=== PATIENT | female | born 1990 | race Caucasian/White ===

== ENCOUNTER 2024-12-11 08:51 | Outpatient (OUT) | payer OTHER, SELFPAY ==
[2024-12-11 10:18] LABS: Basophils Percent Auto 0.5 % (0.2-2.0); Eosinophils Absolute Auto 0.1 10^3/uL (0.0-0.7); Hematocrit 36.5 % (36.0-48.0); Hemoglobin 12.2 g/dL (12.0-16.0); Immature Granulocytes Abs Auto 0.01 10^3/uL (0.00-0.03); Immature Granulocytes Pct Auto 0.1 % (0.0-0.5); Lymphocytes Absolute Auto 1.9 10^3/uL (1.2-3.8); Lymphocytes Percent Auto 23.6 % (20.5-60.0); Mean Corpuscular HGB Conc 33.4 g/dL (29.9-35.2); Mean Corpuscular Hemoglobin 29.5 pg (26.7-34.0); Mean Corpuscular Volume 88.2 fL (81.0-99.0); Mean Platelet Volume 9.4 fL (9.5-13.5); Monocytes Absolute Auto 0.5 10^3/uL (0.3-0.8); Monocytes Percent Auto 5.7 % (1.7-12.0); Neutrophils Absolute Auto 5.5 10^3/uL (1.4-6.5); Neutrophils Percent Auto 69.1 % (43.0-75.0); Platelet Count 261 10^3/uL (150-450); Red Blood Count 4.14 10^6/uL (4.20-5.40); Red Cell Distribution Width 13.5 % (11.0-15.0)
[2024-12-11 10:27] LABS: BOX Test Reference Lab UNITY; BOX Test Sent Out UNITY
[2024-12-11 11:17] LABS: Estimated Average Glucose 108 mg/dL; Glycohemoglobin A1C 5.4 % (4.5-6.2)
[2024-12-12 05:07] LABS: HCV Ab Non Reactive (Non Reactive); HIV Ab/p24 Ag Screen Non Reactive (Non Reactive); Rubella Antibodies, IgG 9.62 index (Immune >0.99)
[2024-12-12 06:12] LABS: HBsAg Screen Negative (Negative)
[2024-12-12 12:09] LABS: Rapid Plasma Reagin, Quant Non Reactive titer (NonRea<1:1)
== END 2024-12-11 08:52 | disposition home or self-care (01) ==
LOC: LAB 08:59
PROVIDERS: PCP Family Medicine; Visit Provider Obstetrics & Gynecology
DX: Z34.01 Encounter for supervision of normal first pregnancy, first trimester (principal); Z36.0 Encounter for antenatal screening for chromosomal anomalies; N92.6 Irregular menstruation, unspecified
CPT/HCPCS: 36415; 83036; 85025; 86592; 86762; 86803; 86850; 86900; 86901; 87086; 87340; 87389

== ENCOUNTER 2025-02-05 11:01 | Outpatient (OUT) | payer OTHER, SELFPAY ==
--- OUTSIDE RECORDS SUMMARY | 2025-02-05 11:06 | XMS_ITS | CCD ---
Author Organization [facility] Care Team Providers Care Project Associate Name Role Phone Lamonte Martin Unavailable MOROCCO, JAY Unavailable Unavailable LAMONTE MARTIN Unavailable Unavailable TIMOTHY JAY Unavailable Unavailable LAMONTE MARTIN Unavailable Unavailable Deidre Addison Primary Care Physician Unavaila ble Maryana, Paul Arriola Unavailable Unavailable Emelyn, Vladimir Arriola Primary Care Physician Unavail able Emelyn, Vladimir Arriola Primary Care Physician Unavail able Emelyn, Vladimir Arriola Primary Care Physician Unavail able Emelyn, Vladimir Arriola Primary Care Physician Unavail able Emelyn, Vladimir Arriola Primary Care Physician Unavail able Maryana, Paul Arriola Unavailable Unavailable Maryana, Paul Arriola Primary Care Physician Unavapaige Dunaway, Vladimir Arriola Primary Care Physician Unavail able Emelyn, Vladimir Arriola Primary Care Physician Unavail able Prudence Aguilar MD Primary Care Provider Vladimir Dunaway Primary Care Physician Unavail able ROSEMARY, DR INGRAM Attending Unavailable REQUEST, NONE LISTED Primary Care Unavaila henri RILEY, DR INGRAM Consulting Unavailable ROSEMARY, DR INGRAM Admitting Unavailable REQUEST, NONE LISTED Primary Care Unavaila henri MIJARES, DR PAUL Arriola Admitting Unavailabl e KALI, DR SANDHYA Cueto Consulting Unavailable MARYANA, DR PAUL Arriola Attending Unavailabl e MARYANA, DR PAUL Arriola Consulting Unavailgemini e ANNIA, DR ANNEL Duncan Consulting Unavailable REQUEST, NONE LISTED Primary Care Unavaila ble ROSEMARY, DR INGRAM Admitting Unavailable ROSEMARY, DR INGRAM Attending Unavailable ROSEMARY, DR INGRAM Consulting Unavailable REQUEST, NONE LISTED Primary Care Unavaila henri MILNER, DR ANNEL Duncan Consulting Unavailable ROSEMARY, DR INGRAM Admitting Unavailable ROSEMARY, DR INGRAM Attending Unavailable ROSEMARY, DR INGRAM Consulting Unavailable Emelyn, Vladimir Arriola Primary Care Physician Unavail able PAUL MIJARES Referring Unavailable SECOR, PRUDENCE Garnica Primary Care Unavailable PAUL MIJARES Referring Unavailable SECOR, PRUDENCE Garnica Primary Care Unavailable Emelyn, Vladimir Arriola Primary Care Physician Unavail able Emelyn, Vladimir Arriola Primary Care Physician Unavail able Emelyn, Vladimir Arriola Primary Care Physician Unavail able Emelyn, Vladimir Arriola Primary Care Physician Unavail able Emelyn, Vladimir Arriola Primary Care Physician Unavail able Emelyn, Vladimir Arriola Primary Care Physician Unavail able Emelyn, Vladimir Arriola Primary Care Physician Unavail able Emelyn, Vladimir Arriola Primary Care Physician Unavail able Emelyn, Vladimir Arriola Primary Care Physician Unavail able [place] Prudence CASTILLO Primary Care Provider JOY TRAMMELL Referring Unavailable SECOR, PRUDENCE Garnica Primary Care Unavailable [place] Prudence CASTILLO Primary Care Provider [phone] NATALY RILEY Attending Unavailable Emelyn, Vladimir Arriola Primary Care Physician Unavail able Allergies Allergy Classification Reported Allergen(s) Allergy Type Date of Onset Reaction(s) Facility (16 sources) Doxycycline; Translations: [doxycycline hyclate] Drug Allergy [facility] (16 sources) Minocycline; Translations: [minocycline] Drug Allergy [facility] (16 sources) Tetracyclines Allergy to substance (disorder) [facility] (6 sources) Doxycycline Drug Allergy 1 Other (See Comments), Other, Unknown [facility] (6 sources) Minocycline Drug Allergy 1 Other (See Comments), Other [facility] [employer] Work Phone: Medications Current Medications Medication Drug Class(es) Dates Sig (Normalized) Sig (Original) Albuterol (1 source) beta2-Adrenergic Agonist ALBUTEROL SULFATE HFA IN Inhale into the lungs. 0 Active azelaic acid 200 mg/ml topical cream (20 sources) Start: 01-28-2025 Azelex 20 % topical cream 01/28/2025 apply a thin layer to the affected area(s) by topical route 2 times per day in the morning and evening Start: 01-28-2025 Azelex 20 % to pical cream 01/28/2025 apply a thin layer to the affected area(s) by topical route 2 times per day in the morning and evening Start: 10-28-2020 FINACEA 15 % F [facility] Start: 10-28-2020 End: 08-12-2021 Finacea 15 % topical foam 10/28/202008/12/2021 Apply thin layer to affected areas daily. Start: 02-18-2020 Finacea 15 % t opical foam 02/18/2020 Apply thin layer to affected areas daily. Benzepro (Microspheres) 7 % Topical Cleanser (2 sources) Start: 07-14-2016 BENZEPRO, MICROSPHERES, 7 % Clsr Apply 1 application topically daily. 180 g 2 07/14/2016 Active benzoyl peroxide 70 mg/ml medicated liquid soap (1 source) Start: 07-14-2016 Benzoyl Peroxi de (BENZEPRO CREAMY WASH) 7 % LIQD Apply 1 application topically daily 07/14/2016 Active betamethasone 0.5 mg/ml / clotrimazole 10 mg/ml topical cream (1 source) Azole Antifungal, Corticosteroid Start: 06-05-2024 clotrimazole-betamet h asone (LOTRISONE) 1-0.05 % cream Apply topically 2 times daily. 15 g 2 06/05/2024 Active ciclopirox 7.7 mg/ml topical cream (2 sources) Start: 08-22-2017 End: 08-22-2018 ciclopirox (LOPROX) 0.77 % cream Apply topically 2 (two) times a day Apply BID to feet. 30 g 1 08/22/2017 08/22/2018 Active Clascoterone (WINLEVI) 1 % CREA (1 source) Start: 11-11-2022 Clascoterone (WINLEVI) 1 % CREA Apply topically 11/11/2022 Active clindamycin 10 mg/ml topical lotion (20 sources) Lincosamide Antibacterial Start: 06-22-2022 clindamycin (CLEOCIN T) 1 % lotion 06/22/2022 Active Start: 12-18-2021 End: 03-03-2023 Cleocin T 1 % lotion 4/03/03/2023 apply BID to affected areas Start: 10-28-2020 End: 08-12-2021 clindamycin phosphate 1 % to pical gel 10/28/2020 08/12/2021 Apply thin layer to acne-prone areas daily. Start: 10-28-2020 End: 08-12-2021 clindamycin phosphate 1 % to pical gel 10/28/2020 08/12/2021 Apply thin layer to acne-prone areas daily. Start: 02-18-2020 clindamycin ph osphate 1 % topical gel 02/18/2020 Apply thin layer to acne-prone areas daily. doxylamine succinate 25 mg oral tablet (1 source) Start: 10-30-2014 take 0.5 tablet by mouth every six hours as needed for sleep doxyLAMINE succinate (UNISOM) 25 MG tablet Take 0.5 tablets by mouth every 6 hours as needed for Sleep. 14 tablet 0 10/30/2014 Active fluconazole 150 mg oral tablet (1 source) Azole Antifungal Start: 08-17-2024 End: 08-23-2024 fluconazole (DIFLUCAN) 150 MG tablet Indications: Acute cystitis with hematuria Take 1 tablet by mouth every 72 hours for 6 days 2 tablet 08/17/2024 08/23/2024 Active fluticasone propionate 0.05 mg/actuat metered dose nasal spray (1 source) Corticosteroid Start: 12-31-2020 take 1 spray(s) nasal route twice daily fluticasone (FLONASE) 50 MCG/ACT nasal spray 1 spray by Each Nostril route 2 times daily 2 Bottle 1 12/31/2020 Active Magnesium (4 sources) take 1 capsule by mouth once daily Magnesium 400 MG capsule Take 400 mg by mouth Daily Active nitrofurantoin, macrocrystals 25 mg / nitrofurantoin, monohydrate 75 mg oral capsule (1 source) Nitrofuran Antibacterial Start: 08-17-2024 End: 08-27-2024 take 1 capsule by mouth twice daily nitrofurantoin, macrocrystal-monohy drate, (MACROBID) 100 MG capsule Indications: Acute cystitis with hematuria Take 1 capsule by mouth 2 times daily for 10 days 20 capsule 08/17/2024 08/27/2024 Active Moclips-3 Fatty Acids (OMEGA-3 CF PO) (4 sources) take 1 dose by mouth once daily Moclips-3 Fatty Acids (OMEGA-3 CF PO) Take 1 each by mouth Daily Active ondansetron 4 mg disintegrating oral tablet (1 source) Serotonin-3 Receptor Antagonist Start: 08-17-2024 take 1 tablet by mouth three times daily as needed for nausea ondansetron (ZOFRAN-ODT) 4 MG disintegrating tablet Indications: Nausea Take 1 tablet by mouth 3 times daily as needed for Nausea or Vomiting 21 tablet 08/17/2024 Active Onexton 1.2 % (1 % Base)-3.75 % Topical Gel With Pump (2 sources) Start: 07-14-2016 ONEXTON 1.2 %(1 % base) -3.75 % GlwP Apply 1 application topically daily. 50 g 2 07/14/2016 Active phenazopyridine hydrochloride 200 mg delayed release oral tablet (1 source) Start: 08-17-2024 End: 08-20-2024 take 1 tablet by mouth three times daily as needed for pain phenazopyridine (PYRIDIUM) 200 MG tablet Indications: Acute cystitis with hematuria Take 1 tablet by mouth 3 times daily as needed for Pain 9 tablet 08/17/2024 08/20/2024 Active polysaccharide iron complex 391 mg oral capsule (17 sources) Start: 2020 End: 08-12-2021 take 1 capsule by mouth once daily PROFE 391.3 (180 Fe) MG CAPS TAKE 1 CAPSULE BY MOUTH ONCE DAILY 0 2020 Active Vit-Fe Fumarate-FA ( Vitamin Plus Low Iron) 27-1 MG tablet (4 sources) take 1 tablet by mouth once daily Vit-Fe Fumarate-FA ( Vitamin Plus Low Iron) 27-1 MG tablet Take 1 each by mouth 1 (one) time each day at the same time Active Vit-Fe Sulfate-FA ( MULTIVIT-IRON PO) (1 source) Vit-Fe Sulfate-FA ( MULTIVIT-IRON PO) Take by mouth. 0 Active pyridoxine hydrochloride 25 mg oral tablet (1 source) Start: 10-30-2014 take 1 tablet by mouth every six hours as needed pyridoxine (B-6) 25 MG tablet Take 1 tablet by mouth every 6 hours as needed. 20 tablet 0 10/30/2014 Active terconazole 4 mg/ml vaginal cream (1 source) Azole Antifungal Start: 12-18-2020 terconazole (TERAZOL 7) 0.4 % vaginal cream INSERT 1 APPLICATORFUL VAGINALLY AT BEDTIME FOR 7 DAYS 0 12/18/2020 Active triamcinolone acetonide 1 mg/ml topical cream (2 sources) Corticosteroid Start: 08-22-2017 End: 08-22-2018 triamcinolone (KENALOG) 0.1 % cream Apply topically 2 (two) times a day Apply BID to hands. 45 g 1 08/22/2017 08/22/2018 Active WINLEVI 1 % CREA (1 source) Start: 02-11-2023 WINLEVI 1 % CREA 02/11/2023 Active Completed/Discontinued Medications Medication Drug Class(es) Dates Sig (Normalized) Sig (Original) benzoyl peroxide 0.05 mg/mg / clindamycin phosphate 0.012 mg/mg topical gel (20 sources) Lincosamide Antibacterial Start: 12-25-2024 clindamycin 1.2 % (1 % base)-benzoyl peroxide 5 % topical gel 12/25/2024 APPLY TOPICALLY TO AFFECTED AREA ONCE DAILY Start: 10-10-2023 Clindamycin Ph os-Benzoyl Perox 1.2-5 % External Gel 03/21/2024 APPLY TOPICALLY TO AFFECTED AREA ONCE DAILY Start: 11-09-2021 End: 03-03-2023 clindamycin-benzoyl peroxide topical gel 1.2 %(1 % base) -5 % 11/09/2021 03/03/2023 apply once daily to affected areas Start: 11-09-2021 clindamycin-be nzoyl peroxide topical gel 1.2 %(1 % base) -5 % 11/09/2021 Start: 07-14-2016 Clindamycin Ph os-Benzoyl Perox (ONEXTON) 1.2-3.75 % GEL Apply 1 application topically daily 07/14/2016 Active calcium carbonate 500 mg chewable tablet (16 sources) End: 08-12-2021 take 1 tablet by mouth once daily Tums 200 mg calcium (500 mg) chewable tablet 08/12/2021 chew 1 tablet by oral route daily Candicidal 100 mg-150 mg-50 mg-150 mg capsule (15 sources) End: 07-06-2023 take 1 capsule by mouth once daily Candicidal 100 mg-150 mg-50 mg-150 mg capsule 07/06/2023 take 1 capsule by oral route daily take 1 capsule by mouth once jose ly Candicidal 100 mg-150 mg-50 mg-150 mg capsule take 1 capsule by oral route daily dapsone 0.075 mg/mg topical gel (6 sources) Sulfone Start: 07-18-2023 Aczone 7.5 % t opical gel with pump 07/18/2023 apply diffusely to face QD Start: 07-06-2023 Aczone topical gel with pump 7.5 % 07/06/2023 apply diffusely to face QD DIM (9 sources) DIM as directed doxycycline monohydrate 100 mg oral capsule (20 sources) Tetracycline-class Drug Start: 0 End: 0 take 1 capsule by mouth twice daily at mealtime doxycycline monohydrate 100 mg oral capsule 02/18/2020 06/06/2020 Take 1 capsule by mouth twice daily with food. Ortho Tri-Cyclen (28) 0.18/0.215/0.25 mg-35 mcg (28) oral tablet (20 sources) Progestin, Estrogen End: 0 take 1 tablet by mouth once daily Ortho Tri-Cyclen (28) 0.18/0.215/0.25 mg-35 mcg (28) oral tablet 02/18/2020 take 1 tablet by oral route once daily for 1 day fenugreek seed extract Oral capsule 500 mg (8 sources) End: 0 take 2 capsules by mouth three times daily fenugreek seed extract Oral capsule 500 mg 06/06/2020 take 2 capsules by oral route 3 times a day fenugreek seed extract Oral capsule 500 mg (16 sources) End: 0 take 2 capsules by mouth three times daily fenugreek seed extract Oral capsule 500 mg 06/06/2020 take 2 capsules by oral route 3 times a day take 2 capsules by m outh three times daily fenugreek seed extract Oral capsule 500 mg take 2 capsules by oral route 3 times a day Fish Oils (16 sources) End: 08-12-2021 take 1 capsule by mouth once daily Fish Oil 1,000 mg (120 mg-180 mg) capsule 08/12/2021 take 1 capsule by oral route daily minocycline 50 mg oral capsule (20 sources) Tetracycline- class Drug End: 02-18-2020 take 1 capsule by mouth twice daily minocycline 50 mg oral capsule 02/18/2020 take 1 capsule (50 mg) by oral route 2 times per day Mother Ivana Special Blend (20 sources) End: 06-06-2020 Mother Ivana Special Blend 06/06/2020 1 capsule 4 times per day Mother Ivana Spec ial Blend 1 capsule 4 times per day multivitamin tablet (9 sources) take 1 tablet by mouth once daily multivitamin tablet take 1 tablet by oral route daily 28 mg iron-800 mcg tablet (16 sources) take 1 tablet by mouth once daily 28 mg iron-800 mcg tablet take 1 tablet by oral route daily tretinoin 0.25 mg/ml topical cream (16 sources) Retinoid Start: 11-21-2023 Retin-A 0.025 % topical cream 11/21/2023 apply to the affected area(s) by topical route once daily at bedtime Start: 07-18-2023 Retin-A 0.05 % topical cream 07/18/2023 apply to the affected area(s) by topical route once daily at bedtime Start: 07-06-2023 Retin-A topica l cream 0.05 % 07/06/2023 apply to the affected area(s) by topical route once daily at bedtime Start: 02-04-2023 Retin-A 0.1 % topical cream 02/04/2023 apply to the affected area(s) by topical route once daily at bedtime Start: 10-25-2022 tretinoin (RET IN-A) 0.1 % cream 10/25/2022 Active Start: 06-08-2022 Retin-A topica l cream 0.1 % 06/08/2022 apply to the affected area(s) by topical route once daily at bedtime Start: 11-09-2021 Retin-A topica l cream 0.05 % 11/09/2021 apply QHS to face Winlevi 1 % topical cream (1 source) Start: 11-11-2022 Winlevi 1 % to pical cream 11/11/2022 apply a thin layer to the affected area(s) by topical route 2 times per day Winlevi 1 % topical cream (8 sources) Start: 05-28-2024 Winlevi 1 % to pical cream 05/28/2024 apply a thin layer to the affected area(s) by topical route 2 times per day Start: 01-10-2024 Winlevi 1 % to pical cream 01/10/2024 apply a thin layer to the affected area(s) by topical route 2 times per day change of pharm Start: 04-21-2023 Winlevi 1 % to pical cream 04/21/2023 apply a thin layer to the affected area(s) by topical route 2 times per day change of pharm Start: 02-11-2023 Winlevi 1 % to pical cream 02/11/2023 apply a thin layer to the affected area(s) by topical route 2 times per day Problems Active Problems Problem Classification Problem Date Documented Date Episodic/Chronic Asthma (17 sources) Unspecified asthma, uncomplicated; Translations: [Uncomplicated asthma] Onset: 03-16-2021 05-18-2022 Chronic Immunizations and screening for infectious disease (1 source) Encounter for screening for human papillomavirus (HPV); Translations: [ENC SCREENING HUMAN PAPILLOMAVIRUS] Onset: 07-18-2022 Episodic Neoplasms of unspecified nature or uncertain behavior (4 sources) Neoplasm of uncertain behavior of skin Onset: 01-28-2025 Episodic Other complications of ; puerperium affecting management of mother (1 source) Anemia in mother complicating childbirth; Translations: [Anemia complicating childbirth] Onset: 03-16-2021 05-18-2022 Chronic Other complications of (1 source) Anemia of ; Translations: [Anemia complicating , unspecified trimester] Onset: 01-06-2021 05-18-2022 Chronic Other female genital disorders (4 sources) Abnormal uterine and vaginal bleeding, unspecified; Translations: [ABNORMAL UTERINE VAGINAL BLEED UNS] Onset: 07-09-2022 Chronic Other female genital disorders (1 source) Abnormal uterine bleeding; Translations: [Abnormal uterine and vaginal bleeding, unspecified] Onset: 03-13-2022 05-18-2022 Chronic Other non-traumatic joint disorders (16 sources) Pain in unspecified joint Episodic Other and delivery including normal (2 sources) Second trimester ; Translations: [Encounter for supervision of normal , unspecified, second trimester] 01-07-2025 Episodic Other screening for suspected conditions (not mental disorders or infectious disease) (20 sources) Other specified abnormal findings of blood chemistry; Translations: [Encounter for screening for malignant neoplasm of cervix] Onset: 10-16-2020 Resolved: 06-17-2022 Episodic Other skin disorders (9 sources) Other acne Onset: 02-18-2020 Episodic Other skin disorders (5 sources) Dyschromia, unspecified Onset: 02-18-2020 Episodic Other skin disorders (14 sources) Acne, unspecified Onset: 10-10-2023 Episodic Residual codes; unclassified (2 sources) Gestation period, 15 weeks; Translations: [15 weeks gestation of ] 01-07-2025 Episodic Systemic lupus erythematosus and connective tissue disorders (20 sources) Systemic lupus erythematosus; Translations: [Systemic lupus erythematosus, unspecified] Onset: 04-24-2020 05-18-2022 Chronic Thyroid disorders (20 sources) Hyperthyroidism; Translations: [Thyrotoxicosis without mention of goiter or other cause, and without mention of thyrotoxic crisis or storm] Onset: 08-12-2021 Chronic Urinary tract infections (1 source) Acute cystitis; Translations: [Acute cystitis with hematuria] 08-17-2024 Episodic Past or Other Problems Problem Classification Problem Date Documented Date Episodic/Chronic Acute posthemorrhagic anemia (1 source) Acute posthemorrhagic anemia; Translations: [Acute posthemorrhagic anemia] Onset: 1 05-18-2022 Episodic Allergic reactions (7 sources) Allergic contact dermatitis; Translations: [Eczema] Onset: 7 Episodic Mycoses (3 sources) Tinea pedis; Translations: [Tinea pedis] Onset: 7 Episodic Other and unspecified benign neoplasm (3 sources) Hemangioma unspecified site Onset: 4 Episodic Other skin disorders (20 sources) Alopecia, unspecified Onset: 3 Episodic Other skin disorders (20 sources) Acne vulgaris Onset: 0 Episodic Other skin disorders (19 sources) Postinflammatory hyperpigmentation Onset: 0 Episodic Other skin disorders (20 sources) Nonscarring hair loss, unspecified; Translations: [Nonscarring hair loss, unspecified] Onset: 2 Episodic Other skin disorders (1 source) Acne vulgaris; Translations: [Acne vulgaris] Onset: 0 05-18-2022 Episodic Other skin disorders (1 source) Alopecia areata; Translations: [Alopecia areata, unspecified] Onset: 3 05-18-2022 Episodic Other skin disorders (1 source) Disorder of pigmentation; Translations: [Disorder of pigmentation, unspecified] Onset: 0 05-18-2022 Episodic Residual codes; unclassified (14 sources) Insomnia, unspecified; Translations: [Insomnia, unspecified] Onset: 2 Episodic Residual codes; unclassified (1 source) Gestation period, 39 weeks; Translations: [39 weeks gestation of ] Onset: 1 05-18-2022 Episodic Residual codes; unclassified (1 source) Insomnia; Translations: [Insomnia, unspecified] Onset: 2 11-10-2023 Episodic Thyroid disorders (19 sources) Disorder of thyroid, unspecified; Translations: [Disorder of thyroid gland] Onset: 1 05-18-2022 Episodic Results Test Name Value Interpretation Reference Range Facility Urinalysis macro (dipstick) panel (U)on 01-07-2025 Bilirubin, UA Negative Negative - 4(70) +++ mg/dL [facility] Blood, UA Negative Negative - 50 Thor/mcL [facility] Clarity, UA Clear [facility] Color, UA Yellow [facility] Glucose, UA Negative Negative - 2000(110) ++++ mg/dL [facility] Interpretation and review of laboratory results Normal [facility] Ketones, UA Negative Negative - 160(16) ++++ mg/dL [facility] Leukocytes, UA Negative Negative - 500+++ Georgina/mcL [facility] Nitrite, UA Negative Negative - Positive [facility] pH, UA 5.5 5 - 9 [facility] Protein, UA Negative Negative - 2000(20) ++++ mg/dL [facility] Spec Grav, UA 1.025 1 - 1.03 [facility] Urobilinogen, UA 0.2 0.2 - 12 mg/dL [facility] US OB TRANSVAGINALon 025 US OB TRANSVAGINAL EXAM: US OB TRANSVAGINAL HISTORY: Dating. COMPARISON: None available. TECHNIQUE: Two-dimensional transvaginal grayscale ultrasound imaging of the pelvis was performed. FINDINGS: The uterus demonstrates a normal homogeneous echotexture. The cervix measures 4.4 cm in length and the cervical os is closed. The bilateral ovaries are not visualized due to overlying bowel gas. No fluid is present within the cul-de-sac. There is a single, live intrauterine gestation identified with a heart rate of 170 beats per minute and a crown-rump length measurement of 3.4 cm, correlating to a gestational age of 10 weeks 2 days (+/- 5 days). There is no subchorionic hemorrhage visualized. A yolk sac is visualized. IMPRESSION: 1. Single, live intrauterine gestation 10 weeks, 5 days by LMP. Today's ultrasound measurements correlate with a gestational age of 10 weeks 2 days (+/- 5 days). JULIO by today's ultrasound is 07/02/2025. 2. Bilateral ovaries not visualized due to overlying bowel gas. Electronically Signed:Electronicall y signed by BHAVANI OCONNELL II, MD, PHD at 07-Dec-2024 08:32:38 PM [facility] Normal Not Available Comment on above: Order Comment: US OB TRANSVAGINAL No LMP recorded. Culture, Urineon 08-17-2024 [place] - Organism 01 Escherichia coli Abnormal [facility] Comment on above: Order Comment: [place] - Source of Urine Collection? Urine clean catch\[id number]\Performed by [facility] [address] [place] [address] [place] - Source of Urine Collection? Urine clean catch [place] - Current Antibiotic Therapy? No Answer Given Performed By: #### C UR #### [facility] See Report [place] - SOURCE urine, clean catch Normal [facility] Comment on above: Order Comment: [place] - Source of Urine Collection? Urine clean catch\[id number]\Performed by [facility] [address] [place] [address] [place] - Source of Urine Collection? Urine clean catch [place] - Current Antibiotic Therapy? No Answer Given Performed By: #### C UR #### [facility] See Report [place] - URINE CULTURE [place] count: >100,000 CFU/mL Normal [facility] Comment on above: Order Comment: [place] - Source of Urine Collection? Urine clean catch\[id number]\Performed by [facility] [address] [place] [id number] [place] - Source of Urine Collection? Urine clean catch [place] - Current Antibiotic Therapy? No Answer Given Performed By: #### C UR #### [facility] See Report URINE CULTUREon 08-17-2024 Bacteria identified Cx Nom (U) MICROBIOLOGY REPORT [facility], [address] [place] [address], [place], [address] PATIENT: KELLY GONZALEZ LOCATION: [facility] - - : 1990 AGE: 33 SEX: F ADM: 08/17/24 Att. Physician: PHYSICIAN, NON-STAFF Order Id: [id number] Req. Physician: PHYSICIAN, NON-STAFF Source: urine, clean catch Site: Collected: 08/17/24 16:24 Current Antibiotics: not stated Antibiotics comment: C O M M E N T S ---- [place] - Source of Urine Collection? Urine clean catch STATUS OF ORDERED AND REPORTED TESTS URINE CULTURE FINAL 08/19/24 URINE CULTURE FINAL 08/19/24 09:01 Organism 01 Escherichia coli [place] count: >100,000 CFU/mL Organism 01-esccol Antibiotic [facility] Intrp *Adult dosage Pk bld level Pk urine lev. Amoxicillin/CA <=2 S PO 250-500mg/q 8 hrs. 4.4-7.6 Amox/ . 2.3 clavulani Piperacillin/Ta <=4 S IV 3.375gm 242 Cefazolin <=4 S IV 1000mg 188 Cefoxitin <=4 S IV 1000mg 110 Ceftriaxone <=1 S IV 1000mg 150 995 Ampicillin 4 S PO 500mg (fasting) 2.5-4.0 IV 2g q 6 h 100 Cefepime <=1 S IV 2000mg 164 Trimethoprim/Mane>=320 R [id number]/800mgSMX q 12h 1-2TMP/[id number] P/97SM IV 160mgTMP/800mgSMX q 8 h9TMP/105 SMX Gentamicin <=1 S IV 1.7mg/kg q 8 h 5-7 >=100 Ciprofloxacin <=0.25 S PO 750 mg q 12 h 3.6 IV 400 mg q 12 h 4.6 Levofloxacin <=0.12 S IV 250-500mg 12.1 Tetracycline <=1 S PO 250mg 2-4 100 Nitrofurantoin <=16 S PO 100mg <1.0 15-46 S=Susceptible I=Intermediate R=Resistant Susceptibility is determined by comparing the MICA of organism to the achievable blood or urine level of drug. Level at the site of infection should be a minimum of 5-10 times the MICA. MICA and blood and urine levels=mcg/ml.*Stand giuliana dosages from [place] Guide to Antimicrobial Therapy and assumes moderate infection in normal adult populations. For pts. with renal or liver disease consult PDR or pharmacist. Normal [facility] No Panel Informationon 05-23 Tobacco smoking status Non-Smoker Invalid Interpretation Code [facility] - Chemistry and C hemistry - challengeon 04-18-2023 TSH Qn 1.23 m[IU]/L Invalid Interpretation Code 0.50-4.00 [facility] Thyroxine T4on 08-11-2022 T4 [Mass/Vol] 6.4 ug/dL Normal 4.5-10.9 [facility] Comment on above: Performed By: #### T 4, T3 #### [address] [id number] Therapeutic Recreation Assistant: Ramiro Blandon MD #### TSH #### [address] [place] [address] Therapeutic Recreation Assistant: Annel García MD Triiodothyronine T3on 08-11 2021 Triiodothyronine T3 96 ng/dL Normal 60-181 [facility] Comment on above: Performed By: #### T 4, T3 #### [address] [id number] Therapeutic Recreation Assistant: Ramiro Blandon MD #### TSH #### [address] [place] [address] Therapeutic Recreation Assistant: Annel García MD Laboratory - Chemistry and C hemistry - challengeon 08-10-2022 T3 [Mass/Vol] 96.0 ng/dL Invalid Interpretation Code [facility] T4 [Mass/Vol] 6.4 ug/dL Invalid Interpretation Code [facility] TSH Qn 0.41 m[IU]/L Invalid Interpretation Code [facility] [employer] [facility] No Panel Informationon 08-10 jls Invalid Interpretation Code [facility] Thyroid Stim. Horm.on 2021 Thyroid Stim. Horm. 0.41 uIU/mL Normal 0.30-5.00 [facility] Comment on above: Performed By: #### T 4, T3 #### [facility] [address] [place] [address] Therapeutic Recreation Assistant: Ramiro Blandon MD #### TSH #### [facility] [address] [place] [address] Therapeutic Recreation Assistant: Annel García MD PAP ACOG PANEL 2: 30 to 65on 07-21-2022 . . Normal [facility] Comment on above: Result Comment: Perf ormed at: WB Performed By: #### [id number] #### [facility] [address] [place] [address] Dr. Jaci Irene Age Gdln ACOG Testing 30-65 Normal [facility] Comment on above: Performed By: #### [id number] #### [facility] [address] [address] [address] Jaci Irene DIAGNOSIS: Comment Normal [facility] Comment on above: Result Comment: NEGA TIVE FOR INTRAEPITHELIAL LESION OR MALIGNANCY. CELLULAR CHANGES ASSOCIATED WITH INFLAMMATION ARE PRESENT. Performed at: WB Performed By: #### [id number] #### [facility] [address] [place] [address] Dr. Jaci Irene HPV Aptima Negative Normal Negative [facility] Comment on above: Result Comment: This nucleic acid amplification test detects fourteen high-risk HPV types (16,18,31,33,35,39,45,51,52,56,58,59,66,68) without differentiation. Performed at: =G Performed By: #### 4 [id number] #### [facility] [address] [place] [address] Dr. Jaci Irene HPV Genotype Reflex Comment Normal [facility] Comment on above: Result Comment: Crit eria not met, HPV Genotype not performed. Performed at: WB Performed By: #### 4 [id number] #### [facility] [address] [place] [address] Dr. Jaci Irene Methodology: Comment Normal [facility] Comment on above: Result Comment: This liquid based ThinPrep(R) pap test was screened with the use of an image guided system. Performed at: WB Performed By: #### [id number] #### [facility] [address] [place] [address] Dr. Jaci Irene Note: Comment Normal [facility] Comment on above: Result Comment: The Pap smear is a screening test designed to aid in the detection of premalignant and malignant conditions of the uterine cervix. It is not a diagnostic procedure and should not be used as the sole means of detecting cervical cancer. Both false-positive and false-negative reports do occur. . Performed at: WB Performed By: #### [id number] #### [facility] [address] [place] [address] Dr. Jaci Irene Performed by: Comment Normal [facility] Comment on above: Result Comment: Kirill Azevedo Stencil Inspector (ASCP) Performed at: WB Performed By: #### 4 [id number] #### [facility] [address] [place] [address] Dr. Jaci Irene Specimen adequacy: Comment Normal [facility] Comment on above: Result Comment: Sati sfactory for evaluation. Endocervical and/or squamous metaplastic cells (endocervical component) are present. Performed at: WB Performed By: #### 4 [id number] #### [facility] [address] [place] [address] Dr. Jaci Irene Laboratory - Cytologyon 06-20 Cytology report Cyto stain.thin prep Doc (Cvx/Vag) Pap Smear / Cervical Cytology Invalid Interpretation Code [facility] - Microbiology an d Antimicrobial susceptibilityon 07-14-2022 HPV 16+18+31+33+35+45+51 +52+56 DNA Probe Ql (Cvx) HPV-DNA Test Invalid Interpretation Code [facility] US PELVIS AND TRANSVAGon US PELVIS AND TRANSVAG EXAMINATION: US PELVIS AND TRANSVAG HISTORY: Abnormal uterine bleeding unrelated to menstrual cycle COMPARISON: No relevant comparison available. FINDINGS: The uterus is normal in size, contour and echotexture measuring 8.6 x 4.2 x 5.9 cm. No focal myometrial mass. Anechoic echogenicity along the scar measuring 2 mm with thinning of the adjacent myometrial wall measuring 4 mm The endometrium measures 7.5 mm. Small amount of fluid measuring up to 2 mm. The right ovary is normal in appearance measuring 3.9 x 1.5 x 1.4 cm. Normal color and Doppler ultrasound The left ovary is normal in appearance measuring 4.2 x 1.6 x 2.3 cm. Normal color and Doppler ultrasound IMPRESSION: No abnormality to explain the patient's menorrhagia Electronically authenticated by: ANNEL MILNER Date: 2022-07-09 15:36 Normal [facility] Thyroxine T4on 03-17-2022 T4 [Mass/Vol] 6.3 ug/dL Normal 4.5-10.9 [facility] Comment on above: Performed By: #### F T3, T4 #### [facility] [address] [place] [address] Therapeutic Recreation Assistant: Ramiro Blandon MD #### TSH #### [facility] [address] [place] [address] Therapeutic Recreation Assistant: Annel García MD Laboratory - Chemistry and C hemistry - challengeon 03-16-2022 Free T3 [Mass/Vol] 2.960 pg/mL Invalid Interpretation Code [facility] T4 [Mass/Vol] 6.3 ug/dL Invalid Interpretation Code [facility] TSH Qn 0.61 m[IU]/L Invalid Interpretation Code [facility] No Panel Informationon 03-16 ls Invalid Interpretation Code [facility] T3, Freeon 03-16-2022 Free T3 [Mass/Vol] 2.96 pg/mL Normal 2.02-4.43 [facility] Comment on above: Performed By: #### F T3, T4 #### [facility] [address] [place] [address] Therapeutic Recreation Assistant: Ramiro Blandon MD #### TSH #### [facility] [address] [place] [address] [place] [address] Therapeutic Recreation Assistant: Annel García MD Free T3 [Mass/Vol] 2.96 pg/mL 2.02 - 4. 43 pg/mL [facility] TSHon 03-16-2022 [facility] Thyroid Stim. Horm.on 2021 Thyroid Stim. Horm. 0.61 uIU/mL Normal 0.30-5.00 [facility] Comment on above: Performed By: #### F T3, T4 #### [facility] [address] [place] [address] Therapeutic Recreation Assistant: Ramiro Blandon MD #### TSH #### [facility] [address] [place] [address] Therapeutic Recreation Assistant: Annel García MD US PELVIS AND TRANSVAGon US PELVIS AND TRANSVAG EXAMINATION: US PELVIS AND TRANSVAG HISTORY: Abnormal uterine bleeding unrelated to menstrual cycle COMPARISON: 10/29/2020 FINDINGS: The uterus is normal in size and contour with heterogeneous echotexture. No focal myometrial mass. The uterus measures 9.2 x 4.7 x 5.0 cm. The endometrium is prominent measuring up to 1.7 cm thick on transvaginal images The right ovary is normal in size, contour and echotexture measuring 2.0 x 1.3 x 1.7 cm. Normal subcentimeter follicles. Normal color and Doppler flow. PSV/EDV: 21/10.6 cm/s. Resistive index 0.49. The left ovary is normal in size, contour and echotexture measuring 4.4 x 2.0 x 2.7 cm. Normal subcentimeter follicles. Normal color and Doppler flow. PSV/EDV: 22.4/13.5 cm/s. Normal resistive index of 0.4.. IMPRESSION: Prominent endometrium measuring 1.7 cm thick Electronically authenticated by: ANNEL MILNER Date: 2022-03-15 07:03 Normal [facility] IODINE, SERUM OR PLASMAon Iodine, Serum or Plasma 66.7 ug/L Normal 40.0-92.0 [facility] Comment on above: Result Comment: Limi t of quantitation = 20 Performed By: #### I ODINE #### [facility] [address] [address] [address] Jaci Irene THYROID-STIMULATING IMMUNOGL OBULINon 08-05-2021 Thyroid Sim Immunoglobulin <0.10 Normal 0.00-0.55 [facility] Comment on above: Performed By: #### T ELAINA #### [facility] [id number] Jaci Irene T3, TOTAL (TRIIODOTHYRONINE) on 08-04-2021 T3, TOTAL 168 ng/dL Normal 71-180 [facility] Comment on above: Performed By: #### T 3TOTAL ####[facility] [id number] [place], [place] [address]AmDr. Jaci Irene US THYROIDon 08-04-2021 US THYROID EXAMINATION: US THYROID HISTORY: Blood chemistry abnormal COMPARISON: No relevant comparison available. FINDINGS: RIGHT LOBE: Normal size and echotexture. Lobe size: 4.8 x 1.3 x 1.1 cm LEFT LOBE: Normal size and echotexture except for an incidental 3 mm colloid cyst.. Lobe size: 5.0 x 1.1 x 1.4 cm ISTHMUS: Normal size and echotexture. Thickness: 1 mm IMPRESSION: 1. Normal thyroid ultrasound. Electronically authenticated by: SANDHYA BASS Date: 2021-08-04 06:30 Normal [facility] CBC AUTO DIFFon 08-03-2021 BASO # 0.0 103/ul Normal 0.0-0.1 [facility] Comment on above: Performed By: #### C BC #### [facility] [address] [address] [address] Jaci Irene Basophils/100 WBC (Bld) 0.6 % Normal 0.2-2.0 [facility] Comment on above: Performed By: #### C BC #### [facility] [address] [address] [address] Jaci Irene EO # 0.2 103/ul Normal 0.0-0.7 [facility] Comment on above: Performed By: #### C BC #### [facility] [address] [address] [address] Jaci Irene Eosinophils/100 WBC (Bld) 2.2 % Normal 0.9-7.0 [facility] Comment on above: Performed By: #### C BC #### [facility] [address] [address] [address] Jaci Irene Erythrocyte distribution width (RBC) [Ratio] 13.5 % Normal 11.0-15.0 [facility] Comment on above: Performed By: #### C BC #### [facility] [address] [address] [address] Jaci Irene Hematocrit (Bld) [Volume fraction] 40.9 % Normal 36.0-48.0 [facility] Comment on above: Performed By: #### C BC #### [facility] [address] [address] [address] Jaci Irnee Hemoglobin (Bld) [Mass/Vol] 12.8 g/dL Normal 12.0-16.0 [facility] Comment on above: Performed By: #### C BC #### [facility] [address] [address] [address] Jaci Irene IG # 0.01 10e3/ul Normal 0.00-0.03 [facility] Comment on above: Performed By: #### C BC #### [facility] [address] [place] [address] Dr. Jaci Irene IG % 0.1 % Normal 0.0-0.5 [facility] Comment on above: Performed By: #### C BC #### [facility] [address] [place] [address] Dr. Jaci Irene LYMPH # 2.4 103/ul Normal 1.2-3.8 [facility] Comment on above: Performed By: #### C BC #### [facility] [address] [place] [address] Dr. Jaci Irene Lymphocytes/100 WBC (Bld) 35.3 % Normal 20.5-60.0 [facility] Comment on above: Performed By: #### C BC #### [facility] [address] [place] [address] Dr. Jaci Irene MANUAL DIFF REQ NO Normal [facility] Comment on above: Performed By: #### C BC #### [facility] [address] [place] [address] Dr. Jaci Irene MCH (RBC) [Entitic mass] 27.2 pg Normal 26.7-34.0 [facility] Comment on above: Performed By: #### C BC #### [facility] [address] [place] [address] Dr. Jaci Irene MCHC (RBC) [Mass/Vol] 31.3 g/dL Normal 29.9-35.2 [facility] Comment on above: Performed By: #### C BC #### [facility] [address] [place] [address] Dr. Jaci Irene MCV (RBC) [Entitic vol] 86.8 fL Normal 81.0-99.0 [facility] Comment on above: Performed By: #### C BC #### [facility] [address] [place] [address] Dr. Jaci Irene MONO # 0.6 103/ul Normal 0.3-0.8 [facility] Comment on above: Performed By: #### C BC #### [facility] [address] [place] [address] Dr. Jaci Irene Monocytes/100 WBC (Bld) 8.2 % Normal 1.7-12.0 [facility] Comment on above: Performed By: #### C BC #### [facility] [address] [place] [address] Dr. Jaci Irene NEUT # 3.6 103/ul Normal 1.4-6.5 [facility] Comment on above: Performed By: #### C BC #### [facility] [address] [place] [address] Dr. Jaci Irene Neutrophils/100 WBC (Bld) 53.6 % Normal 43.0-75.0 [facility] Comment on above: Performed By: #### C BC #### [facility] [address] [place] [address] Dr. Jaci Irene Platelet mean volume (Bld) [Entitic vol] 9.3 fL Critically low 9.5-13.5 [facility] Comment on above: Performed By: #### C BC #### [facility] [address] [place] [address] Dr. Jaci Irene PLT 299 103/ul Normal 150-450 [facility] Comment on above: Performed By: #### C BC #### [facility] [address] [place] [address] Dr. Jaci Irene RBC 4.71 106/ul Normal 4.20-5.40 [facility] Comment on above: Performed By: #### C BC #### [facility] [address] [place] [address] Dr. Jaci Irene WBC 6.7 103/ul Normal 4.0-11.0 [facility] Comment on above: Performed By: #### C BC #### [facility] [address] [place] [address] Dr. Jaci Irene Laboratory - Chemistry and C hemistry - challengeon 08-03-2021 ALT [Catalytic activity/Vol] 24.0 U/L Invalid Interpretation Code [facility] [employer] T3 [Mass/Vol] 168.0 ng/dL Invalid Interpretation Code [facility] T4 [Mass/Vol] 11.0 ug/dL Invalid Interpretation Code [facility] TSH Qn < 0.020 L Invalid Interpretation Code [facility] - Hematology and Cell countson 08-03-2021 Basophils/100 WBC (Bld) 0.60 % Invalid Interpretation Code [facility] [employer] Eosinophils/100 WBC (Bld) 2.20 % Invalid Interpretation Code [facility] [employer] Erythrocyte distribution width (RBC) [Ratio] 13.50 % Invalid Interpretation Code [facility] [employer] Hematocrit (Bld) [Volume fraction] 40.90 % Invalid Interpretation Code [facility] Hemoglobin (Bld) [Mass/Vol] 12.80 g/dL Invalid Interpretation Code [facility] [employer] Lymphocytes/100 WBC (Bld) 35.30 % Invalid Interpretation Code [facility] [employer] MCH (RBC) [Entitic mass] 27.20 pg Invalid Interpretation Code [facility] MCHC (RBC) [Mass/Vol] 31.30 g/dL Invalid Interpretation Code [facility] MCV (RBC) [Entitic vol] 86.80 fL Invalid Interpretation Code [facility] Monocytes/100 WBC (Bld) 8.20 % Invalid Interpretation Code [facility] Neutrophils/100 WBC (Bld) 53.60 % Invalid Interpretation Code [facility] Platelets (Bld) [#/Vol] 299.0 10*3/uL Invalid Interpretation Code [facility] RBC (Bld) [#/Vol] 4.710 10*6/uL Invalid Interpretation Code [facility] WBC (Bld) [#/Vol] 6.70 10*3/uL Invalid Interpretation Code [facility] No Panel Informationon 08-03 ls Invalid Interpretation Code [facility] < 0.10 Invalid Interpretation Code 0 - 0.55 [facility] 86.70 ug/L Invalid Interpretation Code [facility] SGPTon 08-03-2021 ALT [Catalytic activity/Vol] 24 U/L Normal 9-52 [facility] Comment on above: Performed By: #### T SH, ALT, T4 #### [facility] [address] [place] [address] Dr. Jaci Irene T4on 08-03-2021 T4 [Mass/Vol] 11.00 ug/dL Normal 5.53-11.00 [facility] Comment on above: Performed By: #### T SH, ALT, T4 #### [facility] [address] [place] [address] Dr. Jaci Irene TSHon 08-03-2021 TSH Qn m[IU]/L Critically low 0.470-4.680 [facility] Comment on above: Performed By: #### T SH, ALT, T4 #### [facility] [address] [place] [address] Dr. Jaci Irene TSH RANGE SEE BELOW Normal [facility] Comment on above: Result Comment: <0.3 4 UIU/ml HYPERTHYROID 0.34-5.60 UIU/ml EUTHYROID >5.60 UIU/ml HYPOTHYROID Performed By: #### T SH, ALT, T4 #### [facility] [address] [place] [address] Dr. Jaci Irene No Panel Informationon 04-24 Positive Invalid Interpretation Code [facility] 1:160 Invalid Interpretation Code [facility] COMMENT Invalid Interpretation Code [facility] Cytology Cervical or vaginal smear or scraping studyon 07-14-1992 [facility] Vital Signs Date Time Vital Sign Value Performing Clinician Faci lity 01-07-2025 10:18-0400 Body mass index (BMI) [Ratio] 23.96 kg/m2 Nataly Rosemary DO Work Phone: [facility] 01-07-2025 10:18-0400 Body weight 65.32 kg Nataly Rosemary DO Work Phone: [facility] 01-07-2025 10:18-0400 Diastolic blood pressure 72 mm[Hg] Nataly Rosemary DO Work Phone: [facility] 01-07-2025 10:18-0400 Systolic blood pressure 110 mm[Hg] Nataly Rosemary DO Work Phone: [facility] 08-12-2021 11:02-0500 Body height 163.83 cm Paul Finco 08-12-2021 11:02-0500 Body mass index (BMI) [Ratio] 23.58 kg/m2 Paul Finco 08-12-2021 11:02-0500 Body surface area Derived from formula 1.7 m2 Paul Finco 08-12-2021 11:02-0500 Body weight 63.28 kg Paul Finco 08-12-2021 11:02-0500 Diastolic blood pressure 64 mm[Hg] Paul Finco 08-12-2021 11:02-0500 Heart rate 72 /min Paul Finco 08-12-2021 11:020500 Systolic blood pressure 122 mm[Hg] Paul Mijares [facility] 02-08-2013 10:11-0400 BMI (Body Mass Index) 23.69 kg/m2 [facility] 02-08-2013 10:11-0400 Body weight 62.6 kg [facility] 02-08-2013 10:11-0400 BP Diastolic 62 mm[Hg] [facility] 02-08-2013 10:11-0400 BP Systolic 100 mm[Hg] [facility] 02-08-2013 10:11-0400 BSA (Body Surface Area) 1.68 m2 [facility] 02-08-2013 10:110400 Height 162.56 cm [facility] 02-08-2013 10:11-0400 Pulse (Heart Rate) 66 /min [facility] [employer] [facility] [employer] Encounters Encounter Date Encounter Type Care Provider Facility Start: 02-05-2025 End: 02-05-2025 Bamboo flowsheet Madiha LOPEZ Work Phone: [facility] Start: 02-05-2025 End: 02-05-2025 Bamboo flowsheet Madiha LOPEZ Work Phone: [facility] Start: 01-28-2025 Office outpatient vi sit 25 minutes Vladimir Dunaway Other [facility] Start: 01-07-2025 End: 01-07-2025 Bamboo flowsheet Nataly Riley DO Work Phone: [facility] Start: 01-07-2025 End: 01-07-2025 Bamboo flowsheet Nataly Rosemary DO Work Phone: [facility] Start: 01-07-2025 End: 01-07-2025 flow sheet Nataly Rosemary DO Work Phone: [facility] Comment on above: Second trimester pre gnancy; 15 weeks gestation of Start: 01-07-2025 End: 01-07-2025 ambulatory NATALY ROSEMARY Not Available Start: 12-06-2024 End: 12-06-2024 ambulatory NATALY ROSEMARY Not Available Start: 08-17-2024 End: 08-17-2024 Subsequent hospital visit by physician [facility] Walk [facility] Comment on above: Acute cystitis with hematuria Start: 08-17-2024 ambulatory JOY Pepe [facility] Start: 05-23-2024 Office outpatient vi sit 15 minutes Vladimir Dunaway Other [facility] Office Start: 11-21-2023 Office outpatient vi sit 15 minutes Vladimir Dunaway Other [facility] Start: 10-10-2023 Office outpatient vi sit 15 minutes Vladimir Dunaway Other [facility] Office Start: 07-06-2023 Office outpatient vi sit 25 minutes Vladimir Dunaway Other [facility] Office Start: 04-18-2023 Lab Vladimir flores Other [facility] Office Start: 03-03-2023 Office outpatient vi sit 15 minutes Vladimir Dunaway Other [facility] Start: 01-11-2023 Office outpatient vi sit 15 minutes Vladimir Dnuaway Other [facility] Start: 10-14-2022 Office outpatient vi sit 25 minutes Vladimir Dunaway Other [facility] Office Start: 08-10-2022 End: 08-11-2022 ambulatory PAUL [facility] Start: 07-15-2022 End: 07-15-[address] NATALY RILEY Facility: Start: 07-09-2022 End: 07-10-[address] NONE LISTED REQUEST Facility:[facility] Start: 06-08-2022 Office outpatient vi sit 25 minutes Vladimir Dunaway Other [facility] Start: 03-16-2022 End: 03-17-2022 ambulatory PAUL MIJARES [facility] Start: 03-16-2022 End: 03-16-2022 Subsequent hospital visit by physician Prudence Aguilar MD Work Phone: [facility] Start: 03-13-2022 End: 03-14-[address] ANNEL MILNER Facility: Start: 12-18-2021 Office outpatient vi sit 15 minutes Vladimir Dunaway Other [facility] Start: 11-09-2021 Office outpatient vi sit 25 minutes Vladimir Dunaway Other [facility] Office Start: 08-12-2021 Office consultation new/estab patient 80 min Paul Mijares Other [facility] Office Start: 08-03-2021 End: 08-04-[address] NONE LISTED REQUEST Facility: Start: 10-28-2020 Office outpatient vi sit 15 minutes Vladimir Dunaway Other [facility] Start: 06-06-2020 Office outpatient vi sit 15 minutes Vladimir Dunaway Other [facility] Office Start: 04-24-2020 Office outpatient vi sit 15 minutes Vladimir Dunaway Other [facility] Office Start: 02-18-2020 Office outpatient ne w 20 minutes Deidre Addison Other [facility] Office Start: 08-24-2017 End: 08-24-2017 Ambulatory JAY [facility] Start: 08-24-2017 Office outpatient vi sit 10 minutes Jay Grady Work Phone: [facility] Start: 08-22-2017 End: 08-26-2017 Ambulatory JAY [facility] Start: 08-22-2017 Office outpatient vi sit 15 minutes Jay Grady Work Phone: [facility] Start: 02-08-2013 Office Services Paul Chaudhary randy Other [facility] Office Procedures Date Procedure Procedure Detail Performing Clinician Start: 01-28-2025 Docrev cur meds by odalys Dunaway Start: 01-07-2025 Urnls dip stick/tabl et rgnt non-auto w/o micrscp Nataly Rosemary DO Work Phone: Start: 05-23-2024 Docrev cur meds by odalys Dunaway Start: 11-21-2023 Docrev cur meds by odalys Dunaway Start: 10-10-2023 Docrev cur meds by odalys Dunaway Start: 07-06-2023 Docrev cur meds by odalys Dunaway Start: 04-15-2023 Thyroid stimulating hormone measurement Vladimir Dunaway Start: 01-11-2023 Docrev cur meds by odalys Dunaway Start: 10-14-2022 Docrev cur meds by odalys Dunaway Start: 07-29-2022 Thyroid stimulating hormone measurement Vladimir Dunaway Start: 07-29-2022 Thyroxine measurement Belinda Dunaway Start: 07-29-2022 Tri-iodothyronine measurement, total Vladimir Dunaway Start: 06-08-2022 Docrev cur meds by odalys Dunaway Start: 03-16-2022 Assay of thyroid sti mulating hormone tsh Paul Mijares MD Work Phone: Start: 03-12-2022 Thyroid stimulating hormone measurement Vladimir Dunaway Start: 03-12-2022 Thyroxine measurement M latoya Dunaway Start: 03-12-2022 Tri-iodothyronine measurement, total Vladimir Dunaway Start: 12-18-2021 Docrev cur meds by odalys Dunaway Start: 11-12-2021 Thyroid stimulating hormone measurement Vladimir Dunaway Start: 11-12-2021 Thyroxine measurement M latoya Dunaway Start: 11-12-2021 Tri-iodothyronine measurement, total Vladimir Dunaway Start: 11-09-2021 Docrev cur meds by eliprisca Dunaway Start: 08-12-2021 Docrev cur meds by elig clin Paul Hutchinseder Start: 08-05-2021 Alanine aminotransfe rase measurement Paul Mijares Start: 08-05-2021 Erythrocyte mean cor puscular volume determination Paul Mijares Start: 08-05-2021 Mass spectrometry measurement Paul Mijares Start: 08-05-2021 Thyroid stimulating hormone measurement Paul Mijares Start: 08-05-2021 Thyroid stimulating immunoglobulins measurement Paul Mijares Start: 08-05-2021 Thyroxine measurement L vinnie Mijares Start: 08-05-2021 Tri-iodothyronine measurement, total Paul Mijares Start: 08-03-2021 US scan of thyroid Beckie Mijares Start: 10-28-2020 Doc meds verified w/pt or re Vladimir Dunaway Start: 06-06-2020 Doc meds verified w/pt or re Vladimir Dunaway Start: 04-24-2020 Antinuclear antibodies ghazal Vladimir Dunaway Start: 04-24-2020 Doc meds verified w/pt or re Vladimir Dunaway Start: 02-18-2020 Doc meds verified w/pt or re Deidre Addison Start: 07-14-1992 Cytp cerv/vag auto t hin layer prep mnl screen Nataly Riley DO Work Phone: Plan of Treatment Date Care Activity Detail Author Start: 07-06-2029 DTaP/Tdap/Td vaccine (2 - Td or Tdap) DTaP/Tdap/Td vaccine (2 - Td or Tdap) [facility] Start: 02-05-2025 End: 02-05-2025 Patient encounter procedure [facility] Comment on above: Arrived Start: 01-07-2025 End: 01-07-2025 Patient encounter procedure 01/07/2025 10:10 AM EDT Routine [facility] [address] [place] [id number] Nataly Riley DO [address] [place] [address] Arrived [facility] Comment on above: Arrived Start: 05-20-2024 COVID-19 Vaccine ( season) COVID-19 Vaccine () [facility] Start: 04-19-2024 Influenza vaccination Flu vaccine (# 1) [facility] Start: 04-15-2023 Assay of thyroid stimulating hormone tsh TSH [employer] Start: 07-29-2022 Assay of thyroid stimulating hormone tsh TSH [employer] Start: 07-29-2022 Assay of thyroxine total T4 [employer] Start: 07-29-2022 Assay of triiodothyr onine t3 total tt3 T3 total [employer] Start: 05-20-2022 Influenza vaccination Flu vacc ine (Season Ended) [facility] Start: 03-12-2022 Assay of thyroid stimulating hormone tsh TSH [employer] Start: 03-12-2022 Assay of thyroxine total T4 [employer] Start: 03-12-2022 Assay of triiodothyr onine t3 total tt3 T3 total [employer] Start: 11-12-2021 Assay of thyroid stimulating hormone tsh TSH [employer] Start: 11-12-2021 Assay of thyroxine total T4 [employer] Start: 11-12-2021 Assay of triiodothyr onine t3 total tt3 T3 total [employer] Start: 08-05-2021 Assay of thyroid stimulating hormone tsh TSH [employer] Start: 08-05-2021 Assay of thyroxine total T4 [employer] Start: 08-05-2021 Assay of triiodothyr onine t3 total tt3 T3 total [employer] Start: 08-05-2021 Blood count complete automated CBC & PLATELET COUNT; AUTOMATED [employer] Start: 08-05-2021 Mass spect&tandem ma ss spect nondrg anal jolanta ea IODINE,SERUM [employer] Start: 08-05-2021 Thyroid stimulating immune globulins tsi TSI (thyroid stimulating immunoglobulin) [employer] Start: 08-05-2021 Transferase alanine amino alt sgpt SGPT (ALT) [employer] Start: 08-03-2021 US scan of thyroid Thyroid ultrasoun d [employer] Start: 04-24-2020 ANTINUCLEAR ANTIBODIES GHAZAL Hep 2 [employer] Start: 2018 Screening for malign ant neoplasm of cervix [facility] Start: 08-24-2017 Ambulatory 08/24/2017 Off ice Visit Dermatology Jay Grady Jr., [address] [address] [phone] [facility] Start: 05-20-2017 Influenza vaccination SEQUENTI AL INFLUENZA VACCINE (#1) [facility] Work Phone: Start: 2009 Screening for malign ant neoplasm of cervix Pap smear [facility] Start: 12-06-2007 Hepatitis B vaccine (1 of 3 - + 3-dose series) Hepatitis B vaccine (1 of 3 - + 3-dose series) [facility] Start: 2006 Hepatitis C screening Hepatitis C sc reen [facility] Start: 12-06-2003 HIV screening HIV screen [facility] Start: 2001 Varicella vaccine (1 of 2 - 13+ 2-dose series) Varicella vaccine (1 of 2 - 13+ 2-dose series) [facility] Start: 2000 Depression Screen Depression Screen [facility] Start: 1994 Pneumococcal 0-64 ye ars Vaccine (1 of 2 - PCV) Pneumococcal 0-64 years Vaccine (1 of 2 - PCV) [facility] Start: 1993 COVID-19 Vaccine (1) COVID-19 Vaccin e (1) [facility] Start: 1989 Varicella vaccine (1 of 2 - 2-dose childhood series) Varicella vaccine (1 of 2 - 2-dose childhood series) [facility] Start: 1988 Screening for malign ant neoplasm of cervix PAP SMEAR [facility] Work Phone: Start: 1988 Tetanus vaccination TETANUS EVERY 10 YR [facility] Work Phone: End: 08-17-2024 Culture, Urine [facility] Work Phone: Comment on above: 1 Occurrences starti ng 08/17/2024 until 08/17/2024 End: 03-16-2022 T4 [facility] Work Phone: Comment on above: Once for 1 Occurrenc es starting 03/16/2022 until 03/16/2022 Immunizations Immunization Date Immunization Notes Care Provider Aziza kearney 07-25-2020 influenza, injectabl e, quadrivalent, preservative free [facility] Schedule [facility] 07-23-2019 Influenza, injectabl e, Madin Regine Canine Kidney, preservative free, quadrivalent [facility] Schedule [facility] 07-06-2019 tetanus toxoid, redu shira diphtheria toxoid, and acellular pertussis vaccine, adsorbed [facility] Schedule [facility] Payers Date Payer Category Payer Private Health Insurance [id number] 1 2012 Private Health Insurance [id number] 1 2011 Managed Care HMO (unspecified) [employer] [id number] 1988 Unknown [id number] 1988 Unknown [id number] 1988 Unknown [id number] 1988 Unknown [id number] [id number] 1988 Unknown [id number] 1988 Unknown [id number] 1988 Unknown [id number] [id number] 1988 Unknown [id number] 1988 Unknown [id number] 1988 Unknown [id number] 1959 Private Health Insurance [id number] Social History Date Type Detail Facility Start: End: 08-24-2017 Tobacco smoking status NHIS Never smoker [facility] Start: 1988 Sex Assigned At Not on file [facility] Work Phone: Start: Alcohol [facility] Start: 10-30-2014 End: 04-26-2024 Alcohol intake Current non-drinker of alcohol (finding) [facility] Work Phone: Start: 04-26-2024 History of Social function [facility] Work Phone: Start: 04-26-2024 Tobacco use panel [facility] Work Phone: Tobacco smoking status NHIS Tobacco smoking consumption unknown [facility] Start: 10-06-2024 [facility] History of Present illness Narrative 01-07-2025 Nataly Riley DO - 01/07/2025 10:10 AM EDT Note Date & Type Note Facility 01-07-2025 History of Presen t illness Narrative Reason for Appointment: Patient ID: Kelly Gonzalez is a 34 y.o. female who presents for Routine Visit Patient presents today for Return OB appointment. MEDICATIONS Current Outpatient Medications Medication Instructions Magnesium 400 mg, Daily Moclips-3 Fatty Acids (OMEGA-3 CF PO) 1 each, [...] History HISTORY PAST MEDICAL HISTORY SOCIAL HISTORY No past medical history on file. Social History Tobacco Use Smoking status: Not on file Smokeless tobacco: Not on file Substance Use Topics Alcohol use: Not on file Drug use: Not on file FAMILY HISTORY No family history on file. SURGICAL HISTORY Past Surgical History: Procedure Laterality Date SECTION, LOW TRANSVERSE REVIEW OF SYSTEMS Review of Systems: Review of Systems All other systems reviewed and are negative. OBJECTIVE Objective: Physical Exam Constitutional: Appearance: Normal appearance. She is well-developed. Cardiovascular: Rate and Rhythm: Normal rate and regular rhythm. Pulmonary: Effort: Pulmonary effort is normal. Breath sounds: Normal breath sounds. Abdominal: General: Bowel sounds are normal. There is no distension. Palpations: Abdomen is soft. Tenderness: There is no abdominal tenderness. There is no guarding or rebound. Musculoskeletal: General: No swelling. Normal range of motion. Right lower leg: No edema. Left lower leg: No edema. Neurological: Mental Status: She is alert and oriented to person, place, and time. Skin: General: Skin is warm and dry. Psychiatric: Mood and Affect: Mood normal. Behavior: Behavior normal. Vitals and nursing note reviewed. Exam conducted with a spiritual advisor present. Vitals: Estimated body mass index is 23.96 kg/m as calculated from the following: Height as of 07/14/22: 5' 5 . Weight as of this encounter: 144 lb. BP: 110/72 Patient's last menstrual period was 09/22/2024. ASSESSMENT & PLAN ICD-10-CM 1. Second trimester Z34.92 POCT urinalysis dipstick manually resulted 2. 15 weeks gestation of Z3A.15 New OB: Patient presents today for 1st time obstetrics appointment with provider. Patient is currently 15w2d . Patients history has been reviewed in great detail including any potential risks. Patient stated she currently has no complaints. Expectations throughout regarding labs, ultrasounds, and appointments have been discussed with the patient in detail. It was reiterated that the patient is to drink 6-8 glasses of water a day, eat 6 small meals a day, do not consume raw or undercooked meat, and stay away from [facility]. Patient has been consulted regarding any further do's and don'ts of . Patient voiced understanding and all questions and concerns were answered. Patient will have 4th Repeat possibly on 06-10-25. Advised patient to start Baby Aspirin 81 mg daily for remainder of starting at 16 weeks. Orders Placed This Encounter Procedures POCT urinalysis dipstick manually resulted Discussed [facility] with patient for AMA and this being her fourth . Patient voiced that she would like to see them if there is something abnormal and will defer referral at this time. Patient aware that if anytime throughout the she is able to request referral to [facility]. Patient will have growth scans start at 28 weeks gestation and NST/BPP starting at 32 weeks gestation. Follow Up: Patient is to return in 4 weeks for routine OB appointment. Documented by Imelda Mackay LPN on behalf of: Nataly Riley DO documented in this encounter [facility] Evaluation note Note Date & Type Note Facility Evaluation note Diagnosis Acute cystitis with hematuria Acute cystitis documented in this encounter [facility] Work Phone: Evaluation note Note Date & Type Note Facility Evaluation note Diagnosis Second trimester state, incidental 15 weeks gestation of documented in this encounter [facility] Assessments Diagnosis Allergic contact dermatitis due to other agents - Primary Diagnosis Allergic contact dermatitis due to other agents - Primary Dermatitis Contact dermatitis and other eczema, due to unspecified cause Tinea pedis of both feet Summary Purpose Family History No Family History Records FoundNo Family History Records FoundNo Family History Records FoundNo Family History Records FoundNo Family History Records FoundNo Family History Records Found Advance Directives Documents on File Type Date Recorded 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 DATE CREATED AUTHOR AUTHOR'S ORGANIZ ATION 07/22/2022 [facility] DATE CREATED AUTHOR AUTHOR'S ORGANIZ ATION 08/12/2022 [facility] DATE CREATED AUTHOR AUTHOR'S ORGANIZ ATION 08/19/2024 [facility] DATE CREATED AUTHOR AUTHOR'S ORGANIZ ATION 08/19/2024 [facility] DATE CREATED AUTHOR AUTHOR'S ORGANIZ ATION 01/07/2025 [facility] dical Specialists EPIC Care Teams (unrecognized sec tion and content) Project Associate Relationship Specialty Start Date End Date Prudence Aguilar MD [address] [place] [address] PCP - General 12/27/20 Project Associate Relationship Specialty Start Date End Date Prudence Aguilar MD [address] [place] [address] PCP - General 12/27/20 Project Associate Relationship Specialty Start Date End Date Prudence Aguilar MD [address] [place] [address] PCP - General Family Medicine 11/15/24 Project Associate Relationship Specialty Start Date End Date Prudence Aguilar MD [address] [place] [address] PCP - General Family Medicine 11/15/24 Reason for Visit (unrecogniz ed section and content) Reason Comments Routine Visit FOR RECORDS PERTAINING TO PATIENTS WHO ARE OR HAVE BEEN ENROLLED IN A CHEMICAL DEPENDENCY/SUBSTANCEABUSE PROGRAM, SOME INFORMATION MAY BE OMITTED. This clinical summary was aggregated from multiple sources. Caution should be exercised in using it in the provision of clinical care. This summary normalizes information from multiple sources, and as a consequence, information in this document may materially change the coding, format and clinical context of patient data. In addition, data may be omitted in some cases. CLINICAL DECISIONS SHOULD BE BASED ON THE PRIMARY CLINICAL RECORDS. [employer] provides no warranty or guarantee of the accuracy or completeness of information in this document.
[2025-02-07 01:08] LABS: AFP Value 59.4 ng/mL (.); Gest. Age on Collection Date 19.4 weeks (.); Insulin Dep Diabetes No (.); Maternal Age At EDD 36.5 yr (.); OSBR Risk 1 IN 8647 (.); Results Report (.)
== END 2025-02-05 11:02 | disposition home or self-care (01) ==
LOC: LAB 11:03
PROVIDERS: PCP Family Medicine; Visit Provider Physician Assistant
DX: Z34.92 Encounter for supervision of normal pregnancy, unspecified, second trimester (principal); Z3A.19 19 weeks gestation of pregnancy
CPT/HCPCS: 36415; 82105; 87624; 88175

== ENCOUNTER 2025-02-05 12:59 | Outpatient (REF) | payer OTHER, SELFPAY | END 2025-02-05 13:00 | disposition home or self-care (01) | LOC: LAB 12:59 | PROVIDERS: PCP Family Medicine; Visit Provider Physician Assistant | DX: Z01.419 Encounter for gynecological examination (general) (routine) without abnormal findings (principal) | CPT/HCPCS: 87624; 88175 ==

== ENCOUNTER 2025-02-19 09:08 | Outpatient (OUT) | payer OTHER, SELFPAY ==
--- OUTSIDE RECORDS SUMMARY | 2025-02-05 09:50 | XMS_ITS | Encounter Summary ---
Author Organization [facility] Address [address] [place] [address] Care Team Providers Care Auto Research Engineer Name Role Phone José Aguilar MD Primary Care Provider [phone] Encounter Details Date Type Department Care Team (Latest Contact Info) Description 02/05/2025 9:50 AM EDT Routine [facility] [address] [id number] Madiha Roca PA [address] [place] [address] 19 weeks gestation of ; Second trimester ; Well woman exam with routine gynecological exam; Exposure to STD; Vaginal discharge; Screening, , for anatomic survey Social History Tobacco Use Types Packs/Day Years Used Date Smoking Tobacco: Never Assessed Estimated Date of Delivery Comme nts Yes 06/29/2025 Based on last me nstrual period of 09/22/2024 Sex and Gender Information Value Date Recorded Sex Assigned at Not on file Legal Sex Female 11:46 PM EDT Gender Identity Not on file Sexual Orientation Not on file documented as of this encounter Last Filed Vital Signs Vital Sign Reading Time Taken Comments Blood Pressure 100/68 02/05/2025 10:23 AM EDT Pulse - - Temperature - - Respiratory Rate - - Oxygen Saturation - - Inhaled Oxygen Concentration - - Weight 65.7 kg (144 lb 12.8 oz) 025 10:23 AM EDT Height - - Body Mass Index 24.1 07/14/2022 12:00 PM EDT documented in this encounter Progress Notes * JOHN Garcia - 02/05/2025 9:50 AM EDT Reason for Appointment: Patient ID: Lesia Gonzalez is a 34 y.o. female who presents for No chief complaint on file. Patient presents today for Annual Exam. and Return OB appointment. 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 No pertinent past medical history. Social History Tobacco Use Smoking status: Not on file Smokeless tobacco: Not on file Substance Use Topics Alcohol use: Not on file Drug use: Not on file FAMILY HISTORY No family history on file. SURGICAL HISTORY Past Surgical History: Procedure Laterality Date SECTION, LOW TRANSVERSE REVIEW OF SYSTEMS Review of Systems: Review of Systems Constitutional: Negative. HENT: Negative. Eyes: Negative. Respiratory: Negative. Cardiovascular: Negative. Gastrointestinal: Negative. Genitourinary: Negative. Musculoskeletal: Negative. Skin: Negative. Neurological: Negative. All other systems reviewed and are negative. Hematological: Negative. Endocrine: Negative. Allergic/Immunologic: Negative. OBJECTIVE Objective: Physical Exam Constitutional: Appearance: Normal appearance. She is normal weight. Genitourinary: Right Adnexa: not tender and no mass present. Left Adnexa: not tender and no mass present. No cervical discharge. Breasts: Breasts are soft. Right: Normal. Left: Normal. HENT: Head: Normocephalic. Nose: Nose normal. Mouth/Throat: Mouth: Mucous membranes are moist. Cardiovascular: Rate and Rhythm: Normal rate. Pulses: Normal pulses. Pulmonary: Effort: Pulmonary effort is normal. Breath sounds: Normal breath sounds. Abdominal: General: Bowel sounds are normal. Palpations: Abdomen is soft. Musculoskeletal: General: Normal range of motion. Cervical back: Normal range of motion. Neurological: General: No focal deficit present. Mental Status: She is alert and oriented to person, place, and time. Skin: General: Skin is warm and dry. Psychiatric: Mood and Affect: Mood normal. Behavior: Behavior normal. Thought Content: Thought content normal. Judgment: Judgment normal. Vitals and nursing note reviewed. Exam conducted with a transitional kindergarten teacher present. Vitals: Estimated body mass index is 24.1 kg/m?? as calculated from the following: Height as of 07/14/22: 5' 5 . Weight as of this encounter: 144 lb 12.8 oz. BP: 100/68 Patient's last menstrual period was 09/22/2024. ASSESSMENT & PLAN ICD-10-CM 1. 19 weeks gestation of Z3A.19 POCT urinalysis dipstick manually resulted Alpha fetoprotein, maternal Alpha fetoprotein, maternal 2. Second trimester Z34.92 POCT urinalysis dipstick manually resulted Alpha fetoprotein, maternal Alpha fetoprotein, maternal 3. Well woman exam with routine gynecological exam Z01.419 Pap Smear HPV DNA probe, amplified 4. Exposure to STD Z20.2 CHLAMYDIA TRACHOMATIS (GENITO/STI) Neisseria gonorrhea DNA probe, direct 5. Vaginal discharge N89.8 SURESWAB(R) ADVANCED VAGINITIS PLUS, TMA 6. Screening, , for anatomic survey Z36.89 US OB 14+ weeks anatomy scan Return OB/Annual Exam: Patient presents today for an annual exam/routine obstetrics appointment. Patient is currently 19w3d . Patient is doing well and states she has no complaints. Pap/cultures was obtained without difficulty and patient was given msAFP order to have obtained. Orders Placed This Encounter Procedures HPV DNA probe, amplified US OB 14+ weeks anatomy scan CHLAMYDIA TRACHOMATIS (GENITO/STI) Neisseria gonorrhea DNA probe, direct Alpha fetoprotein, maternal POCT urinalysis dipstick manually resulted Follow Up: Patient is to return to our office in 4 weeks for routine OB appointment Documented by JOHN Garcia on behalf of: JOHN Garcia documented in this encounter Plan of Treatment Upcoming Encounters Date Type Department Care Team (Late st Contact Info) Description 03/05/2025 9:40 AM EDT Routine [facility] [address] [phone] Aaron Riley [address] Mounika [place] [id number] Scheduled Orders Name Type Priority Associated Diagnoses Orde r Schedule Pap Smear Pathology and Cytology Routine Well woman exam with routine gynecological exam Ordered: 02/05/2025 HPV DNA probe, amplified Microbiology Routine Well woman exam with routine gynecological exam Ordered: 02/05/2025 SURESWAB(R) ADVANCED VAGINITIS PLUS, TMA Pathology and Cytology Routine Vaginal discharge Ordered: 02/05/2025 CHLAMYDIA TRACHOMATIS (GENITO/STI) Lab Routine Exposure to STD Ordered: 02/05/2025 Neisseria gonorrhea DNA probe, direct Lab Routine Exposure to STD Ordered: 02/05/2025 Alpha fetoprotein, maternal Lab Routine 19 weeks gestation of Second trimester Expected: 02/05/2025 (Approximate), Expires: 03/08/2025 US OB 14+ weeks anatomy scan Imaging Routine Screening, , for anatomic survey Expected: 02/05/2025, Expires: 05/08/2025 documented as of this encounter Procedures Procedure Name Priority Date/Time Associated Diagnosis Comments POCT URINALYSIS DIPSTICK Routine 02/05/2025 10:28 AM EDT 19 weeks gestation of Second trimester documented in this encounter Results * POCT urinalysis dipstick manually resulted (02/05/2025 10:28 AM EDT) Color, UA Yellow Clarity, UA Clear Glucose, UA Negative Negative - 1999(110) ++++ mg/dL Bilirubin, UA Negative Negative - 4(70) +++ mg/dL Ketones, UA Negative Negative - 160(16) ++++ mg/dL Spec Grav, UA 1.010 1 - 1.03 Blood, UA Negative Negative - 50 Thor/mcL pH, UA 6.0 5 - 9 Protein, UA Negative Negative - 1999(20) ++++ mg/dL Urobilinogen, UA 0.2 0.2 - 12 mg/dL Leukocytes, UA Negative Negative - 500+++ Georgina/mcL Nitrite, UA Negative Negative - Positive Urine 02/05/2025 10:2 8 AM EDT Madiha LOPEZ POINT OF CARE TEST ENTER/EDIT OR DERABLES Final Result documented in this encounter Visit Diagnoses Diagnosis 19 weeks gestation of Second trimester state, incidental Well woman exam with routine gynecological exam Routine gynecological examination Exposure to STD Vaginal discharge Leukorrhea, not specified as infective Screening, , for anatomic survey Encounter for anatomic survey documented in this encounter Care Teams Auto Research Engineer Relationship Specialty Start Date End Date José Aguilar MD [address] [place] [address] PCP - General Family Medicine 11/15/24 documented as of this encounter
--- NOTE | 2025-02-19 09:10 | US_ITS ---
The [address] [address] Patient Name: KELLY VERA MRN: [id number] date: 1990 Sex: F Assigned Patient Location: Current Patient Location: US Accession/Order Number: [id number] Exam Date: 02/19/2025 10:17 Report Date: 02/19/2025 10:27 At the request of: NATALY PIERRE DO Procedure: US OB cervical length CLINICAL DATA: Anatomic survey COMPARISON: None ULTRASOUND OB ANATOMY There is a single live intrauterine gestation in cephalic presentation. The placenta is posterior. Amniotic fluid volume is subjectively normal. There is cardiac and somatic activity with heart rate of 160 bpm. The neural axis and all 4 extremities were surveyed by the wood cutter and no abnormalities were identified. The stomach, bladder, kidneys, three-vessel cord with insertion, four-chamber heart with right and left outflow tracts, facial features and diaphragm are seen. There is female genitalia. The following measurements were obtained: Biparietal diameter 5.1 cm 21 weeks 4 days 52% Head circumference 18.3 cm 20 weeks 5 days 13% Abdominal circumference 15.8 cm 20 weeks 6 days 27% Femur length 3.4 cm 20 weeks 6 days 22% The composite ultrasound age based on these measurements is 21 weeks 0 days +/- 1 week 3 days. This within standard deviation of dates based on last menstrual period. US/US OB cervical length IMPRESSION: SINGLE LIVE ANTERIOR GESTATION WITH ULTRASOUND AGE OF 21 WEEKS 0 DAYS. NORMAL ANATOMY SURVEY. ULTRASOUND OB CERVICAL LENGTH The cervix was evaluated with the transvaginal probe. There is a posterior placenta with no evidence of previa. The cervix is closed. Estimated cervical length is 5.6 cm. IMPRESSION: CLOSED CERVIX WITH NORMAL APPEARANCE. Impression dictated by: Maribel Tipton M.D. 02/19/2025 10:27 AM Dictation Location: [place] [address] Electronically authenticated by: [id number] Y Date: 02/19/2025 10:27
--- NOTE | 2025-02-19 09:10 | US_ITS ---
The [address] [address] Patient Name: KELLY VERA MRN: [id number] date: 1990 Sex: F Assigned Patient Location: Current Patient Location: US Accession/Order Number: [id number] Exam Date: 02/19/2025 10:17 Report Date: 02/19/2025 10:27 At the request of: NATALY PIERRE DO Procedure: US OB cervical length CLINICAL DATA: Anatomic survey COMPARISON: None ULTRASOUND OB ANATOMY There is a single live intrauterine gestation in cephalic presentation. The placenta is posterior. Amniotic fluid volume is subjectively normal. There is cardiac and somatic activity with heart rate of 160 bpm. The neural axis and all 4 extremities were surveyed by the school crossing guard supervisor and no abnormalities were identified. The stomach, bladder, kidneys, three-vessel cord with insertion, four-chamber heart with right and left outflow tracts, facial features and diaphragm are seen. There is female genitalia. The following measurements were obtained: Biparietal diameter 5.1 cm 21 weeks 4 days 52% Head circumference 18.3 cm 20 weeks 5 days 13% Abdominal circumference 15.8 cm 20 weeks 6 days 27% Femur length 3.4 cm 20 weeks 6 days 22% The composite ultrasound age based on these measurements is 21 weeks 0 days +/- 1 week 3 days. This within standard deviation of dates based on last menstrual period. US/US OB anatomy IMPRESSION: SINGLE LIVE ANTERIOR GESTATION WITH ULTRASOUND AGE OF 21 WEEKS 0 DAYS. NORMAL ANATOMY SURVEY. ULTRASOUND OB CERVICAL LENGTH The cervix was evaluated with the transvaginal probe. There is a posterior placenta with no evidence of previa. The cervix is closed. Estimated cervical length is 5.6 cm. IMPRESSION: CLOSED CERVIX WITH NORMAL APPEARANCE. Impression dictated by: Maribel Tipton M.D. 02/19/2025 10:27 AM Dictation Location: [place] [address] Electronically authenticated by: [id number] Y Date: 02/19/2025 10:27
--- OUTSIDE RECORDS SUMMARY | 2025-02-19 09:10 | XMS_ITS | Clinical Summary ---
Author Organization [facility] Address [address] [place] [address] Care Team Providers Care Hospital [facility]na Name Role Phone José Aguilar MD Primary Care Provider [phone] Allergies Active Allergy Reactions Criticality Noted Date Comments Doxycycline Other (See Comments) Medium 07/09/2021 Autoimmune reaction Minocycline Other (See Comments) Medium 07/09/2021 Autoimmune reaction Medications clindamycin (CLEOCIN T) 1 % lotion 06/22/20 22 Active Benzoyl Peroxide (BENZEPRO CREAMY WASH) 7 % LIQD Apply 1 application topically daily 07/14/20 16 Active Clindamycin Phos-Benzoyl Perox (ONEXTON) 1.2-3.75 % GEL Apply 1 application topically daily 07/14/20 16 Active tretinoin (RETIN-A) 0.1 % cream 10/25/19 23 Active WINLEVI 1 % CREA 02/12/20 23 Active Clascoterone (WINLEVI) 1 % CREA Apply topically 23 Active Clindamycin-Benzoy l Per, Refr, 1.2-5 % GEL APPLY TOPICALLY TO AFFECTED AREA ONCE DAILY 10/10/19 24 Active clotrimazole-betam ethasone (LOTRISONE) 1-0.05 % cream Apply topically 2 times daily. 15 g 2 06/05/20 24 Active ondansetron (ZOFRAN-ODT) 4 MG disintegrating tabletIndications: Nausea Take 1 tablet by mouth 3 times daily as needed for Nausea or Vomiting 21 tablet 08/17/20 24 Active Active Problems Problem Noted Date Diagnosed Date Insomnia, unspecified 07/29/2022 Abnormal uterine and vaginal bleeding, unspecifi ed 03/13/2022 Disorder of thyroid, unspecified 07/16/2021 39 weeks gestation of 03/16/2021 Anemia complicating childbirth 03/16/2021 Unspecified asthma, uncomplicated 03/16/2021 Acute posthemorrhagic anemia 03/16/2021 Anemia complicating , unspecified trime ster 01/06/2021 Systemic lupus erythematosus, unspecified 2019 Acne vulgaris 02/18/2020 Dyschromia 02/18/2020 Alopecia areata, unspecified 02/08/2013 Resolved Problems Problem Noted Date Diagnosed Date Resolved Date Encounter for screening for diabetes mellitus 10/16/19 21 06/17/2022 Immunizations Immunization Administration Dates Next Due Influenza, FLUARIX, FLULAVAL , FLUZONE (age 6 mo+) and AFLURIA, (age 3 y+), Quadv PF, 0.5mL 07/25/2020 Influenza, FLUCELVAX, (age 6 mo+), MDCK, Quadv PF, 0.5mL 07/23/2019 TDaP, ADACEL (age 10y-64y), BOOSTRIX (age 10y+), IM, 0.5mL 07/06/2019 Social History Tobacco Use Types Packs/Day Years Used Date Smoking Tobacco: Never Tobacco Cessation:Counseling Given: Not Answered Alcohol Use Standard Drinks/Week Comments No 0 (1 standard drink = 0.6 oz pur e alcohol) Comments No Sex and Gender Information Value Date Recorded Sex Assigned at Not on file Legal Sex Female 12:43 AM EST Gender Identity Not on file Sexual Orientation Not on file Last Filed Vital Signs Vital Sign Reading Time Taken Comments Blood Pressure 100/55 08/17/2024 11:42 AM EST Pulse 82 08/17/2024 11:42 AM EST Temperature 37 C (98.6 F) 08/17/2024 11:42 AM EST Respiratory Rate 18 04/26/2024 3:58 PM EDT Oxygen Saturation 100% 08/17/2024 11:42 AM EST Inhaled Oxygen Concentration - - Weight 62.1 kg (137 lb) 04/26/2024 3:58 PM EDT Height - - Body Mass Index - - Plan of Treatment Health Maintenance Due Date Last Done Comments Depression Screen 2000 Varicella vaccine (1 of 2 - 13+ 2-dose series) 2001 HIV screen 12/06/2003 Hepatitis C screen 2006 Hepatitis B vaccine (1 of 3 - 19+ 3-dose series) 12/06/2007 Pneumococcal 0-49 years Vaccine (1 of 2 - PCV) 12/06/2007 Pap smear 2009 Cervical cancer screen 2018 HPV (without or with Pap) 2018 COVID-19 Vaccine (1 - 2023-2 5 season) 2024 Flu vaccine (Season Ended) 04/19/202507/25, 07/23/2019 DTaP/Tdap/Td vaccine (2 - Td or Tdap) 07/06/2029 07/06/2019 HPV vaccine Aged Out No longer eligi ble based on patient's age to complete this topic Hepatitis A vaccine Aged Out No longe r eligible based on patient's age to complete this topic Hib vaccine Aged Out No longer eligi ble based on patient's age to complete this topic Meningococcal (ACWY) vaccine Aged Out No longer eligible based on patient's age to complete this topic Meningococcal B vaccine Aged Out No l onger eligible based on patient's age to complete this topic Polio vaccine Aged Out No longer elig ible based on patient's age to complete this topic Insurance AETNA AETNA Care Teams Hospital Cna Relationship Specialty Start Date End Date José Aguilar MD [address] [place] [address] PCP - General 12/27/20
--- OUTSIDE RECORDS SUMMARY | 2025-02-19 09:10 | XMS_ITS | Encounter Summary ---
Author Organization [facility] Address [address] [place] [address] Care Team Providers Care Supervisor Stave Cutting Name Role Phone José Aguilar MD Primary Care Provider [phone] Encounter Details Date Type Department Care Team (Late st Contact Info) Description 02/06/2025 Results Follow-Up [facility] [address] [facility] [facility] [address] Salud Garcia LPN [address] [employer] [place] [id number] Social History Tobacco Use Types Packs/Day Years Used Date Smoking Tobacco: Never Assessed Estimated Date of Delivery Comme nts Yes 06/29/2025 Based on last me nstrual period of 09/22/2024 Sex and Gender Information Value Date Recorded Sex Assigned at Not on file Legal Sex Female 11:46 PM EDT Gender Identity Not on file Sexual Orientation Not on file documented as of this encounter Miscellaneous Notes * Result Encounter Note - Salud Garcia LPN - 02/06/2025 1:39 PM EDT Detailed voicemail left and medication sent in documented in this encounter Plan of Treatment Upcoming Encounters Date Type Department Care Team (Late st Contact Info) Description 03/05/2025 9:40 AM EDT Routine [facility] [address] [place] [address] Aaron Riley, [address] [facility] [place] [address] documented as of this encounter Visit Diagnoses Not on filedocumented in this encounter Care Teams Supervisor Stave Cutting Relationship Specialty Start Date End Date José Aguilar MD [address] [place] [address] PCP - General Family Medicine 11/15/24 documented as of this encounter
--- OUTSIDE RECORDS SUMMARY | 2025-02-19 09:10 | XMS_ITS | Encounter Summary ---
Author Organization [facility] Address [address] [place] [address] Care Team Providers Care Blasting Helper Name Role Phone José Aguilar MD Primary Care Provider [phone] Encounter Details Date Type Department Care Team (Late st Contact Info) Description 02/05/2025 Bamboo flowsheet [facility] [address] [place] [address] Mdaiha Roca PA [address] [place] [address] [address] [place], [facility] Social History Tobacco Use Types Packs/Day Years Used Date Smoking Tobacco: Never Assessed Estimated Date of Delivery Comme nts Yes 06/29/2025 Based on last me nstrual period of 09/22/2024 Sex and Gender Information Value Date Recorded Sex Assigned at Not on file Legal Sex Female 11:46 PM EDT Gender Identity Not on file Sexual Orientation Not on file documented as of this encounter Plan of Treatment Upcoming Encounters Date Type Department Care Team (Late st Contact Info) Description 03/05/2025 9:40 AM EDT Routine [facility] OB [address] [facility] [place] [address] Aaron Riley [address] [facility] [address] [place] [place] [id number] documented as of this encounter Visit Diagnoses Not on filedocumented in this encounter Care Teams Blasting Helper Relationship Specialty Start Date End Date José Aguilar MD [address] [place], [place] [id number] PCP - General Family Medicine 11/15/24 documented as of this encounter
--- OUTSIDE RECORDS SUMMARY | 2025-02-19 09:10 | XMS_ITS | Encounter Summary ---
Author Organization [facility] Address [address] [place] [address] Care Team Providers Care External Relations Manager Name Role Phone José Aguilar MD Primary Care Provider [phone] Encounter Details Date Type Department Care Team (Late Contact Info) Description 02/06/2025 Telephone [facility] [address] [place] [address] Salud Garcia LPN [address] [employer] [place] [id number] Social History Tobacco Use Types Packs/Day Years [...] as of this encounter Miscellaneous Notes * Telephone Encounter - Salud Garcia LPN - 02/06/2025 1:35 PM EDT Called pt to let her know that she tested positive for BV and that I would be sending in medicationfor her. Pt did not answer but detailed voicemail left documented in this encounter Plan of Treatment Upcoming Encounters Date Type Department Care Team (Late st Contact Info) Description 03/05/2025 9:40 AM EDT Routine [facility] [address] [facility] [place] [address] Aaron Riley DO [address] [facility] [place] [address] documented as of this encounter Visit Diagnoses Diagnosis BV (bacterial vaginosis) Unspecified vaginitis and vulvovaginitis documented in this encounter Care Teams External Relations Manager Relationship Specialty Start Date End Date José Aguilar MD [address] [place] [address] PCP - General Family Medicine 11/15/24 documented as of this encounter
--- OUTSIDE RECORDS SUMMARY | 2025-02-19 09:10 | XMS_ITS | Encounter Summary ---
Author Organization [facility] Address [address] [place] [address] Care Team Providers Care Pantry Chef Name Role Phone José Aguilar MD Primary Care Provider [phone] Encounter Details Date Type Department Care Team (Late st Contact Info) Description 12/18/2024 Abstract [facility] [address] [place] [address] Aaron Riley DO [facility] [place] [address] Social History Tobacco Use Types Packs/Day Years [...] Routine [facility] [address] [place] [address] Aaron Riley DO [address] [place] [id number] documented as of this encounter Visit Diagnoses Not on filedocumented in this encounter Care Teams Pantry Chef Relationship Specialty Start Date End Date José Aguilar MD [address] [place] [id number] PCP - General Family Medicine 11/15/24 documented as of this encounter
--- OUTSIDE RECORDS SUMMARY | 2025-02-19 09:10 | XMS_ITS | Encounter Summary ---
Author Organization [facility] Address [address] [place] [address] Care Team Providers Care Water Systems Designer Name Role Phone José Aguilar MD Primary Care Provider [phone] Encounter Details Date Type Department Care Team (Late Contact Info) Description 02/05/2025 External Result Encounter [facility] External Department Unsolicited Madiha Roca, JOHN [address] [facility] [address] [place], [facility] Social History Tobacco Use Types Packs/Day Years [...] Encounters Date Type Department Care Team (Late Contact Info) Description 03/05/2025 9:40 AM EDT Routine [facility] [address] [facility] [place] [id number] Aaron Riley DO [address] [facility] [place] [address] documented as of this encounter Procedures Procedure Name Priority Date/Time Associated Diagnosis Comments RECURRENT VAGINITIS (HTRX) Routine 02/05/2025 12:19 PM EDT documented in this encounter Results * (ABNORMAL) RECURRENT VAGINITIS (HTRX) (02/05/2025 12:19 PM EDT) [facility] ATOPOBIUM VAGINAE 0.000 19.961 - 24.689 ppm 02/06/2025 6:16 AM EDT [facility] ATOPOBIUM VAGINAE Not Detected 19.961 - 24.689 ppm 02/06/2025 6:16 AM EDT [facility] BVAB 2,3 (BACTERIAL VAGINOSIS ASSOCIATED BACTERIA 2, 3); MOBILUNCUS SPP 0.000 19.961 - 24.689 ppm 02/06/2025 6:16 AM EDT [facility] BVAB 2,3 (BACTERIAL VAGINOSIS ASSOCIATED BACTERIA 2, 3); MOBILUNCUS SPP Not Detected 19.961 - 24.689 ppm 02/06/2025 6:16 AM EDT [facility] LAURA ALBICANS, PARAPSILOSIS, TROPICALIS 27.705(A) 19.961 - 30.770 ppm 02/06/2025 6:16 AM EDT [facility] LAURA ALBICANS, PARAPSILOSIS, TROPICALIS Detected(A) 19.961 - 30.770 ppm 02/06/2025 6:16 AM EDT [facility] LAURA GLABRATA 24.272(A) 23.000 - 32.138 ppm 02/06/2025 6:16 AM EDT [facility] LAURA GLABRATA Detected(A) 23.000 - 32.138 ppm 02/06/2025 6:16 AM EDT [facility] LAURA KRUSEI 0.000 23.000 - 32.271 ppm 02/06/2025 6:16 AM EDT [facility] LAURA KRUSEI Not Detected 23.000 - 32.271 ppm 02/06/2025 6:16 AM EDT [facility] CHLAMYDIA TRACHOMATIS 0.000 23.000 - 31.467 ppm 02/06/2025 6:16 AM EDT [facility] CHLAMYDIA TRACHOMATIS Not Detected 23.000 - 31.467 ppm 02/06/2025 6:16 AM EDT [facility] GARDNERELLA VAGINALIS 0.000 19.961 - 24.689 ppm 02/06/2025 6:16 AM EDT [facility] GARDNERELLA VAGINALIS Not Detected 19.961 - 24.689 ppm 02/06/2025 6:16 AM EDT [facility] MEGASPHAERA (TYPES 1, 2) 0.000 19.961 - 24.689 ppm 02/06/2025 6:16 AM EDT [facility] MEGASPHAERA (TYPES 1, 2) Not Detected 19.961 - 24.689 ppm 02/06/2025 6:16 AM EDT [facility] NEISSERIA GONORRHOEAE 0.000 23.000 - 32.117 ppm 02/06/2025 6:16 AM EDT [facility] NEISSERIA GONORRHOEAE Not Detected 23.000 - 32.117 ppm 02/06/2025 6:16 AM EDT [facility] TRICHOMONAS VAGINALIS 0.000 23.000 - 32.119 ppm 02/06/2025 6:16 AM EDT [facility] TRICHOMONAS VAGINALIS Not Detected 23.000 - 32.119 ppm 02/06/2025 6:16 AM EDT [facility] MYCOPLASMA GENITALIUM 0.000 19.961 - 24.689 ppm 02/06/2025 6:16 AM EDT [facility] MYCOPLASMA GENITALIUM Not Detected 19.961 - 24.689 ppm 02/06/2025 6:16 AM EDT [facility] Tissue 02/05/2025 12:1 9 PM EDT 02/06/2025 1:54 AM EDT us Madiha LOPEZ LAB BLOOD ORDERABLES Final Resul t [facility] [address] [place] [address] documented in this encounter Visit Diagnoses Not on filedocumented in this encounter Care Teams Water Systems Designer Relationship Specialty Start Date End Date José Aguilar MD [address] [place] [address] PCP - General Family Medicine 11/15/24 documented as of this encounter
--- OUTSIDE RECORDS SUMMARY | 2025-02-19 09:10 | XMS_ITS | Encounter Summary ---
Author Organization [facility] Address [address] [place] [address] Care Team Providers Care User Experience Team Lead Name Role Phone José Aguilar MD Primary Care Provider [phone] Encounter Details Date Type Department Care Team (Late st Contact Info) Description 02/19/2025 Orders Only [facility] [address] [facility] [place] [address] Ana Freeman LPN [address] [facility] [place] [id number] Social History Tobacco Use Types Packs/Day Years [...] AM EDT Routine [facility] [address] [facility] [place] [address] Aaron Riley DO [address] [place], [place] [id number] documented as of this encounter Procedures Procedure Name Priority Date/Time Associated Diagnosis Comments PAP SMEAR Routine 02/05/2025 12:00 AM EDT documented in this encounter Results * Pap Smear (02/05/2025 12:00 AM EDT) Swab Cervical swab / Unknown us [facility] Rosemary Nurse LAB CYTOLOGY ORDERABLES Final Result EXTERNAL LAB documented in this encounter Visit Diagnoses Not on filedocumented in this encounter Care Teams User Experience Team Lead Relationship Specialty Start Date End Date José Aguilar MD [address] [place] [address] PCP - General Family Medicine 11/15/24 documented as of this encounter
--- OUTSIDE RECORDS SUMMARY | 2025-02-19 09:10 | XMS_ITS | Clinical Summary ---
Author Organization [facility] Address [address] [place] [address] Care Team Providers Care History Faculty Member Name Role Phone FairbanksJosé MD Primary Care Provider [phone] Allergies Active Allergy Reactions Criticality Noted Date Comments Doxycycline Other,Unknown Medium 07/09/2021 Autoimmune reaction Minocycline Other Medium 07/09/2021 Other Reaction(s): medication induced Lupus Autoimmune reaction Medications Vit-Fe Fumarate-FA ( Vitamin Plus Low Iron) 27-1 MG tablet Take 1 each by mouth 1 (one) time each day at the same time Active Pequannock-3 Fatty Acids (OMEGA-3 CF PO) Take 1 each by mouth Daily Active Magnesium 400 MG capsule Take 400 mg by mouth Daily Active metroNIDAZOLE (Flagyl) 500 MG tabletIndicatio ns:BV (bacterial vaginosis) Take 1 tablet (500 mg) by mouth in the morning and 1 tablet (500 mg) before bedtime. Do all this for 7 days. Do not drink alcohol while taking this medication. 14 tablet 02/06/2025 02/14/20 25 Encounters Date Type Department Care Team Description 02/19/2025 Orders Only [facility] [address] [place] [address] Ana Freeman LPN 02/14/2025 Telephone [facility] [address] [place] [address] Angelina Beckman MA 02/06/2025 Results Follow-Up [facility] [address] [place] [address] Otffernandez Salud, REGISTERED NURSE CARDIAC TELEMETRY 02/06/2025 Telephone [facility] [address] [place] [address] Jose Salud, REGISTERED NURSE CARDIAC TELEMETRY 02/05/2025 9:50 AM EDT Routine [facility] [address] [place] [address] Madiha Roca PA 19 weeks gestation of ; Second trimester ; Well woman exam with routine gynecological exam; Exposure to STD; Vaginal discharge; Screening, , for anatomic survey 02/05/2025 Clinisync Result Encounter [facility] External Department Unsolicited Madiha Roca PA 02/05/2025 External Result Encounter [facility] External Department Unsolicited Madiha Roca PA 02/05/2025 Bamboo flowsheet [facility] [address] [place] [address] Madiha Roca PA 01/07/2025 10:10 AM EDT Routine [facility] [address] [place] [address] Aaron Riley, DO Second trimester ; 15 weeks gestation of 01/07/2025 Bamboo flowsheet [facility] [address] [place] [address] Aaron Riley, DO 12/18/2024 Abstract [facility] [address] [place] [address] Aaron Riley, 12/11/2024 Clinisync Result Encounter [facility] External Department Unsolicited Aaron Riley, DO 12/06/2024 2:00 PM EDT Initial [facility] [address] [place] [address] GA: 10w5d 12/06/2024 1:30 PM EDT Ancillary Procedure [facility] [address] [place] [address] Missed menses 12/04/2024 Travel from Last 3 Months Social History Tobacco Use Types Packs/Day Years [...] 12.8 oz) 025 10:23 AM EDT Height 165.1 cm (5' 5 ) 07/14/2022 12:0 0 PM EDT Body Mass Index 24.1 07/14/2022 12:00 PM EDT Plan of Treatment Upcoming Encounters Date Type Department Care Team (Late st Contact Info) Description 03/05/2025 9:40 AM EDT Routine [facility] [address] [facility] [place] [address] RosemaryAaron matamoros, DO [address] [facility] [place] [address] Procedures Procedure Name Priority Date/Time Associated Diagnosis Comments CULTURE, URINE, ROUTINE Routine 02/06/2025 3:15 PM EDT Missed menses RECURRENT VAGINITIS (HTRX) Routine 02/05/2025 12:19 PM EDT AFP, SERUM, OPEN SPINA BIFIDA Routine 02/05/2025 11:18 AM EDT POCT URINALYSIS DIPSTICK Routine 02/05/2025 10:28 AM EDT 19 weeks gestation of Second trimester IGP,APTIMA HPV,AGE GDLN Routine 02/05/2025 10:08 AM EDT PAP SMEAR Routine 02/05/2025 12:00 AM EDT POCT URINALYSIS DIPSTICK Routine 01/07/2025 10:21 AM EDT Second trimester HBSAG SCREEN Routine 12/11/2024 9:47 AM EDT RAPID PLASMA REAGIN, QUANT Routine 12/11/2024 9:47 AM EDT HCV ANTIBODY RFX TO QUANT PCR Routine 12/11/2024 9:47 AM EDT HIV AB/P24 AG WITH REFLEX Routine 12/11/2024 9:47 AM EDT ALL RUBELLA IGG AB Routine 12/11/2024 9: 47 AM EDT MLR HEMOGLOBIN A1C Routine 12/11/2024 9: 47 AM EDT ALL TYPE AND SCREEN Routine 12/11/2024 9 :47 AM EDT BOX TEST Routine 12/11/2024 9:47 AM EDT ALL CBC WITH AUTO DIFF Routine 9:47 AM EDT ALL MISCELLANEOUS TEST Routine 9:35 AM EDT POCT URINALYSIS DIPSTICK Routine 12/06/2024 2:35 PM EDT Missed menses POCT , URINE Routine 12/06/2024 2:35 PM EDT Missed menses US OB TRANSVAGINAL Routine 12/06/2024 1: 50 PM EDT Missed menses from Last 3 Months Results * Urine culture (02/06/2025 3:15 PM EDT) Urine Urine specimen obtained by clean catch procedure / Unknown Aaron Riley DO LAB MICROBIOLOGY - GENERAL ORDER LIVIA Final Result EXTERNAL LAB * (ABNORMAL) RECURRENT VAGINITIS (HTRX) (02/05/2025 12:19 PM EDT) [facility] ATOPOBIUM VAGINAE 0.000 19.961 - 24.689 ppm 02/06/2025 6:16 AM EDT [facility] ATOPOBIUM VAGINAE Not Detected 19.961 - 24.689 ppm 02/06/2025 6:16 AM EDT [facility] BVAB 2,3 (BACTERIAL VAGINOSIS ASSOCIATED BACTERIA 2, 3); MOBILUNCUS SPP 0.000 19.961 - 24.689 ppm 02/06/2025 6:16 AM EDT [facility] BVAB 2,3 (BACTERIAL VAGINOSIS ASSOCIATED BACTERIA 2, 3); MOBILUNCUS SPP Not Detected 19.961 - 24.689 ppm 02/06/2025 6:16 AM EDT [facility] LAURA ALBICANS, PARAPSILOSIS, TROPICALIS 27.705(A) 19.961 - 30.770 ppm 02/06/2025 6:16 AM EDT [facility] LAURA ALBICANS, PARAPSILOSIS, TROPICALIS Detected(A) 19.961 - 30.770 ppm 02/06/2025 6:16 AM EDT [facility] LAURA GLABRATA 24.272(A) 23.000 - 32.138 ppm 02/06/2025 6:16 AM EDT [facility] LAURA GLABRATA Detected(A) 23.000 - 32.138 ppm 02/06/2025 6:16 AM EDT [facility] LAURA KRUSEI 0.000 23.000 - 32.271 ppm 02/06/2025 6:16 AM EDT [facility] LAURA KRUSEI Not Detected 23.000 - 32.271 ppm 02/06/2025 6:16 AM EDT [facility] CHLAMYDIA TRACHOMATIS 0.000 23.000 - 31.467 ppm 02/06/2025 6:16 AM EDT [facility] CHLAMYDIA TRACHOMATIS Not Detected 23.000 - 31.467 ppm 02/06/2025 6:16 AM EDT [facility] GARDNERELLA VAGINALIS 0.000 19.961 - 24.689 ppm 02/06/2025 6:16 AM EDT [facility] GARDNERELLA VAGINALIS Not Detected 19.961 - 24.689 ppm 02/06/2025 6:16 AM EDT [facility] MEGASPHAERA (TYPES 1, 2) 0.000 19.961 - 24.689 ppm 02/06/2025 6:16 AM EDT [facility] MEGASPHAERA (TYPES 1, 2) Not Detected 19.961 - 24.689 ppm 02/06/2025 6:16 AM EDT [facility] NEISSERIA GONORRHOEAE 0.000 23.000 - 32.117 ppm 02/06/2025 6:16 AM EDT [facility] NEISSERIA GONORRHOEAE Not Detected 23.000 - 32.117 ppm 02/06/2025 6:16 AM EDT [facility] TRICHOMONAS VAGINALIS 0.000 23.000 - 32.119 ppm 02/06/2025 6:16 AM EDT [facility] TRICHOMONAS VAGINALIS Not Detected 23.000 - 32.119 ppm 02/06/2025 6:16 AM EDT [facility] MYCOPLASMA GENITALIUM 0.000 19.961 - 24.689 ppm 02/06/2025 6:16 AM EDT [facility] MYCOPLASMA GENITALIUM Not Detected 19.961 - 24.689 ppm 02/06/2025 6:16 AM EDT [facility] Tissue 02/05/2025 12:1 9 PM EDT 02/06/2025 1:54 AM EDT us Madiha LOPEZ LAB BLOOD ORDERABLES Final Resul t [facility] [address] [place] [place] [address] * AFP, SERUM, OPEN SPINA BIFIDA (02/05/2025 11:18 AM EDT) [facility] RESULTS Report . [facility] TEST RESULTS: *Screen Negative* . [facility] GEST. AGE ON COLLECTION DATE 19.4 . weeks [facility] GESTAT. AGE BASED ON LMP . [facility] Comment: Recalculations are not recommended when gestational dating by LMP and ultrasound are within 10 days. [age] [facility] RACE . [facility] WEIGHT 144 . lbs [facility] INSULIN DEP DIABETES No . [facility] MULTIPLE GESTATION No . [facility] AFP VALUE 59.4 . ng/mL [facility] AFP MOM 1.11 . [facility] OSBR RISK 1 IN 8647 . [facility] INTERPRETATION Comment . [facility] Comment: Interpretation: Screen Negative This result is screen negative for OSB. The AFP MoM calculated is based on the gestational age provided. MS-AFP can identify up to 80% of open neural tube defects. Closed neural tube defects and some open defects may not be detected by this test. This test does not screen for Down Syndrome or Trisomy 18. If screening for Down Syndrome or Trisomy 18 is desired, contact [facility] to discuss available options. The [employer] recommends amniocentesis be offered to women age 35 and older. COMMENT: Comment . [facility] Comment: Dang Bowman, Ph.D., [facility] Director References: Available Upon Request. Multiples Of Median Cutoffs For AFP Elevations Lowery 2.5 Black 2.8 IDD 2.0 Twins 4.5 Abbreviation Definitions IDD - Insulin Dep Diabetes OSBR - Open Spina Bifida Risk For further inquiries contact [facility] at [phone]. This test was developed and its performance characteristics determined by [employer]. It has not been cleared or approved by the Food and Drug Administration. Performed at: [facility] [place], [place] [id number] Wound Care Specialist: Roula Lopez [facility], Phone: [phone] 02/05/2025 11:1 8 AM EDT 02/05/2025 11:39 AM EDT Narrative CLINISYNC - 02/07/2025 1:08 AM EDT N N LMP [id number] 3 19 N 1 Y 144 N N N N N White/ Madiha LOPEZ LAB BLOOD ORDERABLES Final Resul t TED [facility] * POCT urinalysis dipstick manually resulted (02/05/2025 10:28 AM EDT) Only the most recent of3 resultswithin the time period is included. Color, UA Yellow Clarity, UA Clear Glucose, UA Negative Negative - 2000(110) ++++ mg/dL Bilirubin, UA Negative Negative - 4(70) +++ mg/dL Ketones, UA Negative Negative - 160(16) ++++ mg/dL Spec Grav, UA 1.010 1 - 1.03 Blood, UA Negative Negative - 50 Thor/mcL pH, UA 6.0 5 - 9 Protein, UA Negative Negative - 2000(20) ++++ mg/dL Urobilinogen, UA 0.2 0.2 - 12 mg/dL Leukocytes, UA Negative Negative - 500+++ Georgina/mcL Nitrite, UA Negative Negative - Positive Urine 02/05/2025 10:2 8 AM EDT Madiha LOPEZ POINT OF CARE TEST ENTER/EDIT OR DERABLES Final Result * IGP,APTIMA HPV,AGE GDLN (02/05/2025 10:08 AM EDT) AGE GDLN ACOG TESTING Note . [facility] Comment: TESTS RESULT FLAG UNITS REF RANGE LAB Clinician Provided Cytology Information Source.............Cervix No. of containers..01 ThinPrep Vial Age Algo ACOG Melly... 30-65 01 FLAG LEGEND: L-Low Normal,H-High Normal,LL-Alert Low,HH-Alert High <-Panic Low,>-Panic High,A-Abnormal,AA-Critical Abnormal Performed at: 01 =[facility] [address] [place] [address] Iliana Joe MD, IGP, APTIMA HPV, RFX 16/18,45 Note . [facility] Comment: TESTS RESULT FLAG UNITS REF RANGE LAB DIAGNOSIS: 02 NEGATIVE FOR INTRAEPITHELIAL LESION OR MALIGNANCY. FUNGAL ORGANISMS MORPHOLOGICALLY CONSISTENT WITH LAURA SPECIES ARE PRESENT. Specimen adequacy: 02 Satisfactory for evaluation. No endocervical component is identified. Performed by: Farida Dickey, Ship Design Teacher (ASCP) . 02 Note: Note 02 The Pap smear is a screening test designed to aid in the detection of premalignant and malignant conditions of the uterine cervix. It is not a diagnostic procedure and should not be used as the sole means of detecting cervical cancer. Both false-positive and false-negative reports do occur. Test Methodology: Note 02 This liquid based ThinPrep(R) pap test was screened with the use of an image guided system. HPV Genotype Reflex Note 02 Criteria not met, HPV Genotype not performed. FLAG LEGEND: L-Low Normal,H-High Normal,LL-Alert Low,HH-Alert High <-Panic Low,>-Panic High,A-Abnormal,AA-Critical Abnormal Performed at: [address] [address] Iliana Joe MD, HPV APTIMA Negative Negative [facility] Comment: This nucleic acid amplification test detects fourteen high- risk HPV types (16,18,31,33,35,39,45,51,52,56,58,59,66,68) without differentiation. Performed at: =[address] [id number] Wound Care Specialist: Iliana Joe MD, Phone: [phone] Performed at: [address] [id number] Wound Care Specialist: Iliana Joe MD, Phone: [phone] 02/05/2025 10:0 8 AM EDT 02/05/2025 1:09 PM EDT Narrative CLINISYNC - 02/08/2025 9:10 AM EDT SPATULA-ALONE CERVIX us Madiha LOPEZ LAB BLOOD ORDERABLES Final Resul t Performing Organization Address [facility]/ZIP Co de Phone Number CLINISYNC [facility] * Pap Smear (02/05/2025 12:00 AM EDT) Swab Cervical swab / Unknown us [facility] Yomaira Riley Nurse LAB CYTOLOGY ORDERABLES Final Result Performing Organization Address [facility] Co de Phone Number EXTERNAL LAB * BOX TEST (12/11/2024 9:47 AM EDT) BOX TEST SENT OUT [facility] [address] [facility] [address] 12/11/24 [facility] 12/11/2024 9:47 AM EDT 12/11/2024 9:52 AM EDT Narrative CLINISYNC - 12/11/2024 10:27 AM EDT UNITY BOX Aaron Rosemary DO LAB BLOOD ORDERABLES Final Resul t Performing Organization Address City/[facility]/ZIP Co de Phone Number [facility] * HBSAG SCREEN (12/11/2024 9:47 AM EDT) [facility] HBSAG SCREEN Negative Negative [facility] Comment: Performed at: [address] [id number] Wound Care Specialist: Jacob Bettencourt PhD, Phone: [phone] 12/11/2024 9:47 AM EDT 12/11/2024 9:52 AM EDT Narrative CLINISYNC - 12/12/2024 12:09 PM EDT Aaron Rosemary LAB BLOOD ORDERABLES Final Resul t Performing Organization Address [facility] Co de Phone Number [facility] * RAPID PLASMA REAGIN, QUANT (12/11/2024 9:47 AM EDT) [facility] RAPID PLASMA REAGIN, QUANT Non Reactive NonRea<1: 1 titer [facility] Comment: Please Note: This test does not meet current guidelines for screening and diagnosis of syphilis. This test is intended for following treatment response in patients being treated for syphilis infection. To screen for syphilis infection, a reflex cascade that includes both RPR and a treponema-specific assay should be utilized, such as Treponema pallidum (Syphilis) Screening [address] (452397) or Rapid Plasma Reagin (RPR) Test With Reflex to Quantitative RPR and Confirmatory Treponema pallidum Antibodies ([id number]). Performed at: [address] [id number] Wound Care Specialist: Jacob Bettencourt PhD, Phone: [phone] 12/11/2024 9:47 AM EDT 12/11/2024 9:52 AM EDT Narrative CLINISYNC - 12/12/2024 12:09 PM EDT Ener-G-Rotorso DO LAB BLOOD ORDERABLES Final Resul t Performing Organization Address [facility] Co de Phone Number [facility] * HIV AB/P24 AG WITH REFLEX (12/11/2024 9:47 AM EDT) Pathologist [facility] HIV AB/P24 AG SCREEN Non Reactive Non Reactive [facility] Comment: HIV-1/HIV-2 antibodies and HIV-1 p24 antigen were NOT detected. There is no laboratory evidence of HIV infection. HIV Negative Performed at: [facility] [id number] Wound Care Specialist: Jacob Bettencourt PhD, Phone: [phone] 12/11/2024 9:47 AM EDT 12/11/2024 9:52 AM EDT [facility] - 12/12/2024 5:07 AM EDT [facility] LAB BLOOD ORDERABLES Final Resul t Performing Organization Address [facility] de Phone Number [facility] * HCV ANTIBODY RFX TO QUANT PCR (12/11/2024 9:47 AM EDT) [facility] HCV AB Non Reactive Non Reactive [facility] INTERPRETATION: Comment . [facility] Comment: Not infected with HCV unless early or acute infection is suspected (which may be delayed in an immunocompromised individual), or other evidence exists to indicate HCV infection. 12/11/2024 9:47 AM EDT 12/11/2024 9:52 AM EDT [facility] - 12/12/2024 5:07 AM EDT Ener-G-Rotorso DO LAB BLOOD ORDERABLES Final Resul t Performing Organization Address [facility] Co de Phone Number [facility] * MLR HEMOGLOBIN A1C (12/11/2024 9:47 AM EDT) [facility] GLYCOHEMOGLOBIN A1C 5.4 4.5 - 6.2 % [facility] Comment: ADA RECOMMENDED LIMIT 4.0 - 6.0 ADA THERAPEUTIC TARGET < 7.0 ACTION SUGGESTED > 7.0 ESTIMATED AVERAGE GLUCOSE 108 mg/dL [facility] 12/11/2024 9:47 AM EDT 12/11/2024 9:52 AM EDT Narrative CLIN[facility] - 12/11/2024 11:26 AM EDT Aaron Rosemary DO CLINISYNC Final Result Performing Organization Address [facility] Co de Phone Number [facility] * ALL TYPE AND SCREEN (12/11/2024 9:47 AM EDT) Pathologist [facility] BLOOD TYPE A Positive [facility] ANTIBODY SCREEN NEGATIVE TB 12/11/2024 9:47 AM EDT 12/11/2024 9:52 AM EDT [facility] CLINISYMD - 12/11/2024 11:05 AM EDT [facility] , Aaron Rosemary DO CLINISYNC Final Result Performing Organization Address [facility] Co de Phone Number [facility] * ALL RUBELLA IGG AB (12/11/2024 9:47 AM EDT) [facility] RUBELLA ANTIBODIES, IGG 9.62 Immune >0.99 index [facility] Comment: Non-immune <0.90 Equivocal 0.90 - 0.99 Immune >0.99 12/11/2024 9:47 AM EDT 12/11/2024 9:52 AM EDT Narrative CLINISYNC - 12/12/2024 5:07 AM EDT Aaron Rosemary DO CLINISYNC Final Result Performing Organization Address [facility] Co de Phone Number [facility] * (ABNORMAL) ALL CBC WITH AUTO DIFF (12/11/2024 9:47 AM EDT) [facility] WBC 8.0 4.0 - 11.0 10 3/uL TBH TBH RBC 4.14(L) 4.20 - 5.40 10 6/uL [facility] TB HGB 12.2 12.0 - 16.0 g/dL TB TBH HCT 36.5 36.0 - 48.0 % TBH [facility]H MCV 88.2 81.0 - 99.0 fL TBH TBH MCH 29.5 26.7 - 34.0 pg TBH TBH MCHC 33.4 29.9 - 35.2 g/dL TBH TBH RDW 13.5 11.0 - 15.0 % TBH TBH PLT 261 150 - 450 10 3/uL TBH TBH MPV 9.4(L) 9.5 - 13.5 fL [facility] NEUTROPHILS PERCENT AUTO 69.1 43.0 - 75.0 % [facility] LYMPHOCYTES PERCENT AUTO 23.6 20.5 - 60.0 % [facility] MONOCYTES PERCENT AUTO 5.7 1.7 - 12.0 % TBH TBH EO % 1.0 0.9 - 7.0 % [facility]H BASOPHILS PERCENT AUTO 0.5 0.2 - 2.0 % [facility] IMMATURE GRANULOCYTES PCT AUTO 0.1 0.0 - 0.5 % [facility] NEUTROPHILS ABSOLUTE AUTO 5.5 1.4 - 6.5 10 3/uL TBH LYMPHOCYTES ABSOLUTE AUTO 1.9 1.2 - 3.8 10 3/uL TBH MONOCYTES ABSOLUTE AUTO 0.5 0.3 - 0.8 10 3/uL TBH TBH EO # 0.1 0.0 - 0.7 10 3/uL TBH BASOPHILS ABSOLUTE AUTO 0.0 0.0 - 0.1 10 3/uL [facility] IMMATURE GRANULOCYTES ABS AUTO 0.01 0.00 - 0.03 10 3/uL [facility] 12/11/2024 9:47 AM EDT 12/11/2024 9:52 AM EDT Narrative CLINISYNC - 12/11/2024 10:23 AM EDT Aaron Riley DO CLINISYNC Final Result [facility] * ALL MISCELLANEOUS TEST (12/11/2024 9:35 AM EDT) [facility] MISCELLANEOUS TEST COMMENT . [facility] Comment: Test Ordered: [id number] Drug Screen 17 w/Conf, UR Creatinine 45 mg/dL MX Reference Range: . REFERENCE RANGE: Ref Range>=20 ETHANOL BIOMARKERS [place] Negative ng/mL MX Reference Range: CUTOFF:500 AMPHETAMINES IA Negative ng/mL MX Reference Range: CUTOFF:300 BARBITURATES IA Negative ng/mL MX Reference Range: CUTOFF:200 BENZODIAZEPINES IA Negative ng/mL MX Reference Range: CUTOFF:50 COCAINE METABOLITE IA Negative ng/mL MX Reference Range: CUTOFF:150 PHENCYCLIDINE IA Negative ng/mL MX Reference Range: CUTOFF:25 CANNABINOIDS IA Negative ng/mL MX Reference Range: CUTOFF:20 6-ACETYLMORPHINE IA Negative ng/mL MX Reference Range: CUTOFF:10 OPIATE CLASS IA Negative ng/mL MX Reference Range: CUTOFF:100 OXYCODONE CLASS IA Negative ng/mL MX Reference Range: CUTOFF:100 METHADONE IA Negative ng/mL MX Reference Range: CUTOFF:100 FENTANYL IA Negative ng/mL MX Reference Range: CUTOFF:2.0 BUPRENORPHINE IA Negative ng/mL MX Reference Range: CUTOFF:5.0 TRAMADOL IA Negative ng/mL MX Reference Range: CUTOFF:200 PROPOXYPHENE IA Negative ng/mL MX Reference Range: CUTOFF:300 TAPENTADOL IA Negative ng/mL MX Reference Range: CUTOFF:200 NICOTINE METABOLITE Negative MX Reference Range: . Cotinine Note: ng/mL MX Not Detected Reference Range: . Performed at: [facility] [address] [place] [id number] Wound Care Specialist: Alba Rubalcava [facility], Phone: [phone] Performed at: [facility] [id number] Wound Care Specialist: Jacob Bettencourt PhD, Phone: [phone] 12/11/2024 9:35 AM EDT 12/11/2024 9:51 AM EDT Narrative CLINISYNC - 12/13/2024 10:07 PM EDT [id number] Drug Screen 17 With Reflex Confirmation ( Profile; us Aaron Riley DO CLINISYNC Final Result CLINISYMD TB * (ABNORMAL) POCT , urine manually resulted (12/06/2024 2:35 PM EDT) Preg Test, Ur Positive Negative Urine 12/06/2024 2:35 PM EDT Aaron Riley DO POINT OF CARE TEST ENTER/EDIT OR DERABLES Final Result * US OB transvaginal (12/06/2024 1:50 PM EDT) Anatomical Region Laterality Modality Body Ultrasound 12/07/2024 8:33 PM EDT Narrative 12/07/2024 8:33 PM EDT EXAM: US OB TRANSVAGINAL HISTORY: Dating. COMPARISON: [...] visualized due to overlying bowel gas. Electronically Signed:Electronically signed by BHAVANI SOTOMAYOR II, MD, PHD at 07-Dec-2024 08:32:38 PM [facility] Procedure Note Bhavani Sotomayor MD - 12/07/2024 EXAM: US OB TRANSVAGINAL HISTORY: Dating. COMPARISON: None available. TECHNIQUE: Two-dimensional transvaginal grayscale ultrasound imaging ofthe pelvis was performed. FINDINGS: The uterus demonstrates a normal homogeneous echotexture. The cervixmeasures 4.4 cm in length and the cervical os is closed. The bilateral ovaries are not visualized due to overlying bowel gas. No fluid is present within the cul-de-sac. There is a single, live intrauterine gestation identified with a fetalheart rate of 170 beats per minute and a crown-rump length measurement of3.4 cm, correlating to a gestational age of 10 weeks 2 days (+/- 5 days).There is no subchorionic hemorrhage visualized. A yolk sac isvisualized. IMPRESSION: 1. Single, live intrauterine gestation 10 weeks, 5 days by LMP. Today'sultrasound measurements correlate with a gestational age of 10 weeks 2days (+/- 5 days). JULIO by today's ultrasound is 07/02/2025. 2. Bilateral ovaries not visualized due to overlying bowel gas. Electronically Signed:Electronically signed by BHAVANI SOTOMAYOR II, MD, PHDat 07-Dec-2024 08:32:38 PM [facility] us Aaron Rosemary DO IMG OB US PROCEDURES Final Resul t from Last 3 Months Insurance [facility] Address: [facility] [id number] [place] [id number] Care Teams History Faculty Member Relationship Specialty Start Date End Date José Aguilar MD [address] [place] [address] PCP - General Family Medicine 11/15/24
--- OUTSIDE RECORDS SUMMARY | 2025-02-19 09:10 | XMS_ITS | Clinical Summary ---
Author Organization [facility] Address [address] [place] [address] Care Team Providers Care Vice President Of Brand Management Name Role Phone Unavailable Primary Care Provider Unavailabl e Allergies No known active allergies Medications ONEXTON 1.2 %(1 % base) -3.75 % GlwP Apply 1 application topically daily. 50 g 2 6 Active BENZEPRO, MICROSPHERES, 7 % Clsr Apply 1 application topically daily. 180 g 2 6 Active Active Problems No known active problems Social History Tobacco Use Types Packs/Day Years Used Date Smoking Tobacco: Never Smokeless Tobacco: Never Comments Unknown Sex and Gender Information Value Date Recorded Sex Assigned at Not on file Legal Sex Female 2:06 PM EDT Gender Identity Not on file Sexual Orientation Not on file Plan of Treatment Health Maintenance Due Date Last Done Comments Tetanus: Every 10yrs 1988 Wellness Visit 12/06/1991 Depression Screening/Follow- Up (PHQ-2/9) 2000 HIV Screening 12/06/2003 Hepatitis C Screening 2006 Pap Smear 2009 Cervical Cancer Screening 2018 HPV/Cotest 2018 COVID-19 Vaccine (2023-2 5 season) 2024 Influenza Vaccine (Season Ended) 2025 Pneumococcal Vaccine: Ped or At-Risk Aged Out No longer eligible b ased on patient's age to complete this topic Insurance [employer] CHOICE POS/POSII/PREMIER CARE/PREMIER CARE PLUS
--- OUTSIDE RECORDS SUMMARY | 2025-02-19 09:10 | XMS_ITS | Encounter Summary ---
Author Organization [facility] Address [address] [place] [address] Care Team Providers Care Forge Press Operator Name Role Phone TingleyJosé MD Primary Care Provider [phone] Encounter Details Date Type Department Care Team (Late st Contact Info) Description 02/05/2025 Clinisync Result Encounter [facility] External Department Unsolicited Madiha Roca PA [address] [facility] [address] [place], [facility] Social History Tobacco Use Types Packs/Day Years [...] AM EDT Routine [facility] B[facility] OB [address] [facility] [place] [id number] Aaron Riley, DO [address] [place], [place] [id number] documented as of this encounter Procedures Procedure Name Priority Date/Time Associated Diagnosis Comments AFP, SERUM, OPEN SPINA BIFIDA Routine 02/05/2025 11:18 AM EDT IGP,APTIMA HPV,AGE GDLN Routine 02/05/2025 10:08 AM EDT documented in this encounter Results * AFP, SERUM, OPEN SPINA BIFIDA (02/05/2025 11:18 AM EDT) RESULTS Report . [facility] TEST RESULTS: *Screen Negative* . [facility] GEST. AGE ON COLLECTION DATE 19.4 . weeks [facility] GESTAT. AGE BASED ON LMP . [facility] Comment: Recalculations are not recommended when gestational dating by LMP and ultrasound are within 10 days. [age] [facility] RACE . [facility] WEIGHT 144 . lbs [facility] INSULIN DEP DIABETES No . [facility] MULTIPLE GESTATION No . H AFP VALUE 59.4 . ng/mL [facility] AFP MOM 1.11 . [facility] OSBR RISK 1 IN 8647 . [facility] INTERPRETATION Comment . [facility] Comment: Interpretation: Screen Negative This result [...] Customer Services to discuss available options. The [employer] recommends amniocentesis be offered to women age 35 and older. COMMENT: Comment . [facility] Comment: Dang Bowman, Ph.D., [facility] Director References: Available Upon Request. Multiples Of Median Cutoffs For AFP Elevations Lowery 2.5 Black 2.8 IDD 2.0 Twins 4.5 Abbreviation Definitions IDD - Insulin Dep Diabetes OSBR - Open Spina Bifida Risk For further inquiries contact [employer] [facility] at [phone]. This test was developed and its performance characteristics determined by [employer]. It has not been cleared or approved by the Food and Drug Administration. Performed at: [facility] [address] [place], [place] [id number] Bulk Clerk: Roula Lopez [facility], Phone: [phone] 02/05/2025 11:1 8 AM EDT 02/05/2025 11:39 AM EDT Narrative LISBETHISYNC - 02/07/2025 1:08 AM EDT N N LMP [id number] 3 19 N 1 Y 144 N N N N N White/ Madiha LOPEZ LAB BLOOD ORDERABLES Final Resul t TED [facility] * IGP,APTIMA HPV,AGE GDLN (02/05/2025 10:08 AM EDT) AGE GDLN ACOG TESTING Note . [facility] Comment: TESTS RESULT FLAG UNITS REF RANGE LAB Clinician Provided Cytology Information Source.............Cervix No. of containers..01 ThinPrep Vial Age Algo ACOG Melly... 30-65 01 FLAG LEGEND: L-Low Normal,H-High Normal,LL-Alert Low,HH-Alert High <-Panic Low,>-Panic High,A-Abnormal,AA-Critical Abnormal Performed at: 01 =G [address] [address] Iliana Joe MD, IGP, APTIMA HPV, RFX 16/18,45 Note . [facility] Comment: TESTS RESULT FLAG UNITS REF RANGE LAB DIAGNOSIS: 02 NEGATIVE FOR INTRAEPITHELIAL LESION OR MALIGNANCY. FUNGAL ORGANISMS MORPHOLOGICALLY CONSISTENT WITH LAURA SPECIES ARE PRESENT. Specimen adequacy: 02 Satisfactory for evaluation. No endocervical component is identified. Performed by: 02 Parish Dickey Certified Massage Therapist ([facility]) . 02 Note: Note 02 The Pap [...] <-Panic Low,>-Panic High,A-Abnormal,AA-Critical Abnormal Performed at: [address] [place] [address] Iliana Joe MD, HPV APTIMA Negative Negative [facility] Comment: This nucleic acid amplification test detects fourteen high- risk HPV types (16,18,31,33,35,39,45,51,52,56,58,59,66,68) without differentiation. Performed at: =[facility] [address] [id number] Bulk Clerk: Iliana Joe MD, Phone: [phone] Performed at: [facility] [place] [id number] Bulk Clerk: Iliana Joe MD, Phone: [phone] 02/05/2025 10:0 8 AM EDT 02/05/2025 1:09 PM EDT Narrative CLINISYNC - 02/08/2025 9:10 AM EDT SPATULA-ALONE CERVIX us Madiha LOPEZ LAB BLOOD ORDERABLES Final Resul t [facility] documented in this encounter Visit Diagnoses Not on filedocumented in this encounter Care Teams Forge Press Operator Relationship Specialty Start Date End Date José Aguilar MD [address] [place] [address] PCP - General Family Medicine 11/15/24 documented as of this encounter
--- OUTSIDE RECORDS SUMMARY | 2025-02-19 09:10 | XMS_ITS | Encounter Summary ---
Author Organization [facility] Address [address] [place] [address] Care Team Providers Care Mineral Economist Name Role Phone Louie Martin MD Primary Care Provider [phone] Encounter Details Date Type Department Care Team ([facility] st Contact Info) Description 07/26/2017 Transcribe Orders [facility] [address] [place] [phone] Holly Hull MA Peeling skin (Primary Dx) Social History Tobacco Use Types Packs/Day Years Used Date Smoking Tobacco: Never Comments Unknown Sex and Gender Information Value Date Recorded Sex Assigned at Not on file Legal Sex Female 2:06 PM EDT Gender Identity Not on file Sexual Orientation Not on file documented as of this encounter Plan of Treatment Not on file documented as of this encounter Visit Diagnoses Diagnosis Peeling skin- Primary documented in this encounter Care Teams Mineral Economist Relationship Specialty Start Date End Date Louie Martin MD [address] [place] [address] PCP - General Family Medicine 07/14/16 12/08/21 documented as of this encounter
--- OUTSIDE RECORDS SUMMARY | 2025-02-19 09:10 | XMS_ITS | Encounter Summary ---
Author Organization [facility] Address [address] [place] [address] Care Team Providers Care Teller Vault Name Role Phone José Aguilar MD Primary Care Provider [phone] Encounter Details Date Type Department Care Team (Late st Contact Info) Description 02/14/2025 Telephone [facility] B[facility] OB [address] [place] [address] Angelina Beckman MA [address] [place] [address] [place] [address] Social History Tobacco Use Types Packs/Day Years [...] encounter Miscellaneous Notes * Telephone Encounter - Angelina Beckman MA - 02/14/2025 1:26 PM EDT Pt called left message for a call back has a question. Called pt back left message to call office back or leave a detailed message as to what the question is. documented in this encounter Plan of Treatment Upcoming Encounters Date Type Department Care Team (Late st Contact Info) Description 03/05/2025 9:40 AM EDT Routine [facility] BCP OB [address] [place] [address] Aaron Riley DO [address] [facility] [place] [address] documented as of this encounter Visit Diagnoses Not on filedocumented in this encounter Care Teams Teller Vault Relationship Specialty Start Date End Date José Aguilar MD [address] [place] [address] PCP - General Family Medicine 11/15/24 documented as of this encounter
== END 2025-02-19 09:09 | disposition home or self-care (01) ==
LOC: US 09:08
PROVIDERS: PCP Family Medicine; Visit Provider Obstetrics & Gynecology
DX: Z36.89 Encounter for other specified antenatal screening (principal); Z3A.21 21 weeks gestation of pregnancy
CPT/HCPCS: 76805; 76817

== ENCOUNTER 2025-04-02 08:14 | Outpatient (OUT) | payer OTHER, SELFPAY ==
--- OUTSIDE RECORDS SUMMARY | 2025-04-02 08:27 | XMS_ITS | CCD ---
Author Organization [facility] Care Team Providers Care User Experience Team Lead Name Role Phone Louie Martin Unavailable [phone] MOROCCO, TASIA Unavailable Unavailable LOUIE MARTIN Unavailable Unavailable TIMOTHY TASIA Unavailable Unavailable LOUIE MARTIN Unavailable Unavailable Deidre Addison Primary Care [...] REQUEST, NONE LISTED Primary Care Unavaila ble MARYANA, DR PAUL Arriola Admitting Unavailabl e KALI, [...] Arriola Primary Care Physician Unavail able PAUL MIJAERS Referring Unavailable SECOR, PRUDENCE Garnica Primary Care [...] able Prudence Aguilar MD Primary Care Provider [phone] JOY TRAMMELL Referring Unavailable SECOR, PRUDENCE Garnica Primary Care Unavailable Jeff CASTILLO, Prudence Garnica Primary Care Provider Emelyn, Vladimir Arriola Primary Care Physician Unavail able AARON RILEY Attending Unavailable MADIHA MORENO Attending Unavailable AARON RILEY Attending Unavailable Allergies Allergy Classification Reported Allergen(s) Allergy Type Date of Onset Reaction(s) Facility (16 sources) Doxycycline; Translations: [doxycycline hyclate] Drug Allergy [facility] (16 sources) Minocycline; Translations: [minocycline] Drug Allergy [facility] (16 sources) Tetracyclines Allergy to substance (disorder) [facility] (15 sources) Doxycycline Drug Allergy 1 Other (See Comments), Other, Unknown [facility] (15 sources) Minocycline Drug Allergy 1 Other (See Comments), Other [facility] Work Phone: Medications Current Medications Medication Drug [...] End: 03-03-2023 Cleocin T 1 % lotion 2 03/03/2023 apply BID to affected areas Start: 10-28-2020 [...] daily 2 Bottle 1 12/31/2020 Active Magnesium (13 sources) take 1 capsule by mouth once [...] 10 days 20 capsule 08/17/2024 08/27/2024 Active [place]-3 Fatty Acids (OMEGA-3 CF PO) (13 sources) take 1 dose by mouth once daily [place]-3 Fatty Acids (OMEGA-3 CF PO) Take 1 [...] Vitamin Plus Low Iron) 27-1 MG tablet (13 sources) take 1 tablet by mouth once [...] Chronic Immunizations and screening for infectious disease (3 sources) Encounter for screening for human papillomavirus (HPV); Translations: [Exposure to sexually transmissible disorder] Onset: 07-18-2022 02-05-2025 Episodic Neoplasms of unspecified nature or uncertain [...] bleeding, unspecified] Onset: 03-13-2022 05-18-2022 Chronic Other female genital disorders (2 sources) Vaginal discharge; Translations: [Other specified noninflammatory disorders of vagina] 02-05-2025 Episodic Other non-traumatic joint disorders (16 sources) Pain in unspecified joint Episodic Other and delivery including normal (6 sources) Second trimester ; Translations: [Encounter for [...] [15 weeks gestation of ] 01-07-2025 Episodic Residual codes; unclassified (2 sources) Gestation period, 19 weeks; Translations: [19 weeks gestation of ] 02-05-2025 Episodic Residual codes; unclassified (2 sources) Gestation period, 23 weeks; Translations: [23 weeks gestation of ] 03-05-2025 Episodic Systemic lupus erythematosus and connective tissue [...] Range Facility Urinalysis macro (dipstick) panel (U)on 03-05-2025 Bilirubin, UA Negative Negative - 4(70) +++ mg/dL [facility] Blood, UA Negative Negative - 50 Thor/mcL [facility] Clarity, UA Clear [facility] Color, UA Yellow [facility] Glucose, UA Negative Negative - 2000(110) ++++ mg/dL [facility] Interpretation and review of laboratory results Abnormal [facility] Ketones, UA Negative Negative - 160(16) ++++ mg/dL [facility] Leukocytes, UA Trace Negative - 500+++ Georgina/mcL [facility] Nitrite, UA Negative Negative - Positive [facility] pH, UA 7.5 5 - 9 [facility] Protein, UA Negative Negative - 1999(20) ++++ mg/dL [facility] Spec Grav, UA 1.015 1 - 1.03 [facility] Urobilinogen, UA 0.2 0.2 - 12 mg/dL [facility] No Panel InformationOrdered By: Radiologist Radiology on 02-19-2025 [facility] Work Phone: No Panel Informationon 02-19 Radiology Study observation (narrative) [facility] US OB ANATOMYon 02-19-2025 [place] [address] Ultrasound Report Signed Patient: LESIA GONZALEZ MR#: [id number] : 1990 Acct:[id number] Age/Sex: 34 / F ADM Date: 02/19/25 Loc: US Attending Dr: Aaron Riley D.O. Ordering Physician: Aaron Riley D.O. Date of Service: 02/19/25 Procedure(s): US OB anatomy Accession Number(s): [id number] cc: Aaron Riley D.O.; Prudence Jose M.D. [place] [id number] Patient Name: LESIA GONZALEZ MRN: [id number] date: 1990 Sex: F Assigned Patient Location: US Current Patient Location: US Accession/Order Number: [id number] Exam Date: 02/19/2025 10:17 Report Date: 02/19/2025 10:27 At the request of: AARON RILEY DO Procedure: US OB cervical length CLINICAL DATA: Anatomic survey COMPARISON: None ULTRASOUND OB ANATOMY There is a single live intrauterine gestation in cephalic presentation. The placenta is posterior. Amniotic fluid volume is subjectively normal. There is cardiac and somatic activity with heart rate of 160 bpm. The neural axis and all 4 extremities were surveyed by the social science research assistant and no abnormalities were identified. The stomach, bladder, kidneys, three-vessel cord with insertion, four-chamber heart with right and left outflow tracts, facial features and diaphragm are seen. There is female genitalia. The following measurements were obtained: Biparietal diameter 5.1 cm 21 weeks 4 days 52% Head circumference 18.3 cm 20 weeks 5 days 13% Abdominal circumference 15.8 cm 20 weeks 6 days 27% Femur length 3.4 cm 20 weeks 6 days 22% The composite ultrasound age based on these measurements is 21 weeks 0 days +/- 1 week 3 days. This within standard deviation of dates based on last menstrual period. US/US OB anatomy IMPRESSION: SINGLE LIVE ANTERIOR GESTATION WITH ULTRASOUND AGE OF 21 WEEKS 0 DAYS. NORMAL ANATOMY SURVEY. ULTRASOUND OB CERVICAL LENGTH The cervix was evaluated with the transvaginal probe. There is a posterior placenta with no evidence of previa. The cervix is closed. Estimated cervical length is 5.6 cm. IMPRESSION: CLOSED CERVIX WITH NORMAL APPEARANCE. Impression dictated by: Maribel Tipton M.D. 02/19/2025 10:27 AM Dictation Location: [place] [address] Electronically authenticated by: [id number] Y Date: 02/19/2025 10:27 Dictated By: Maribel Tipton M.D. Signed By: 02/19/25 1030 DD/ 1027 TD/TT: Foreign Language Interpreter: [facility] Radiology, Radiologist, MD - 02/19/2025 [place] [address] Ultrasound Report Signed Patient: LESIA GONZALEZ MR#: [id number] : 1990 Acct:[id number] Age/Sex: 34 / F ADM Date: 02/19/25 Loc: US Attending Dr: Aaron Riley D.O. Ordering Physician: Aaron Riley D.O. Date of Service: 02/19/25 Procedure(s): US OB anatomy Accession Number(s): [id number] cc: Aaron Riley D.O.; Prudence Jose M.D. The [address] [address] Patient Name: LESIA GONZALEZ MRN: [facility]:[id number] date: 1990 Sex: F Assigned Patient Location: US Current Patient Location: Accession/Order Number: [id number] Exam Date: 02/19/2025 10:17 Report Date: 02/19/2025 10:27 At the request of: AARON RILEY DO Procedure: US OB cervical length CLINICAL DATA: Anatomic survey COMPARISON: None ULTRASOUND OB ANATOMY There is a single live intrauterine gestation in cephalic presentation. The placenta is posterior. Amniotic fluid volume is subjectively normal. There is cardiac and somatic activity with heart rate of 160 bpm. The neural axis and all 4 extremities were surveyed by the social science research assistant and no abnormalities were identified. The stomach, bladder, kidneys, three-vessel cord with insertion, four-chamber heart with right and left outflow tracts, facial features and diaphragm are seen. There is female genitalia. The following measurements were obtained: Biparietal diameter 5.1 cm 21 weeks 4 days 52% Head circumference 18.3 cm 20 weeks 5 days 13% Abdominal circumference 15.8 cm 20 weeks 6 days 27% Femur length 3.4 cm 20 weeks 6 days 22% The composite ultrasound age based on these measurements is 21 weeks 0 days +/- 1 week 3 days. This within standard deviation of dates based on last menstrual period. US/US OB anatomy IMPRESSION: SINGLE LIVE ANTERIOR GESTATION WITH ULTRASOUND AGE OF 21 WEEKS 0 DAYS. NORMAL ANATOMY SURVEY. ULTRASOUND OB CERVICAL LENGTH The cervix was evaluated with the transvaginal probe. There is a posterior placenta with no evidence of previa. The cervix is closed. Estimated cervical length is 5.6 cm. IMPRESSION: CLOSED CERVIX WITH NORMAL APPEARANCE. Impression dictated by: Maribel Tipton M.D. 02/19/2025 10:27 AM Dictation Location: [place] [address] Electronically authenticated by: [id number] Y Date: 02/19/2025 10:27 Dictated By: Maribel Tipton M.D. Signed By: 02/19/25 1030 DD/ 1027 TD/TT: Foreign Language Interpreter: AJAY [facility] [place] [address] Ultrasound Report Signed Patient: LESIA GONZALEZ MR#: [id number] : 1990 Acct:[id number] Age/Sex: 34 / F ADM Date: 02/19/25 Loc: US Attending Dr: Aaron Riley D.O. Ordering Physician: Aaron Riley D.O. Date of Service: 02/19/25 Procedure(s): US OB cervical length Accession Number(s): [id number] cc: Aaron Riley D.O.; Prudence Jose M.D. [place] [address] Patient Name: LESIA GONZALEZ MRN: [facility]:[id number] date: 1990 Sex: F Assigned Patient Location: US Current Patient Location: US Accession/Order Number: [id number] Exam Date: 02/19/2025 10:17 Report Date: 02/19/2025 10:27 At the request of: AARON RILEY DO Procedure: US OB cervical length CLINICAL DATA: Anatomic survey COMPARISON: None ULTRASOUND OB ANATOMY There is a single live intrauterine gestation in cephalic presentation. The placenta is posterior. Amniotic fluid volume is subjectively normal. There is cardiac and somatic activity with heart rate of 160 bpm. The neural axis and all 4 extremities were surveyed by the social science research assistant and no abnormalities were identified. The stomach, bladder, kidneys, three-vessel cord with insertion, four-chamber heart with right and left outflow tracts, facial features and diaphragm are seen. There is female genitalia. The following measurements were obtained: Biparietal diameter 5.1 cm 21 weeks 4 days 52% Head circumference 18.3 cm 20 weeks 5 days 13% Abdominal circumference 15.8 cm 20 weeks 6 days 27% Femur length 3.4 cm 20 weeks 6 days 22% The composite ultrasound age based on these measurements is 21 weeks 0 days +/- 1 week 3 days. This within standard deviation of dates based on last menstrual period. US/US OB cervical length IMPRESSION: SINGLE LIVE ANTERIOR GESTATION WITH ULTRASOUND AGE OF 21 WEEKS 0 DAYS. NORMAL ANATOMY SURVEY. ULTRASOUND OB CERVICAL LENGTH The cervix was evaluated with the transvaginal probe. There is a posterior placenta with no evidence of previa. The cervix is closed. Estimated cervical length is 5.6 cm. IMPRESSION: CLOSED CERVIX WITH NORMAL APPEARANCE. Impression dictated by: Maribel Tipton M.D. 02/19/2025 10:27 AM Dictation Location: [place] [address] Electronically authenticated by: [id number] Y Date: 02/19/2025 10:27 Dictated By: Maribel Tipton M.D. Signed By: 02/19/25 1030 DD/ 1027 TD/TT: Foreign Language Interpreter: [facility] Radiology, Radiologist, - 02/19/2025 [place] [address] Ultrasound Report Signed Patient: LESIA GONZALEZ MR#: [id number] : 1990 Acct:[id number] Age/Sex: 34 / F ADM Date: 02/19/25 Loc: US Attending Dr: Aaron Riley D.O. Ordering Physician: Aaron Riley D.O. Date of Service: 02/19/25 Procedure(s): US OB cervical length Accession Number(s): [id number] cc: Aaron Riley D.O.; Prudence Jose M.D. The [place] [address] Patient Name: LESIA GONZALEZ MRN: [facility]:[id number] date: 1990 Sex: F Assigned Patient Location: Current Patient Location: Accession/Order Number: [id number] Exam Date: 02/19/2025 10:17 Report Date: 02/19/2025 10:27 At the request of: AARON RILEY DO Procedure: US OB cervical length CLINICAL DATA: Anatomic survey COMPARISON: None ULTRASOUND OB ANATOMY There is a single live intrauterine gestation in cephalic presentation. The placenta is posterior. Amniotic fluid volume is subjectively normal. There is cardiac and somatic activity with heart rate of 160 bpm. The neural axis and all 4 extremities were surveyed by the social science research assistant and no abnormalities were identified. The stomach, bladder, kidneys, three-vessel cord with insertion, four-chamber heart with right and left outflow tracts, facial features and diaphragm are seen. There is female genitalia. The following measurements were obtained: Biparietal diameter 5.1 cm 21 weeks 4 days 52% Head circumference 18.3 cm 20 weeks 5 days 13% Abdominal circumference 15.8 cm 20 weeks 6 days 27% Femur length 3.4 cm 20 weeks 6 days 22% The composite ultrasound age based on these measurements is 21 weeks 0 days +/- 1 week 3 days. This within standard deviation of dates based on last menstrual period. US/US OB cervical length IMPRESSION: SINGLE LIVE ANTERIOR GESTATION WITH ULTRASOUND AGE OF 21 WEEKS 0 DAYS. NORMAL ANATOMY SURVEY. ULTRASOUND OB CERVICAL LENGTH The cervix was evaluated with the transvaginal probe. There is a posterior placenta with no evidence of previa. The cervix is closed. Estimated cervical length is 5.6 cm. IMPRESSION: CLOSED CERVIX WITH NORMAL APPEARANCE. Impression dictated by: Maribel Tipton M.D. 02/19/2025 10:27 AM Dictation Location: [place] [address] Electronically authenticated by: [id number] Y Date: 02/19/2025 10:27 Dictated By: Maribel Tipton M.D. Signed By: 02/19/25 1030 DD/ 1027 TD/TT: Foreign Language Interpreter: [facility] AFP, SERUM, OPEN SPINA BIFID Aon 02-07-2025 AFP MOM 1.11 . [facility] AFP VALUE 59.4 ng/mL . [facility] COMMENT: Comment . [facility] Comment on above: Dang Bowman , Ph.D., [facility] Director References: Available Upon Request. Multiples Of Median Cutoffs For AFP Elevations Lowery 2.5 Black 2.8 IDD 2.0 Twins 4.5 Abbreviation Definitions IDD - Insulin Dep Diabetes OSBR - Open Spina Bifida Risk For further inquiries contact [facility] at [phone]. This test was developed and its performance characteristics determined by [email or web address]. It has not been cleared or approved by the Food and Drug Administration. Performed at: [facility] [address] [place], [place] [id number] Machine Assembler For Puller Over: Roula Lopez [facility], Phone: [phone] GEST. AGE ON COLLECTION DATE 19.4 . weeks [facility] GESTAT. AGE BASED ON LMP . [facility] Comment on above: Recalculations are n ot recommended when gestational dating by LMP and ultrasound are within 10 days. INSULIN DEP DIABETES No . [facility] INTERPRETATION Comment . [facility] Comment on above: Interpretation: Scre en Negative This result is screen negative for [...] Customer Services to discuss available options. The [place] [employer] recommends amniocentesis be offered to women age 35 and older. [age] [facility] MULTIPLE GESTATION No . [facility] OSBR RISK 1 IN 8647 . [facility] RACE . [facility] RESULTS Report . [facility] TEST RESULTS: Negative . [facility] WEIGHT 144 . lbs [facility] N N LMP [id number] 3 19 N 1 Y 144 N N N N N White/ [facility] RECURRENT VAGINITIS (HTRX)on 02-06-2025 ATOPOBIUM VAGINAE 0 [facility] ATOPOBIUM VAGINAE Not detected [facility] BVAB 2,3 (BACTERIAL VAGINOSIS ASSOCIATED BACTERIA 2, 3); MOBILUNCUS SPP 0 [facility] BVAB 2,3 (BACTERIAL VAGINOSIS ASSOCIATED BACTERIA 2, 3); MOBILUNCUS SPP Not detected [facility] LAURA ALBICANS, PARAPSILOSIS, TROPICALIS 27.705 Abnormal [facility] LAURA ALBICANS, PARAPSILOSIS, TROPICALIS Detected Abnormal [facility] LAURA GLABRATA 24.272 Abnormal [facility] LAURA GLABRATA Detected Abnormal [facility] LAURA KRUSEI 0 [facility] LAURA KRUSEI Not detected [facility] CHLAMYDIA TRACHOMATIS 0 [facility] CHLAMYDIA TRACHOMATIS Not detected N [facility] GARDNERELLA VAGINALIS 0 [facility] GARDNERELLA VAGINALIS Not detected [facility] Interpretation and review of laboratory results Abnormal [facility] MEGASPHAERA (TYPES 1, 2) 0 [facility] MEGASPHAERA (TYPES 1, 2) Not detected [facility] MYCOPLASMA GENITALIUM 0 [facility] MYCOPLASMA GENITALIUM Not detected N [facility] NEISSERIA GONORRHOEAE 0 [facility] NEISSERIA GONORRHOEAE Not detected N [facility] TRICHOMONAS VAGINALIS 0 [facility] TRICHOMONAS VAGINALIS Not detected N [facility] Urinalysis macro (dipstick) panel (U)on 02-05-2025 Bilirubin, UA Negative Negative - 4(70) +++ mg/dL [facility] Blood, UA Negative Negative - 50 Thor/mcL [facility] Clarity, UA Clear [facility] Color, UA Yellow [facility] Glucose, UA Negative Negative - 1999(110) ++++ mg/dL [facility] Interpretation and review of laboratory results Normal [facility] Ketones, UA Negative Negative - 160(16) ++++ mg/dL [facility] Leukocytes, UA Negative Negative - 500+++ Georgina/mcL [facility] Nitrite, UA Negative Negative - Positive [facility] pH, UA 6 5 - 9 [facility] Protein, UA Negative Negative - 1999(20) ++++ mg/dL [facility] Spec Grav, UA 1.01 1 - 1.03 [facility] Urobilinogen, UA 0.2 0.2 - 12 mg/dL [facility] Urinalysis macro (dipstick) panel (U)on 01-07-2025 Bilirubin, UA Negative Negative - 4(70) +++ mg/dL [facility] Blood, UA Negative Negative - 50 Thor/mcL [facility] Clarity, UA Clear [facility] Color, UA Yellow [facility] Glucose, UA Negative Negative - 1999(110) ++++ mg/dL [facility] Interpretation and review of laboratory results Normal [facility] Ketones, UA Negative Negative - 160(16) ++++ mg/dL [facility] Leukocytes, UA Negative Negative - 500+++ Georgina/mcL [facility] Nitrite, UA Negative Negative - Positive [facility] pH, UA 5.5 5 - 9 [facility] Protein, UA Negative Negative - 1999(20) ++++ mg/dL [facility] Spec Grav, UA 1.025 1 - 1.03 [facility] Urobilinogen, UA 0.2 0.2 - 12 mg/dL [facility] US OB TRANSVAGINALon US OB TRANSVAGINAL EXAM: US OB TRANSVAGINAL [...] visualized due to overlying bowel gas. Electronically Signed:Jada y signed by BHAVANI OCONNELL II, MD, PHD at 07-Dec-2024 08:32:38 PM [facility] Normal Not Available Comment on above: Order Comment: US OB TRANSVAGINAL No LMP recorded. Culture, Urineon 08-17-2024 [place] - Organism 01 Escherichia coli Abnormal [facility] Comment on above: Order Comment: [place] - Source of Urine Collection? Urine clean catch\X0D0A\Performed by [facility] [address] [place] [address] [place] - Source of Urine Collection? Urine clean catch [place] - Current Antibiotic Therapy? No Answer Given Performed By: #### C UR #### [facility] [facility] See Report [place] - SOURCE urine, clean catch Normal [facility] Comment on above: Order Comment: [place] - Source of Urine Collection? Urine clean catch\X0D0A\Performed by [facility] [address] [place] [address] [place] - Source of Urine Collection? Urine clean catch [place] - Current Antibiotic Therapy? No Answer Given Performed By: #### C UR #### [facility] See Report [place] - URINE CULTURE [employer] count: >100,000 CFU/mL Normal [facility] Comment on above: Order Comment: [place] - Source of Urine Collection? Urine clean catch\X0D0A\Performed by [facility] [address] [place] [address] [place] - Source of Urine Collection? Urine clean catch [place] - Current Antibiotic Therapy? No Answer Given Performed By: #### C UR #### [facility] See Report URINE CULTUREon 08-17-2024 Bacteria identified Cx Nom (U) MICROBIOLOGY REPORT [facility], [address] [place] [address], [place], [address] PATIENT: LESIA GONZALEZ LOCATION: [facility] - - : 1990 AGE: 33 SEX: F ADM: 08/17/24 Att. Physician: PHYSICIAN, NON-STAFF Order Id: [id number] Req. Physician: PHYSICIAN, NON-STAFF Source: urine, clean catch Site: Collected: 08/17/24 16:24 Current Antibiotics: not stated Antibiotics comment: C Shad Trevino M E N T S ---- [place] - Source of Urine Collection? Urine clean catch STATUS OF ORDERED AND REPORTED TESTS URINE CULTURE FINAL 08/19/24 URINE CULTURE FINAL 08/19/24 09:01 Organism 01 Escherichia coli [employer] count: >100,000 CFU/mL Organism 01-esccol Antibiotic MICA [...] <=1 S IV 2000mg 164 Trimethoprim/Mane>=320 R VA852rpPDD/800mgSMX q 12h 1-2TMP/65-11Y86-20ED P/97SM IV 160mgTMP/800mgSMX q 8 h9TMP/105 SMX [...] and urine levels=mcg/ml.*Stand giuliana dosages from [place] Guide to Antimicrobial Therapy and assumes moderate infection in normal adult populations. For pts. with renal or liver disease consult PDR or pharmacist. Normal [facility] No Panel Informationon 05-23 Tobacco smoking status Non-Smoker Invalid Interpretation Code [facility] - Chemistry and C hemistry - challengeon 04-18-2023 TSH Qn 1.23 m[IU]/L Invalid Interpretation Code 0.50-4.00 [facility] Thyroxine T4on 08-11-2022 T4 [Mass/Vol] 6.4 ug/dL Normal 4.5-10.9 [facility] Comment on above: Performed By: #### T 4, T3 #### [facility] [address] [place], [place] [id number] Machine Assembler For Puller Over: Ramiro Blandon MD #### TSH #### [facility] [address] [place] [address] [place] [address] Machine Assembler For Puller Over: Annel García MD Triiodothyronine T3on 2021 Triiodothyronine T3 96 ng/dL Normal 60-181 [facility] Comment on above: Performed By: #### T 4, T3 #### [facility] [address] [place], [place] [id number] Machine Assembler For Puller Over: Ramiro Blandon MD #### TSH #### [facility] [address] [place] [address] [place] [address] Machine Assembler For Puller Over: Annel García MD Laboratory - Chemistry and C hemistry - challengeon 08-10-2022 T3 [Mass/Vol] 96.0 ng/dL Invalid Interpretation Code [facility] T4 [Mass/Vol] 6.4 ug/dL Invalid Interpretation Code [facility] TSH Qn 0.41 m[IU]/L Invalid Interpretation Code [facility] No Panel Informationon 08-10 jls Invalid Interpretation Code [facility] Thyroid Stim. Horm.on 2021 Thyroid Stim. Horm. 0.41 uIU/mL Normal 0.30-5.00 [facility] Comment on above: Performed By: #### T 4, T3 #### [facility] [address] [place], [place] [id number] Machine Assembler For Puller Over: Ramiro Blandon MD #### TSH #### [facility] [address] [place] [address] Machine Assembler For Puller Over: Annel García MD PAP ACOG PANEL 2: 30 to 65on 07-21-2022 . . Normal [facility] Comment on above: Result Comment: Perf ormed at: WB Performed By: #### [id number] #### [facility] [address] [place] [address] Dr. Jaci Irene Age Gdln ACOG Testing 30-65 Normal [facility] Comment on above: Performed By: #### [id number] #### [facility] [address] [place] [address] Dr. Jaci Irene DIAGNOSIS: Comment Normal [facility] Comment on above: Result Comment: NEGA TIVE FOR INTRAEPITHELIAL LESION OR MALIGNANCY. CELLULAR CHANGES ASSOCIATED WITH INFLAMMATION ARE PRESENT. Performed at: WB Performed By: #### [id number] #### [facility] [address] [place], [place] [id number] Dr. Jaci Irene HPV Aptima Negative Normal Negative [facility] Comment on above: Result Comment: This nucleic acid amplification test detects fourteen high-risk HPV types (16,18,31,33,35,39,45,51,52,56,58,59,66,68) without differentiation. Performed at: =G Performed By: #### [id number] #### [facility] [address] [place] [address] Dr. Jaci Irene HPV Genotype Reflex Comment Normal [facility] Comment on above: Result Comment: Crit eria not met, HPV Genotype not performed. Performed at: WB Performed By: #### [id number] #### [facility] [address] [place] [address] Dr. Jaci Irene Methodology: Comment Normal [facility] Comment on above: Result Comment: This liquid based ThinPrep(R) pap test was screened with the use of an image guided system. Performed at: WB Performed By: #### [id number] #### [facility] [address] [place] [address] Dr. Jaci Irene Note: Comment Normal [facility] Comment on above: Result Comment: The Pap smear is a screening test designed to aid in the detection of premalignant and malignant conditions of the uterine cervix. It is not a diagnostic procedure and should not be used as the sole means of detecting cervical cancer. Both false-positive and false-negative reports do occur. . Performed at: WB Performed By: #### [id number] #### [facility] [address] [place] [address] Dr. Jaci Irene Performed by: Comment Normal [facility] Comment on above: Result Comment: Kirill Azevedo Durability Technician (ASCP) Performed at: WB Performed By: #### [id number] #### [facility] [address] [place] [address] Dr. Jaci Irene Specimen adequacy: Comment Normal [facility] Comment on above: Result Comment: Sati sfactory for evaluation. Endocervical and/or squamous metaplastic cells (endocervical component) are present. Performed at: WB Performed By: #### [id number] #### [facility] [address] [place] [address] Dr. Jaci Irene Laboratory - Cytologyon 102 Cytology report Cyto stain.thin prep Doc (Cvx/Vag) Pap Smear / Cervical Cytology Invalid Interpretation Code [facility] - Microbiology an d Antimicrobial susceptibilityon 07-14-2022 HPV 16+18+31+33+35+45+51+5 2+56 DNA Probe Ql (Cvx) HPV-DNA Test Invalid Interpretation Code [facility] US PELVIS AND TRANSVAGon US PELVIS AND [...] ANNEL MILNER Date: 2022-07-09 15:36 Normal [facility] Thyroxine T4on 03-17-2022 T4 [Mass/Vol] 6.3 ug/dL Normal 4.5-10.9 [facility] Comment on above: Performed By: #### F T3, T4 #### [facility] [address] [place] [address] Machine Assembler For Puller Over: Ramiro Blandon MD #### TSH #### [facility] [address] [place] [address] Machine Assembler For Puller Over: Annel García MD Laboratory - Chemistry and C hemistry - challengeon 03-16-2022 Free T3 [Mass/Vol] 2.960 pg/mL Invalid Interpretation Code [facility] T4 [Mass/Vol] 6.3 ug/dL Invalid Interpretation Code [facility] TSH Qn 0.61 m[IU]/L Invalid Interpretation Code [facility] No Panel Informationon 03-16 ls Invalid Interpretation Code [facility] Initative T3, Freeon 03-16-2022 Free T3 [Mass/Vol] 2.96 pg/mL Normal 2.02-4.43 [facility] Comment on above: Performed By: #### F T3, T4 #### [facility] [address] [place] [address] Machine Assembler For Puller Over: Ramiro Blandon MD #### TSH #### [facility] [address] [place] [address] Machine Assembler For Puller Over: Annel García MD Free T3 [Mass/Vol] 2.96 pg/mL 2.02 - 4. 43 pg/mL [facility] TSHon 03-16-2022 [facility] Thyroid Stim. Horm.on 2021 Thyroid Stim. Horm. 0.61 uIU/mL Normal 0.30-5.00 [facility] Comment on above: Performed By: #### F T3, T4 #### [facility] [address] [place] [address] Machine Assembler For Puller Over: Ramiro Blandon MD #### TSH #### [facility] [address] [place] [address] Machine Assembler For Puller Over: Annel García MD US PELVIS AND TRANSVAGon [...] ANNEL MILNER Date: 2022-03-15 07:03 Normal [facility] IODINE, SERUM OR PLASMAon Iodine, Serum or Plasma 66.7 ug/L Normal 40.0-92.0 [facility] Comment on above: Result Comment: Limi t of quantitation = 20 Performed By: #### I ODINE #### [facility] [address] [address] [address] Jaci Irene THYROID-STIMULATING IMMUNOGL OBULINon 08-05-2021 Thyroid Sim Immunoglobulin <0.10 Normal 0.00-0.55 [facility] Comment on above: Performed By: #### T ELAINA #### [facility] [address] [place], [place] [address] Dr. Jaci Irene T3, TOTAL (TRIIODOTHYRONINE) on 08-04-2021 T3, TOTAL 168 ng/dL Normal 71-180 [facility] Comment on above: Performed By: #### T 3TOTAL ####[facility] [address] [place], [place] [address]DaDr. Jaci Irene US THYROIDon 08-04-2021 US THYROID [...] SANDHYA BASS Date: 2021-08-04 06:30 Normal [facility] CBC AUTO DIFFon 08-03-2021 BASO # 0.0 103/ul Normal 0.0-0.1 [facility] Comment on above: Performed By: #### C BC #### [facility] [address] [address] [address] Jaci Irene Basophils/100 WBC (Bld) 0.6 % Normal 0.2-2.0 [facility] Comment on above: Performed By: #### C BC #### [facility] [address] [address] [address] Jaci Irene EO # 0.2 103/ul Normal 0.0-0.7 [facility] Comment on above: Performed By: #### C BC #### [facility] [address] [address] [address] Jaci Irene Eosinophils/100 WBC (Bld) 2.2 % Normal 0.9-7.0 [facility] Comment on above: Performed By: #### C BC #### [facility] [address] [address] [address] Jaci Irene Erythrocyte distribution width (RBC) [Ratio] 13.5 % Normal 11.0-15.0 [facility] Comment on above: Performed By: #### C BC #### [facility] [address] [address] [address] Jaci Irene Hematocrit (Bld) [Volume fraction] 40.9 % Normal 36.0-48.0 [facility] Comment on above: Performed By: #### C BC #### [facility] [address] [address] [address] Jaci Irene Hemoglobin (Bld) [Mass/Vol] 12.8 g/dL Normal 12.0-16.0 [facility] Comment on above: Performed By: #### C BC #### [facility] [address] [address] [address] Jaci Irene IG # 0.01 10e3/ul Normal 0.00-0.03 [facility] Comment on above: Performed By: #### C BC #### [facility] [address] [place] [address] Dr. Jaci Irene IG % 0.1 % Normal 0.0-0.5 [facility] Comment on above: Performed By: #### C BC #### [facility] [address] [place] [address] Dr. Jaci Irene LYMPH # 2.4 103/ul Normal 1.2-3.8 [facility] Comment on above: Performed By: #### C BC #### [facility] [address] [place] [address] Dr. Jaci Irene Lymphocytes/100 WBC (Bld) 35.3 % Normal 20.5-60.0 [facility] Comment on above: Performed By: #### C BC #### [facility] [address] [place] [address] Dr. Jaci Irene MANUAL DIFF REQ NO Normal [facility] Comment on above: Performed By: #### C BC #### [facility] [address] [place] [address] Dr. Jaci Irene MCH (RBC) [Entitic mass] 27.2 pg Normal 26.7-34.0 [facility] Comment on above: Performed By: #### C BC #### [facility] [address] [place] [address] Dr. Jaci Irene MCHC (RBC) [Mass/Vol] 31.3 g/dL Normal 29.9-35.2 [facility] Comment on above: Performed By: #### C BC #### [facility] [address] [place] [address] Dr. Jaci Irene MCV (RBC) [Entitic vol] 86.8 fL Normal 81.0-99.0 [facility] Comment on above: Performed By: #### C BC #### [facility] [address] [place] [address] Dr. Jaci Irene MONO # 0.6 103/ul Normal 0.3-0.8 [facility] Comment on above: Performed By: #### C BC #### [facility] [address] [place] [address] Dr. Jaci Irene Monocytes/100 WBC (Bld) 8.2 % Normal 1.7-12.0 [facility] Comment on above: Performed By: #### C BC #### [facility] [address] [place] [address] Dr. Jaci Irene NEUT # 3.6 103/ul Normal 1.4-6.5 [facility] Comment on above: Performed By: #### C BC #### [facility] [address] [place] [address] Dr. Jaci Irene Neutrophils/100 WBC (Bld) 53.6 % Normal 43.0-75.0 [facility] Comment on above: Performed By: #### C BC #### [facility] [address] [place] [address] Dr. Jaci Irene Platelet mean volume (Bld) [Entitic vol] 9.3 fL Critically low 9.5-13.5 [facility] Comment on above: Performed By: #### C BC #### [facility] [address] [place] [address] Dr. Jaci Irene PLT 299 103/ul Normal 150-450 [facility] Comment on above: Performed By: #### C BC #### [facility] [address] [place] [address] Dr. Jaci Irene RBC 4.71 106/ul Normal 4.20-5.40 [facility] Comment on above: Performed By: #### C BC #### [facility] [address] [place] [address] Dr. Jaci Irene WBC 6.7 103/ul Normal 4.0-11.0 [facility] Comment on above: Performed By: #### C BC #### [facility] [address] [place] [address] Dr. Jaci Irene Laboratory - Chemistry and C hemistry - challengeon 08-03-2021 ALT [Catalytic activity/Vol] 24.0 U/L Invalid Interpretation Code [facility] T3 [Mass/Vol] 168.0 ng/dL Invalid Interpretation Code [employer] [facility] T4 [Mass/Vol] 11.0 ug/dL Invalid Interpretation Code [facility] TSH Qn < 0.020 L Invalid Interpretation Code [facility] Laboratory - Hematology and Cell countson 08-03-2021 Basophils/100 WBC (Bld) 0.60 % Invalid Interpretation Code [facility] Eosinophils/100 WBC (Bld) 2.20 % Invalid Interpretation Code [facility] Erythrocyte distribution width (RBC) [Ratio] 13.50 % Invalid Interpretation Code [facility] Hematocrit (Bld) [Volume fraction] 40.90 % Invalid Interpretation Code [facility] Hemoglobin (Bld) [Mass/Vol] 12.80 g/dL Invalid Interpretation Code [facility] Lymphocytes/100 WBC (Bld) 35.30 % Invalid Interpretation Code [facility] MCH (RBC) [Entitic mass] 27.20 pg Invalid Interpretation Code [facility] MCHC (RBC) [Mass/Vol] 31.30 g/dL Invalid Interpretation Code [facility] MCV (RBC) [Entitic vol] 86.80 fL Invalid Interpretation Code [facility] Monocytes/100 WBC (Bld) 8.20 % Invalid Interpretation Code [employer] Neutrophils/100 WBC (Bld) 53.60 % Invalid Interpretation Code [facility] Platelets (Bld) [#/Vol] 299.0 10*3/uL Invalid Interpretation Code [facility] RBC (Bld) [#/Vol] 4.710 10*6/uL Invalid Interpretation Code [facility] WBC (Bld) [#/Vol] 6.70 10*3/uL Invalid Interpretation Code [facility] No Panel Informationon 08-03 ls Invalid Interpretation Code [facility] < 0.10 Invalid Interpretation Code 0 - 0.55 [facility] 86.70 ug/L Invalid Interpretation Code [facility] SGPTon 08-03-2021 ALT [Catalytic activity/Vol] 24 U/L Normal 9-52 [facility] Comment on above: Performed By: #### T SH, ALT, T4 #### [facility] [address] [place] [address] Dr. Jaci Irene T4on 08-03-2021 T4 [Mass/Vol] 11.00 ug/dL Normal 5.53-11.00 [facility] Comment on above: Performed By: #### T SH, ALT, T4 #### [facility] [address] [place] [address] Dr. Jaci Irene TSHon 08-03-2021 TSH Qn m[IU]/L Critically low 0.470-4.680 [facility] Comment on above: Performed By: #### T SH, ALT, T4 #### [facility] [address] [place] [address] Dr. Jaci Irene TSH RANGE SEE BELOW Normal [facility] Comment on above: Result Comment: <0.3 4 UIU/ml HYPERTHYROID 0.34-5.60 UIU/ml EUTHYROID >5.60 UIU/ml HYPOTHYROID Performed By: #### T SH, ALT, T4 #### [facility] [address] [place] [address] Dr. Jaci Irene No Panel Informationon 04-24 Positive Invalid Interpretation Code [facility] 1:160 Invalid Interpretation Code [facility] COMMENT Invalid Interpretation Code [facility] Cytology Cervical or vaginal smear or scraping studyon 07-14-1992 [facility] Vital Signs Date Time Vital Sign Value Performing Clinician Jerrod tidwell 03-05-2025 09:56-0400 Body mass index (BMI) [Ratio] 25.21 kg/m2 Aaron Rosemary DO Work Phone: [facility] 03-05-2025 09:56-0400 Body weight 68.72 kg Aaron Rosemary DO Work Phone: [facility] 03-05-2025 09:56-0400 Diastolic blood pressure 70 mm[Hg] Aaron Rosemary DO Work Phone: [facility] 03-05-2025 09:56-0400 Systolic blood pressure 110 mm[Hg] Aaron Rosemary DO Work Phone: [facility] 02-05-2025 10:23-0400 Body mass index (BMI) [Ratio] 24.1 kg/m2 Madiha LOPEZ Work Phone: [facility] 02-05-2025 10:23-0400 Body weight 65.68 kg Madhia LOPEZ Work Phone: [facility] 02-05-2025 10:23-0400 Diastolic blood pressure 68 mm[Hg] Madiha LOPEZ Work Phone: [facility] 02-05-2025 10:23-0400 Systolic blood pressure 100 mm[Hg] Madiha LOPEZ Work Phone: [facility] 01-07-2025 10:18-0400 Body mass index (BMI) [Ratio] 23.96 kg/m2 Aaron Rosemary DO Work Phone: [facility] 01-07-2025 10:18-0400 Body weight 65.32 kg Aaron Rosemary DO Work Phone: [facility] 01-07-2025 10:18-0400 Diastolic blood pressure 72 mm[Hg] Aaron Rosemary DO Work Phone: [facility] 01-07-2025 10:18-0400 Systolic blood pressure 110 mm[Hg] Aaron Riley DO Work Phone: [facility] 08-12-2021 11:02-0500 Body height 163.83 cm [facility] 08-12-2021 11:02-0500 Body mass index (BMI) [Ratio] 23.58 kg/m2 [facility] 08-12-2021 11:02-0500 Body surface area Derived from formula 1.7 m2 [facility] 08-12-2021 11:02-0500 Body weight 63.28 kg [facility] 08-12-2021 11:02-0500 Diastolic blood pressure 64 mm[Hg] [facility] 08-12-2021 11:02-0500 Heart rate 72 /min [facility] 08-12-2021 11:02-0500 Systolic blood pressure 122 mm[Hg] [facility] 02-08-2013 10:11-0400 BMI (Body Mass Index) 23.69 kg/m2 Deidre [facility] 02-08-2013 10:11-0400 Body weight 62.6 kg Deidrebecky [facility] 02-08-2013 10:11-0400 BP Diastolic 62 mm[Hg] Deidre [facility] 02-08-2013 10:11-0400 BP Systolic 100 mm[Hg] Deidre [facility] 02-08-2013 10:11-040 BSA (Body Surface Area) 1.68 m2 Deidre [facility] 02-08-2013 10: Height 162.56 cm Deidre [facility] 02-08-2013 10:040 Pulse (Heart Rate) 66 /min Deidre Gaffney alicia [employer] Encounters Encounter Date Encounter Type Care Provider Facility Start: 03-05-2025 End: 03-05-2025 Bamboo flowsheet Aaron Rosemary DO Work Phone: [facility] Start: 03-05-2025 End: 03-05-2025 Bamboo flowsheet Aaron Rosemary DO Work Phone: [facility] Start: 03-05-2025 End: 03-05-2025 flow sheet Aaron Rosemary DO Work Phone: [facility] Comment on above: Diabetes mellitus sc reening; Second trimester ([facility]); 23 weeks gestation of ([facility]) Start: 03-05-2025 End: 03-05-2025 ambulatory AARON ROSEMARY Not Available Start: 02-19-2025 End: 02-19-2025 Clinisync Result Encounter Aaron Rosemary DO Work Phone: [facility] External Department Unsolicited Start: 02-19-2025 End: 02-19-2025 Clinisync Result Encounter Aaron Rosemary DO Work Phone: [facility] Unsolicited Start: 02-05-2025 End: 02-05-2025 Bamboo flowsheet Madiha LOPEZ Work Phone: [facility] Start: 02-05-2025 End: 02-07-2025 Bamboo flowsheet Madiha LOPEZ Work Phone: [facility] Start: 02-05-2025 End: 02-07-2025 Clinisync Result Encounter Madiha LOPEZ Work Phone: [facility] External Department Unsolicited Start: 02-05-2025 End: 02-06-2025 External Result Encounter Madiha LOPEZ Work Phone: [facility] Unsolicited Start: 02-05-2025 End: 02-05-2025 Patient encounter procedure Madiha LOPEZ Work Phone: [facility] Healthcare Start: 02-05-2025 End: 02-05-2025 Periodic preventive med est patient 18-39 yrs Madiha LOPEZ Work Phone: [facility] Comment on above: 19 weeks gestation o f ; Second trimester ; Well woman exam with routine gynecological exam; Exposure to STD; Vaginal discharge; Screening, , for anatomic survey Start: 02-05-2025 End: 02-05-2025 ambulatory MADIHA MORENO Not Available Start: 01-28-2025 Office outpatient vi sit 25 minutes Vladimir Dunaway Other [facility] Office Start: 01-07-2025 End: 01-07-2025 Bamboo flowsheet Aaron Rosemary DO Work Phone: [facility] Start: 01-07-2025 End: 01-07-2025 Bamboo flowsheet Aaron Rosemary DO Work Phone: [facility] Start: 01-07-2025 End: 01-07-2025 flow sheet Aaron Rosemary DO Work Phone: [facility] Comment on above: Second trimester pre gnancy; 15 weeks gestation of Start: 01-07-2025 End: 01-07-2025 ambulatory AARON ROSEMARY Not Available Start: 12-06-2024 End: 12-06-2024 ambulatory AARON ROSEMARY Not Available Start: 08-17-2024 End: 08-17-2024 Subsequent hospital visit by physician [facility] Walk [facility] Comment on above: Acute cystitis with hematuria Start: 08-17-2024 ambulatory JOY TRAMMELL [facility] Start: 05-23-2024 Office outpatient vi sit 15 minutes Vladimir Dunaway Other [facility] Office Start: 11-21-2023 Office outpatient vi sit 15 minutes Vladimir Dunaway Other [facility] Office Start: 10-10-2023 Office outpatient vi sit 15 minutes Vladimir Dunaway Other [facility] Office Start: 07-06-2023 Office outpatient vi sit 25 minutes Vladimir Dunaway Other [facility] Office Start: 04-18-2023 Lab Vladimir Nuñez ns Other [facility] Office Start: 03-03-2023 Office outpatient vi sit 15 minutes Vladimir Dunaway Other [facility] Office Start: 01-11-2023 Office outpatient vi sit 15 minutes Vladimir Dunaway Other [facility] Office Start: 10-14-2022 Office outpatient vi sit 25 minutes Vladimir Dunaway Other [facility] Office Start: 08-10-2022 End: 08-11-2022 ambulatory [facility] Start: 07-15-2022 End: 07-15-[address] AARON RILEY Facility:[facility] Start: 07-09-2022 End: 07-10-[address] RIVERA LISTED REQUEST Facility:[facility] Start: 06-08-2022 Office outpatient vi sit 25 minutes Vladimir Dunaway Other [facility] Office Start: 03-16-2022 End: 03-17-2022 ambulatory PAUL L MIJARES [facility] Start: 03-16-2022 End: 03-16-2022 Subsequent hospital visit by physician Prudence Aguilar MD Work Phone: [facility] Start: 03-13-2022 End: 03-14-[address] ANNEL MILNER Facility:[facility] Start: 12-18-2021 Office outpatient vi sit 15 minutes Vladimir Dunaway Other [facility] Office Start: 11-09-2021 Office outpatient vi sit 25 minutes Vladimir Dunaway Other [facility] Office Start: 08-12-2021 Office consultation new/estab patient 80 min Paul Flako Mijares Other [facility] Office Start: 08-03-2021 End: 08-04-[address] NONE LISTED REQUEST Facility: Start: 10-28-2020 Office outpatient vi sit 15 minutes Vladimir Dunaway Other [facility] Office Start: 06-06-2020 Office outpatient vi sit 15 minutes Vladimir Dunaway Other [facility] Office Start: 04-24-2020 Office outpatient vi sit 15 minutes Vladimir Dunaway Other [facility] Office Start: 02-18-2020 Office outpatient ne w 20 minutes Deidre Addison Other [facility] Office Start: 08-24-2017 End: 08-24-2017 Ambulatory TASIA [facility] Start: 08-24-2017 Office outpatient vi sit 10 minutes Tasia Grady Work Phone: [facility] Start: 08-22-2017 End: 08-26-2017 Ambulatory TASIA [facility] Start: 08-22-2017 Office outpatient vi sit 15 minutes Tasia Grady Work Phone: [facility] Start: 02-08-2013 Office Services Paul padilla Other [facility] Office Procedures Date Procedure Procedure Detail Performing Clinician Start: 03-05-2025 Urnls dip stick/tabl et rgnt non-auto w/o micrscp Aaron Rosemary DO Work Phone: Start: 02-19-2025 US OB ANATOMY Aaron Sheryl io DO Work Phone: Start: 02-19-2025 US OB CERVICAL LENGTH C orey Rosemary DO Work Phone: Start: 02-05-2025 RECURRENT VAGINITIS (HTRX) Madiha LOPEZ Work Phone: Start: 02-05-2025 AFP, SERUM, OPEN SPINA BIFIDA Madiha LOPEZ Work Phone: Start: 02-05-2025 Urnls dip stick/tabl et rgnt non-auto w/o micrscp Madiha LOPEZ Work Phone: Start: 01-28-2025 Docrev cur meds by odalys Dunaway Start: 01-07-2025 Urnls dip stick/tabl et rgnt non-auto w/o micrscp Aaronshahab Riley Work Phone: Start: 05-23-2024 Docrev cur meds [...] Dunaway Start: 11-09-2021 Docrev cur meds by odalys Dunaway Start: 08-12-2021 Docrev cur meds by odalys clin Paul Mijares Start: 08-05-2021 Alanine aminotransfe rase measurement Paul Mijares Start: 08-05-2021 Erythrocyte mean cor puscular volume determination Paul Mijares Start: 08-05-2021 Mass spectrometry measurement Paul Mijares Start: 08-05-2021 Thyroid stimulating hormone measurement Paul Mijares Start: 08-05-2021 Thyroid stimulating immunoglobulins measurement Paul Mijares Start: 08-05-2021 Thyroxine measurement L vinnie Mijares Start: 08-05-2021 Tri-iodothyronine measurement, total Paul Mijares Start: 08-03-2021 US scan of thyroid Beckie gudino Maryana Start: 10-28-2020 Doc meds verified w/pt or re Vladimir Dunaway Start: 06-06-2020 Doc meds verified w/pt or re Vladimir Dunaway Start: 04-24-2020 Antinuclear antibodies ghazal Vladimir Dunaway Start: 04-24-2020 Doc meds verified w/pt or re Vladimir Dunaway Start: 02-18-2020 Doc meds verified w/pt or re Deidre Addison Start: 07-14-1992 Cytp cerv/vag auto t hin layer prep mnl screen Aaron Riley Work Phone: Plan of Treatment Date Care Activity Detail Author Start: 07-06-2029 DTaP/Tdap/Td vaccine (2 - Td or Tdap) DTaP/Tdap/Td vaccine (2 - Td or Tdap) [facility] Start: 03-05-2025 End: 03-05-2026 CBC panel - Blood by Automated count CBC Lab Routine Diabetes mellitus screening Expected: 03/05/2025 (Approximate), Expires: 03/05/2026 [facility] Work Phone: Comment on above: Expected: 03/05/2025 (Approximate), Expires: 03/05/2026 Start: 03-05-2025 End: 03-05-2026 Measurement of glucose 1 hour after glucose challenge for glucose tolerance test Glucose tolerance, 1 hour Lab Routine Diabetes mellitus screening Expected: 03/05/2025 (Approximate), Expires: 03/05/2026 [facility] Comment on above: Expected: 03/05/2025 (Approximate), Expires: 03/05/2026 Start: 03-05-2025 End: 03-05-2025 Patient encounter procedure [facility] Comment on above: Arrived Start: 02-05-2025 End: 03-08-2025 Alpha fetoprotein, maternal Alpha fetoprotein, maternal Lab Routine 19 weeks gestation of Second trimester Expected: 02/05/2025 (Approximate), Expires: 03/08/2025 [facility] Comment on above: Expected: 02/05/2025 (Approximate), Expires: 03/08/2025 Start: 02-05-2025 End: 05-08-2025 US for US OB 14+ weeks anatomy scan Imaging Routine Screening, , for anatomic survey Expected: 02/05/2025, Expires: 05/08/2025 [facility] Comment on above: Expected: 02/05/2025 , Expires: 05/08/2025 Start: 02-05-2025 End: 02-05-2025 Patient encounter procedure [facility] Comment on above: Arrived Start: 01-07-2025 End: 01-07-2025 Patient encounter procedure 01/07/2025 10:10 AM EDT Routine [facility] [address] [place] [id number] Aaron Riley, [address] [place] [address] Arrived [facility] Comment on above: Arrived Start: 05-20-2024 COVID-19 Vaccine () COVID-19 Vaccine () [facility] Start: 04-19-2024 Influenza vaccination Flu vaccine (# 1) [facility] Start: 04-15-2023 Assay of thyroid stimulating hormone tsh TSH [place] [facility] Start: 07-29-2022 Assay of thyroid stimulating hormone tsh TSH [place] [facility] Start: 07-29-2022 Assay of thyroxine total T4 [facility] Start: 07-29-2022 Assay of triiodothyr onine t3 total tt3 T3 total [facility] Start: 05-20-2022 Influenza vaccination Flu vacc ine (Season Ended) [facility] Start: 03-12-2022 Assay of thyroid stimulating hormone tsh TSH [facility] Start: 03-12-2022 Assay of thyroxine total T4 [facility] Start: 03-12-2022 Assay of triiodothyr onine t3 total tt3 T3 total [facility] Start: 11-12-2021 Assay of thyroid stimulating hormone tsh TSH [facility] Start: 11-12-2021 Assay of thyroxine total T4 [facility] Start: 11-12-2021 Assay of triiodothyr onine t3 total tt3 T3 total [facility] Start: 08-05-2021 Assay of thyroid stimulating hormone tsh TSH [facility] Start: 08-05-2021 Assay of thyroxine total T4 [facility] Start: 08-05-2021 Assay of triiodothyr onine t3 total tt3 T3 total [facility] Start: 08-05-2021 Blood count complete automated CBC & PLATELET COUNT; AUTOMATED [facility] Start: 08-05-2021 Mass spect&tandem ma ss spect nondrg anal jolanta ea IODINE,SERUM [facility] Start: 08-05-2021 Thyroid stimulating immune globulins tsi TSI (thyroid stimulating immunoglobulin) [facility] Start: 08-05-2021 Transferase alanine amino alt sgpt SGPT (ALT) [facility] Start: 08-03-2021 US scan of thyroid Thyroid ultrasoun d [facility] Start: 04-24-2020 ANTINUCLEAR ANTIBODIES GHAZAL Hep 2 [facility] Start: 2018 Screening for malign ant neoplasm of cervix [facility] Start: 08-24-2017 Ambulatory 08/24/2017 [place] [address] [place] [address] [phone] [facility] Start: 05-20-2017 Influenza vaccination SEQUENTI AL INFLUENZA VACCINE (#1) [facility] Work Phone: Start: 2009 Screening for malign ant neoplasm of cervix Pap smear [facility] Start: 12-06-2007 Hepatitis B vaccine (1 of 3 - 19+ 3-dose series) Hepatitis B vaccine (1 of 3 - 19+ 3-dose series) [facility] Start: 2006 Hepatitis C screening Hepatitis C sc reen [facility] Start: 12-06-2003 HIV screening HIV screen [facility] Start: 2001 Varicella vaccine (1 of 2 - 13+ 2-dose series) Varicella vaccine (1 of 2 - 13+ 2-dose series) [facility] Start: 2000 Depression Screen Depression Screen [facility] Start: 1994 Pneumococcal 0-64 ye ars Vaccine (1 of 2 - PCV) Pneumococcal 0-64 years Vaccine (1 of 2 - PCV) [facility] Start: 1993 COVID-19 Vaccine (1) COVID-19 Vaccin e (1) [facility] Start: 1989 Varicella vaccine (1 of 2 - 2-dose childhood series) Varicella vaccine (1 of 2 - 2-dose childhood series) [facility] Start: 1988 Screening for malign ant neoplasm of cervix PAP SMEAR [facility] Work Phone: Start: 1988 Tetanus vaccination TETANUS EVERY 10 YR [facility] Work Phone: CHLAMYDIA TRACHOMATI S (GENITO/STI) CHLAMYDIA TRACHOMATIS (GENITO/STI) Lab Routine Exposure to STD Ordered: 02/05/2025 [facility] Comment on above: Ordered: 02/05/2025 End: 08-17-2024 Culture, Urine [facility] Work Phone: Comment on above: 1 Occurrences starti ng 08/17/2024 until 08/17/2024 Cytology Cervical or vaginal smear or scraping study Pap Smear Pathology and Cytology Routine Well woman exam with routine gynecological exam Ordered: 02/05/2025 [facility] Work Phone: Comment on above: Ordered: 02/05/2025 Human papilloma viru s DNA [Presence] in Unspecified specimen by Probe with amplification HPV DNA probe, amplified Microbiology Routine Well woman exam with routine gynecological exam Ordered: 02/05/2025 [facility] Comment on above: Ordered: 02/05/2025 Neisseria gonorrhoea e DNA [Presence] in Unspecified specimen by JULIANNA with probe detection Neisseria gonorrhea DNA probe, direct Lab Routine Exposure to STD Ordered: 02/05/2025 [facility] Comment on above: Ordered: 02/05/2025 SURESWAB(R) ADVANCED VAGINITIS PLUS, TMA SURESWAB(R) ADVANCED VAGINITIS PLUS, TMA Pathology and Cytology Routine Vaginal discharge Ordered: 02/05/2025 [facility] Comment on above: Ordered: 02/05/2025 End: 03-16-2022 T4 [facility] Work Phone: Comment on above: Once for 1 Occurrenc es starting 03/16/2022 until 03/16/2022 Immunizations Immunization Date Immunization Notes Care Provider Aziza kearney 07-25-2020 influenza, injectabl e, quadrivalent, preservative free [facility] Schedule [facility] 07-23-2019 Influenza, injectabl e, Madin Regine Canine Kidney, preservative free, quadrivalent [facility] Schedule [facility] 07-06-2019 tetanus toxoid, redu shira diphtheria toxoid, and acellular pertussis vaccine, adsorbed [facility] Schedule [facility] Payers Date Payer Category Payer Private Health Insurance [id number] 1 2012 Private Health Insurance [id number] 1 2011 Managed Care O (unspecified) [employer] [id number] 1988 Unknown [id number] 1988 Unknown [id number] 9.2.593 1988 Unknown [id number] 9.2.593 1988 Unknown [id number] 9.2.593 1988 Unknown [id number] 9.2.173 1988 Unknown [id number] 9.2.173 1988 Unknown [id number] 9.2.754 1988 Unknown [id number] 9.2.1259 1988 Unknown [id number] 9.2.1259 1988 Unknown [id number] 9.2.1259 1988 Unknown [id number] 9.2.1259 1988 Unknown [id number] [id number] 1959 Private Health Insurance [id number] 9.13 Social History Date Type Detail Facility Start: End: 08-24-2017 Tobacco smoking status TNIS Never smoker [facility] Start: 1988 Sex Assigned At Not on file O [facility] Work Phone: Start: Alcohol [place] [employer] Start: 10-30-2014 End: 04-26-2024 Alcohol intake Current non-drinker of alcohol (finding) [facility] Work Phone: Start: 04-26-2024 History of Social function [facility] Work Phone: Start: 04-26-2024 Tobacco use panel [facility] Work Phone: Tobacco smoking status TNIS Tobacco smoking consumption unknown [facility] Start: 10-06-2024 [facility] History of Present illness Narrative 03-05-2025 JOHN Garcia - 03/05/2025 9:40 AM EDT Note Date & Type Note Facility 03-05-2025 History of Presen t illness Narrative Reason for Appointment: Patient ID: Lesia Gonzalez is a 34 y.o. female who presents for Routine Visit Patient presents today for Return OB appointment. MEDICATIONS Current Outpatient Medications Medication Instructions Magnesium 400 mg, Daily [place]-3 Fatty Acids (OMEGA-3 CF PO) 1 each, [...] Appearance: Normal appearance. She is normal weight. HENT: Head: Normocephalic. Cardiovascular: Rate and Rhythm: Normal rate. Pulses: Normal pulses. Pulmonary: Effort: Pulmonary effort is normal. Breath sounds: Normal breath sounds. Abdominal: Palpations: Abdomen is soft. Musculoskeletal: General: Normal range of motion. Neurological: General: No focal deficit present. Mental Status: She is alert and oriented to person, place, and time. Psychiatric: Mood and Affect: Mood normal. Behavior: Behavior normal. Thought Content: Thought content normal. Judgment: Judgment normal. Vitals and nursing note reviewed. Vitals: Estimated body mass index is 25.21 kg/m as calculated from the following: Height as of 07/14/22: 5' 5 . Weight as of this encounter: 151 lb 8 oz. BP: 110/70 Patient's last menstrual period was 09/22/2024. ASSESSMENT & PLAN ICD-10-CM 1. Diabetes mellitus screening Z13.1 CBC Glucose tolerance, 1 hour CBC Glucose tolerance, 1 hour 2. Second trimester ([facility]) Z34.92 POCT urinalysis dipstick manually resulted 3. 23 weeks gestation of ([facility]) Z3A.23 Return OB: Patient presents today for a routine obstetrics appointment. Patient is currently 23w3d . Patient states she is doing well but has complaints of being tired due to current . Patient has verbalizes frequent movement. labor precautions was discussed/given and patient was instructed to perform kick counts three times a day. Orders Placed This Encounter Procedures CBC Glucose tolerance, 1 hour POCT urinalysis dipstick manually resulted Follow Up: Patient is to return to office in 2 week for routine OB appointment. Documented by JOHN Garcia on behalf of: Aaron Riley DO documented in this encounter [facility] History of Present illness Narrative 02-05-2025 JOHN Garcia - 02/05/2025 9:50 AM EDT Note Date & Type Note Facility 02-05-2025 History of Presen t illness Narrative Reason for Appointment: Patient ID: Lesia Gonzalez is a 34 y.o. female who presents for No chief complaint on file. Patient presents today for Annual Exam. and Return OB appointment. MEDICATIONS Current Outpatient Medications Medication Instructions Magnesium 400 mg, Daily [place]-3 Fatty Acids (OMEGA-3 CF PO) 1 each, [...] nursing note reviewed. Exam conducted with a high school combination teacher present. Vitals: Estimated body mass index is 24.1 kg/m as calculated from the following: Height [...] obtained without difficulty and patient was given [facility] order to have obtained. Orders Placed This [...] of: JOHN Garcia documented in this encounter [facility] History of Present illness Narrative 01-07-2025 Aaron Rosemary, - 01/07/2025 10:10 AM EDT Note Date & Type Note Facility 01-07-2025 History of Presen t illness Narrative Reason for Appointment: Patient ID: Lesia Gonzalez is a 34 y.o. female who presents for Routine Visit Patient presents today for Return OB appointment. MEDICATIONS Current Outpatient Medications Medication Instructions Magnesium 400 mg, Daily [place]-3 Fatty Acids (OMEGA-3 CF PO) 1 each, [...] nursing note reviewed. Exam conducted with a high school combination teacher present. Vitals: Estimated body mass index [...] or undercooked meat, and stay away from [facility]. Patient has been consulted regarding any further do's and don'ts of . Patient voiced understanding and all questions and concerns were answered. Patient will have 4th Repeat possibly on 06-10-25. Advised patient to start Baby Aspirin 81 mg daily for remainder of starting at 16 weeks. Orders Placed This Encounter Procedures POCT urinalysis dipstick manually resulted Discussed MFM with patient for AMA and this being her fourth . Patient voiced that she would like to see them if there is something abnormal and will defer referral at this time. Patient aware that if anytime throughout the she is able to request referral to MFM. Patient will have growth scans start at 28 weeks gestation and NST/BPP starting at 32 weeks gestation. Follow Up: Patient is to return in 4 weeks for routine OB appointment. Documented by Imelda Mackay LPN on behalf of: Aaron Riley DO documented in this encounter [facility] Evaluation note Note Date & Type Note Facility Evaluation note Diagnosis Acute cystitis with hematuria Acute cystitis documented in this encounter [facility] Work Phone: Evaluation note Note Date & Type Note Facility Evaluation note Diagnosis Second trimester state, incidental 15 weeks gestation of documented in this encounter [facility] Evaluation note Note Date & Type Note Facility Evaluation note Diagnosis 19 weeks gestation of Second trimester state, incidental Well woman exam with routine gynecological exam Routine gynecological examination Exposure to STD Vaginal discharge Leukorrhea, not specified as infective Screening, , for anatomic survey Encounter for anatomic survey documented in this encounter [facility] Evaluation note Note Date & Type Note Facility Evaluation note Diagnosis Diabetes mellitus screening Screening for diabetes mellitus Second trimester ([facility]) state, incidental 23 weeks gestation of ([facility]) documented in this encounter [facility] Assessments [...] FoundNo Family History Records Found Advance Directives No Advanced Directives Records FoundDocuments on File Type Date Recorded 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 Expl 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 ACP-Advance Directive ACP-Power of Straw [employer] Brusher Additional Source Comments INFORMATION SOURCE (unrecogn ized section and content) DATE CREATED AUTHOR 03/14/2018 [facility] DATE CREATED AUTHOR AUTHOR'S ORGANIZ ATION [facility]22/2022 [facility] DATE CREATED AUTHOR AUTHOR'S ORGANIZ ATION [facility]/12/2022 [facility] DATE CREATED AUTHOR AUTHOR'S ORGANIZ ATION 08/19/2024 [facility] DATE CREATED AUTHOR AUTHOR'S ORGANIZ ATION 08/19/2024 [facility] DATE CREATED AUTHOR AUTHOR'S ORGANIZ ATION 03/07/2025 [facility] d[facility] Specialists EPIC Care Teams (unrecognized sec tion and content) User Experience Team Lead Relationship Specialty Start Date End Date Prudence Aguilar MD [address] [place] [address] PCP - General 12/27/20 User Experience Team Lead Relationship Specialty Start Date End Date Prudence Aguilar MD [address] [place] [address] PCP - General 12/27/20 User Experience Team Lead Relationship Specialty Start Date End Date Prudence Aguilar MD [address] [place] [address] PCP - [facility] 11/15/24 User Experience Team Lead Relationship Specialty Start Date End Date Prudence Aguilar MD [address] [place] [id number] PCP - [facility] 11/15/24 User Experience Team Lead Relationship Specialty Start Date End Date Prudence Aguilar MD [address] [place] [id number] PCP - [facility] 11/15/24 User Experience Team Lead Relationship Specialty Start Date End Date Prudence Aguilar MD [address] [place] [id number] PCP - [facility] 11/15/24 Reason for Visit (unrecogniz ed section [...] BE BASED ON THE PRIMARY CLINICAL RECORDS. [employer] [facility]. provides no warranty or guarantee of the accuracy or completeness of information in this document.
[2025-04-02 10:00] LABS: Hematocrit 33.1 % (36.0-48.0); Hemoglobin 10.6 g/dL (12.0-16.0); Immature Granulocytes Abs Auto 0.03 10^3/uL (0.00-0.03); Immature Granulocytes Pct Auto 0.3 % (0.0-0.5); Lymphocytes Absolute Auto 1.6 10^3/uL (1.2-3.8); Mean Corpuscular HGB Conc 32.0 g/dL (29.9-35.2); Mean Corpuscular Hemoglobin 29.0 pg (26.7-34.0); Mean Corpuscular Volume 90.4 fL (81.0-99.0); Platelet Count 291 10^3/uL (150-450); Red Blood Count 3.66 10^6/uL (4.20-5.40); White Blood Count 8.8 10^3/uL (4.0-11.0)
[2025-04-02 10:40] LABS: Glucose 1 Hour 98 mg/dL (<130)
== END 2025-04-02 08:15 | disposition home or self-care (01) ==
PROVIDERS: PCP Family Medicine; Visit Provider Obstetrics & Gynecology
DX: Z13.1 Encounter for screening for diabetes mellitus (principal)
CPT/HCPCS: 36415; 82950; 85025

== ENCOUNTER 2025-05-30 14:36 | Outpatient (REF) | payer OTHER, SELFPAY ==
--- OUTSIDE RECORDS SUMMARY | 2025-05-16 08:30 | XMS_ITS | Encounter Summary ---
Author Organization [facility] Address [address] [place] [address] Care Team Providers Care Machine Packer Name Role Phone José Aguilar MD Primary Care Provider [phone] Reason for Visit * Reason Comments Routine Visit Encounter Details Date Type Department Care Team (Late st Contact Info) Description 05/16/2025 8:30 AM EDT Routine [facility] [place] [facility] [address] [phone] Madiha Roca PA [address] [place] [address] Third trimester ([facility]); 33 weeks gestation of ([facility]) Social History Tobacco Use Types Packs/Day Years [...] Sign Reading Time Taken Comments Blood Pressure 126/72 05/16/2025 8:41 AM EDT Pulse - - Temperature - - Respiratory Rate - - Oxygen Saturation - - Inhaled Oxygen Concentration - - Weight 75.2 kg (165 lb 12 oz) 05/16/2025 8:41 AM EDT Height - - Body Mass Index 27.58 07/14/2022 12:00 PM EDT documented in this encounter Progress Notes * JOHN Garcia - 05/16/2025 8:30 AM EDT Reason for Appointment: Patient ID: Lesia Gonzalez is a 34 y.o. female who presents for Routine Visit Patient presents today for Return OB appointment. MEDICATIONS Current Outpatient Medications Medication Instructions Magnesium 400 mg, Daily [place]-3 Fatty Acids (OMEGA-3 CF PO) 1 each, Daily Vit-Fe Fumarate-FA ( Vitamin Plus Low Iron) 27-1 MG tablet 1 each, Every 24 hours ALLERGIES Allergies Allergen Reactions Doxycycline Other and Unknown Autoimmune reaction Minocycline Other Other Reaction(s): medication induced Lupus Autoimmune reaction PROBLEMS Active Ambulatory Problems Diagnosis Date Noted Multigravida of advanced maternal age in third trimester ([facility]) 04/30/2025 Resolved Ambulatory Problems Diagnosis Date Noted No [...] History: Procedure Laterality Date SECTION, LOW TRANSVERSE x3 REVIEW OF SYSTEMS Review of Systems: Review [...] reviewed. Vitals: Estimated body mass index is 27.58 kg/m?? as calculated from the following: Height as of 07/14/22: 5' 5 . Weight as of this encounter: 165 lb 12 oz. BP: 126/72 Patient's last menstrual period was 09/22/2024. ASSESSMENT & PLAN ICD-10-CM 1. Third trimester ([facility]) Z34.93 POCT urinalysis dipstick manually resulted 2. 33 weeks gestation of ([facility]) Z3A.33 Return OB: Patient presents today for a routine obstetrics appointment. Patient is currently 33w5d . Patient states she is doing well but has complaints of being tired due to current . Patient has verbalizes frequent movement. labor precautions was discussed/given and patient was instructed to perform kick counts three times a day. Orders Placed This Encounter Procedures POCT urinalysis dipstick manually resulted Follow Up: Patient is to return to office in 2 week for routine OB appointment. Documented by JOHN Garcia on behalf of: JOHN Garcia documented in this encounter Plan of Treatment Upcoming Encounters Date Type Department Care Team (Late st Contact Info) Description 06/06/2025 10:00 AM EDT Routine [facility] [address] [phone] Aaron Riley DO [address] [place] [address] documented as of this encounter Procedures Procedure Name Priority Date/Time Associated Diagnosis Comments POCT URINALYSIS DIPSTICK Routine 05/16/2025 8:42 AM EDT Third trimester ([facility]) documented in this encounter Results * POCT urinalysis dipstick manually resulted (05/16/2025 8:42 AM EDT) Color, UA Yellow Clarity, UA Clear Glucose, UA Negative Negative - 2000(110) ++++ mg/dL Bilirubin, UA Negative Negative - 4(70) +++ mg/dL Ketones, UA Negative Negative - 160(16) ++++ mg/dL Spec Grav, UA 1.015 1 - 1.03 Blood, UA Negative Negative - 50 Thor/mcL pH, UA 6.0 5 - 9 Protein, UA Negative Negative - 2000(20) ++++ mg/dL Urobilinogen, UA 0.2 0.2 - 12 mg/dL Leukocytes, UA Negative Negative - 500+++ Georgina/mcL Nitrite, UA Negative Negative - Positive Urine 05/16/2025 8:42 AM EDT Madiha LOPEZ POINT OF CARE TEST ENTER/EDIT OR DERABLES Final Result documented in this encounter Visit Diagnoses Diagnosis Third trimester ([facility]) state, incidental 33 weeks gestation of ([facility]) documented in this encounter Care Teams Machine Packer Relationship Specialty Start Date End Date José Aguilar MD [address] [place] [id number] PCP - General Family Medicine 11/15/24 documented as of this encounter
--- OUTSIDE RECORDS SUMMARY | 2025-05-30 11:30 | XMS_ITS | Encounter Summary ---
Author Organization [facility] Address [address] [place] [address] Care Team Providers Care Stockroom Clerk Name Role Phone José Aguilar MD Primary Care Provider [phone] Reason for Visit * Reason Comments Routine Visit Encounter Details Date Type Department Care Team (Late st Contact Info) Description 05/30/2025 11:30 AM EDT Routine [facility] [facility] [address] [place] [address] Nati Cameron, LOCAL DELIVERY DRIVER [address] [place] [address] Third trimester ([facility]); 35 weeks gestation of ([facility]) Social History Tobacco Use Types Packs/Day Years [...] this encounter Progress Notes * Nati Cameron, MANA - 05/30/2025 11:30 AM EDT Reason for Appointment: Patient ID: Lesia Gonzalez is a 34 y.o. female who presents for Routine Visit Patient presents today for Return OB appointment. MEDICATIONS Current Outpatient Medications Medication Instructions Magnesium 400 mg, Daily [place]-3 Fatty Acids (OMEGA-3 CF PO) 1 each, Daily Vit-Fe Fumarate-FA ( Vitamin Plus Low Iron) 27-1 MG tablet 1 each, Every 24 hours ALLERGIES Allergies Allergen Reactions Doxycycline Other and Unknown Autoimmune reaction Minocycline Other Other Reaction(s): medication induced Lupus Autoimmune reaction PROBLEMS Active Ambulatory Problems Diagnosis Date Noted Multigravida of advanced maternal age in third trimester ([facility]) 04/30/2025 Resolved Ambulatory Problems Diagnosis Date Noted [...] nursing note reviewed. Exam conducted with a video games mechanic present. Vitals: Estimated body mass index is 27.87 kg/m?? as calculated from the following: Height as of 07/14/22: 5' 5 . Weight as of this encounter: 167 lb 8 oz. BP: 120/76 Patient's last menstrual period was 09/22/2024. ASSESSMENT & PLAN ICD-10-CM 1. Third trimester ([facility]) Z34.93 POCT urinalysis dipstick manually resulted CULTURE, GROUP B STREP WITH SUSCEPTIBLITY CULTURE, GROUP B STREP WITH SUSCEPTIBLITY 2. 35 weeks gestation of ([facility]) Z3A.35 Patient is doing well but has [...] AM EDT Routine [facility] [address] [place] [address] Aaron Riley DO [address] [place] [address] Scheduled Orders Name Type Priority Associated Diagnoses Orde r Schedule CULTURE, GROUP B STREP WITH SUSCEPTIBLITY Lab Routine Third trimester ([facility]) Expected: 05/30/2025, Expires: 05/30/2026 documented as of this encounter Procedures Procedure Name Priority Date/Time Associated Diagnosis Comments POCT URINALYSIS DIPSTICK Routine 05/30/2025 11:37 AM EDT Third trimester ([facility]) documented in this encounter Results * POCT [...] Positive Urine 05/30/2025 11:3 7 AM EDT Nati Cameron LOCAL DELIVERY DRIVER POINT OF CARE TEST ENTER/EDIT ORDERABLES Final Result documented in this encounter Visit Diagnoses Diagnosis Third trimester ([facility]) state, incidental 35 weeks gestation of ([facility]) documented in this encounter Care Teams Stockroom Clerk Relationship Specialty Start Date End Date José Aguilar MD [address] [place] [address] PCP - General Family Medicine 11/15/24 documented as of this encounter
--- OUTSIDE RECORDS SUMMARY | 2025-05-30 14:40 | XMS_ITS | Encounter Summary ---
Author Organization [facility] Address [address] [place] [address] Care Team Providers Care Territory Manager Name Role Phone José Aguilar MD Primary Care Provider [phone] Encounter Details Date Type Department Care Team (Late Contact Info) Description 05/16/2025 Bamboo flowsheet [facility] [address] [place] [address] Madiha Roca PA [address] [facility] [address] [place], [facility] Social History Tobacco Use Types Packs/Day [...] 06/06/2025 10:00 AM EDT Routine [facility] [address] [place] [address] Aaron Riley DO [address] [facility] [address] [place], [facility] documented as of this encounter Visit Diagnoses Not on filedocumented in this encounter Care Teams Territory Manager Relationship Specialty Start Date End Date Temple, José W, MD [address] [place] [address] PCP - General Family Medicine 11/15/24 documented as of this encounter
--- OUTSIDE RECORDS SUMMARY | 2025-05-30 14:40 | XMS_ITS | Clinical Summary ---
Author Organization [facility] Address [address] [place] [address] Care Team Providers Care Mammography Technician Name Role Phone Unavailable Primary Care Provider [...] HPV/Cotest 2018 COVID-19 Vaccine (2023-2 5 season) 2025 Influenza Vaccine (#1) 2025 Pneumococcal Vaccine: Ped or At-Risk Aged Out No longer eligible b ased on patient's age to complete this topic Insurance [employer] CHOICE POS/POSII/PREMIER CARE/PREMIER CARE PLUS
--- OUTSIDE RECORDS SUMMARY | 2025-05-30 14:40 | XMS_ITS | Clinical Summary ---
Author Organization [facility] Address [address] [place] [address] Care Team Providers Care Queen Producer Name Role Phone LuluJosé MD Primary Care Provider [phone] Allergies Active Allergy Reactions Criticality Noted Date Comments Doxycycline Other,Unknown Medium 07/09/2021 Autoimmune reaction Minocycline Other Medium 07/09/2021 Other Reaction(s): medication induced Lupus Autoimmune reaction Medications Vit-Fe Fumarate-FA ( Vitamin Plus Low Iron) 27-1 MG tablet Take 1 each by mouth 1 (one) time each day at the same time Active [place]-3 Fatty Acids (OMEGA-3 CF PO) Take 1 each by mouth Daily Active Magnesium 400 MG capsule Take 400 mg by mouth Daily Active Active Problems Problem Noted Date Diagnosed Date Multigravida of advanced mat ernal age in third trimester ([facility]) 04/30/2025 Estimated Date of Delivery Comme nts Yes 06/29/2025 Based on last me nstrual period of 09/22/2024 Encounters Date Type Department Care Team Description 05/30/2025 11:30 AM EDT Routine [facility] [address] [place] [address] Nati Cameron NP Third trimester ([facility]); 35 weeks gestation of ([facility]) 05/30/2025 Bamboo flowsheet [facility] [address] [email or web address] [address] Nati Cameron NP 05/27/2025 Abstract [facility] [place] [facility] [address] [place] [address] Aaron Riley DO 05/16/2025 8:30 AM EDT Routine [facility] [place] [facility] [address] [place] [address] Madiha Roca PA Third trimester ([facility]); 33 weeks gestation of ([facility]) 05/16/2025 Abstract [facility] [place] [facility] [address] [place] [address] Aaron Riley DO 05/16/2025 Bamboo flowsheet [facility] [place] [facility] [address] [place] [address] [place] [address] Madiha Roca PA 04/30/2025 9:00 AM EDT Routine [facility] [address] [place] [place] [address] [place] [address] Madiha Roca PA Third trimester ([facility]); 31 weeks gestation of ([facility]); Multigravida of advanced maternal age in third trimester ([facility]) 04/30/2025 8:30 AM EDT Ancillary Procedure [facility] [address] [place] [address] size inconsistent with dates ([facility]) 04/30/2025 Bamboo flowsheet [facility] [address] [place] [place] [address] [place] [address] Madiha Roca PA 04/16/2025 8:30 AM EDT Routine [facility] [place] [facility] [address] [place] [address] Aaron Riley DO Third trimester ([facility]); 29 weeks gestation of ([facility]); Multigravida of advanced maternal age in third trimester ([facility]); size inconsistent with dates ([facility]) 04/16/2025 Bamboo flowsheet [facility] [address] [place] [address] Aaron Riley DO 04/02/2025 10:30 AM ED[place] [address] Madiha Roca PA Second trimester ([facility]); 27 weeks gestation of ([facility]) 04/02/2025 Clinisync Result Encounter [facility] External Department Unsolicited Aaron Riley DO 04/02/2025 Bamboo flowsheet [facility] [address] [address] Madiha Roca PA 03/05/2025 9:40 AM EDT Routine [facility] [address] [address] Aaron Riley DO Diabetes mellitus screening; Second trimester ([facility]); 23 weeks gestation of ([facility]) 03/05/2025 Bamboo flowsheet [facility] [address] [address] Aaron Riley DO from Last 3 Months Social History Tobacco [...] oz) 05/30/2025 11:29 AM E DT Height 165.1 cm (5' 5 ) 07/14/2022 12:00 PM EDT Body Mass Index 27.87 07/14/2022 12:00 PM EDT Plan of Treatment Upcoming Encounters Date Type Department Care Team (Late st Contact Info) Description 06/06/2025 10:00 AM EDT Routine [facility] [address] [place] [address] RosemaryAaron matamoros, [address] [facility] [place] [address] Procedures Procedure Name Priority Date/Time Associated Diagnosis Comments POCT URINALYSIS DIPSTICK Routine 05/30/2025 11:37 AM EDT Third trimester ([facility]) POCT URINALYSIS DIPSTICK Routine 05/16/2025 8:42 AM EDT Third trimester ([facility]) POCT URINALYSIS DIPSTICK Routine 04/30/2025 9:24 AM EDT Third trimester ([facility]) US OB FOLLOW UP TRANSABDOMINAL APPROACH Routine 04/30/2025 9:13 AM EDT size inconsistent with dates ([facility]) POCT URINALYSIS DIPSTICK Routine 04/16/2025 8:37 AM EDT Third trimester ([facility]) POCT URINALYSIS DIPSTICK Routine 04/02/2025 10:23 AM EDT Second trimester ([facility]) GLUCOSE 1 HOUR Routine 04/02/2025 9:23 AM EDT ALL CBC WITH AUTO DIFF Routine 9:23 AM EDT POCT URINALYSIS DIPSTICK Routine 03/05/2025 10:07 AM EDT Second trimester ([facility]) from Last 3 Months Results * POCT urinalysis dipstick manually resulted (05/30/2025 11:37 AM EDT) Only the most recent of6 resultswithin the time period is included. Color, [...] 05/30/2025 11:3 7 AM EDT Nati Cameron NP POINT OF CARE TEST ENTER/EDIT ORDERABLES Final Result * US OB follow up transabdominal approach (04/30/2025 9:13 AM EDT) Anatomical Region Laterality Modality Body Ultrasound 04/30/2025 11:4 5 AM EDT Impressions 04/30/2025 1:52 PM EDT Single, live intrauterine , current sonographic age of weeks and days, with an estimated date of delivery of 2. On the December 06, 2024 examination estimated delivery at that time was July 02, 2025. * Estimated Weight (g) by Percentile is based upon an accurate estimated age based on last menstrual period. TRANSCRIBED BY: ELECTRONICALLY SIGNED BY: Alfredo Singh MD Narrative 04/30/2025 1:52 PM EDT FINDINGS: Comparison made with prior examination of December 06, 2024. A single, live intrauterine is present with normal cardiac rate of 138 beats per minute. Normal activity and amniotic fluid volume. Amniotic fluid index is 12.0 cm. (largest fluid pocket 4.4 cm) Morphology is grossly normal The current sonographic age is 31 weeks and 5 days, based on the following measurements: BPD 7.9 cm (31 weeks, 5 days) Head Circumference 29.2cm (32 weeks, 1 days) Abdominal Circumference 27.7cm ( 31weeks, 5 days) Femur Length 6.0cm ( 30weeks, 1 days) Presentation Cephalic Weight (g) by Percentile 43.2 % * These measurements result in an estimated date of delivery of June 27, 2025 The current estimated weight is 1796 +/- 269 grams (3 pound, 15 ounces). Procedure Note Alfredo Singh MD - 04/30/2025 FINDINGS: Comparison made with prior examination of December 06, 2024. A single, liveintrauterine is present with normal cardiac rate of 138beats per minute. Normal activity and amniotic fluid volume.Amniotic fluid index is 12.0 cm. (largest fluid pocket 4.4 cm)Morphology is grossly normal The current sonographic age is 31 weeks and5 days, based on the following measurements: BPD 7.9 cm (31 weeks, 5 days) Head Circumference 29.2cm (32 weeks, 1 days) Abdominal Circumference 27.7cm ( 31weeks, 5 days) Femur Length 6.0cm ( 30weeks, 1 days) Presentation Cephalic Weight (g) by Percentile 43.2 % * These measurements result in an estimated date of delivery of June The current estimated weight is 1796 +/- 269 grams (3pound, 15 ounces). IMPRESSION: Single, live intrauterine , current sonographic age of weeksand days, with an estimated date of delivery of 2. On the December 06, 2024 examination estimated delivery at that time wasJuly 02, 2025. * Estimated Weight (g) by Percentile is based upon an accurateestimated age based on last menstrual period. TRANSCRIBED BY: ELECTRONICALLY SIGNED BY: Alfredo Singh MD us Aaron Riley DO [facility] [place] PROCEDURES Final Resul t * GLUCOSE 1 HOUR (04/02/2025 9:23 AM EDT) GLUCOSE 1 HOUR 98 <130 mg/dL [facility] 04/02/2025 9:23 AM EDT 04/02/2025 9:27 AM EDT Narrative TED - 04/02/2025 10:42 AM EDT us Aaron Riley DO LAB BLOOD ORDERABLES Final Resul t TED TB * (ABNORMAL) ALL CBC WITH AUTO DIFF (04/02/2025 9:23 AM EDT) [facility] WBC 8.8 4.0 - 11.0 10 3/uL TBH TBH RBC 3.66(L) 4.20 - 5.40 10 6/uL TBH TBH HGB 10.6(L) 12.0 - 16.0 g/dL TBH TBH HCT 33.1(L) 36.0 - 48.0 % TBH TBH MCV 90.4 81.0 - 99.0 fL TBH TBH MCH 29.0 26.7 - 34.0 pg TBH TBH MCHC 32.0 29.9 - 35.2 g/dL TBH TBH RDW 13.2 11.0 - 15.0 % TBH TBH PLT 291 150 - 450 10 3/uL TBH TBH MPV 9.6 9.5 - 13.5 fL TBH NEUTROPHILS PERCENT AUTO 76.4(H) 43.0 - 75.0 % TBH LYMPHOCYTES PERCENT AUTO 17.9(L) 20.5 - 60.0 % TBH MONOCYTES PERCENT AUTO 4.3 1.7 - 12.0 % TBH TBH EO % 0.9 0.9 - 7.0 % TBH BASOPHILS PERCENT AUTO 0.2 0.2 - 2.0 % TBH IMMATURE GRANULOCYTES PCT AUTO 0.3 0.0 - 0.5 % TBH NEUTROPHILS ABSOLUTE AUTO 6.7(H) 1.4 - 6.5 10 3/uL TBH LYMPHOCYTES ABSOLUTE AUTO 1.6 1.2 - 3.8 10 3/uL TB[facility] MONOCYTES ABSOLUTE AUTO 0.4 0.3 - 0.8 10 3/uL TBH TBH EO # 0.1 0.0 - 0.7 10 3/uL TBH BASOPHILS ABSOLUTE AUTO 0.0 0.0 - 0.1 10 3/uL TB[facility] IMMATURE GRANULOCYTES ABS AUTO 0.03 0.00 - 0.03 10 3/uL [facility] 04/02/2025 9:23 AM EDT 04/02/2025 9:27 AM EDT Narrative [facility] - 04/02/2025 10:02 AM EDT Aaron Rosemary DO [facility] Final Result [facility] from Last 3 Months Insurance [employer]ET[employer] Care Teams Queen Producer Relationship Specialty Start Date End Date José Aguilar MD [address] [place] [id number] PCP - General Family Medicine 11/15/24
--- OUTSIDE RECORDS SUMMARY | 2025-05-30 14:40 | XMS_ITS | Encounter Summary ---
Author Organization [facility] Address [address] [place] [address] Care Team Providers Care Ship Engineer Name Role Phone José Aguilar MD Primary Care Provider [phone] Encounter Details Date Type Department Care Team (Late st Contact Info) Description 05/30/2025 Bamboo flowsheet [facility] [address] [address] Nati Cameron, YARD STOCKER [address] [facility] [address] [place] [address] Social History Tobacco Use Types Packs/Day Years [...] Info) Description 06/06/2025 10:00 AM EDT Routine [facility] [address] [place] [address] Aaron Riley DO [address] [place], [facility] documented as of this encounter Visit Diagnoses Not on filedocumented in this encounter Care Teams Ship Engineer Relationship Specialty Start Date End Date José Aguilar MD [address] [place] [address] PCP - General Family Medicine 11/15/24 documented as of this encounter
--- OUTSIDE RECORDS SUMMARY | 2025-05-30 14:40 | XMS_ITS | Encounter Summary ---
Author Organization [facility] Address [address], [address] [place] [address] Care Team Providers Care Credit Control Clerk Name Role Phone José Aguilar MD Primary Care Provider [phone] Reason for Visit * Reason Onset Date Comments lice 05/27/2025 Encounter Details Date Type Department Care Team (Late st Contact Info) Description 05/27/2025 Telephone [facility] [address] [place] [address] José Aguilar MD [address] [place] [address] lice Social History Tobacco Use Types Packs/Day Years Used Date Smoking Tobacco: Never Alcohol Use Standard Drinks/Week Comments No 0 [...] on filedocumented in this encounter Care Teams Credit Control Clerk Relationship Specialty Start Date End Date José Aguilar MD [address] [place] [address] PCP - General 12/27/20 documented as of this encounter
--- OUTSIDE RECORDS SUMMARY | 2025-05-30 14:40 | XMS_ITS | Encounter Summary ---
Author Organization [facility] Address [address] [place] [address] Care Team Providers Care Test Boring Crew Chief Name Role Phone Louie Martin MD Primary Care Provider [phone] Encounter Details Date Type Department Care Team ([facility] st Contact Info) Description 07/26/2017 Transcribe Orders [facility] [address] [place] [address] Holly Hull MA Peeling skin (Primary Dx) [...] Primary documented in this encounter Care Teams Test Boring Crew Chief Relationship Specialty Start Date End Date Louie Martin MD [address] [place] [address] PCP - General Family Medicine 07/14/16 12/08/21 documented as of this encounter
--- OUTSIDE RECORDS SUMMARY | 2025-05-30 14:40 | XMS_ITS | Encounter Summary ---
Author Organization [facility] Address [address] [place] [address] Care Team Providers Care Photography Editor Name Role Phone José Aguilar MD Primary Care Provider [phone] Encounter Details Date Type Department Care Team (Late Contact Info) Description 05/16/2025 Abstract [facility] [address] [place] [address] Aaron Riley DO [address] [place], [place] [id number] Social History Tobacco Use Types Packs/Day Years [...] Info) Description 06/06/2025 10:00 AM EDT Routine [facility] [address] [place] [address] Aaron Riley DO [address] [place], [place] [id number] documented as of this encounter Visit Diagnoses Not on filedocumented in this encounter Care Teams Photography Editor Relationship Specialty Start Date End Date José Aguilar MD [address] [place] [address] PCP - General Family Medicine 11/15/24 documented as of this encounter
--- OUTSIDE RECORDS SUMMARY | 2025-05-30 14:40 | XMS_ITS | Encounter Summary ---
Author Organization [facility] Address [address] [place] [place] [address] Care Team Providers Care Intelligence Support Officer Name Role Phone José Aguilar MD Primary Care Provider [phone] Encounter Details Date Type Department Care Team (Late st Contact Info) Description 02/19/2025 Orders Only [facility] [address] [place] [address] Ana Freeman LPN [address] [facility] [place] [id number] Social History Tobacco Use Types Packs/Day Years [...] AM EDT Routine [facility] [address] [place] [address] Aaron Riley DO [address] [place], [place] [id number] documented as of this encounter Procedures Procedure Name Priority Date/Time Associated Diagnosis Comments PAP SMEAR Routine 02/05/2025 12:00 AM EDT documented in this encounter Results * Pap Smear (02/05/2025 12:00 AM EDT) Swab Cervical swab / Unknown Rosemary Nurse [facility] CYTOLOGY ORDERABLES Final Result EXTERNAL LAB documented in this encounter Visit Diagnoses Not on filedocumented in this encounter Care Teams Intelligence Support Officer Relationship Specialty Start Date End Date José Aguilar MD [address] [place] [id number] PCP - General Family Medicine 11/15/24 documented as of this encounter
--- OUTSIDE RECORDS SUMMARY | 2025-05-30 14:40 | XMS_ITS | Encounter Summary ---
Author Organization [facility] Address [address] [place] [address] Care Team Providers Care Absence Management Consultant Name Role Phone José Aguilar MD Primary Care Provider [phone] Encounter Details Date Type Department Care Team (Late Contact Info) Description 05/27/2025 Abstract [facility] [address] [place] [address] Aaron Riley DO [address] [place], [place] [id number] Social History Tobacco Use Types Packs/Day Years [...] 10:00 AM EDT Routine [facility]AY CAMERON [address] [place] [address] Aaron Riley DO [address] [place], [place] [id number] documented as of this encounter Visit Diagnoses Not on filedocumented in this encounter Care Teams Absence Management Consultant Relationship Specialty Start Date End Date José Aguilar MD [address] [place] [address] PCP - General Family Medicine 11/15/24 documented as of this encounter
--- OUTSIDE RECORDS SUMMARY | 2025-05-30 14:40 | XMS_ITS | Clinical Summary ---
Author Organization [facility] Address [address] [facility], [address] [place] [address] Care Team Providers Care Weapons And Tactics Instructor Name Role Phone José Aguilar MD Primary Care Provider [phone] Allergies Active Allergy Reactions Criticality Noted Date Comments Doxycycline Other (See Comments) Medium 07/09/2021 Autoimmune reaction Minocycline Other (See Comments) Medium 07/09/2021 Autoimmune reaction Medications Benzoyl Peroxide (BENZEPRO CREAMY WASH) 7 % LIQD Apply 1 application topically daily 6 Active Clindamycin Phos-Benzoyl Perox (ONEXTON) 1.2-3.75 % GEL Apply 1 application topically daily 6 Active metroNIDAZOLE (FLAGYL) 500 MG tablet TAKE 1 TABLET BY MOUTH IN THE MORNING AND 1 AT BEDTIME FOR 7 DAYS DO NOT DRINK ALCOHOL WHILE TAKING THIS MEDICATION 5 Active clotrimazole-be tamethasone (LOTRISONE) 1-0.05 % cream Apply topically 2 times daily. 15 g 5 Active spinosad (NATROBA) 0.9 % SUSP topical suspension Apply 1 Dose topically once for 1 dose 1 each 5 05/28/20 25 Active Problems Problem Noted Date Diagnosed Date Neoplasm of uncertain behavior of skin 5 Encounter for supervision of normal , unspecified, first trimester 12/11/2024 Hemangioma unspecified site 05/23/2024 Insomnia, unspecified 07/29/2022 Abnormal uterine and vaginal [...] screening for diabetes mellitus 10/16/19 21 06/17/2022 Encounters Date Type Department Care Team Description 05/27/2025 Telephone [facility] [address] [place] [address] José Aguilar MD lice 04/10/2025 1:30 PM EDT Office Visit [facility] [address] [place] [address] José Aguilar MD Rash (Primary Dx) from Last 3 Months Immunizations Immunization Administration Dates Next Due Influenza, [...] Sign Reading Time Taken Comments Blood Pressure 122/73 04/10/2025 1:17 PM EDT Pulse 93 04/10/2025 1:17 PM EDT Temperature 36.7 C (98.1 F) 04/10/2025 1:17 PM EDT Respiratory Rate 20 04/10/2025 1:17 PM EDT Oxygen Saturation 100% 04/10/2025 1:17 PM EDT Inhaled Oxygen Concentration - - Weight 74.8 kg (165 lb) 04/10/2025 1:17 PM EDT Height - - Body Mass [...] 2018 HPV (without or with Pap) 2018 Flu vaccine (#1) 04/19/2025 07/25/2020, 07/23/2019 COVID-19 Vaccine (1 - 2023-2 5 season) 2025 DTaP/Tdap/Td vaccine (2 - Td or Tdap) 07/06/2029 07/06/2019 HPV vaccine (No Doses Required) Completed Hepatitis A vaccine Aged Out No longe [...] this topic Insurance AETNA AET[employer] Care Teams Weapons And Tactics Instructor Relationship Specialty Start Date End Date José Aguilar MD [address] [place] [address] PCP - General 12/27/20
--- OUTSIDE RECORDS SUMMARY | 2025-05-30 14:40 | XMS_ITS | Encounter Summary ---
Author Organization [facility] Address [address] [place] [address] Care Team Providers Care Mill Attendant Name Role Phone José Aguilar MD Primary Care Provider [phone] Encounter Details Date Type Department Care Team (Late Contact Info) Description 12/18/2024 Abstract [facility] [address] [place] [address] Aaron Riley DO [address] [place], [place] [id number] Social History Tobacco Use Types Packs/Day Years [...] 10:00 AM EDT Routine [facility] CAMERON [address] [place] [address] Aaron Riley DO [address] [place], [place] [id number] documented as of this encounter Visit Diagnoses Not on filedocumented in this encounter Care Teams Mill Attendant Relationship Specialty Start Date End Date José Aguilar MD [address] [place] [address] PCP - General Family Medicine 11/15/24 documented as of this encounter
--- OUTSIDE RECORDS SUMMARY | 2025-05-30 15:49 | XMS_ITS | CCD ---
Author Organization [facility] Care Team Providers Care Technical Business Systems Analyst Name Role Phone Louie Martin Unavailable MOROCCO, TASIA Unavailable Unavailable LOUIE MARTIN Unavailable [...] REQUEST, NONE LISTED Primary Care Unavaila henri DURAN, DR PAUL Arriola Admitting Unavailabl e KALI, [...] Arriola Primary Care Physician Unavail able PAUL DURAN Referring Unavailable SECOR, PRUDENCE Garnica Primary Care Unavailable PAUL DURAN Referring Unavailable SECOR, PRUDENCE Garnica Primary Care Unavailable Emelyn, Vladiimr Arriola Primary Care Physician Unavail able Emelyn, [...] Vladimir Arriola Primary Care Physician Unavail able [place] Prudence CASTILLO Primary Care Provider [phone] JOY TRAMMELL Referring Unavailable SECOR, PRUDENCE Garnica Primary Care Unavailable [place] , Prudence Garnica Primary Care Provider Emelyn, Vladimir Arriola Primary Care Physician Unavail able AARON RILEY Attending Unavailable MADIHA MORENO Attending Unavailable ROSEMARY, AARON Attending Unavailable CHANELLEMADIHA Attending Unavailable ROSEMARYAARON Attending Unavailable CHANELLE, MADIHA Attending Unavailable CHANELLE, MADIHA Attending Unavailable Allergies Allergy Classification Reported Allergen(s) Allergy Type Date of Onset Reaction(s) Facility (16 sources) Doxycycline; Translations: [doxycycline hyclate] Drug Allergy [facility] (16 sources) Minocycline; Translations: [minocycline] Drug Allergy [facility] (16 sources) Tetracyclines Allergy to substance (disorder) [facility] (20 sources) Doxycycline Drug Allergy 1 Other (See Comments), Other, Unknown [facility] (20 sources) Minocycline Drug Allergy 1 Other (See Comments), Other [facility] Work Phone: Medications Current Medications Medication Drug [...] End: 03-03-2023 Cleocin T 1 % lotion 03/03/2023 apply BID to affected areas Start: [...] daily 2 Bottle 1 12/31/2020 Active Magnesium (20 sources) take 1 capsule by mouth once [...] 10 days 20 capsule 08/17/2024 08/27/2024 Active [place]-3 Fatty Acids (OMEGA-3 CF PO) (20 sources) take 1 dose by mouth once daily [place]-3 Fatty Acids (OMEGA-3 CF PO) Take 1 [...] Vitamin Plus Low Iron) 27-1 MG tablet (20 sources) take 1 tablet by mouth once [...] unspecified trimester] Onset: 01-06-2021 05-18-2022 Chronic Other complications of (12 sources) Multigravida of advanced maternal age; Translations: [Supervision of elderly multigravida, third trimester] Onset: 04-30-2025 04-16-2025 Episodic Other female genital disorders (4 sources) Abnormal [...] joint Episodic Other and delivery including normal (16 sources) Second trimester ; Translations: [Encounter for [...] [23 weeks gestation of ] 03-05-2025 Episodic Residual codes; unclassified (2 sources) Gestation period, 27 weeks; Translations: [27 weeks gestation of ] 04-02-2025 Episodic Residual codes; unclassified (2 sources) Gestation period, 29 weeks; Translations: [29 weeks gestation of ] 04-16-2025 Episodic Residual codes; unclassified (2 sources) Gestation period, 31 weeks; Translations: [31 weeks gestation of ] 04-30-2025 Episodic Residual codes; unclassified (2 sources) Gestation period, 33 weeks; Translations: [33 weeks gestation of ] 05-16-2025 Episodic Residual codes; unclassified (2 sources) Gestation period, 35 weeks; Translations: [35 weeks gestation of ] 05-30-2025 Episodic Systemic lupus erythematosus and connective tissue [...] Range Facility Urinalysis macro (dipstick) panel (U)on 05-30-2025 Bilirubin, UA Negative Negative - 4(70) +++ mg/dL [facility] Blood, UA Negative Negative - 50 Thor/mcL [facility] Healthcare Clarity, UA Clear [facility] Healthcare Color, UA Yellow [facility] Glucose, UA Negative Negative - 1999(110) ++++ mg/dL [facility] Interpretation and review of laboratory results Normal [facility] Ketones, UA Negative Negative - 160(16) ++++ mg/dL [facility] Leukocytes, UA Negative Negative - 500+++ Georgina/mcL [facility] Nitrite, UA Negative Negative - Positive [facility] pH, UA 6.5 5 - 9 [facility] Healthcare Protein, UA Negative Negative - 1999(20) ++++ mg/dL [facility] Spec Grav, UA 1.01 1 - 1.03 [facility] Urobilinogen, UA 0.2 0.2 - 12 mg/dL [facility] Urinalysis macro (dipstick) panel (U)on 05-16-2025 Bilirubin, UA Negative Negative - 4(70) +++ mg/dL [facility] Blood, UA Negative Negative - 50 Thor/mcL [facility] Healthcare Clarity, UA Clear [facility] Healthcare Color, UA Yellow [facility] Glucose, UA Negative Negative - 1999(110) ++++ mg/dL [facility] Interpretation and review of laboratory results Normal [facility] Ketones, UA Negative Negative - 160(16) ++++ mg/dL [facility] Leukocytes, UA Negative Negative - 500+++ Georgina/mcL [facility] Nitrite, UA Negative Negative - Positive [facility] pH, UA 6 5 - 9 [facility] Healthcare Protein, UA Negative Negative - 1999(20) ++++ mg/dL [facility] Spec Grav, UA 1.015 1 - 1.03 [facility] Urobilinogen, UA 0.2 0.2 - 12 mg/dL [facility] US OB FOLLOW UP TRANSABDOMIN AL APPROACHon 04-30-2025 US OB FOLLOW UP TRANSABDOMINAL APPROACH FINDINGS: Comparison made with prior examination of [...] +/- 269 grams (3 pound, 15 ounces). IMPRESSION: Single, live intrauterine , current sonographic age of weeks and days, with an estimated date of delivery of 2. On the December 06, 2024 examination estimated delivery at that time was July 02, 2025. * Estimated Weight (g) by Percentile is based upon an accurate estimated age based on last menstrual period. TRANSCRIBED BY: ELECTRONICALLY SIGNED BY: Alfredo Singh MD Normal Not Available Comment on above: Order Comment: US OB SCAN FOR GROWTH Estimated Date of Delivery: 06/29/25 Gestational Age as of 04/16/2025: 29w3d Urinalysis macro (dipstick) panel (U)on 04-30-2025 Bilirubin, UA Negative Negative - 4(70) +++ mg/dL [facility] Blood, UA Negative Negative - 50 Thor/mcL [facility] Clarity, UA Clear [facility] Color, UA Yellow [facility] Glucose, UA Negative Negative - 2000(110) ++++ mg/dL [facility] Interpretation and review of laboratory results Normal [facility] Ketones, UA Negative Negative - 160(16) ++++ mg/dL [facility] Leukocytes, UA Negative Negative - 500+++ Georgina/mcL [facility] Nitrite, UA Negative Negative - Positive [facility] pH, UA 6 5 - 9 [facility] Protein, UA Negative Negative - 1999(20) ++++ mg/dL [facility] Spec Grav, UA 1.02 1 - 1.03 [facility] Urobilinogen, UA 1.0 0.2 - 12 mg/dL [facility] Urinalysis macro (dipstick) panel (U)on 04-16-2025 Bilirubin, UA Negative Negative - 4(70) +++ mg/dL [facility] Blood, UA Negative Negative - 50 Thor/mcL [facility] Clarity, UA Clear [facility] Color, UA Yellow [facility] Glucose, UA Negative Negative - 1999(110) ++++ mg/dL [facility] Interpretation and review of laboratory results Normal [facility] Ketones, UA Negative Negative - 160(16) ++++ mg/dL [facility] Leukocytes, UA Negative Negative - 500+++ Georgina/mcL [facility] Nitrite, UA Negative Negative - Positive [facility] pH, UA 6 5 - 9 [facility] Protein, UA Negative Negative - 1999(20) ++++ mg/dL [facility] Spec Grav, UA 1.015 1 - 1.03 [facility] Urobilinogen, UA 0.2 0.2 - 12 mg/dL [facility] ALL CBC WITH AUTO DIFFon BASOPHILS ABSOLUTE AUTO 0 [facility] Basophils/100 WBC (Bld) 0.2 % 0.2 - 2.0 % [facility] Eosinophils/100 WBC (Bld) 0.9 % 0.9 - 7.0 % [facility] Erythrocyte distribution width (RBC) [Ratio] 13.2 % 11.0 - 15.0 % [facility] Hematocrit (Bld) [Volume fraction] 33.1 % Low 36.0 - 48.0 % [facility] Hemoglobin (Bld) [Mass/Vol] 10.6 g/dL Low 12.0 - 16.0 g/dL [facility] IMMATURE GRANULOCYTES ABS AUTO 0.03 [facility] Immature granulocytes/100 WBC (Bld) 0.3 % 0.0 - 0.5 % [facility] Interpretation and review of laboratory results Abnormal [facility] LYMPHOCYTES ABSOLUTE AUTO 1.6 [facility] Lymphocytes/100 WBC (Bld) 17.9 % Low 20.5 - 60.0 % [facility] MCH (RBC) [Entitic mass] 29 pg 26.7 - 34.[address] [facility] MCHC (RBC) [Mass/Vol] 32 g/dL 29.9 - 35.2 g/dL [facility] MCV (RBC) [Entitic vol] 90.4 fL 81.0 - 99.[address] [facility] MONOCYTES ABSOLUTE AUTO 0.4 [facility] Monocytes/100 WBC (Bld) 4.3 % 1.7 - 12.0 % [facility] NEUTROPHILS ABSOLUTE AUTO 6.[address] [facility] Neutrophils/100 WBC (Bld) 76.4 % High 43.0 - 75.0 % [facility] Platelet mean volume (Bld) [Entitic vol] 9.6 fL 9.5 - 13.[address] [facility] TBH EO # 0.1 [facility] PLT 291 [facility] RBC 3.66 Low [facility] WBC 8.8 [facility] Urinalysis macro (dipstick) panel (U)on 04-02-2025 Bilirubin, UA Negative Negative - 4(70) +++ mg/dL [facility] Blood, UA Positive Negative - 50 Thor/mcL [facility] Comment on above: large Clarity, UA Clear [facility] Color, UA Yellow [facility] Glucose, UA Negative Negative - 1999(110) ++++ mg/dL [facility] Interpretation and review of laboratory results Abnormal [facility] Ketones, UA Negative Negative - 160(16) ++++ mg/dL [facility] Leukocytes, UA Negative Negative - 500+++ Georgina/mcL [facility] Nitrite, UA Negative Negative - Positive [facility] pH, UA 6.5 5 - 9 [facility] Protein, UA Negative Negative - 1999(20) ++++ mg/dL [facility] Spec Grav, UA 1.005 1 - 1.03 [facility] Urobilinogen, UA 0.2 0.2 - 12 mg/dL [facility] Urinalysis macro (dipstick) panel (U)on 03-05-2025 Bilirubin, UA Negative Negative - 4(70) +++ mg/dL [facility] Blood, UA Negative Negative - 50 Thor/mcL [facility] Clarity, UA Clear [facility] Color, UA Yellow [facility] Glucose, UA Negative Negative - 1999(110) ++++ mg/dL [facility] Interpretation and review of laboratory results Abnormal [facility] Ketones, UA Negative Negative - 160(16) ++++ mg/dL [facility] Leukocytes, UA Trace Negative - 500+++ Georgina/mcL [facility] Nitrite, UA Negative Negative - Positive [facility] pH, UA 7.5 5 - 9 [facility] Protein, UA Negative Negative - 1999(20) ++++ mg/dL [facility] Spec Grav, UA 1.015 1 - 1.03 [facility] Urobilinogen, UA 0.2 0.2 - 12 mg/dL [facility] No Panel InformationOrdered By: Radiologist Radiology on 02-19-2025 [facility] Work Phone: No Panel Informationon 02-19 Radiology Study observation (narrative) [facility] US OB ANATOMYon 02-19-2025 [place] [address] Ultrasound Report Signed Patient: LESIA GONZALEZ MR#: [id number] : 1990 Acct:[id number] Age/Sex: 34 / F ADM Date: 02/19/25 Loc: US Attending Dr: Aaron Riley D.O. Ordering Physician: Aaron Riley D.O. Date of Service: 02/19/25 Procedure(s): US OB anatomy Accession Number(s): [id number] cc: Aaron Riley D.O.; Prudence Jose M.D. [place] [id number] Patient Name: LESIA OGNZALEZ MRN: [id number] date: 1990 Sex: F Assigned Patient Location: US Current Patient Location: US Accession/Order Number: [id number] Exam Date: 02/19/2025 10:17 Report Date: 02/19/2025 [...] all 4 extremities were surveyed by the comptometer operator and no abnormalities were identified. The stomach, [...] Tipton M.D. 02/19/2025 10:27 AM Dictation Location: [place] [address] Electronically authenticated by: [id number] Y Date: 02/19/2025 10:27 Dictated By: Maribel Tipton M.D. Signed By: 02/19/25 1030 DD/ 1027 TD/TT: Oil Rag Washer: [facility] Radiology, Radiologist, - 02/19/2025 [place] [address] Ultrasound Report Signed Patient: LESIA GONZALEZ MR#: [id number] : 1990 Acct:[id number] Age/Sex: 34 / F ADM Date: 02/19/25 Loc: US Attending Dr: Aaron Riley D.O. Ordering Physician: Aaron Riley D.O. Date of Service: 02/19/25 Procedure(s): US OB anatomy Accession Number(s): [id number] cc: Aaron Riley D.O.; Prudence Jose M.D. The [place] [address] Patient Name: LESIA GONZALEZ MRN: [facility]:[id number] date: 1990 Sex: F Assigned Patient Location: Current Patient Location: Accession/Order Number: [id number] Exam Date: 02/19/2025 10:17 Report Date: 02/19/2025 [...] all 4 extremities were surveyed by the comptometer operator and no abnormalities were identified. The stomach, [...] Tipton M.D. 02/19/2025 10:27 AM Dictation Location: [place] [address] Electronically authenticated by: [id number] Y Date: 02/19/2025 10:27 Dictated By: Maribel Tipton M.D. Signed By: 02/19/25 1030 DD/ 1027 TD/TT: Oil Rag Washer: [facility] OB CERVICAL LENGTHon [address] [address] Ultrasound Report Signed Patient: LESIA GONZALEZ MR#: [id number] : 1990 Acct:[id number] Age/Sex: 34 / F ADM Date: 02/19/25 Loc: US Attending Dr: Aaron Riley D.O. Ordering Physician: Aaron Riley D.O. Date of Service: 02/19/25 Procedure(s): US OB cervical length Accession Number(s): [id number] cc: Aaron Riley D.O.; Prudence Jose M.D. [address] [address] Patient Name: LESIA GONZALEZ MRN: [id number] date: 1990 Sex: F Assigned Patient Location: US Current Patient Location: US Accession/Order Number: [id number] Exam Date: 02/19/2025 10:17 Report Date: 02/19/2025 [...] all 4 extremities were surveyed by the comptometer operator and no abnormalities were identified. The stomach, [...] Tipton M.D. 02/19/2025 10:27 AM Dictation Location: [place] [address] Electronically authenticated by: [id number] Y Date: 02/19/2025 10:27 Dictated By: Maribel Tipton M.D. Signed By: 02/19/25 1030 DD/ 1027 TD/TT: Oil Rag Washer: [facility] Radiology, Radiologist, - 02/19/2025 [place] [address] Ultrasound Report Signed Patient: LESIA GONZALEZ MR#: [id number] : 1990 Acct:[id number] Age/Sex: 34 / F ADM Date: 02/19/25 Loc: US Attending Dr: Aaron Riley D.O. Ordering Physician: Aaron Riley D.O. Date of Service: 02/19/25 Procedure(s): US OB cervical length Accession Number(s): [id number] cc: Aaron Riley D.O.; Prudence Jose M.D. The [address] [id number] Patient Name: LESIA GONZALEZ MRN: [facility]:[id number] date: 1990 Sex: F Assigned Patient Location: US Current Patient Location: US Accession/Order Number: [id number] Exam Date: 02/19/2025 10:17 Report Date: 02/19/2025 [...] all 4 extremities were surveyed by the comptometer operator and no abnormalities were identified. The stomach, [...] Tipton M.D. 02/19/2025 10:27 AM Dictation Location: [place] [address] Electronically authenticated by: [id number] Y Date: 02/19/2025 10:27 Dictated By: Maribel Tipton M.D. Signed By: 02/19/25 1030 DD/ 1027 TD/TT: Oil Rag Washer: [facility] AFP, SERUM, OPEN SPINA BIFID Aon 02-07-2025 [address] M[address] [facility] AFP VALUE 59.4 ng/mL . [facility] COMMENT: Comment . [facility] Comment on above: Dang Bowman , Ph.D., [facility] Director References: Available Upon Request. Multiples Of Median Cutoffs For AFP Elevations Lowery 2.5 Black 2.8 IDD 2.0 Twins 4.5 Abbreviation Definitions IDD - Insulin Dep Diabetes OSBR - Open Spina Bifida Risk For further inquiries contact [facility] at [phone]. This test was developed and its performance characteristics determined by [facility]. It has not been cleared or approved by the Food and Drug Administration. Performed at: [facility] [address] [place] [id number] Recessing Machine Operator: Roula Lopez [facility], Phone: [phone] GEST. AGE ON COLLECTION DATE 17.[address] [facility] GESTAT. AGE BASED ON LMP . [facility] Comment on above: Recalculations are n ot recommended when gestational dating by LMP and ultrasound are within 10 days. INSULIN DEP DIABETES No . [facility] INTERPRETATION Comment . [facility] Comment on above: Interpretation: Scre en Negative [...] Customer Services to discuss available options. The [place] [employer] recommends amniocentesis be offered to women age 35 and older. MATERNAL [age] JULIO 34.[address] [facility] MULTIPLE GESTATION No . [facility] OSBR RISK [address] [facility] RACE . [facility] RESULTS Report . [facility] TEST RESULTS: Negative . [facility] WEIGHT [address] [facility] N N LMP [id number] 3 19 N 1 Y 144 N N N N N White/ [facility]ISY[facility] RECURRENT VAGINITIS (HTRX)on 02-06-[address] [facility] ATOPOBIUM VAGINAE Not detected [facility] BVAB 2,3 (BACTERIAL VAGINOSIS ASSOCIATED BACTERIA 2, 3); MOBILUNCUS SPP 0 [facility] BVAB 2,3 (BACTERIAL VAGINOSIS ASSOCIATED BACTERIA 2, 3); MOBILUNCUS SPP Not detected [facility] LAURA ALBICANS, PARAPSILOSIS, TROPICALIS 27.[address] [facility] LAURA ALBICANS, PARAPSILOSIS, TROPICALIS Detected Abnormal [facility] LAURA GLABRATA 24.[address] [facility] LAURA GLABRATA Detected Abnormal [facility] LAURA KRUSEI 0 [facility] LAURA KRUSEI Not detected [facility] CHLAMYDIA TRACHOMATIS 0 [facility] CHLAMYDIA TRACHOMATIS Not detected N [facility] GARDNERELLA VAGINALIS 0 [facility] GARDNERELLA VAGINALIS Not detected N [facility] Interpretation and review of laboratory results Abnormal [facility] MEGASPHAERA (TYPES 1, 2) 0 [facility] MEGASPHAERA (TYPES 1, 2) Not detected [facility] MYCOPLASMA GENITALIUM 0 [facility] MYCOPLASMA GENITALIUM Not detected N [facility] NEISSERIA GONORRHOEAE 0 [facility] NEISSERIA GONORRHOEAE Not detected N [facility] TRICHOMONAS VAGINALIS 0 [facility] TRICHOMONAS VAGINALIS Not detected N [facility] Urinalysis macro (dipstick) panel (U)on 02-05-2025 Bilirubin, UA Negative Negative - 4(70) +++ mg/dL [facility] Blood, UA Negative Negative - 50 Thor/mcL [facility] Clarity, UA Clear [facility] Color, UA Yellow [facility] Glucose, UA Negative Negative - 1999(110) ++++ mg/dL [facility] Interpretation and review of laboratory results Normal [facility] Ketones, UA Negative Negative - 160(16) ++++ mg/dL [facility] Leukocytes, UA Negative Negative - 500+++ Georgina/mcL [facility] Nitrite, UA Negative Negative - Positive [facility] pH, UA 6 5 - 9 [facility] Protein, UA Negative Negative - 1999(20) ++++ mg/dL [facility] Spec Grav, UA 1.01 1 - 1.03 [facility] Urobilinogen, UA 0.2 0.2 - 12 mg/dL [facility] Urinalysis macro (dipstick) panel (U)on 01-07-2025 Bilirubin, UA Negative Negative - 4(70) +++ mg/dL [facility] Blood, UA Negative Negative - 50 Thor/mcL [facility] Clarity, UA Clear [facility] Color, UA Yellow [facility] Glucose, UA Negative Negative - 1999(110) ++++ mg/dL [facility] Interpretation and review of laboratory results Normal [facility] Ketones, UA Negative Negative - 160(16) ++++ mg/dL [facility] Leukocytes, UA Negative Negative - 500+++ Georgina/mcL [facility] Nitrite, UA Negative Negative - Positive [facility] pH, UA 5.5 5 - 9 [facility] Protein, UA Negative Negative - 1999(20) ++++ mg/dL [facility] Spec Grav, UA 1.025 1 - 1.03 [facility] Urobilinogen, UA 0.2 0.2 - 12 mg[facility] OB TRANSVAGINAL EXAM: [...] 10 weeks 2 days (+/- 5 days). JLUIO by today's ultrasound is 07/02/2025. 2. Bilateral ovaries not visualized due to overlying bowel gas. Electronically Signed:Joeyall y signed by BHAVANI OCONNELL II, MD, PHD at 07-Dec-2024 08:32:38 PM [facility] Normal Not Available Comment on above: Order Comment: US OB TRANSVAGINAL No LMP recorded. Culture, Urineon 08-17-2024 [place] - Organism 01 Escherichia coli Abnormal [facility] Comment on above: Order Comment: [place] - Source of Urine Collection? Urine clean catch\[id number]\Performed by [facility] [address] [place] [address] [place] - Source of Urine Collection? Urine clean catch [place] - Current Antibiotic Therapy? No Answer Given Performed By: #### C UR #### [facility] See Report [place] - SOURCE urine, clean catch Normal [facility] Comment on above: Order Comment: [place] - Source of Urine Collection? Urine clean catch\[id number]\Performed by [facility] [address] [place] [address] [place] - Source of Urine Collection? Urine clean catch [place] - Current Antibiotic Therapy? No Answer Given Performed By: #### C UR #### [facility] See Report [place] - URINE CULTURE [place] count: >100,000 CFU/mL Normal [facility] Comment on above: Order Comment: [place] - Source of Urine Collection? Urine clean catch\[id number]\Performed by [facility] [address] [place] [id number] [place] - Source of Urine Collection? Urine clean catch [place] - Current Antibiotic Therapy? No Answer Given Performed By: #### C UR #### [facility] See Report URINE CULTUREon 08-17-2024 Bacteria identified Cx Nom (U) MICROBIOLOGY REPORT [facility], [address] [place] [address], [place], [address] PATIENT: LESIA GONZALEZ LOCATION: [facility] - - : 1990 AGE: 33 SEX: F ADM: 08/17/24 Att. Physician: PHYSICIAN, NON-STAFF Order Id: [id number] Req. Physician: PHYSICIAN, NON-STAFF Source: urine, clean catch Site: Collected: 08/17/24 16:24 Current Antibiotics: not stated Antibiotics comment: Damon Cantu ---- [place] - Source of Urine Collection? Urine clean catch STATUS OF ORDERED AND REPORTED TESTS URINE CULTURE FINAL 08/19/24 URINE CULTURE FINAL 08/19/24 09:01 Organism 01 Escherichia coli [place] count: >100,000 CFU/mL Organism 01-esccol Antibiotic MICA [...] <=1 S IV 2000mg 164 Trimethoprim/Mane>=320 R [id number]/800mgSMX q 12h [id number] P/97SM IV 160mgTMP/800mgSMX q 8 h9TMP/105 SMX [...] blood and urine levels=mcg/ml.*Stand giuliana dosages from [employer] Guide to Antimicrobial Therapy and assumes moderate infection in normal adult populations. For pts. with renal or liver disease consult PDR or pharmacist. Normal [facility] No Panel Informationon 05-23 Tobacco smoking status Non-Smoker Invalid Interpretation Code [facility] - Chemistry and C hemistry - challengeon 04-18-2023 TSH Qn 1.23 m[IU]/L Invalid Interpretation Code 0.50-4.00 [facility] Thyroxine T4on 08-11-2022 T4 [Mass/Vol] 6.4 ug/dL Normal 4.5-10.9 [facility] Comment on above: Performed By: #### T 4, T3 #### [facility] [address] [place], [place] [id number] Recessing Machine Operator: Ramiro Blandon MD #### TSH #### [facility] [address] [place] [address] Recessing Machine Operator: Annel García MD Triiodothyronine T3on 2021 Triiodothyronine T3 96 ng/dL Normal 60-181 [facility] [place] [facility] Comment on above: Performed By: #### T 4, T3 #### [facility] [address] [place], [place] [id number] Recessing Machine Operator: Ramiro Blandon MD #### TSH #### [facility] [address] [place] [address] Recessing Machine Operator: Annel García MD Laboratory - Chemistry and C hemistry - challengeon 08-10-2022 T3 [Mass/Vol] 96.0 ng/dL Invalid Interpretation Code [facility] T4 [Mass/Vol] 6.4 ug/dL Invalid Interpretation Code [facility] TSH Qn 0.41 m[IU]/L Invalid Interpretation Code [facility] No Panel Informationon 08-10 jls Invalid Interpretation Code [facility] Thyroid Stim. Horm.on 2021 Thyroid Stim. Horm. 0.41 uIU/mL Normal 0.30-5.00 [facility] Comment on above: Performed By: #### T 4, T3 #### [facility] [address] [place], [place] [id number] Recessing Machine Operator: Ramiro Blandon MD #### TSH #### [facility] [address] [place] [address] Recessing Machine Operator: Annel García MD PAP ACOG PANEL 2: 30 to 65on 07-21-2022 . . Normal [facility] Comment on above: Result Comment: Perf ormed at: WB Performed By: #### [id number] #### [facility] [address] [place] [address] Dr. Jaci Irene Age Gdln ACOG Testing 30-65 [facility] Comment on above: Performed By: #### [id number] #### [facility] [address] [place] [address] Dr. Jaci Irene DIAGNOSIS: Comment [facility] Comment on above: Result Comment: NEGA TIVE FOR INTRAEPITHELIAL LESION OR MALIGNANCY. CELLULAR CHANGES ASSOCIATED WITH INFLAMMATION ARE PRESENT. Performed at: WB Performed By: #### [id number] #### [facility] [address] [place] [address] Dr. Jaci Irene HPV Aptima Negative Normal Negative [facility] Comment on above: Result Comment: This nucleic acid amplification test detects fourteen high-risk HPV types (16,18,31,33,35,39,45,51,52,56,58,59,66,68) without differentiation. Performed at: =G Performed By: #### 4 [id number] #### [facility] [address] [address] [address] Jaci Irene HPV Genotype Reflex Comment Normal [facility] Comment on above: Result Comment: Crit eria not met, HPV Genotype not performed. Performed at: WB Performed By: #### [id number] #### [facility] [address] [place] [address] Dr. Jaci Irene Methodology: Comment Normal [facility] Comment on above: Result Comment: This liquid based ThinPrep(R) pap test was screened with the use of an image guided system. Performed at: WB Performed By: #### [id number] #### [facility] [address] [place] [address] Dr. Jaci Irene Note: Comment Normal [facility] Comment on above: Result Comment: The Pap smear is a screening test designed to aid in the detection of premalignant and malignant conditions of the uterine cervix. It is not a diagnostic procedure and should not be used as the sole means of detecting cervical cancer. Both false-positive and false-negative reports do occur. . Performed at: WB Performed By: #### [id number] #### [facility] [address] [place] [address] Dr. Jaci Irene Performed by: Comment Normal [facility] Comment on above: Result Comment: [facility] (AS[facility]) Performed at: WB Performed By: #### [id number] #### [facility] [address] [place] [address] Dr. Jaci Irene Specimen adequacy: Comment Normal [facility] Comment on above: Result Comment: Sati sfactory for evaluation. Endocervical and/or squamous metaplastic cells (endocervical component) are present. Performed at: WB Performed By: #### [id number] #### [facility] [address] [place], [place] [address] Dr. Jaci Irene Laboratory - Cytologyon 06-20 Cytology report Cyto stain.thin prep Doc (Cvx/Vag) Pap Smear / Cervical Cytology Invalid Interpretation Code [facility] - Microbiology an d Antimicrobial susceptibilityon 07-14-2022 HPV 16+18+31+33+35+45+51+5 2+56 DNA Probe Ql (Cvx) HPV-DNA Test Invalid Interpretation Code [facility] US PELVIS AND TRANSVAGon US PELVIS AND [...] ANNEL MILNER Date: 2022-07-09 15:36 Normal [facility] Thyroxine T4on 03-17-2022 T4 [Mass/Vol] 6.3 ug/dL Normal 4.5-10.9 [facility] Comment on above: Performed By: #### F T3, T4 #### [facility] [address] [place] [address] Recessing Machine Operator: Ramiro Blandon MD #### TSH #### [facility] [address] [place] [address] Recessing Machine Operator: Annel García MD Laboratory - Chemistry and C hemistry - challengeon 03-16-2022 Free T3 [Mass/Vol] 2.960 pg/mL Invalid Interpretation Code [place] [facility] T4 [Mass/Vol] 6.3 ug/dL Invalid Interpretation Code [place] [facility] TSH Qn 0.61 m[IU]/L Invalid Interpretation Code [facility] No Panel Informationon 03-16 ls Invalid Interpretation Code [facility] T3, Freeon 03-16-2022 Free T3 [Mass/Vol] 2.96 pg/mL Normal 2.02-4.43 [facility] [place] [facility] Comment on above: Performed By: #### F T3, T4 #### [facility] [address] [place] [address] Recessing Machine Operator: Ramiro Blandon MD #### TSH #### [address] [place] [address] Recessing Machine Operator: Annel García MD Free T3 [Mass/Vol] 2.96 pg/mL 2.02 - 4. 43 pg/mL [facility] TSHon 03-16-2022 [facility] Thyroid Stim. Horm.on 2021 Thyroid Stim. Horm. 0.61 uIU/mL Normal 0.30-5.00 [facility] Comment on above: Performed By: #### F T3, T4 #### [facility] [address] [place] [address] Recessing Machine Operator: Ramiro Blandon MD #### TSH #### [facility] [address] [place] [address] [place] [address] Recessing Machine Operator: Annel García MD US PELVIS AND TRANSVAGon [...] ANNEL MILNER Date: 2022-03-15 07:03 Normal [facility] IODINE, SERUM OR PLASMAon Iodine, Serum or Plasma 66.7 ug/L Normal 40.0-92.0 [facility] Comment on above: Result Comment: Limi t of quantitation = 20 Performed By: #### I ODINE #### [facility] [address] [address] [address] Jaci Irene THYROID-STIMULATING IMMUNOGL OBULINon 08-05-2021 Thyroid Sim Immunoglobulin <0.10 Normal 0.00-0.55 [facility] Comment on above: Performed By: #### T ELAINA #### [facility] [address] [address] [address] Jaci Irene T3, TOTAL (TRIIODOTHYRONINE) on 08-04-2021 T3, TOTAL 168 ng/dL Normal 71-180 [facility] Comment on above: Performed By: #### T 3TOTAL ####[facility] [id number] [id number][address] Jaci Irene US THYROIDon 08-04-2021 US THYROID [...] SANDHYA BASS Date: 2021-08-04 06:30 Normal [facility] CBC AUTO DIFFon 08-03-2021 BASO # 0.0 103/ul Normal 0.0-0.1 [facility] Comment on above: Performed By: #### C BC #### [facility] [address] [address] [address] Jaci Irene Basophils/100 WBC (Bld) 0.6 % Normal 0.2-2.0 [facility] Comment on above: Performed By: #### C BC #### [facility] [address] [place] [address] Dr. Jaci Irene EO # 0.2 103/ul Normal 0.0-0.7 [facility] Comment on above: Performed By: #### C BC #### [facility] [address] [address] [address] Jaci Irene Eosinophils/100 WBC (Bld) 2.2 % Normal 0.9-7.0 [facility] Comment on above: Performed By: #### C BC #### [facility] [address] [place] [address] Dr. Jaci Irene Erythrocyte distribution width (RBC) [Ratio] 13.5 % Normal 11.0-15.0 [facility] Comment on above: Performed By: #### C BC #### [facility] [address] [address] [address] Jaci Irene Hematocrit (Bld) [Volume fraction] 40.9 % Normal 36.0-48.0 [facility] Comment on above: Performed By: #### C BC #### [facility] [address] [place] [address] Dr. Jaci Irene Hemoglobin (Bld) [Mass/Vol] 12.8 g/dL Normal 12.0-16.0 [facility] Comment on above: Performed By: #### C BC #### [facility] [address] [place] [address] Dr. Jaci Irene IG # 0.01 10e3/ul Normal 0.00-0.03 [facility] Comment on above: Performed By: #### C BC #### [facility] [address] [place] [address] Dr. Jaci Irene IG % 0.1 % Normal 0.0-0.5 [facility] Comment on above: Performed By: #### C BC #### [facility] [address] [place] [address] Dr. Jaci Irene LYMPH # 2.4 103/ul Normal 1.2-3.8 [facility] Comment on above: Performed By: #### C BC #### [facility] [address] [place] [address] Dr. Jaci Irene Lymphocytes/100 WBC (Bld) 35.3 % Normal 20.5-60.0 [facility] Comment on above: Performed By: #### C BC #### [facility] [address] [place] [address] Dr. Jaci Irene MANUAL DIFF REQ NO Normal [facility] Comment on above: Performed By: #### C BC #### [facility] [address] [place] [address] Dr. Jaci Irene MCH (RBC) [Entitic mass] 27.2 pg Normal 26.7-34.0 [facility] Comment on above: Performed By: #### C BC #### [facility] [address] [place] [address] Dr. Jaci Irene MCHC (RBC) [Mass/Vol] 31.3 g/dL Normal 29.9-35.2 [facility] Comment on above: Performed By: #### C BC #### [facility] [address] [place] [address] Dr. Jaci Irene MCV (RBC) [Entitic vol] 86.8 fL Normal 81.0-99.0 [facility] Comment on above: Performed By: #### C BC #### [facility] [address] [place] [address] Dr. Jaci Irene MONO # 0.6 103/ul Normal 0.3-0.8 [facility] Comment on above: Performed By: #### C BC #### [facility] [address] [place] [address] Dr. Jaci Irene Monocytes/100 WBC (Bld) 8.2 % Normal 1.7-12.0 [facility] Comment on above: Performed By: #### C BC #### [facility] [address] [place] [address] Dr. Jaci Irene NEUT # 3.6 103/ul Normal 1.4-6.5 [facility] Comment on above: Performed By: #### C BC #### [facility] [address] [place] [address] Dr. Jaci Irene Neutrophils/100 WBC (Bld) 53.6 % Normal 43.0-75.0 [facility] Comment on above: Performed By: #### C BC #### [facility] [address] [place] [address] Dr. Jaci Irene Platelet mean volume (Bld) [Entitic vol] 9.3 fL Critically low 9.5-13.5 [facility] Comment on above: Performed By: #### C BC #### [facility] [address] [place] [address] Dr. Jaci Irene PLT 299 103/ul Normal 150-450 [facility] Comment on above: Performed By: #### C BC #### [facility] [address] [place] [address] Dr. Jaci Irene RBC 4.71 106/ul Normal 4.20-5.40 [facility] Comment on above: Performed By: #### C BC #### [facility] [address] [place] [address] Dr. Jaci Irene WBC 6.7 103/ul Normal 4.0-11.0 [facility] Comment on above: Performed By: #### C BC #### [facility] [address] [place] [address] Dr. Jaci Irene Laboratory - Chemistry and C hemistry - challengeon 11-15-2021 ALT [Catalytic activity/Vol] 24.0 U/L Invalid Interpretation Code [facility] T3 [Mass/Vol] 168.0 ng/dL Invalid Interpretation Code [place] [facility] [facility] T4 [Mass/Vol] 11.0 ug/dL Invalid Interpretation Code [facility] TSH Qn < 0.020 L Invalid Interpretation Code [facility] - Hematology and Cell countson 08-03-2021 Basophils/100 WBC (Bld) 0.60 % Invalid Interpretation Code [place] [employer] [facility] Eosinophils/100 WBC (Bld) 2.20 % Invalid Interpretation Code [facility] Erythrocyte distribution width (RBC) [Ratio] 13.50 % Invalid Interpretation Code [place] [employer] [facility] Hematocrit (Bld) [Volume fraction] 40.90 % Invalid Interpretation Code [facility] Hemoglobin (Bld) [Mass/Vol] 12.80 g/dL Invalid Interpretation Code [place] [employer] [facility] Lymphocytes/100 WBC (Bld) 35.30 % Invalid Interpretation Code [facility] MCH (RBC) [Entitic mass] 27.20 pg Invalid Interpretation Code [facility] MCHC (RBC) [Mass/Vol] 31.30 g/dL Invalid Interpretation Code [facility] [employer] [facility] MCV (RBC) [Entitic vol] 86.80 fL Invalid Interpretation Code [facility] Monocytes/100 WBC (Bld) 8.20 % Invalid Interpretation Code [facility] Neutrophils/100 WBC (Bld) 53.60 % Invalid Interpretation Code [facility] Platelets (Bld) [#/Vol] 299.0 10*3/uL Invalid Interpretation Code [facility] RBC (Bld) [#/Vol] 4.710 10*6/uL Invalid Interpretation Code [facility] WBC (Bld) [#/Vol] 6.70 10*3/uL Invalid Interpretation Code [facility] No Panel Informationon 08-03 ls Invalid Interpretation Code [facility] < 0.10 Invalid Interpretation Code 0 - 0.55 [facility] 86.70 ug/L Invalid Interpretation Code [facility] SGPTon 08-03-2021 ALT [Catalytic activity/Vol] 24 U/L Normal 9-52 [facility] Comment on above: Performed By: #### T SH, ALT, T4 #### [facility] [address] [place] [address] Dr. Jaci Irene T4on 08-03-2021 T4 [Mass/Vol] 11.00 ug/dL Normal 5.53-11.00 [facility] Comment on above: Performed By: #### T SH, ALT, T4 #### [facility] [address] [place] [address] Dr. Jaci Irene TSHon 08-03-2021 TSH Qn m[IU]/L Critically low 0.470-4.[address] [facility] Comment on above: Performed By: #### T SH, ALT, T4 #### [facility] [address] [place] [address] Dr. Jaci Irene TSH RANGE SEE BELOW Normal [facility] Comment on above: Result Comment: <0.3 4 UIU/ml HYPERTHYROID 0.34-5.60 UIU/ml EUTHYROID >5.60 UIU/ml HYPOTHYROID Performed By: #### T SH, ALT, T4 #### [facility] [address] [address] [address] Jaci Irene No Panel Informationon 04-24 Positive Invalid Interpretation Code [facility] 1:160 Invalid Interpretation Code [facility] COMMENT Invalid Interpretation Code [facility] Cytology Cervical or vaginal smear or scraping studyon 07-14-1992 [facility] Vital Signs Date Time Vital Sign Value Performing Clinician Faci lity 05-30-2025 11:29-0400 Body mass index (BMI) [Ratio] 27.87 kg/m2 Nati Cameron RECREATION TECHNICIAN Work Phone: [facility] 05-30-2025 11:29-0400 Body weight 75.98 kg Nati Rakesh RECREATION TECHNICIAN Work Phone: [facility] 05-30-2025 11:29-0400 Diastolic blood pressure 76 mm[Hg] Nati Rakesh RECREATION TECHNICIAN Work Phone: [facility] 05-30-2025 11:29-0400 Systolic blood pressure 120 mm[Hg] Nati Rakesh RECREATION TECHNICIAN Work Phone: [facility] 05-16-2025 08:41-0400 Body mass index (BMI) [Ratio] 27.58 kg/m2 Madiha Moreno PA Work Phone: [facility] 05-16-2025 08:41-0400 Body weight 75.18 kg Madiha Moreno PA Work Phone: [facility] 05-16-2025 08:41-0400 Diastolic blood pressure 72 mm[Hg] Madiha Moreno PA Work Phone: [facility] 05-16-2025 08:41-0400 Systolic blood pressure 126 mm[Hg] Madiha Moreno PA Work Phone: [facility] 04-30-2025 09:20-0400 Body mass index (BMI) [Ratio] 26.79 kg/m2 Madiha Moreno PA Work Phone: [facility] 04-30-2025 09:20-0400 Body weight 73.03 kg Madiha Kenner PA Work Phone: [facility] 04-30-2025 09:20-0400 Diastolic blood pressure 74 mm[Hg] Madiha Kenner PA Work Phone: [facility] 04-30-2025 09:20-0400 Systolic blood pressure 118 mm[Hg] Madiha Chanelle PA Work Phone: [facility] 04-16-2025 08:31-0400 Body mass index (BMI) [Ratio] 26.46 kg/m2 Aaron Rosemary DO Work Phone: [facility] 04-16-2025 08:31-0400 Body weight 72.12 kg Aaron Rosemary DO Work Phone: [facility] 04-16-2025 08:31-0400 Diastolic blood pressure 70 mm[Hg] Aaron Rosemary DO Work Phone: [facility] 04-16-2025 08:31-0400 Systolic blood pressure 110 mm[Hg] Aaron Rosemary DO Work Phone: [facility] 04-02-2025 10:17-0400 Body mass index (BMI) [Ratio] 25.96 kg/m2 Madiha Kenner PA Work Phone: [facility] 04-02-2025 10:17-0400 Body weight 70.76 kg Madiha Kenner PA Work Phone: [facility] 04-02-2025 10:17-0400 Diastolic blood pressure 72 mm[Hg] Madiha Chanelle PA Work Phone: [facility] 04-02-2025 10:17-0400 Systolic blood pressure 110 mm[Hg] Madiha Chanelle PA Work Phone: [facility] 03-05-2025 09:56-0400 Body mass index (BMI) [Ratio] 25.21 kg/m2 Aaron Rosemary DO Work Phone: [facility] 03-05-2025 09:56-0400 Body weight 68.72 kg Aaron Rosemary DO Work Phone: [facility] 03-05-2025 09:56-0400 Diastolic blood pressure 70 mm[Hg] Aaron Rosemary DO Work Phone: [facility] 03-05-2025 09:56-0400 Systolic blood pressure 110 mm[Hg] Aaron Rosemary DO Work Phone: [facility] 02-05-2025 10:23-0400 Body mass index (BMI) [Ratio] 24.1 kg/m2 Madiha LOPEZ Work Phone: [facility] 02-05-2025 10:23-0400 Body weight 65.68 kg Madiha Moreno PA Work Phone: [facility] 02-05-2025 10:23-0400 Diastolic blood pressure 68 mm[Hg] Madiha Moreno PA Work Phone: [facility] 02-05-2025 10:23-0400 Systolic blood pressure 100 mm[Hg] Madiha Moreno PA Work Phone: [facility] 01-07-2025 10:18-0400 Body mass index (BMI) [Ratio] 23.96 kg/m2 Aaron Rosemary DO Work Phone: [facility] 01-07-2025 10:18-0400 Body weight 65.32 kg Aaron Rosemary DO Work Phone: [facility] 01-07-2025 10:18-0400 Diastolic blood pressure 72 mm[Hg] Aaron Rosemary DO Work Phone: [facility] 01-07-2025 10:18-0400 Systolic blood pressure 110 mm[Hg] Aaron Rosemary DO Work Phone: [facility] 08-12-2021 11:02-0500 Body height 163.83 cm [employer] 08-12-2021 11:02-0500 Body mass index (BMI) [Ratio] 23.58 kg/m2 [employer] 08-12-2021 11:02-0500 Body surface area Derived from formula 1.7 m2 [employer] 08-12-2021 11:02-0500 Body weight 63.28 kg [facility] [employer] 08-12-2021 11:02-0500 Diastolic blood pressure 64 mm[Hg] Paul [employer] [facility] 08-12-2021 11:02-0500 Heart rate 72 /min [facility] [employer] 08-12-2021 11:02-0500 Systolic blood pressure 122 mm[Hg] [facility] [employer] 02-08-2013 10:11-0400 BMI (Body Mass Index) 23.69 kg/m2 [facility] [employer] [employer] 02-08-2013 10:11-0400 Body weight 62.6 kg [facility] [employer] [facility] [employer] [facility] 02-08-2013 10:11-0400 BP Diastolic 62 mm[Hg] [facility] [employer] [facility] [employer] 02-08-2013 10:11-0400 BP Systolic 100 mm[Hg] [facility] [employer] [facility] 02-08-2013 10:11-0400 BSA (Body Surface Area) 1.68 m2 [facility] [employer] [facility] [employer] 02-08-2013 10:11-0400 Height 162.56 cm [facility] [employer] [facility] [employer] 02-08-2013 10:11-0400 Pulse (Heart Rate) 66 /min [facility] Encounters Encounter Date Encounter Type Care Provider Facility Start: 05-30-2025 End: 05-30-2025 [employer]amboo flowsheet Nati Cameron RECREATION TECHNICIAN Work Phone: [facility] Start: 05-30-2025 End: 05-30-2025 [employer] flowsheet Nati Cameron RECREATION TECHNICIAN Work Phone: [facility] Start: 05-30-2025 End: 05-30-2025 flow sheet Nati Cameron RECREATION TECHNICIAN Work Phone: [facility] Comment on above: Third trimester preg cher ([facility]); 35 weeks gestation of ([facility]) Start: 05-16-2025 End: 05-16-2025 Bamboo flowsheet Madiha LOPEZ Work Phone: [facility] Start: 05-16-2025 End: 05-16-2025 Bamboo flowsheet Madiha LOPEZ Work Phone: [facility] Start: 05-16-2025 End: 05-16-2025 flow sheet Madiha LOPEZ Work Phone: [facility] Comment on above: Third trimester preg cher ([facility]); 33 weeks gestation of ([facility]) Start: 05-16-2025 End: 05-16-2025 ambulatory MADIHA MORENO Not Available Start: 04-30-2025 End: 04-30-2025 Bamboo flowsheet Madiha LOPEZ Work Phone: [facility] Start: 04-30-2025 End: 04-30-2025 Bamboo flowsheet Madiha LOPEZ Work Phone: [facility] Start: 04-30-2025 End: 04-30-2025 flow sheet Madiha LOPEZ Work Phone: [facility] Comment on above: Third trimester preg cher ([facility]); 31 weeks gestation of ([facility]); Multigravida of advanced maternal age in third trimester ([facility]) Start: 04-30-2025 End: 04-30-2025 ambulatory MADIHA MORENO Not Available Start: 04-16-2025 End: 04-16-2025 Bamboo flowsheet Aaron Rosemary DO Work Phone: [facility] Start: 04-16-2025 End: 04-16-2025 Bamboo flowsheet Aaron Rosemary DO Work Phone: [facility] Start: 04-16-2025 End: 04-16-2025 flow sheet Aaron Rosemary DO Work Phone: [facility] Comment on above: Third trimester preg cher ([facility]); 29 weeks gestation of ([facility]); Multigravida of advanced maternal age in third trimester ([facility]) Start: 04-16-2025 End: 04-16-2025 ambulatory AARON ROSEMARY Not Available Start: 04-02-2025 End: 04-02-2025 Bamboo flowsheet Madiha LOPEZ Work Phone: [facility] Start: 04-02-2025 End: 04-02-2025 Bamboo flowsheet Madiha LOPEZ Work Phone: [facility] Start: 04-02-2025 End: 04-02-2025 Clinisync Result Encounter Aaron Rosemary DO Work Phone: [facility] Unsolicited Start: 04-02-2025 End: 04-02-2025 flow sheet Madiha LOPEZ Work Phone: [facility] Comment on above: Second trimester pre gnancy ([facility]); 27 weeks gestation of ([facility]) Start: 04-02-2025 End: 04-02-2025 ambulatory MADIHA MORENO Not Available Start: 03-05-2025 End: 03-05-2025 Bamboo flowsheet Aaron Rosemary DO Work Phone: [facility] Start: 03-05-2025 End: 03-05-2025 Bamboo flowsheet Aaron Rosemary DO Work Phone: [facility] Start: 03-05-2025 End: 03-05-2025 flow sheet Aaron Rosemary DO Work Phone: [facility] Comment on above: Diabetes mellitus sc reening; Second trimester ([facility]); 23 weeks gestation of ([facility]) Start: 03-05-2025 End: 03-05-2025 ambulatory AARON ROSEMARY [...] Clinisync Result Encounter Madiha LOPEZ Work Phone: [facility] Unsolicited Start: 02-05-2025 End: 02-06-2025 External Result Encounter Madiha LOPEZ Work Phone: [facility] Unsolicited Start: 02-05-2025 End: 02-05-2025 Patient encounter procedure Madiha LOPEZ Work Phone: [facility] Start: 02-05-2025 End: 02-05-2025 Periodic preventive med est patient 18-39 yrs Madiha LOPEZ Work Phone: [facility] Comment on above: 19 weeks gestation o f ; Second trimester ; Well woman exam with routine gynecological exam; Exposure to STD; Vaginal discharge; Screening, , for anatomic survey Start: 02-05-2025 End: 02-05-2025 ambulatory MADIHA MORENO Not Available Start: 01-28-2025 Office outpatient vi sit 25 minutes Vladimir Dunaway Other [facility] Office Start: 01-07-2025 End: 01-07-2025 Bamboo flowsheet [...] with hematuria Start: 08-17-2024 ambulatory [facility] Start: 05-23-2024 Office outpatient vi sit 15 minutes Vladimir Dunaway Other [facility] Office Start: 11-21-2023 Office outpatient vi sit 15 minutes Vladimir Dunaway Other [facility] Office Start: 10-10-2023 Office outpatient vi sit 15 minutes Vladimir Dunaway Other [facility] Office Start: 07-06-2023 Office outpatient vi sit 25 minutes Vladimir Dunaway Other [facility] Office Start: 04-18-2023 Lab Vladimir flores Other [facility] Office Start: 03-03-2023 Office outpatient vi sit 15 minutes Vladimir Dunaway Other [facility] Office Start: 01-11-2023 Office outpatient vi sit 15 minutes Vladimir Dunaway Other [facility] Office Start: 10-14-2022 Office outpatient vi sit 25 minutes Vladimir Dunaway Other [facility] Office Start: 08-10-2022 End: 08-11-2022 ambulatory [facility] Start: 07-15-2022 End: 07-15-[address] AARON RILEY Facility:[facility] Start: 07-09-2022 End: 07-10-2022 ambulatory NONE LISTED REQUEST Facility:[facility] Start: 06-08-2022 Office outpatient vi sit 25 minutes Vladimir Dunaway Other [facility] Office Start: 03-16-2022 End: 03-17-2022 ambulatory PAUL Flako [facility] Start: 03-16-2022 End: 03-16-2022 Subsequent hospital visit by physician Prudence Aguilar MD Work Phone: [facility] Start: 03-13-2022 End: 03-14-[address] ANNEL MILNER Facility:[facility]1 Start: 12-18-2021 Office outpatient vi sit 15 minutes Vladimir Dunaway Other [facility] Office Start: 11-09-2021 Office outpatient vi sit 25 minutes Vladimir Dunaway Other [facility] Office Start: 08-12-2021 Office consultation new/estab patient 80 min Paul Duran Other [facility] Office Start: 08-03-2021 End: 08-04-2021 ambulatory NONE LISTED REQUEST Facility:[facility]1 Start: 10-28-2020 Office outpatient vi sit 15 minutes Vladimir Dunaway Other [facility] Office Start: 06-06-2020 Office outpatient vi sit 15 minutes Vladimir Dunaway Other [facility] Office Start: 04-24-2020 Office outpatient vi sit 15 minutes Vladimir Dunaway Other [facility] Office Start: 02-18-2020 Office outpatient ne w 20 minutes Deidre Addison Other [facility] Office Start: 08-24-2017 End: 08-24-2017 Ambulatory TASIA [facility] Start: 08-24-2017 Office outpatient vi sit 10 minutes Tasia Grady Work Phone: [facility] Start: 08-22-2017 End: 08-26-2017 Ambulatory TASIA [facility] Start: 08-22-2017 Office outpatient vi sit 15 minutes Tasia Grady Work Phone: [facility] Start: 02-08-2013 Office Services Paul Arriola Cuongelis randy Other [facility] Office Procedures Date Procedure Procedure Detail Performing Clinician Start: 05-30-2025 Urnls dip stick/tabl et rgnt non-auto w/o micrscp Nati Cameron NP Work Phone: Start: 05-16-2025 Urnls dip stick/tabl et rgnt non-auto w/o micrscp Madiha LOPEZ Work Phone: Start: 04-30-2025 Urnls dip stick/tabl et rgnt non-auto w/o micrscp Madiha LOPEZ Work Phone: Start: 04-16-2025 Urnls dip stick/tabl et rgnt non-auto w/o micrscp Aaron Rosemary DO Work Phone: Start: 04-02-2025 Urnls dip stick/tabl et rgnt non-auto w/o micrscp Madiha LOPEZ Work Phone: Start: 04-02-2025 ALL CBC WITH AUTO DIFF Aaron Rosemary DO Work Phone: Start: 03-05-2025 Urnls dip stick/tabl et rgnt [...] et rgnt non-auto w/o micrscp Aaronshahab Riley DO Work Phone: Start: 05-23-2024 Docrev cur [...] of thyroid sti mulating hormone tsh Paul Duran MD Work Phone: Start: 03-12-2022 Thyroid stimulating hormone measurement Vladimir Dunaway Start: 03-12-2022 Thyroxine measurement Belinda Dunaway Start: 03-12-2022 Tri-iodothyronine measurement, total Vladimir Dunaway Start: 12-18-2021 Docrev cur meds by [facility] zari Dunaway Start: 11-12-2021 Thyroid stimulating hormone measurement Vladimir Dunaway Start: 11-12-2021 Thyroxine measurement Belinda klein Emelyn Start: 11-12-2021 Tri-iodothyronine measurement, total Vladimir Dunaway Start: 11-09-2021 Docrev cur meds by [facility] zari Dunaway Start: 08-12-2021 Docrev cur meds by [facility] Paul Hutchinseder Start: 08-05-2021 Alanine aminotransfe rase measurement Paul Duran Start: 08-05-2021 Erythrocyte mean cor puscular volume determination Paul Duran Start: 08-05-2021 Mass spectrometry measurement Paul Duran Start: 08-05-2021 Thyroid stimulating hormone measurement Paul Hutchinseder Start: 08-05-2021 Thyroid stimulating immunoglobulins measurement Paul Duran Start: 08-05-2021 Thyroxine measurement L vinnie Hutchinseder Start: 08-05-2021 Tri-iodothyronine measurement, total Paul Duran Start: 08-03-2021 US scan of thyroid Mitzichar shahab Duran Start: 10-28-2020 Doc meds verified w/pt or re Vladimir Dunaway Start: 06-06-2020 Doc meds verified w/pt or re Vladimir Dunaway Start: 04-24-2020 Antinuclear antibodies ghazal Vladimir Dunaway Start: 04-24-2020 Doc meds verified w/pt or re Vladimir Dunaway Start: 02-18-2020 Doc meds verified w/pt or re Deidre Addison Start: 07-14-1992 Cytp cerv/vag auto t hin layer prep mnl screen Aaron Riley DO Work Phone: Plan of Treatment Date Care Activity Detail Author Start: 07-06-2029 DTaP/Tdap/Td vaccine (2 - Td or Tdap) DTaP/Tdap/Td vaccine (2 - Td or Tdap) [facility] Start: 06-06-2025 End: 06-06-2025 Patient encounter procedure 06/06/2025 10:00 AM EDT Routine [facility] [address] [place] [address] [place] [id number] Aaron Riley, DO [address] [address] [facility] Start: 05-30-2025 End: 05-30-2026 CULTURE, GROUP B STREP WITH SUSCEPTIBLITY CULTURE, GROUP B STREP WITH SUSCEPTIBLITY Lab Routine Third trimester ([facility]) Expected: 05/30/2025, Expires: 05/30/2026 [facility] Work Phone: Comment on above: Expected: 05/30/2025 , Expires: 05/30/2026 Start: 05-30-2025 End: 05-30-2025 Patient encounter procedure [facility] Comment on above: Arrived Start: 05-16-2025 End: 05-16-2025 Patient encounter procedure 05/16/2025 8:30 AM EDT Routine [facility] [place] [facility] [address] [place] [id number] Madiha Moreno PA [address] [place] [address] Arrived AJAY [place] OBC[facility]TIS Comment on above: Arrived Start: 05-14-2025 End: 05-14-2025 Patient encounter procedure 05/14/2025 10:30 AM EDT Routine [facility] [address] [place] [id number] Aaron Riley, [address] [place] [address] [facility] Start: 04-30-2025 End: 04-30-2025 Patient encounter procedure [facility] Comment on above: Arrived Start: 04-30-2025 End: 04-30-2025 Professional / ancillary services management 04/30/2025 8:30 AM EDT Ancillary Procedure [facility] [address] [address] [facility] Start: 04-16-2025 End: 04-16-2025 Patient encounter procedure [facility] Comment on above: Arrived Start: 04-02-2025 End: 04-02-2025 Patient encounter procedure 04/02/2025 10:30 AM EDT Routine [facility] [address] [place] [phone] Madiha Moreno PA [address] [place] [address] Arrived [facility] Comment on above: Arrived Start: 03-05-2025 End: 03-05-2026 CBC panel - Blood by Automated count CBC Lab Routine Diabetes mellitus screening Expected: 03/05/2025 (Approximate), Expires: 03/05/2026 [facility] Work Phone: Comment on above: Expected: 03/05/2025 (Approximate), Expires: 03/05/2026 Start: 03-05-2025 End: 03-05-2026 Measurement of glucose 1 hour after glucose challenge for glucose tolerance test Glucose tolerance, 1 hour Lab Routine Diabetes mellitus screening Expected: 03/05/2025 (Approximate), Expires: 03/05/2026 [facility] Comment on above: Expected: 03/05/2025 (Approximate), Expires: 03/05/2026 Start: 03-05-2025 End: 03-05-2025 Patient encounter procedure [facility] Comment on above: Arrived Start: 02-05-2025 End: 03-08-2025 Alpha fetoprotein, maternal Alpha fetoprotein, maternal Lab Routine 19 weeks gestation of Second trimester Expected: 02/05/2025 (Approximate), Expires: 03/08/2025 [facility] Comment on above: Expected: 02/05/2025 (Approximate), [...] EDT Routine [facility] [address] [place] [phone] Aaron Riley, DO [address] [place] [place] [address] Arrived [facility] Comment on above: Arrived Start: 05-20-2024 COVID-19 Vaccine ( season) COVID-19 Vaccine () [facility] Start: 04-19-2024 Influenza vaccination Flu vaccine (# 1) [facility] Start: 04-15-2023 Assay of thyroid stimulating hormone tsh TSH [facility] Start: 07-29-2022 Assay of thyroid stimulating hormone tsh TSH [facility] Start: 07-29-2022 Assay of thyroxine total T4 [facility] Start: 07-29-2022 Assay of triiodothyr onine t3 total tt3 T3 total [facility] Start: 05-20-2022 Influenza vaccination Flu vacc ine (Season Ended) [facility] Start: 03-12-2022 Assay of thyroid stimulating hormone tsh TSH [facility] Start: 03-12-2022 Assay of thyroxine total T4 [facility] Start: 03-12-2022 Assay of triiodothyr onine t3 total tt3 T3 total [facility] Start: 11-12-2021 Assay of thyroid stimulating hormone tsh TSH [facility] Start: 11-12-2021 Assay of thyroxine total T4 [facility] Start: 11-12-2021 Assay of triiodothyr onine t3 total tt3 T3 total [facility] Start: 08-05-2021 Assay of thyroid stimulating hormone tsh TSH [facility] Start: 08-05-2021 Assay of thyroxine total T4 [facility] Start: 08-05-2021 Assay of triiodothyr onine t3 total tt3 T3 total [facility] Start: 08-05-2021 Blood count complete automated CBC & PLATELET COUNT; AUTOMATED [facility] Start: 08-05-2021 Mass spect&tandem ma ss spect nondrg anal jolanta ea IODINE,SERUM [facility] Start: 08-05-2021 Thyroid stimulating immune globulins tsi TSI (thyroid stimulating immunoglobulin) [facility] Start: 08-05-2021 Transferase alanine amino alt sgpt SGPT (ALT) [facility] Start: 08-03-2021 US scan of thyroid Thyroid ultrasoun d [facility] Start: 04-24-2020 ANTINUCLEAR ANTIBODIES GHAZAL Hep 2 [facility] Start: 2018 Screening for malign ant neoplasm of cervix [facility] Start: 08-24-2017 Ambulatory 08/24/2017 Off ice Visit Dermatology Tasia Grady Jr., DO [address] [place] [address] [phone] [facility] Start: 05-20-2017 Influenza vaccination SEQUENTI AL INFLUENZA VACCINE (#1) [facility] Work Phone: Start: 2009 Screening for malign ant neoplasm of cervix Pap smear [facility] Start: 12-06-2007 Hepatitis B vaccine (1 of 3 - 19+ 3-dose series) Hepatitis B vaccine (1 of 3 - 19+ 3-dose series) [facility] Start: 2006 Hepatitis C screening Hepatitis C sc reen [facility] Start: 12-06-2003 HIV screening HIV screen [facility] Start: 2001 Varicella vaccine (1 of 2 - 13+ 2-dose series) Varicella vaccine (1 of 2 - 13+ 2-dose series) [facility] Start: 2000 Depression Screen Depression Screen [facility] Start: 1994 Pneumococcal 0-64 ye ars Vaccine (1 of 2 - PCV) Pneumococcal 0-64 years Vaccine (1 of 2 - PCV) [facility] Start: 1993 COVID-19 Vaccine (1) COVID-19 Vaccin e (1) [facility] Start: 1989 Varicella vaccine (1 of 2 - 2-dose childhood series) Varicella vaccine (1 of 2 - 2-dose childhood series) [facility] Start: 1988 Screening for malign ant neoplasm of cervix PAP SMEAR [facility] Work Phone: Start: 1988 Tetanus vaccination TETANUS EVERY 10 YR [facility] Work Phone: CHLAMYDIA TRACHOMATI S (GENITO/STI) CHLAMYDIA TRACHOMATIS (GENITO/STI) Lab Routine Exposure to STD Ordered: 02/05/2025 [facility] Comment on above: Ordered: 02/05/2025 End: 08-17-2024 Culture, Urine [facility] Work Phone: Comment on above: 1 Occurrences starti ng 08/17/2024 until 08/17/2024 Cytology Cervical or vaginal smear or scraping study Pap Smear Pathology and Cytology Routine Well woman exam with routine gynecological exam Ordered: 02/05/2025 [facility] Work Phone: Comment on above: Ordered: 02/05/2025 Human papilloma viru s DNA [Presence] in Unspecified specimen by Probe with amplification HPV DNA probe, amplified Microbiology Routine Well woman exam with routine gynecological exam Ordered: 02/05/2025 [facility] Comment on above: Ordered: 02/05/2025 Neisseria gonorrhoea e DNA [Presence] in Unspecified specimen by JULIANNA with probe detection Neisseria gonorrhea DNA probe, direct Lab Routine Exposure to STD Ordered: 02/05/2025 [facility] Comment on above: Ordered: 02/05/2025 SURESWAB(R) ADVANCED VAGINITIS PLUS, TMA SURESWAB(R) ADVANCED VAGINITIS PLUS, TMA Pathology and Cytology Routine Vaginal discharge Ordered: 02/05/2025 [facility] Comment on above: Ordered: 02/05/2025 End: 03-16-2022 T4 [facility] [employer] Phone: Comment on above: Once for 1 Occurrenc es starting 03/16/2022 until 03/16/2022 Immunizations Immunization Date Immunization Notes Care Provider Aziza kearney 07-25-2020 influenza, injectabl e, quadrivalent, preservative free [facility] Schedule [facility] 07-23-2019 Influenza, injectabl e, Madin [place] Canine Kidney, preservative free, quadrivalent [facility] Schedule [facility] 07-06-2019 tetanus toxoid, redu shira diphtheria toxoid, and acellular pertussis vaccine, adsorbed [facility] Schedule [facility] Payers Date Payer Category Payer Private Health Insurance [id number] 1 2012 Private Health Insurance [id number] 1 2011 Managed Care O (unspecified) [employer] [id number] 1988 Unknown [id number] 9.2.593 1988 Unknown [id number] 9.2.593 1988 Unknown [id number] [id number] 9.2.593 1988 Unknown [id number] [id number] 9.2.593 1988 Unknown [id number] [id number] 9.2.173 1988 Unknown [id number] 9.2.173 1988 Unknown [id number] [id number] 9.2.754 1988 Unknown [id number] [id number] 9.2.1259 1988 Unknown [id number] [id number] 9.2.1259 1988 Unknown [id number] [id number] 9.2.1259 1988 Unknown [id number] [id number] 9.2.1259 1988 Unknown [id number] [id number] 9.2.1259 1988 Unknown [id number] [id number] 9.2.1259 1988 Unknown [id number] [id number] 9.2.1259 1988 Unknown [id number] [id number] 9.2.1259 1988 Unknown [id number] [id number] 9.2.1259 1988 Unknown [id number] 9.2.1259 1959 Private Health Insurance [id number] 9.13 Social History Date Type Detail Facility Start: End: 08-24-2017 Tobacco smoking status NHIS Never smoker [facility] Start: 1988 Sex Assigned At Not on file O [facility] Work Phone: Start: Alcohol [facility] Start: 10-30-2014 End: 04-26-2024 Alcohol intake Current non-drinker of alcohol (finding) [facility] Work Phone: Start: 04-26-2024 History of Social function [facility] Work Phone: Start: 04-26-2024 Tobacco use panel [facility] Work Phone: Tobacco smoking status [facility] Tobacco smoking consumption unknown [facility] Start: 10-06-2024 [facility] Clinical Notes 01-07-2025 to 05-30-2025 Nati Cameron NP - 05/30/2025 11:30 AM JOHN Lacey - 05/16/2025 8:30 AM JOHN Lacey - 04/30/2025 9:00 AM Nate Boo LPN - 04/16/2025 8:30 AM JOHN Lacey - 03/05/2025 9:40 AM EDT Note Date & Type Note Facility 05-30-2025 History of Presen t illness Narrative Reason for Appointment: Patient ID: Lesia Gonzalez is a 34 y.o. female who presents for Routine Visit Patient presents today for Return OB appointment. 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 Exam conducted with a rn radiation oncology present. Vitals: Estimated body mass index is 27.87 kg/m as calculated from the following: Height as of 07/14/22: 5' 5 . Weight as of this encounter: 167 lb 8 oz. BP: 120/76 Patient's last menstrual period was 09/22/2024. ASSESSMENT & PLAN ICD-10-CM 1. Third trimester ([facility]) Z34.93 POCT urinalysis dipstick manually resulted CULTURE, GROUP B STREP WITH SUSCEPTIBLITY CULTURE, GROUP B STREP WITH SUSCEPTIBLITY 2. 35 weeks gestation of ([facility]) Z3A.35 Patient is doing well but has [...] Nati Cameron NP documented in this encounter [facility] 05-16-2025 History of Presen t illness Narrative Reason for Appointment: Patient ID: Lesia Gonzalez is a 34 y.o. female who presents for Routine Visit Patient presents today for Return OB appointment. 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 Weight as of this encounter: 165 lb 12 oz. BP: 126/72 Patient's last menstrual period was 09/22/2024. ASSESSMENT & PLAN ICD-10-CM 1. Third trimester ([facility]) Z34.93 POCT urinalysis dipstick manually resulted 2. 33 weeks gestation of ([facility]) Z3A.33 Return OB: Patient presents today for [...] of: JOHN Garcia documented in this encounter [facility] 04-30-2025 History of Presen t illness Narrative Reason for Appointment: Patient ID: Lesia Gonzalez is a 34 y.o. female who presents for Routine Visit Patient presents today for Return OB appointment. MEDICATIONS Current Outpatient Medications Medication Instructions Magnesium 400 mg, Daily [place]-3 Fatty Acids (OMEGA-3 CF PO) 1 each, Daily Vit-Fe Fumarate-FA ( Vitamin Plus Low Iron) 27-1 MG tablet 1 each, Every 24 hours ALLERGIES Allergies Allergen Reactions Doxycycline Other and Unknown Autoimmune reaction Minocycline Other Other Reaction(s): medication induced Lupus Autoimmune reaction PROBLEMS Active Ambulatory Problems Diagnosis Date Noted Multigravida of advanced maternal age in third trimester ([facility]) 04/30/2025 Resolved Ambulatory Problems Diagnosis Date Noted [...] SYSTEMS Review of Systems: Review of Systems OBJECTIVE Objective: OBGyn Exam Vitals: Estimated body mass index is 26.46 kg/m as calculated from the following: Height as of 07/14/22: 5' 5 . Weight as of 04/16/25: 159 lb. BP: Patient's last menstrual period was 09/22/2024. ASSESSMENT & PLAN ICD-10-CM 1. Third trimester ([facility]) Z34.93 POCT urinalysis dipstick manually resulted 2. 31 weeks gestation of ([facility]) Z3A.31 3. Multigravida of advanced maternal age in third trimester ([facility]) O09.523 Return OB: Patient presents today for a routine obstetrics appointment. Patient is currently 31w3d . Patient states she is doing well [...] week for routine OB appointment. Documented by Angelina Beckman MA on behalf of: JOHN Garcia documented in this encounter [facility] 04-16-2025 History of Presen t illness Narrative Reason for Appointment: Patient ID: Lesia Gonzalez is a 34 y.o. female who presents for Routine Visit Patient presents today for Return OB appointment. MEDICATIONS Current Outpatient Medications Medication Instructions Magnesium 400 mg, Daily [place]-3 Fatty Acids (OMEGA-3 CF PO) 1 each, [...] nursing note reviewed. Exam conducted with a rn radiation oncology present. Vitals: Estimated body mass index is 26.46 kg/m as calculated from the following: Height as of 07/14/22: 5' 5 . Weight as of this encounter: 159 lb. BP: 110/70 Patient's last menstrual period was 09/22/2024. ASSESSMENT & PLAN ICD-10-CM 1. Third trimester ([facility]) Z34.93 POCT urinalysis dipstick manually resulted 2. 29 weeks gestation of ([facility]) Z3A.29 3. Multigravida of advanced maternal age in third trimester ([facility]) O09.523 Return OB: Patient presents today for a routine obstetrics appointment. Patient is currently 29w3d . Patient states she is doing well [...] week for routine OB appointment. Documented by Maribel Boo LPN on behalf of: Aaron Riley DO documented in this encounter [facility] 04-02-2025 History of Presen t illness Narrative Reason for Appointment: Patient ID: Lesia Gonzalez is a 34 y.o. female who presents for Routine Visit Patient presents today for Return OB appointment. MEDICATIONS Current Outpatient Medications Medication Instructions Magnesium 400 mg, Daily [place]-3 Fatty Acids (OMEGA-3 CF PO) 1 each, [...] SYSTEMS Review of Systems: Review of Systems OBJECTIVE Objective: OBGyn Exam Vitals: Estimated body mass index is 25.96 kg/m as calculated from the following: Height as of 07/14/22: 5' 5 . Weight as of this encounter: 156 lb. BP: 110/72 Patient's last menstrual period was 09/22/2024. ASSESSMENT & PLAN ICD-10-CM 1. Second trimester ([facility]) Z34.92 POCT urinalysis dipstick manually resulted 2. 27 weeks gestation of ([facility]) Z3A.27 Return OB: Patient presents today for a routine obstetrics appointment. Patient is currently 27w3d . Patient states she is doing well but has complaints of being tired due to current and vaginal stretching. Patient has verbalizes frequent movement. labor precautions was discussed/given and patient was instructed to perform kick counts three times a day. Orders Placed This Encounter Procedures POCT urinalysis dipstick manually resulted Follow Up: Patient is to return to office in 3 week for routine OB appointment. Documented by Angelina Beckman MA on behalf of: JOHN Garcia Reason for Appointment: Patient ID: Lesia Gonzalez is a 34 y.o. female who presents for Routine Visit Patient presents today for Return OB appointment. MEDICATIONS Current Outpatient Medications Medication Instructions Magnesium 400 mg, Daily [place]-3 Fatty Acids (OMEGA-3 CF PO) 1 each, [...] reviewed. Vitals: Estimated body mass index is 25.96 kg/m as calculated from the following: Height as of 07/14/22: 5' 5 . Weight as of this encounter: 156 lb. BP: 110/72 Patient's last menstrual period was 09/22/2024. ASSESSMENT & PLAN ICD-10-CM 1. Second trimester ([facility]) Z34.92 POCT urinalysis dipstick manually resulted 2. 27 weeks gestation of ([facility]) Z3A.27 Return OB: Patient presents today for a routine obstetrics appointment. Patient is currently 27w3d . Patient states she is doing well [...] of: JOHN Garcia documented in this encounter [facility] 03-05-2025 History of Presen t illness Narrative Reason for Appointment: Patient ID: Lesia Gonzalez is a 34 y.o. female who presents for Routine Visit Patient presents today for Return OB appointment. MEDICATIONS Current Outpatient Medications Medication Instructions Magnesium 400 mg, Daily [place]-3 Fatty Acids (OMEGA-3 CF PO) 1 each, [...] Glucose tolerance, 1 hour 2. Second trimester ([facility]) Z34.92 POCT urinalysis dipstick manually resulted 3. 23 weeks gestation of ([facility]) Z3A.23 Return OB: Patient presents today for [...] Aaron Riley DO documented in this encounter [facility] 02-05-2025 History of Presen t illness Narrative Reason for Appointment: Patient ID: Lesia Gonzalez is a 34 y.o. female who presents for No chief complaint on file. Patient presents today for Annual Exam. and Return OB appointment. MEDICATIONS Current Outpatient Medications Medication Instructions Magnesium 400 mg, Daily [place]-3 Fatty Acids (OMEGA-3 CF PO) 1 each, [...] nursing note reviewed. Exam conducted with a rn radiation oncology present. Vitals: Estimated body mass index is [...] obtained without difficulty and [facility]. Orders Placed This [...] of: JOHN Garcia documented in this encounter [facility] 01-07-2025 History of Presen t illness Narrative Reason for Appointment: Patient ID: Lesia Gonzalez is a 34 y.o. female who presents for Routine Visit Patient presents today for Return OB appointment. MEDICATIONS Current Outpatient Medications Medication Instructions Magnesium 400 mg, Daily [place]-3 Fatty Acids (OMEGA-3 CF PO) 1 each, [...] nursing note reviewed. Exam conducted with a rn radiation oncology present. Vitals: Estimated body mass index is [...] or undercooked meat, and stay away from [facility]. Patient has been consulted regarding any [...] Aaron Riley DO documented in this encounter [facility] Evaluation note Diagnosis Acute cystitis with hematuria Acute cystitis documented in this encounter [facility] Work Phone: evaluation note* Diagnosis Second trimester state, incidental 15 weeks gestation of [facility] Diagnosis 19 weeks gestation of Second trimester state, incidental Well woman exam with routine gynecological exam Routine gynecological examination Exposure to STD Vaginal discharge Leukorrhea, not specified as infective Screening, , for anatomic survey Encounter for anatomic survey [facility] Diagnosis Diabetes mellitus screening Screening for diabetes mellitus Second trimester ([facility]) state, incidental 23 weeks gestation of ([facility]) [facility] Diagnosis Second trimester ([facility]) state, incidental 27 weeks gestation of ([facility]) [facility] Diagnosis Third trimester ([facility]) state, incidental 29 weeks gestation of ([facility]) Multigravida of advanced maternal age in third trimester ([facility]) [facility] Diagnosis Third trimester ([facility]) state, incidental 31 weeks gestation of ([facility]) Multigravida of advanced maternal age in third trimester ([facility]) [facility] Diagnosis Third trimester ([facility]) state, incidental 33 weeks gestation of ([facility]) [facility] Diagnosis Third trimester ([facility]) state, incidental 35 weeks gestation of ([facility]) documented in this encounter [facility] Assessments [...] Documents on File Type 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 DATE CREATED AUTHOR AUTHOR'S ORGANIZ ATION 05/18/2025 [facility] dical Specialists EPIC Care Teams (unrecognized sec tion and content) Technical Business Systems Analyst Relationship Specialty Start Date End Date Prudence Aguilar MD [address] [place] [address] PCP - General 12/27/20 Technical Business Systems Analyst Relationship Specialty Start Date End Date Prudence Aguilar MD [address] [place] [address] PCP - General 12/27/20 Technical Business Systems Analyst Relationship Specialty Start Date End Date Prudence Aguilar MD [address] [place] [id number] PCP - General Family Medicine 11/15/24 Technical Business Systems Analyst Relationship Specialty Start Date End Date Prudence Aguilar MD [address] [place], [place] [id number] PCP - General Family Medicine 11/15/24 Technical Business Systems Analyst Relationship Specialty Start Date End Date Prudence Aguilar MD [address] [place], [place] [id number] PCP - General Family Medicine 11/15/24 Technical Business Systems Analyst Relationship Specialty Start Date End Date Prudence Aguilar MD [address] [place], [place] [id number] PCP - General Family Medicine 11/15/24 Technical Business Systems Analyst Relationship Specialty Start Date End Date Prudence Aguilar MD [address] [place] [id number] PCP - General Family Medicine 11/15/24 Reason [...] BE BASED ON THE PRIMARY CLINICAL RECORDS. [facility] provides no warranty or guarantee of the accuracy or completeness of information in this document.
== END 2025-05-30 14:37 | disposition home or self-care (01) ==
LOC: LAB 14:36
PROVIDERS: PCP Family Medicine; Visit Provider Nurse Practitioner Family
DX: Z34.93 Encounter for supervision of normal pregnancy, unspecified, third trimester (principal); Z3A.35 35 weeks gestation of pregnancy
CPT/HCPCS: 87081

== ENCOUNTER 2025-06-10 05:15 | Inpatient (IN) | payer OTHER, SELFPAY ==
--- OUTSIDE RECORDS SUMMARY | 2025-05-30 11:30 | XMS_ITS | Encounter Summary ---
Author Organization [facility] Address [address] [place] [address] Care Team Providers Care Aluminum Siding Installer Name Role Phone José Aguilar MD Primary Care Provider [phone] Reason for Visit * Reason Comments Routine Visit Encounter Details Date Type Department Care Team (Late st Contact Info) Description 05/30/2025 11:30 AM EDT Routine [facility] [address] [place] [address] Nati Cameron, TUMBLER TENDER [address] [place] [address] Third trimester ([facility]); 35 weeks gestation of ([facility]) Social History Tobacco Use Types Packs/Day [...] Sign Reading Time Taken Comments Blood Pressure 120/76 05/30/2025 11:29 AM EDT Pulse - - Temperature - - Respiratory Rate - - Oxygen Saturation - - Inhaled Oxygen Concentration - - Weight 76 kg (167 lb 8 oz) 05/30/2025 11:29 AM E DT Height - - Body Mass Index 27.87 07/14/2022 12:00 PM EDT documented in this encounter Progress Notes * Nati Cameron, AMNA - 05/30/2025 11:30 AM EDT Reason for Appointment: Patient ID: Lesia Gonzalez is a 34 y.o. female who presents for Routine Visit Patient presents today for Return OB appointment. MEDICATIONS Current Outpatient Medications Medication Instructions Magnesium 400 mg, Daily Nitro-3 Fatty Acids (OMEGA-3 CF PO) 1 each, Daily Vit-Fe Fumarate-FA ( Vitamin Plus Low Iron) 27-1 MG tablet 1 each, Every 24 hours ALLERGIES Allergies Allergen Reactions Doxycycline Other and Unknown Autoimmune reaction Minocycline Other Other Reaction(s): medication induced Lupus Autoimmune reaction PROBLEMS Active Ambulatory Problems Diagnosis Date Noted Multigravida of advanced maternal age in third trimester ([facility]) 04/30/2025 Resolved Ambulatory Problems Diagnosis Date [...] nursing note reviewed. Exam conducted with a nuclear equipment test engineer present. Vitals: Estimated body mass index is 27.87 kg/m?? as calculated from the following: Height as of 07/14/22: 5' 5 . Weight as of this encounter: 167 lb 8 oz. BP: 120/76 Patient's last menstrual period was 09/22/2024. ASSESSMENT & PLAN ICD-10-CM 1. Third trimester ([facility]) Z34.93 POCT urinalysis dipstick manually resulted CULTURE, GROUP B STREP WITH SUSCEPTIBLITY CULTURE, GROUP B STREP WITH SUSCEPTIBLITY 2. 35 weeks gestation of ([facility]) Z3A.35 Patient is doing well but has complaints of being tired and having maternal discomfort due to . Patient verbalized frequent movement and was instructed to perform kick counts three times per day. labor precautions were given, LARC consent was signed/declined, and GBS was obtained. Follow Up: Patient is to return to office in 1 week for routine OB appointment Documented by Ana Freeman LPN on behalf of: Nati Cameron NP documented in this encounter Plan of Treatment Upcoming Encounters Date Type Department Care Team (Late st Contact Info) Description 06/17/2025 1:20 PM EDT Office Visit [facility] [address] [place] [address] Nati Cameron NP [address] [facility] [place] [address] documented as of this encounter Procedures Procedure Name Priority Date/Time Associated Diagnosis Comments POCT URINALYSIS DIPSTICK Routine 05/30/2025 11:37 AM EDT Third trimester ([facility]) CULTURE, GROUP B STREP WITH SUSCEPTIBLITY Routine 05/30/2025 11:25 AM EDT Third trimester ([facility]) documented in this encounter Results * POCT urinalysis dipstick manually resulted (05/30/2025 11:37 AM EDT) Color, UA Yellow Clarity, UA Clear Glucose, UA Negative Negative - 1999(110) ++++ mg/dL Bilirubin, UA Negative Negative - 4(70) +++ mg/dL Ketones, UA Negative Negative - 160(16) ++++ mg/dL Spec Grav, UA 1.010 1 - 1.03 Blood, UA Negative Negative - 50 Thor/mcL pH, UA 6.5 5 - 9 Protein, UA Negative Negative - 1999(20) ++++ mg/dL Urobilinogen, UA 0.2 0.2 - 12 mg/dL Leukocytes, UA Negative Negative - 500+++ Georgina/mcL Nitrite, UA Negative Negative - Positive Urine 05/30/2025 11:3 7 AM EDT us Nati Cameron NP POINT OF CARE TEST ENTER/EDIT ORDERABLES Final Result * CULTURE, GROUP B STREP WITH SUSCEPTIBLITY (05/30/2025 11:25 AM EDT) Swab 05/30/2025 11:2 5 AM EDT us Nati Cameron NP LAB BLOOD ORDERABLES Final Re sult EXTERNAL LAB documented in this encounter Visit Diagnoses Diagnosis Third trimester ([facility]) state, incidental 35 weeks gestation of ([facility]) documented in this encounter Care Teams Aluminum Siding Installer Relationship Specialty Start Date End Date José Aguilar MD [address] [place] [address] PCP - General Family Medicine 11/15/24 documented as of this encounter
--- OUTSIDE RECORDS SUMMARY | 2025-05-31 09:00 | XMS_ITS | Encounter Summary ---
Author Organization [facility] Address [address], [address] [place] [address] Care Team Providers Care Straw Hat Presser Name Role Phone José Aguilar MD Primary Care Provider [phone] Reason for Visit * Reason Comments Skin Problem Skin bumps all over on on stomach, on arm and one on the bottom of stomach.. bumps on daughter and on Encounter Details Date Type Department Care Team (Late st Contact Info) Description 05/31/2025 9:00 AM EDT Office Visit [facility] Primary Care [facility]. [place] [id number] Robert Ruiz, FINAL INSPECTOR SHUTTLE - [address] [place] [phone] Tinea corporis (Primary Dx) Social History Tobacco Use Types Packs/Day Years Used Date Smoking Tobacco: Never Alcohol Use Standard Drinks/Week Comments No 0 (1 standard drink = 0.6 oz pur e alcohol) Estimated Date of Delivery Comme nts Yes 06/29/2025 Sex and Gender Information Value Date Recorded Sex Assigned at Not on file Legal Sex Female 12:43 AM EST Gender Identity Not on file Sexual Orientation Not on file documented as of this encounter Last Filed Vital Signs Vital Sign Reading Time Taken Comments Blood Pressure 112/67 05/31/2025 8:47 AM EDT Pulse 84 05/31/2025 8:47 AM EDT Temperature 36.7 C (98.1 F) 05/31/2025 8:47 AM EDT Respiratory Rate 18 05/31/2025 8:47 AM EDT Oxygen Saturation 100% 05/31/2025 8:47 AM EDT Inhaled Oxygen Concentration - - Weight 76.7 kg (169 lb) 05/31/2025 8:47 AM EDT Height 162.6 cm (5' 4 ) 05/31/2025 8:47 AM EDT Body Mass Index 29.01 05/31/2025 8:47 AM EDT documented in this encounter Patient Instructions * Patient Instructions* Robert Ruiz APRN - CNP - 05/31/2025 9:04 AM EDT The medication list included in this document is our record of what you are currently taking, including any changes that were made at today's visit. If you find any differences when compared to your medications at home, or have any questions that were not answered at your visit, please contact the office. documented in this encounter Progress Notes * Robert Ruiz APRN - CNP - 05/31/2025 8:54 AM EDT Images from the original note were not included. 05/31/2025 Lesia Gonzalez (: 1990) is a 34 y.o. female, here for evaluation of the following medical concerns: Chief Complaint Patient presents with Skin Problem Skin bumps all over on on stomach, on arm and one on the bottom of stomach.. bumps on daughter and on HPI Lesia is here for evaluation of skin lesions. She states the family tends to get ringworm due to barn cat exposure. She has several raised red lesions that are pruritic. Review of Systems Constitutional: Negative. Negative for chills, fatigue, fever and unexpected weight change. HENT: Negative. Negative for dental problem, ear pain, postnasal drip and sore throat. Eyes: Negative. Negative for visual disturbance. Respiratory: Negative. Negative for cough, shortness of breath and wheezing. Cardiovascular: Negative. Negative for chest pain, palpitations and leg swelling. Gastrointestinal: Negative. Negative for abdominal pain, blood in stool, constipation, diarrhea, nausea and vomiting. Endocrine: Negative. Genitourinary: Negative. Negative for dysuria, frequency, hematuria and urgency. Musculoskeletal: Negative. Negative for arthralgias, back pain and myalgias. Skin: Positive for rash. Allergic/Immunologic: Negative. Neurological: Negative. Negative for dizziness, weakness and numbness. Hematological: Negative. Psychiatric/Behavioral: Negative. Negative for decreased concentration and suicidal ideas. The patient is not nervous/anxious. Prior to Visit Medications Medication Sig Taking? Authorizing Provider Clindamycin-Benzoyl Per, Refr, 1.2-5 % GEL Yes Rakesh Galindo MD terbinafine (LAMISIL) 1 % cream Apply topically 2 times daily. Yes Robert Ruiz APRN - ADELITA Clindamycin Phos-Benzoyl Perox (ONEXTON) 1.2-3.75 % GEL Apply 1 application topically daily Yes Rakesh Galindo MD clotrimazole-betamethasone (LOTRISONE) 1-0.05 % cream Apply topically 2 times daily. José Aguilar MD Benzoyl Peroxide (BENZEPRO CREAMY WASH) 7 % LIQD Apply 1 application topically daily ProviderRakesh MD Social History Tobacco Use Smoking status: Never Smokeless tobacco: Not on file Substance Use Topics Alcohol use: No Vitals: 05/31/25 0847 BP: 112/67 BP Site: Left Upper Arm Patient Position: Sitting BP Cuff Size: Large Adult Pulse: 84 Resp: 18 Temp: 98.1 ??F (36.7 ??C) TempSrc: Temporal SpO2: 100% Weight: 76.7 kg (169 lb) Height: 1.626 m (5' 4 ) Estimated body mass index is 29.01 kg/m?? as calculated from the following: Height as of this encounter: 1.626 m (5' 4 ). Weight as of this encounter: 76.7 kg (169 lb). Physical Exam Vitals reviewed. Constitutional: Appearance: Normal appearance. She is well-developed. She is not ill-appearing. HENT: Head: Normocephalic and atraumatic. Nose: Nose normal. Eyes: Extraocular Movements: Extraocular movements intact. Cardiovascular: Rate and Rhythm: Normal rate and regular rhythm. Heart sounds: Normal heart sounds. Pulmonary: Effort: Pulmonary effort is normal. Breath sounds: Normal breath sounds. Abdominal: Tenderness: There is no abdominal tenderness. Musculoskeletal: General: No swelling. Normal range of motion. Cervical back: Normal range of motion and neck supple. Skin: General: Skin is warm and dry. Findings: Lesion and rash present. Comments: Several red lesions on arms and abdomen. Atypical Neurological: General: No focal deficit present. Mental Status: She is alert and oriented to person, place, and time. Mental status is at baseline. Psychiatric: Attention and Perception: Attention and perception normal. She does not perceive auditory or visualhallucinations. Mood and Affect: Mood and affect normal. Speech: Speech normal. Behavior: Behavior is cooperative. Thought Content: Thought content normal. Cognition and Memory: Cognition and memory normal. Judgment: Judgment normal. ASSESSMENT/PLAN: 1. Tinea corporis - terbinafine (LAMISIL) 1 % cream; Apply topically 2 times daily. Dispense: 42 g; Refill: 1 Call Tuesday if no improvement Return if symptoms worsen or fail to improve. An electronic signature was used to authenticate this note. --CESAR RAE CNP on 05/31/2025 at 9:11 AM documented in this encounter Plan of Treatment Not on file documented as of this encounter Visit Diagnoses Diagnosis Tinea corporis- Primary Dermatophytosis of the body documented in this encounter Care Teams Straw Hat Presser Relationship Specialty Start Date End Date José Aguilar MD [address] [place] [address] PCP - General 12/27/20 documented as of this encounter
--- OUTSIDE RECORDS SUMMARY | 2025-06-06 10:00 | XMS_ITS | Encounter Summary ---
Author Organization [facility] Address [address] [place] [address] Care Team Providers Care Crimping Machine Operator Name Role Phone José Aguilar MD Primary Care Provider [phone] Reason for Visit * Reason Comments Routine Visit Encounter Details Date Type Department Care Team (Late st Contact Info) Description 06/06/2025 10:00 AM EDT Routine [facility] [address] [place] [phone] Aaron Riley DO [address] [place] [address] Third trimester ([facility]); 36 weeks gestation of ([facility]) Social History Tobacco Use Types Packs/Day [...] this encounter Progress Notes * Imelda Mackay, LEAD MECHANIC - 06/06/2025 10:00 AM EDT Reason for Appointment: Patient ID: Lesia Gonzalez is a 34 y.o. female who presents for Routine Visit Patient presents today for Return OB appointment. MEDICATIONS Current Outpatient Medications Medication Instructions Magnesium 400 mg, Daily [place]-3 Fatty Acids (OMEGA-3 CF PO) 1 each, Daily Vit-Fe Fumarate-FA ( Vitamin Plus Low Iron) 27-1 MG tablet 1 each, Every 24 hours ALLERGIES Allergies Allergen Reactions Doxycycline Other and Unknown Autoimmune reaction Minocycline Other Other Reaction(s): medication induced Lupus Autoimmune reaction PROBLEMS Active Ambulatory Problems Diagnosis Date Noted Multigravida of advanced maternal age in third trimester ([facility]) 04/30/2025 Resolved Ambulatory Problems Diagnosis Date [...] nursing note reviewed. Exam conducted with a corrections counselor present. Vitals: Estimated body mass index is 27.96 kg/m?? as calculated from the following: Height as of 07/14/22: 5' 5 . Weight as of this encounter: 168 lb. BP: 112/74 Patient's last menstrual period was 09/22/2024. ASSESSMENT & PLAN ICD-10-CM 1. Third trimester ([facility]) Z34.93 POCT urinalysis dipstick manually resulted 2. 36 weeks gestation of ([facility]) Z3A.36 Patient presents today for [...] EDT Office Visit [facility] [address] [place] [address] Nati Cameron NP [address] [place] [address] documented as of this encounter Procedures Procedure Name Priority Date/Time Associated Diagnosis Comments POCT URINALYSIS DIPSTICK Routine 06/06/2025 10:10 AM EDT Third trimester ([facility]) documented in this encounter Results * (ABNORMAL) [...] this encounter Visit Diagnoses Diagnosis Third trimester ([facility]) state, incidental 36 weeks gestation of ([facility]) documented in this encounter Care Teams Crimping Machine Operator Relationship Specialty Start Date End Date José Aguilar MD [address] [place] [address] PCP - General Family Medicine 11/15/24 documented as of this encounter
[2025-06-10] VITALS (32 sets, daily range): BP systolic 94–112; BP diastolic 49–69; PULSE 43–87; TEMP 36.4–36.8; O2SAT 96–100
--- OUTSIDE RECORDS SUMMARY | 2025-06-10 05:19 | XMS_ITS | CCD ---
Author Organization [facility] Care Team Providers Care Manager Landscape Name Role Phone Louie Martin Unavailable MOROCCO, [...] Vladimir Arriola Primary Care Physician Unavail able [place] , Prudence Garnica Primary Care Provider JOY TRAMMELL Referring Unavailable SECOR, PRUDENCE Garnica Primary Care Unavailable [place] , Prudence Garnica Primary Care Provider [phone] Emelyn, Vladimri Arriola Primary Care Physician Unavail able AARON RILEY Attending Unavailable CHANELLE, MADIHA Attending Unavailable ROSEMARY, AARON Attending Unavailable CHANELLE, MADIHA Attending Unavailable ROSEMARY, AARON Attending Unavailable CHANELLE, MADIHA Attending Unavailable CHANELLE, MADIHA Attending Unavailable BENSON CAMERON Attending Unavailable ROSEMARY, AARON Attending Unavailable Allergies Allergy Classification Reported Allergen(s) Allergy Type Date of Onset Reaction(s) Facility (16 sources) Doxycycline; Translations: [doxycycline hyclate] Drug Allergy [facility] (16 sources) Minocycline; Translations: [minocycline] Drug Allergy [facility] (16 sources) Tetracyclines Allergy to substance (disorder) [facility] (20 sources) Doxycycline Drug Allergy 1 Other (See Comments), Other, Unknown [facility] (20 sources) Minocycline Drug Allergy 1 Other (See Comments), Other [facility] Work Phone: Medications Current Medications Medication Drug [...] 10 days 20 capsule 08/17/2024 08/27/2024 Active [place]-3 Fatty Acids (OMEGA-3 CF PO) (20 sources) take 1 dose by mouth once daily [place]-3 Fatty Acids (OMEGA-3 CF PO) Take 1 [...] oral route 2 times per day Mother Love Special Blend (20 sources) End: 06-06-2020 Mother Love Special Blend 06/06/2020 1 capsule 4 times [...] Onset: 01-06-2021 05-18-2022 Chronic Other complications of (15 sources) Multigravida of advanced maternal age; Translations: [...] joint Episodic Other and delivery including normal (18 sources) Second trimester ; Translations: [Encounter for [...] [35 weeks gestation of ] 05-30-2025 Episodic Residual codes; unclassified (2 sources) Gestation period, 36 weeks; Translations: [36 weeks gestation of ] 06-06-2025 Episodic Systemic lupus erythematosus and connective tissue [...] Range Facility Urinalysis macro (dipstick) panel (U)on 06-06-2025 Bilirubin, UA Negative Negative - 4(70) +++ mg/dL [facility] Blood, UA Negative Negative - 50 Thor/mcL [facility] Clarity, UA Clear [facility] Color, UA Yellow [facility] Glucose, UA Negative Negative - 1999(110) ++++ mg/dL [facility] Interpretation and review of laboratory results Abnormal [facility] Ketones, UA Negative Negative - 160(16) ++++ mg/dL [facility] Leukocytes, UA Positive Negative - 500+++ Georgina/mcL [facility] Comment on above: 1+ Nitrite, UA Negative Negative - Positive [facility] pH, UA 6 5 - 9 [facility] Protein, UA Negative Negative - 1999(20) ++++ mg/dL [facility] Spec Grav, UA 1.015 1 - 1.03 [facility] Urobilinogen, UA 0.2 0.2 - 12 mg/dL [facility] Urinalysis macro (dipstick) panel (U)on 05-30-2025 Bilirubin, UA Negative Negative - 4(70) +++ mg/dL [facility] Blood, UA Negative Negative - 50 Thor/mcL [facility] Clarity, UA Clear [facility] Color, UA Yellow [facility] Glucose, UA Negative Negative - 1999(110) ++++ mg/dL [facility] Interpretation and review of laboratory results Normal [facility] Ketones, UA Negative Negative - 160(16) ++++ mg/dL [facility] Leukocytes, UA Negative Negative - 500+++ Georgina/mcL [facility] Nitrite, UA Negative Negative - Positive [facility] pH, UA 6.5 5 - 9 [facility] Protein, UA Negative Negative - 1999(20) ++++ mg/dL [facility] Spec Grav, UA 1.01 1 - 1.03 [facility] Urobilinogen, UA 0.2 0.2 - 12 mg/dL [facility] Urinalysis macro (dipstick) panel (U)on 05-16-2025 Bilirubin, UA Negative Negative - 4(70) +++ mg/dL [facility] Blood, UA Negative Negative - 50 Thor/mcL [facility] Clarity, UA Clear [facility] Color, UA Yellow [facility] Glucose, UA Negative Negative - 1999(110) ++++ mg/dL [facility] Interpretation and review of laboratory results Normal [facility] Ketones, UA Negative Negative - 160(16) ++++ mg/dL [facility] Leukocytes, UA Negative Negative - 500+++ Georgina/mcL [facility] Nitrite, UA Negative Negative - Positive [facility] pH, UA 6 5 - 9 [facility] Protein, UA Negative Negative - 1999(20) ++++ mg/dL [facility] Spec Grav, UA 1.015 1 - 1.03 [facility] Urobilinogen, UA 0.2 0.2 - 12 mg/dL [facility] US OB FOLLOW UP TRANSABDOMIN AL APPROACHon [...] UA Negative Negative - 4(70) +++ mg/dL [facility] Blood, UA Negative Negative - 50 Thor/mcL [facility] Clarity, UA Clear [facility] Color, UA Yellow [facility] Glucose, UA Negative Negative - 1999(110) ++++ mg/dL [facility] Interpretation and review of laboratory results Normal [facility] Ketones, UA Negative Negative - 160(16) ++++ mg/dL [facility] Leukocytes, UA Negative Negative - 500+++ Georgina/mcL [facility] Nitrite, UA Negative Negative - Positive [facility] pH, UA 6 5 - 9 [facility] Protein, UA Negative Negative - 1999(20) ++++ mg/dL [facility] Spec Grav, UA 1.02 1 - 1.03 [facility] Urobilinogen, UA 1.0 0.2 - 12 mg/dL [facility] Healthcare [facility] Urinalysis macro (dipstick) panel (U)on 04-16-2025 Bilirubin, UA Negative Negative - 4(70) +++ mg/dL [facility] Blood, UA Negative Negative - 50 Thor/mcL [facility] Clarity, UA Clear [facility] Color, UA Yellow [facility] Glucose, UA Negative Negative - 1999(110) ++++ mg/dL [facility] Interpretation and review of laboratory results Normal [facility] Ketones, UA Negative Negative - 160(16) ++++ mg/dL [facility] Leukocytes, UA Negative Negative - 500+++ Georgina/mcL [facility] Nitrite, UA Negative Negative - Positive [facility] pH, UA 6 5 - 9 [facility] Protein, UA Negative Negative - 1999(20) ++++ mg/dL [facility] Spec Grav, UA 1.015 1 - 1.03 [facility] Urobilinogen, UA 0.2 0.2 - 12 mg/dL [facility] ALL CBC WITH AUTO DIFFon BASOPHILS ABSOLUTE AUTO 0 [facility] Basophils/100 WBC (Bld) 0.2 % 0.2 - 2.0 % [facility] Eosinophils/100 WBC (Bld) 0.9 % 0.9 - 7.0 % [facility] Erythrocyte distribution width (RBC) [Ratio] 13.2 % 11.0 - 15.0 % [facility] Hematocrit (Bld) [Volume fraction] 33.1 % Low 36.0 - 48.0 % [facility] Hemoglobin (Bld) [Mass/Vol] 10.6 g/dL Low 12.0 - 16.0 g/dL [facility] IMMATURE GRANULOCYTES ABS AUTO 0.03 [facility] Immature granulocytes/100 WBC (Bld) 0.3 % 0.0 - 0.5 % [facility] Interpretation and review of laboratory results Abnormal [facility] LYMPHOCYTES ABSOLUTE AUTO 1.6 [facility] Lymphocytes/100 WBC (Bld) 17.9 % Low 20.5 - 60.0 % [facility] MCH (RBC) [Entitic mass] 29 pg 26.7 - 34.0 pg [facility] MCHC (RBC) [Mass/Vol] 32 g/dL 29.9 - 35.2 g/dL [facility] MCV (RBC) [Entitic vol] 90.4 fL 81.0 - 99.0 fL [facility] MONOCYTES ABSOLUTE AUTO 0.4 [facility] Monocytes/100 WBC (Bld) 4.3 % 1.7 - 12.0 % [facility] NEUTROPHILS ABSOLUTE AUTO 6.7 High [facility] Neutrophils/100 WBC (Bld) 76.4 % High 43.0 - 75.0 % [facility] Platelet mean volume (Bld) [Entitic vol] 9.6 fL 9.5 - 13.5 fL [facility] TBH EO # 0.1 [facility] TB PLT 291 [facility] TB RBC 3.66 Low [facility] TB WBC 8.8 [facility] Urinalysis macro (dipstick) panel (U)on 04-02-2025 Bilirubin, UA Negative Negative - 4(70) +++ mg/dL [facility] Blood, UA Positive Negative - 50 Thor/mcL [facility] Comment on above: large Clarity, UA Clear [facility] Color, UA Yellow [facility] Glucose, UA Negative Negative - 1999(110) ++++ mg/dL [facility] Interpretation and review of laboratory results Abnormal [facility] Ketones, UA Negative Negative - 160(16) ++++ mg/dL [facility] Leukocytes, UA Negative Negative - 500+++ Georgina/mcL [facility] Nitrite, UA Negative Negative - Positive [facility] pH, UA 6.5 5 - 9 [facility] Protein, UA Negative Negative - 1999(20) ++++ mg/dL [facility] Spec Grav, UA 1.005 1 - 1.03 [facility] Urobilinogen, UA 0.2 0.2 - 12 mg/dL [facility] Urinalysis macro (dipstick) panel (U)on 03-05-2025 Bilirubin, UA Negative Negative - 4(70) +++ mg/dL [facility] Blood, UA Negative Negative - 50 Thor/mcL [facility] Clarity, UA Clear [facility] Color, UA Yellow [facility] Glucose, UA Negative Negative - 1999(110) ++++ mg/dL [facility] Interpretation and review of laboratory results Abnormal [facility] Ketones, UA Negative Negative - 160(16) ++++ mg/dL [facility] Leukocytes, UA Trace Negative - 500+++ Georgina/mcL [facility] Nitrite, UA Negative Negative - Positive [facility] pH, UA 7.5 5 - 9 [facility] Protein, UA Negative Negative - 1999(20) ++++ mg/dL [facility] Spec Grav, UA 1.015 1 - 1.03 [facility] Urobilinogen, UA 0.2 0.2 - 12 mg/dL [facility] No Panel InformationOrdered By: Radiologist Radiology on 02-19-2025 [facility] Work Phone: No Panel Informationon 02-19 Radiology Study observation (narrative) [facility] US OB ANATOMYon 02-19-2025 [place] [address] Ultrasound Report Signed Patient: LESIA GONZALEZ MR#: [id number] : 1990 Acct:[id number] Age/Sex: 34 / F ADM Date: 02/19/25 Loc: US Attending Dr: Aaron Riley D.O. Ordering Physician: Aaron Riley D.O. Date of Service: 02/19/25 Procedure(s): US OB anatomy Accession Number(s): [id number] cc: Aaron Riley D.O.; Prudence Jose M.D. [place] [address] Patient Name: LESIA GONZALEZ MRN: [id number] date: 1990 Sex: F Assigned Patient Location: US Current Patient Location: US Accession/Order Number: [id number] Exam Date: 02/19/2025 10:17 Report Date: 02/19/2025 [...] all 4 extremities were surveyed by the head banquet waitress and no abnormalities were identified. The stomach, [...] Tipton M.D. 02/19/2025 10:27 AM Dictation Location: [place] [address] Electronically authenticated by: [id number] Y Date: 02/19/2025 10:27 Dictated By: Maribel Tipton M.D. Signed By: 02/19/25 1030 DD/ 1027 TD/TT: Blade Operator: [facility] Radiology, Radiologist, MD - 02/19/2025 [place] [address] Ultrasound Report Signed Patient: LESIA GONZALEZ MR#: [id number] : 1990 Acct:[id number] Age/Sex: 34 / F ADM Date: 02/19/25 Loc: US Attending Dr: Aaron Riley D.O. Ordering Physician: Aaron Riley D.O. Date of Service: 02/19/25 Procedure(s): US OB anatomy Accession Number(s): [id number] cc: Aaron Riley D.O.; Prudence Jose M.D. The [place] [id number] Patient Name: LESIA GONZALEZ MRN: [facility]:[id number] date: 1990 Sex: F Assigned Patient Location: US Current Patient Location: US Accession/Order Number: [id number] Exam Date: 02/19/2025 10:17 Report Date: 02/19/2025 [...] all 4 extremities were surveyed by the head banquet waitress and no abnormalities were identified. The stomach, [...] Tipton M.D. 02/19/2025 10:27 AM Dictation Location: [place] [address] Electronically authenticated by: [id number] Y Date: 02/19/2025 10:27 Dictated By: Maribel Tipton M.D. Signed By: 02/19/25 1030 DD/ 1027 TD/TT: Blade Operator: [facility] [place] [address] Ultrasound Report Signed Patient: LESIA GONZALEZ MR#: [id number] : 1990 Acct:[id number] Age/Sex: 34 / F ADM Date: 02/19/25 Loc: US Attending Dr: Aaron Riley D.O. Ordering Physician: Aaron Riley D.O. Date of Service: 02/19/25 Procedure(s): US OB cervical length Accession Number(s): [id number] cc: Aaron Riley D.O.; Prudence Jose M.D. The [address] [address] Patient Name: LESIA GONZALEZ MRN: [id number] date: 1990 Sex: F Assigned Patient Location: US Current Patient Location: US Accession/Order Number: [id number] Exam Date: 02/19/2025 10:17 Report Date: 02/19/2025 [...] all 4 extremities were surveyed by the head banquet waitress and no abnormalities were identified. The stomach, [...] Tipton M.D. 02/19/2025 10:27 AM Dictation Location: [place] [address] Electronically authenticated by: [id number] Y Date: 02/19/2025 10:27 Dictated By: Maribel Tipton M.D. Signed By: 02/19/25 1030 DD/ 1027 TD/TT: Blade Operator: [facility] Radiology, Radiologist, - 02/19/2025 [place] [address] Ultrasound Report Signed Patient: LESIA GONZALEZ MR#: [id number] : 1990 Acct:[id number] Age/Sex: 34 / F ADM Date: 02/19/25 Loc: US Attending Dr: Aaron Riley D.O. Ordering Physician: Aaron Riley D.O. Date of Service: 02/19/25 Procedure(s): US OB cervical length Accession Number(s): [id number] cc: Aaron Riley D.O.; Prudence Jose M.D. [place] [address] Patient Name: LESIA GONZALEZ MRN: [facility]:[id number] date: 1990 Sex: F Assigned Patient Location: US Current Patient Location: US Accession/Order Number: [id number] Exam Date: 02/19/2025 10:17 Report Date: 02/19/2025 [...] all 4 extremities were surveyed by the head banquet waitress and no abnormalities were identified. The stomach, [...] Tipton M.D. 02/19/2025 10:27 AM Dictation Location: [place] [address] Electronically authenticated by: [id number] Y Date: 02/19/2025 10:27 Dictated By: Maribel Tipton M.D. Signed By: 02/19/25 1030 DD/ 1027 TD/TT: Blade Operator: [facility] AFP, SERUM, OPEN SPINA BIFID Aon 02-07-2025 AFP MOM 1.11 . [facility] AFP VALUE 59.4 ng/mL . [facility] COMMENT: Comment . [facility] Comment on above: Dang Bowman , Ph.D., [facility] Director References: Available Upon Request. Multiples Of Median Cutoffs For AFP Elevations Lowery 2.5 Black 2.8 IDD 2.0 Twins 4.5 Abbreviation Definitions IDD - Insulin Dep Diabetes OSBR - Open Spina Bifida Risk For further inquiries contact [facility] at [phone]. This test was developed and its performance characteristics determined by [employer]. It has not been cleared or approved by the Food and Drug Administration. Performed at: [facility] [address] [place], [place] [id number] Parts Technician: Roula Lopez [facility], Phone: [phone] GEST. AGE ON COLLECTION DATE 19.4 . weeks [facility] GESTAT. AGE BASED ON LMP . [facility] Comment on above: Recalculations are n ot recommended when gestational dating by LMP and ultrasound are within 10 days. INSULIN DEP DIABETES No . [facility] INTERPRETATION Comment . [facility] Comment on above: Interpretation: Scre en Negative [...] Customer Services to discuss available options. The [employer] recommends amniocentesis be offered to women age 35 and older. [age] [facility] MULTIPLE GESTATION No . [facility] OSBR RISK 1 IN 8647 . [facility] RACE . [facility] RESULTS Report . [facility] TEST RESULTS: Negative . [facility] WEIGHT 144 . lbs [facility] N N LMP [id number] 3 19 N 1 Y 144 N N N N N White/ [facility] RECURRENT VAGINITIS (HTRX)on 02-06-2025 ATOPOBIUM VAGINAE 0 [facility] ATOPOBIUM VAGINAE Not detected [facility] BVAB 2,3 (BACTERIAL VAGINOSIS ASSOCIATED BACTERIA 2, 3); MOBILUNCUS SPP 0 [facility] BVAB 2,3 (BACTERIAL VAGINOSIS ASSOCIATED BACTERIA 2, 3); MOBILUNCUS SPP Not detected [facility] LAURA ALBICANS, PARAPSILOSIS, TROPICALIS 27.705 Abnormal [facility] LAURA ALBICANS, PARAPSILOSIS, TROPICALIS Detected Abnormal [facility] LAURA GLABRATA 24.272 Abnormal [facility] LAURA GLABRATA Detected Abnormal [facility] LAURA KRUSEI 0 [facility] LAURA KRUSEI Not detected [facility] CHLAMYDIA TRACHOMATIS 0 [facility] CHLAMYDIA TRACHOMATIS Not detected N [facility] GARDNERELLA VAGINALIS 0 [facility] GARDNERELLA VAGINALIS Not detected N [facility] Interpretation and review of laboratory results Abnormal [facility] MEGASPHAERA (TYPES 1, 2) 0 [facility] MEGASPHAERA (TYPES 1, 2) Not detected [facility] MYCOPLASMA GENITALIUM 0 [facility] MYCOPLASMA GENITALIUM Not detected N [facility] NEISSERIA GONORRHOEAE 0 [facility] NEISSERIA GONORRHOEAE Not detected N [facility] TRICHOMONAS VAGINALIS 0 [facility] TRICHOMONAS VAGINALIS Not detected N [facility] Urinalysis macro (dipstick) panel (U)on 02-05-2025 Bilirubin, UA Negative Negative - 4(70) +++ mg/dL [facility] Blood, UA Negative Negative - 50 Thor/mcL [facility] Clarity, UA Clear [facility] Color, UA Yellow [facility] Glucose, UA Negative Negative - 1999(110) ++++ mg/dL [facility] Interpretation and review of laboratory results Normal [facility] Ketones, UA Negative Negative - 160(16) ++++ mg/dL [facility] Leukocytes, UA Negative Negative - 500+++ Georgina/mcL [facility] Nitrite, UA Negative Negative - Positive [facility] pH, UA 6 5 - 9 [facility] Protein, UA Negative Negative - 1999(20) ++++ mg/dL [facility] Spec Grav, UA 1.01 1 - 1.03 [facility] Urobilinogen, UA 0.2 0.2 - 12 mg/dL [facility] Urinalysis macro (dipstick) panel (U)on 01-07-2025 Bilirubin, UA Negative Negative - 4(70) +++ mg/dL [facility] Blood, UA Negative Negative - 50 Thor/mcL [facility] Clarity, UA Clear [facility] Color, UA Yellow [facility] Glucose, UA Negative Negative - 1999(110) ++++ mg/dL [facility] Interpretation and review of laboratory results Normal [facility] Ketones, UA Negative Negative - 160(16) ++++ mg/dL [facility] Leukocytes, UA Negative Negative - 500+++ Georgina/mcL [facility] Nitrite, UA Negative Negative - Positive [facility] pH, UA 5.5 5 - 9 [facility] Protein, UA Negative Negative - 1999(20) ++++ mg/dL [facility] Spec Grav, UA 1.025 1 - 1.03 [facility] Urobilinogen, UA 0.2 0.2 - 12 mg/dL [facility] US OB TRANSVAGINALon 025 US OB TRANSVAGINAL [...] II, MD, PHD at 07-Dec-2024 08:32:38 PM [facility] Normal Not Available Comment on above: Order Comment: US OB TRANSVAGINAL No LMP recorded. Culture, Urineon 08-17-2024 [place] - Organism 01 Escherichia coli Abnormal [facility] Comment on above: Order Comment: [place] - Source of Urine Collection? Urine clean catch\[id number]\Performed by [facility] [address] [place] [address] [place] - Source of Urine Collection? Urine clean catch [place] - Current Antibiotic Therapy? No Answer Given Performed By: #### C UR #### [facility] Virtual 3-D Display for Smartphones [facility] See Report [place] - SOURCE urine, clean catch Normal [facility] Comment on above: Order Comment: [place] - Source of Urine Collection? Urine clean catch\[id number]\Performed by [facility] [address] [place] [address] [place] - Source of Urine Collection? Urine clean catch [place] - Current Antibiotic Therapy? No Answer Given Performed By: #### C UR #### [facility] [employer] [facility] See Report [place] - URINE CULTURE [place] count: >100,000 CFU/mL Normal [facility] Comment on above: Order Comment: [place] - Source of Urine Collection? Urine clean catch\[id number]\Performed by [facility] [address] [place] [address] [place] - Source of Urine Collection? Urine clean catch [place] - Current Antibiotic Therapy? No Answer Given Performed By: #### C UR #### [facility] [employer] [facility] See Report URINE CULTUREon 08-17-2024 Bacteria identified Cx Nom (U) MICROBIOLOGY REPORT New [employer] [facility], [address] [place] [address], [id number] PATIENT: LESIA GONZALEZ LOCATION[facility] - - : 1990 AGE: 33 SEX: F ADM: 08/17/24 Att. Physician: PHYSICIAN, NON-STAFF Order Id: [id number] Req. Physician: PHYSICIAN, NON-STAFF Source: urine, clean catch Site: Collected: 08/17/24 16:24 Current Antibiotics: not stated Antibiotics comment: C O M M E N T S ---- [place] - Source of Urine Collection? Urine clean catch STATUS OF ORDERED AND REPORTED TESTS URINE CULTURE FINAL 08/19/24 URINE CULTURE FINAL 08/19/24 09:01 Organism 01 Escherichia coli [place] count: >100,000 CFU/mL Organism 01-esccol Antibiotic MICA [...] <=1 S IV 2000mg 164 Trimethoprim/Mane>=320 R [id number]/800mgSMX q 12h 1-2TMP/[id number] P/97SM IV 160mgTMP/800mgSMX q 8 h9TMP/105 SMX [...] liver disease consult PDR or pharmacist. Normal [facility] No Panel Informationon 05-23 Tobacco smoking status Non-Smoker Invalid Interpretation Code [facility] - Chemistry and C hemistry - challengeon 07-31-2023 TSH Qn 1.23 m[IU]/L Invalid Interpretation Code 0.50-4.00 [facility] Thyroxine T4on 08-11-2022 T4 [Mass/Vol] 6.4 ug/dL Normal 4.5-10.9 [facility] Comment on above: Performed By: #### T 4, T3 #### [id number] [place], [place] [id number] Parts Technician: Ramiro Blandon MD #### TSH #### [facility] [address] [place] [address] Parts Technician: Annel García MD Triiodothyronine T3on 2021 Triiodothyronine T3 96 ng/dL Normal 60-181 [facility] Comment on above: Performed By: #### T 4, T3 #### [address] [id number] Parts Technician: Ramiro Blandon MD #### TSH #### [facility] [address] [place] [address] Parts Technician: Annel García MD Laboratory - Chemistry and C hemistry - challengeon 08-10-2022 T3 [Mass/Vol] 96.0 ng/dL Invalid Interpretation Code P[facility] T4 [Mass/Vol] 6.4 ug/dL Invalid Interpretation Code [employer] [facility] TSH Qn 0.41 m[IU]/L Invalid Interpretation Code P[facility] No Panel Informationon 08-10 jls Invalid Interpretation Code [employer] [facility] Thyroid Stim. Horm.on 2021 Thyroid Stim. Horm. 0.41 uIU/mL Normal 0.30-5.00 [facility] Comment on above: Performed By: #### T 4, T3 #### [facility] [address] [place] [address] Parts Technician: Ramiro Blandon MD #### TSH #### [facility] [address] [place], [place] [id number] Parts Technician: Annel García MD PAP ACOG PANEL 2: 30 to 65on 07-21-2022 . . Normal [facility] Comment on above: Result Comment: Perf ormed at: WB Performed By: #### [id number] #### [facility] [address] [place] [address] Dr. Jaci Irene Age Gdln ACOG Testing 30-65 Normal [facility] Comment on above: Performed By: #### [id number] #### [facility] [address] [place] [address] Dr. Jaci Irene DIAGNOSIS: Comment Normal [facility] Comment on above: Result Comment: NEGA TIVE FOR INTRAEPITHELIAL LESION OR MALIGNANCY. CELLULAR CHANGES ASSOCIATED WITH INFLAMMATION ARE PRESENT. Performed at: WB Performed By: #### 4 [id number] #### [facility] [address] [address] [address] Jaci Irene HPV Aptima Negative Normal Negative [facility] Comment on above: Result Comment: This nucleic acid amplification test detects fourteen high-risk HPV types (16,18,31,33,35,39,45,51,52,56,58,59,66,68) without differentiation. Performed at: =G Performed By: #### 4 [id number] #### [facility] [address] [address] [address] Jaci Irene HPV Genotype Reflex Comment Normal [facility] Comment on above: Result Comment: Crit eria not met, HPV Genotype not performed. Performed at: WB Performed By: #### 4 [id number] #### [facility] [address] [place] [address] Dr. Jaci Irene Methodology: Comment Normal [facility] Comment on above: Result Comment: This liquid based ThinPrep(R) pap test was screened with the use of an image guided system. Performed at: WB Performed By: #### 4 [id number] #### [facility] [address] [place] [address] Dr. Jaci Irene Note: Comment Normal [facility] Comment on above: Result Comment: The Pap smear is a screening test designed to aid in the detection of premalignant and malignant conditions of the uterine cervix. It is not a diagnostic procedure and should not be used as the sole means of detecting cervical cancer. Both false-positive and false-negative reports do occur. . Performed at: WB Performed By: #### [id number] #### [facility] [address] [place] [address] Dr. Jaci Irene Performed by: Comment Normal [facility] Comment on above: Result Comment: Kirill Azevedo Instrument Lens Grinder Apprentice (ASCP) Performed at: WB Performed By: #### [id number] #### [facility] [address] [place] [address] Dr. Jaci Irene Specimen adequacy: Comment Normal [facility] Comment on above: Result Comment: Sati sfactory for evaluation. Endocervical and/or squamous metaplastic cells (endocervical component) are present. Performed at: WB Performed By: #### 4 [id number] #### [facility] [address] [place] [address] Dr. Jaci Irene Laboratory - Cytologyon 06-20 Cytology report Cyto stain.thin prep Doc (Cvx/Vag) Pap Smear / Cervical Cytology Invalid Interpretation Code [facility] Laboratory - Microbiology an d Antimicrobial susceptibilityon 07-14-2022 HPV 16+18+31+33+35+45+51+5 2+56 DNA Probe Ql (Cvx) HPV-DNA Test Invalid Interpretation Code [facility] US PELVIS AND TRANSVAGon US PELVIS AND [...] by: ANNEL MILNER Date: 2022-07-09 15:36 Normal [facility] Thyroxine T4on 03-17-2022 T4 [Mass/Vol] 6.3 ug/dL Normal 4.5-10.9 [facility] Comment on above: Performed By: #### F T3, T4 #### [address] [address] Parts Technician: Ramiro Blandon MD #### TSH #### [facility] [address] [place], [place] [address]A[place] [address] Parts Technician: Annel García MD Laboratory - Chemistry and C hemistry - challengeon 03-16-2022 Free T3 [Mass/Vol] 2.960 pg/mL Invalid Interpretation Code [place] [facility] T4 [Mass/Vol] 6.3 ug/dL Invalid Interpretation Code [place] [employer] [facility] TSH Qn 0.61 m[IU]/L Invalid Interpretation Code [facility] No Panel Informationon 03-16 ls Invalid Interpretation Code [facility] T3, Freeon 03-16-2022 Free T3 [Mass/Vol] 2.96 pg/mL Normal 2.02-4.43 [facility] Comment on above: Performed By: #### F T3, T4 #### [address] [address] Parts Technician: Ramiro Blandon MD #### TSH #### [facility] [address] [place] [address] Parts Technician: Annel García MD Free T3 [Mass/Vol] 2.96 pg/mL 2.02 - 4. 43 pg/mL [facility] TSHon 03-16-2022 [facility] Thyroid Stim. Horm.on 2021 Thyroid Stim. Horm. 0.61 uIU/mL Normal 0.30-5.00 [facility] Comment on above: Performed By: #### F T3, T4 #### [facility] [address] [place], [place] [id number] Parts Technician: Ramiro Blandon MD #### TSH #### [facility] [address] [place] [address] Parts Technician: Annel García MD US PELVIS AND TRANSVAGon [...] by: ANNEL MILNER Date: 2022-03-15 07:03 Normal [facility] IODINE, SERUM OR PLASMAon Iodine, Serum or Plasma 66.7 ug/L Normal 40.0-92.0 [facility] Comment on above: Result Comment: Limi t of quantitation = 20 Performed By: #### I ODINE #### [facility] [address] [address] [address] Jaci Irene THYROID-STIMULATING IMMUNOGL OBULINon 08-05-2021 Thyroid Sim Immunoglobulin <0.10 Normal 0.00-0.55 [facility] Comment on above: Performed By: #### T ELAINA #### [facility] [address] [address] [address] Jaci Irene T3, TOTAL (TRIIODOTHYRONINE) on 08-04-2021 T3, TOTAL 168 ng/dL Normal 71-180 [facility] Comment on above: Performed By: #### T 3TOTAL ####[facility] [address] [address] Jaci Irene US THYROIDon 08-04-2021 US THYROID [...] SANDHYA BASS Date: 2021-08-04 06:30 Normal [facility] CBC AUTO DIFFon 08-03-2021 BASO # 0.0 103/ul Normal 0.0-0.1 [facility] Comment on above: Performed By: #### C BC #### [facility] [address] [address] [address] Jaci Irene Basophils/100 WBC (Bld) 0.6 % Normal 0.2-2.0 [facility] Comment on above: Performed By: #### C BC #### [facility] [address] [address] [address] Jaci Irene EO # 0.2 103/ul Normal 0.0-0.7 [facility] Comment on above: Performed By: #### C BC #### [facility] [address] [place] [address] Dr. Jaci Irene Eosinophils/100 WBC (Bld) 2.2 % Normal 0.9-7.0 [facility] Comment on above: Performed By: #### C BC #### [facility] [address] [place] [address] Dr. Jaci Irene Erythrocyte distribution width (RBC) [Ratio] 13.5 % Normal 11.0-15.0 [facility] Comment on above: Performed By: #### C BC #### [facility] [address] [place] [address] Dr. Jaci Irene Hematocrit (Bld) [Volume fraction] 40.9 % Normal 36.0-48.0 [facility] Comment on above: Performed By: #### C BC #### [facility] [address] [place] [address] Dr. Jaci Irene Hemoglobin (Bld) [Mass/Vol] 12.8 g/dL Normal 12.0-16.0 [facility] Comment on above: Performed By: #### C BC #### [facility] [address] [place] [address] Dr. Jaci Irene IG # 0.01 10e3/ul Normal 0.00-0.03 [facility] Comment on above: Performed By: #### C BC #### [facility] [address] [place] [address] Dr. Jaci Irene IG % 0.1 % Normal 0.0-0.5 [facility] Comment on above: Performed By: #### C BC #### [facility] [address] [place] [address] Dr. Jaci Irene LYMPH # 2.4 103/ul Normal 1.2-3.8 [facility] Comment on above: Performed By: #### C BC #### [facility] [address] [place] [address] Dr. Jaci Irene Lymphocytes/100 WBC (Bld) 35.3 % Normal 20.5-60.0 [facility] Comment on above: Performed By: #### C BC #### [facility] [address] [place] [address] Dr. Jaci Irene MANUAL DIFF REQ NO Normal [facility] Comment on above: Performed By: #### C BC #### [facility] [address] [place] [address] Dr. Jaci Irene MCH (RBC) [Entitic mass] 27.2 pg Normal 26.7-34.0 [facility] Comment on above: Performed By: #### C BC #### [facility] [address] [place] [address] Dr. Jaci Irene MCHC (RBC) [Mass/Vol] 31.3 g/dL Normal 29.9-35.2 [facility] Comment on above: Performed By: #### C BC #### [facility] [address] [place] [address] Dr. Jaci Irene MCV (RBC) [Entitic vol] 86.8 fL Normal 81.0-99.0 [facility] Comment on above: Performed By: #### C BC #### [facility] [address] [place] [address] Dr. Jaci Irene MONO # 0.6 103/ul Normal 0.3-0.8 [facility] Comment on above: Performed By: #### C BC #### [facility] [address] [place] [address] Dr. Jaci Irene Monocytes/100 WBC (Bld) 8.2 % Normal 1.7-12.0 [facility] Comment on above: Performed By: #### C BC #### [facility] [address] [place] [address] Dr. Jaci Irene NEUT # 3.6 103/ul Normal 1.4-6.5 [facility] Comment on above: Performed By: #### C BC #### [facility] [address] [place] [address] Dr. Jaci Irene Neutrophils/100 WBC (Bld) 53.6 % Normal 43.0-75.0 [facility] Comment on above: Performed By: #### C BC #### [facility] [address] [place], [place] [address] Dr. Jaci Irene Platelet mean volume (Bld) [Entitic vol] 9.3 fL Critically low 9.5-13.5 [facility] Comment on above: Performed By: #### C BC #### [facility] [address] [place], [place] [address] Dr. Jaci Irene PLT 299 103/ul Normal 150-450 [facility] Comment on above: Performed By: #### C BC #### [facility] [address] [address] [address] Jaci Irene RBC 4.71 106/ul Normal 4.20-5.40 [facility] Comment on above: Performed By: #### C BC #### [facility] [address] [place] [address] Dr. Jaci Irene WBC 6.7 103/ul Normal 4.0-11.0 [facility] Comment on above: Performed By: #### C BC #### [facility] [address] [place] [address] Dr. Jaci Irene Laboratory - Chemistry and C hemistry - challengeon 08-03-2021 ALT [Catalytic activity/Vol] 24.0 U/L Invalid Interpretation Code [facility] T3 [Mass/Vol] 168.0 ng/dL Invalid Interpretation Code [facility] T4 [Mass/Vol] 11.0 ug/dL Invalid Interpretation Code [facility] TSH Qn < 0.020 L Invalid Interpretation Code [facility] Laboratory - Hematology and Cell countson 08-03-2021 Basophils/100 WBC (Bld) 0.60 % Invalid Interpretation Code [facility] Eosinophils/100 WBC (Bld) 2.20 % Invalid Interpretation Code [facility] Erythrocyte distribution width (RBC) [Ratio] 13.50 % Invalid Interpretation Code [facility] Hematocrit (Bld) [Volume fraction] 40.90 % Invalid Interpretation Code [employer] [facility] Hemoglobin (Bld) [Mass/Vol] 12.80 g/dL Invalid Interpretation Code [facility] [employer] [facility] Lymphocytes/100 WBC (Bld) 35.30 % Invalid Interpretation Code [place] [employer] [facility] MCH (RBC) [Entitic mass] 27.20 pg Invalid Interpretation Code [place] [employer] [facility] MCHC (RBC) [Mass/Vol] 31.30 g/dL Invalid Interpretation Code [place] [employer] [facility] MCV (RBC) [Entitic vol] 86.80 fL Invalid Interpretation Code [place] [employer] [facility] Monocytes/100 WBC (Bld) 8.20 % Invalid Interpretation Code [employer] [facility] Neutrophils/100 WBC (Bld) 53.60 % Invalid Interpretation Code [place] [employer] [facility] Platelets (Bld) [#/Vol] 299.0 10*3/uL Invalid Interpretation Code [employer] [facility] RBC (Bld) [#/Vol] 4.710 10*6/uL Invalid Interpretation Code [place] [employer] [facility] WBC (Bld) [#/Vol] 6.70 10*3/uL Invalid Interpretation Code [place] [employer] [facility] No Panel Informationon 08-03 ls Invalid Interpretation Code [employer] [facility] < 0.10 Invalid Interpretation Code 0 - 0.55 [place] [employer] [facility] 86.70 ug/L Invalid Interpretation Code [place] [employer] [facility] SGPTon 08-03-2021 ALT [Catalytic activity/Vol] 24 U/L Normal 9-52 [facility] Comment on above: Performed By: #### T SH, ALT, T4 #### [facility] [address] [address] [address] Jaci Irene T4on 08-03-2021 T4 [Mass/Vol] 11.00 ug/dL Normal 5.53-11.00 [facility] Comment on above: Performed By: #### T SH, ALT, T4 #### [facility] [address] [address] [address] Jaci Irene TSHon 08-03-2021 TSH Qn m[IU]/L Critically low 0.470-4.680 [facility] Comment on above: Performed By: #### T SH, ALT, T4 #### [facility] [address] [place] [address] Dr. Jaci Irene TSH RANGE SEE BELOW Normal [facility] Comment on above: Result Comment: <0.3 4 UIU/ml HYPERTHYROID 0.34-5.60 UIU/ml EUTHYROID >5.60 UIU/ml HYPOTHYROID Performed By: #### T SH, ALT, T4 #### [facility] [address] [place] [address] Dr. Jaci Irene No Panel Informationon 04-24 Positive Invalid Interpretation Code P[facility]ESA 1:160 Invalid Interpretation Code [facility]A COMMENT Invalid Interpretation Code [facility] Cytology Cervical or vaginal smear or scraping studyon 07-14-1992 [facility] Vital Signs Date Time Vital Sign Value Performing Clinician Faci lity 06-06-2025 10:05-0400 Body mass index (BMI) [Ratio] 27.96 kg/m2 [employer] Phone: [employer] 06-06-2025 10:05-0400 Body weight 76.2 kg [employer] Phone: [facility] [employer] 06-06-2025 10:05-0400 Diastolic blood pressure 74 mm[Hg] [employer] Phone: [facility] 06-06-2025 10:05-0400 Systolic blood pressure 112 mm[Hg] Aaron Rosemary DO Work Phone: [facility] 05-30-2025 11:29-0400 Body mass index (BMI) [Ratio] 27.87 kg/m2 Benson Rakesh DIRECT CUSTOMER SERVICE REPRESENTATIVE Work Phone: [facility] 05-30-2025 11:29-0400 Body weight 75.98 kg Benson Rakesh DIRECT CUSTOMER SERVICE REPRESENTATIVE Work Phone: [facility] 05-30-2025 11:29-0400 Diastolic blood pressure 76 mm[Hg] Benson Rakesh DIRECT CUSTOMER SERVICE REPRESENTATIVE Work Phone: [facility] 05-30-2025 11:29-0400 Systolic blood pressure 120 mm[Hg] Benson Rakesh DIRECT CUSTOMER SERVICE REPRESENTATIVE Work Phone: [facility] 05-16-2025 08:41-0400 Body mass index (BMI) [Ratio] 27.58 kg/m2 Madiha Moreno PA Work Phone: [facility] 05-16-2025 08:41-0400 Body weight 75.18 kg Madiha Moreno PA Work Phone: [facility] 05-16-2025 08:41-0400 Diastolic blood pressure 72 mm[Hg] Madiha Andalusia PA Work Phone: [facility] 05-16-2025 08:41-0400 Systolic blood pressure 126 mm[Hg] Maidha [place]ia PA Work Phone: [facility] 04-30-2025 09:20-0400 Body mass index (BMI) [Ratio] 26.79 kg/m2 Madiha [place] PA Work Phone: [facility] 04-30-2025 09:20-0400 Body weight 73.03 kg Madiha Chanelle PA Work Phone: [facility] 04-30-2025 09:20-0400 Diastolic blood pressure 74 mm[Hg] Madiha Ruizey PA Work Phone: [facility] 04-30-2025 09:20-0400 Systolic blood pressure 118 mm[Hg] Madiha LOPEZ Work Phone: [facility] 04-16-2025 08:31-0400 Body mass index (BMI) [Ratio] 26.46 kg/m2 Aaron Rosemary DO Work Phone: [facility] 04-16-2025 08:31-0400 Body weight 72.12 kg Aaron Rosemary DO Work Phone: [facility] 04-16-2025 08:31-0400 Diastolic blood pressure 70 mm[Hg] Aaron Rosemary DO Work Phone: [facility] 04-16-2025 08:31-0400 Systolic blood pressure 110 mm[Hg] Aaron Rosemary DO Work Phone: [facility] 04-02-2025 10:17-0400 Body mass index (BMI) [Ratio] 25.96 kg/m2 Madiha LOPEZ Work Phone: [facility] 04-02-2025 10:17-0400 Body weight 70.76 kg Madiha LOPEZ Work Phone: [facility] 04-02-2025 10:17-0400 Diastolic blood pressure 72 mm[Hg] Madiha LOPEZ Work Phone: [facility] 04-02-2025 10:17-0400 Systolic blood pressure 110 mm[Hg] Madiha LOPEZ Work Phone: [facility] 03-05-2025 09:56-0400 Body mass index (BMI) [Ratio] 25.21 kg/m2 Aaron Rosemary DO Work Phone: [facility] 03-05-2025 09:56-0400 Body weight 68.72 kg Aaron Rosemary DO Work Phone: [facility] 03-05-2025 09:56-0400 Diastolic blood pressure 70 mm[Hg] Aaron Rosemary DO Work Phone: [facility] 03-05-2025 09:56-0400 Systolic blood pressure 110 mm[Hg] Aaron Rosemary DO Work Phone: [facility] 02-05-2025 10:23-0400 Body mass index (BMI) [Ratio] 24.1 kg/m2 Madiha Ruizey PA Work Phone: [facility] 02-05-2025 10:23-0400 Body weight 65.68 kg Madiha Ruizey PA Work Phone: [facility] 02-05-2025 10:23-0400 Diastolic blood pressure 68 mm[Hg] Madiha Ruizey PA Work Phone: [facility] 02-05-2025 10:23-0400 Systolic blood pressure 100 mm[Hg] Madiha Moreno PA Work Phone: [facility] 01-07-2025 10:18-0400 Body mass index (BMI) [Ratio] 23.96 kg/m2 Aaron Rosemary DO Work Phone: [facility] 01-07-2025 10:18-0400 Body weight 65.32 kg Aaron Rosemary DO Work Phone: [facility] 01-07-2025 10:18-0400 Diastolic blood pressure 72 mm[Hg] Aaron Rosemary DO Work Phone: [facility] 01-07-2025 10:18-0400 Systolic blood pressure 110 mm[Hg] Aaron Rosemary DO Work Phone: [facility] 08-12-2021 11:02-0500 Body height 163.83 cm [employer] 08-12-2021 11:02-0500 Body mass index (BMI) [Ratio] 23.58 kg/m2 [employer] 08-12-2021 11:02-0500 Body surface area Derived from formula 1.7 m2 [employer] 08-12-2021 11:02-0500 Body weight 63.28 kg [employer] [facility] 08-12-2021 11:02-0500 Diastolic blood pressure 64 mm[Hg] Paul [employer] [facility] 08-12-2021 11:02-0500 Heart rate 72 /min Paul Hutch[employer]view [employer] [facility] 08-12-2021 11:02-0500 Systolic blood pressure 122 mm[Hg] [employer] [facility] 02-08-2013 10:11-0400 BMI (Body Mass Index) 23.69 kg/m2 Deidre [employer] [facility] 02-08-2013 10:11-0400 Body weight 62.6 kg Deidre [employer] [facility] 02-08-2013 10:11-0400 BP Diastolic 62 mm[Hg] Deidre [employer] [facility] 02-08-2013 10:11-0400 BP Systolic 100 mm[Hg] Deidre Tobin[employer]ascot[employer] [facility] 02-08-2013 10:11-0400 BSA (Body Surface Area) 1.68 m2 Deidre [employer] [facility] 02-08-2013 10:11-0400 Height 162.56 cm Deidre [employer] [facility] 02-08-2013 10:11-0400 Pulse (Heart Rate) 66 /min Deidre [employer] [employer] [facility] Encounters Encounter Date Encounter Type Care Provider Facility Start: 06-06-2025 End: 06-06-2025 Bamboo flowsheet Aaron Rosemary DO Work Phone: [facility] Start: 06-06-2025 End: 06-06-2025 Bamboo flowsheet Aaron Rosemary DO Work Phone: [facility] Start: 06-06-2025 End: 06-06-2025 flow sheet Aaron Rosemary DO Work Phone: [facility] Comment on above: Third trimester preg cher ([facility] 36 weeks gestation of ([facility]) Start: 06-06-2025 End: 06-06-2025 ambulatory AARON ROSEMARY Not Available Start: 05-30-2025 End: 05-30-2025 Bamboo flowsheet Benson Rakesh DIRECT CUSTOMER SERVICE REPRESENTATIVE Work Phone: [facility] Start: 05-30-2025 End: 05-30-2025 Bamboo flowsheet Benson Rosasly DIRECT CUSTOMER SERVICE REPRESENTATIVE Work Phone: [facility] Start: 05-30-2025 End: 05-30-2025 flow sheet Benson Cameron DIRECT CUSTOMER SERVICE REPRESENTATIVE Work Phone: [facility] Comment on above: Third trimester preg cher ([facility]); 35 weeks gestation of ([facility]) Start: 05-30-2025 End: 05-30-2025 ambulatory BENSON RAKESH Not Available Start: 05-16-2025 End: 05-16-2025 Bamboo flowsheet Madiha LOPEZ Work Phone: [facility] Start: 05-16-2025 End: 05-16-2025 Bamboo flowsheet Madiha LOPEZ Work Phone: [facility] Start: 05-16-2025 End: 05-16-2025 flow sheet Madiha LOPEZ Work Phone: [facility] Comment on above: Third trimester preg cher ([facility]); 33 weeks gestation of ([facility]) Start: 05-16-2025 End: 05-16-2025 ambulatory MADIHA MORENO Not Available Start: 04-30-2025 End: 04-30-2025 Bamboo flowsheet Madiha LOPEZ Work Phone: [facility] Start: 04-30-2025 End: 04-30-2025 Bamboo flowsheet Madiha LOPEZ Work Phone: [facility] Start: 04-30-2025 End: 04-30-2025 flow sheet Madiha LOPEZ Work Phone: [facility] Comment on above: Third trimester preg cher ([facility]); 31 weeks gestation of ([facility]); Multigravida of advanced maternal age in third trimester ([facility]) Start: 04-30-2025 End: 04-30-2025 ambulatory MADIHA MORENO Not Available Start: 04-16-2025 End: 04-16-2025 Bamboo flowsheet Aaron Rosemary DO Work Phone: [facility] Start: 04-16-2025 End: 04-16-2025 Bamboo flowsheet Aaron Rosemary DO Work Phone: [facility] Start: 04-16-2025 End: 04-16-2025 flow sheet Aaron Rosemary DO Work Phone: [facility] Comment on above: Third trimester preg cher ([facility]); 29 weeks gestation of ([facility]); Multigravida of advanced maternal age in third trimester ([facility]) Start: 04-16-2025 End: 04-16-2025 ambulatory AARON ROSEMARY [...] Comment on above: Second trimester pre gnancy ([facility]); 27 weeks gestation of ([facility] [facility]) Start: 04-02-2025 End: 04-02-2025 ambulatory MADIHA MORENO Not Available Start: 03-05-2025 End: 03-05-2025 Bamboo flowsheet Aaron Rosemary DO Work Phone: [facility] Start: 03-05-2025 End: 03-05-2025 Bamboo flowsheet Aaron Rosemary DO Work Phone: [facility] Start: 03-05-2025 End: 03-05-2025 flow sheet Aaron Rosemary DO Work Phone: [facility] Comment on above: Diabetes mellitus sc reening; Second trimester ([facility]); 23 weeks gestation of ([facility]) Start: 03-05-2025 End: 03-05-2025 ambulatory AARON [...] External Result Encounter Madiha LOPEZ Work Phone: [facility] External Department Unsolicited Start: 02-05-2025 End: 02-05-2025 Patient encounter procedure Madiha LOPEZ Work Phone: [facility] Healthcare Start: 02-05-2025 End: 02-05-2025 Periodic preventive med est patient 18-39 yrs Madiha LOPEZ Work Phone: [facility] Comment on above: 19 weeks gestation o f ; Second trimester ; Well woman exam with routine gynecological exam; Exposure to STD; Vaginal discharge; Screening, , for anatomic survey Start: 02-05-2025 End: 02-05-2025 ambulatory MADIHA CHANELLE Not Available Start: 01-28-2025 Office outpatient vi sit 25 minutes Vladimir Dunaway Other [facility] Office Start: 01-07-2025 End: 01-07-2025 Bamboo flowsheet Aaron Rosemary DO Work Phone: [facility] Start: 01-07-2025 End: 01-07-2025 Bamboo flowsheet Aaron Rosemary DO Work Phone: [facility] Start: 01-07-2025 End: 01-07-2025 flow sheet Aaron Rosemary DO Work Phone: [facility] Comment on above: Second trimester pre gnancy; 15 weeks gestation of Start: 01-07-2025 End: 01-07-2025 ambulatory AARON ROSEMARY Not Available Start: 12-06-2024 End: 12-06-2024 ambulatory AARON ROSEMARY Not Available Start: 08-17-2024 End: 08-17-2024 Subsequent hospital visit by physician [facility] Walk [facility] Comment on above: Acute cystitis with hematuria Start: 08-17-2024 ambulatory JOY TRAMMELL [facility] Start: 05-23-2024 Office outpatient vi sit 15 minutes Vladimir Dunaway Other [facility] Office Start: 11-21-2023 Office outpatient vi sit 15 minutes Vladimir Dunaway Other [facility] Office Start: 10-10-2023 Office outpatient vi sit 15 minutes Vladimir Dunaway Other [facility] Office Start: 07-06-2023 Office outpatient vi sit 25 minutes Vladimir Dunaway Other [facility] Office Start: 04-18-2023 Lab Vladimir flores Other [facility] Office Start: 03-03-2023 Office outpatient vi sit 15 minutes Vladimir Dunaway Other [facility] Office Start: 01-11-2023 Office outpatient vi sit 15 minutes Vladimir Dunaway Other [facility] Office Start: 10-14-2022 Office outpatient vi sit 25 minutes Vladimir Dunaway Other [facility] Office Start: 08-10-2022 End: 08-11-2022 ambulatory [facility] Start: 07-15-2022 End: 07-15-[address] AARON RILEY Facility:[facility]1 Start: 07-09-2022 End: 07-10-[address] RIVERA LISTED REQUEST Facility:[facility] Start: 06-08-2022 Office outpatient vi sit 25 minutes Vladimir Dunaway Other [facility] Office Start: 03-16-2022 End: 03-17-2022 ambulatory PAUL Davis [facility] Start: 03-16-2022 End: 03-16-2022 Subsequent hospital visit by physician Prudence Aguilar MD Work Phone: [facility] Start: 03-13-2022 End: 03-14-[address] ANNEL MILNER Facility:[facility] Start: 12-18-2021 Office outpatient vi sit 15 minutes Vladimir Dunaway Other [facility] Office Start: 11-09-2021 Office outpatient vi sit 25 minutes Vladimir Dunaway Other [facility] Office Start: 08-12-2021 Office consultation new/estab patient 80 min Paul Duran Other [facility] Office Start: 08-03-2021 End: 08-04-[address] NONE LISTED REQUEST Facility: Start: 10-28-2020 Office outpatient vi sit 15 minutes Vladimir Dunaway Other [facility] Office Start: 06-06-2020 Office outpatient vi sit 15 minutes Vladimir Dunaway Other [facility] Office Start: 04-24-2020 Office outpatient vi sit 15 minutes Vladimir Dunaway Other [facility] Office Start: 02-18-2020 Office outpatient ne w 20 minutes Deidre Addison Other [facility] Office Start: 08-24-2017 End: 08-24-2017 Ambulatory [facility] Start: 08-24-2017 Office outpatient vi sit 10 minutes Tasia Grady Work Phone: [facility] Start: 08-22-2017 End: 08-26-2017 Ambulatory TASIA [facility] Start: 08-22-2017 Office outpatient vi sit 15 minutes Tasia Grady Work Phone: [facility] Start: 02-08-2013 Office Services Paul padilla Other [facility] Office Procedures Date Procedure Procedure Detail Performing Clinician Start: 06-06-2025 Urnls dip stick/tabl et rgnt non-auto w/o micrscp Aaron Riley DO Work Phone: Start: 05-30-2025 Urnls dip stick/tabl et rgnt non-auto w/o micrscp Benson Cameron NP Work Phone: Start: 05-16-2025 Urnls [...] micrscp Aaron Rosemary DO Work Phone: Start: 05-23-2024 Docrev cur meds by odalys Dunaway Start: 11-21-2023 Docrev cur meds by odalys Dunaway Start: 10-10-2023 Docrev cur meds by odalys Dunaway Start: 07-06-2023 Docrev cur meds by odalys Dunaway Start: 04-15-2023 Thyroid stimulating hormone margareth Dunaway Start: 01-11-2023 Docrev cur meds by odalys Dunaway Start: 10-14-2022 Docrev cur meds by valentín zari Dunaway Start: 07-29-2022 Thyroid stimulating hormone measurement Vladimir Dunaway Start: 07-29-2022 Thyroxine measurement Belinda Dunaway Start: 07-29-2022 Tri-iodothyronine measurement, total Vladimir Dunaway Start: 06-08-2022 Docrev cur meds by [facility] zari Dunaway Start: 03-16-2022 Assay of thyroid sti mulating hormone tsh Paul Duran MD Work Phone: Start: 03-12-2022 Thyroid stimulating hormone measurement Vladimir Dunaway Start: 03-12-2022 Thyroxine measurement Belinda Nuñezns Start: 03-12-2022 Tri-iodothyronine measurement, total Vladimir Dunaway Start: 12-18-2021 Docrev cur meds by odalys Dunaway Start: 11-12-2021 Thyroid stimulating hormone measurement Vladimir Dunaway Start: 11-12-2021 Thyroxine measurement Belinda Nuñezns Start: 11-12-2021 Tri-iodothyronine measurement, total Vladimir Dunaway Start: 11-09-2021 Docrev cur meds by [facility] Vladimir Dunaway Start: 08-12-2021 Docrev cur meds by [facility] Paul Duran Start: 08-05-2021 Alanine aminotransfe rase measurement Paul Duran Start: 08-05-2021 Erythrocyte mean cor puscular volume determination Paul Duran Start: 08-05-2021 Mass spectrometry measurement Paul Duran Start: 08-05-2021 Thyroid stimulating hormone measurement Paul Duran Start: 08-05-2021 Thyroid stimulating immunoglobulins measurement Paul Duran Start: 08-05-2021 Thyroxine measurement L vinnie Maryana Start: 08-05-2021 Tri-iodothyronine measurement, total Paul Duran Start: 08-03-2021 US scan of thyroid Beckie Duran Start: 10-28-2020 Doc meds verified w/pt [...] DTaP/Tdap/Td vaccine (2 - Td or Tdap) [facility] Start: 06-17-2025 End: 06-17-2025 Patient encounter procedure 06/17/2025 1:20 PM EDT Office Visit AJAY CAMERON [address] [place] [address] Benson Cameron, DIRECT CUSTOMER SERVICE REPRESENTATIVE [address] [place] [address] [facility] [place] [facility] Start: 06-06-2025 End: 06-06-2025 Patient encounter procedure [facility] Comment on above: Arrived Start: 05-30-2025 End: 05-30-2026 CULTURE, GROUP B STREP WITH SUSCEPTIBLITY CULTURE, GROUP B STREP WITH SUSCEPTIBLITY Lab Routine Third trimester ([facility]) Expected: 05/30/2025, Expires: 05/30/2026 [facility] Work Phone: Comment on above: Expected: 05/30/2025 , Expires: 05/30/2026 Start: 05-30-2025 End: 05-30-2025 Patient encounter procedure [facility] Comment on above: Arrived Start: 05-16-2025 End: 05-16-2025 Patient encounter procedure 05/16/2025 8:30 AM EDT Routine [facility] [place] [facility] [address] [place] [address] Madiha Moreno, PA [address] [place], [place] [id number] Arrived [facility] Comment on above: Arrived Start: 05-14-2025 End: 05-14-2025 Patient encounter procedure 05/14/2025 10:30 AM EDT Routine [facility] [address] [place] [phone] Aaron Riley, [address] [place], [place] [id number] [facility] Start: 04-30-2025 End: 04-30-2025 Patient encounter procedure [facility] Comment on above: Arrived Start: 04-30-2025 End: 04-30-2025 Professional / ancillary services management 04/30/2025 8:30 AM EDT Ancillary Procedure [facility] [address] [place] [id number] [facility] Start: 04-16-2025 End: 04-16-2025 Patient encounter procedure [facility] Comment on above: Arrived Start: 04-02-2025 End: 04-02-2025 Patient encounter procedure 04/02/2025 10:30 AM EDT Routine [facility] [address] [place] [id number] Madiha Moreno PA [address] [facility] [address] [facility] [address] [place], [place] [id number] Arrived [facility] Comment on above: Arrived Start: 03-05-2025 End: 03-05-2026 CBC panel - Blood by Automated count CBC Lab Routine Diabetes mellitus screening Expected: 03/05/2025 (Approximate), Expires: 03/05/2026 [facility] Work Phone: Comment on above: [...] for anatomic survey Expected: 02/05/2025, Expires: 05/08/2025 [facility] Healthcare Comment on above: Expected: 02/05/2025 , Expires: 05/08/2025 Start: 02-05-2025 End: 02-05-2025 Patient encounter procedure [facility] Comment on above: Arrived Start: 01-07-2025 End: 01-07-2025 Patient encounter procedure 01/07/2025 10:10 AM EDT Routine [facility] [address] [place] [phone] Aaron Riley, [address] [facility] [address] [place] [address] Arrived [facility] Comment on above: Arrived Start: 05-20-2024 COVID-19 Vaccine () COVID-19 Vaccine () [facility] Start: 04-19-2024 Influenza vaccination Flu vaccine (# 1) [facility] Start: 04-15-2023 Assay of thyroid stimulating hormone tsh TSH [facility] Start: 07-29-2022 Assay of thyroid stimulating hormone tsh TSH [facility] Start: 07-29-2022 Assay of thyroxine total T4 [facility] Start: 07-29-2022 Assay of triiodothyr onine t3 total tt3 T3 total [facility] Start: 05-20-2022 Influenza vaccination Flu vacc ine (Season Ended) [facility] Start: 03-12-2022 Assay of thyroid stimulating hormone tsh TSH [facility] Start: 03-12-2022 Assay of thyroxine total T4 [facility] Start: 03-12-2022 Assay of triiodothyr onine t3 total tt3 T3 total [facility] Start: 11-12-2021 Assay of thyroid stimulating hormone tsh TSH [facility] Start: 11-12-2021 Assay of thyroxine total T4 [facility] Start: 11-12-2021 Assay of triiodothyr onine t3 total tt3 T3 total [facility] Start: 08-05-2021 Assay of thyroid stimulating hormone tsh TSH [facility] Start: 08-05-2021 Assay of thyroxine total T4 [facility] Start: 08-05-2021 Assay of triiodothyr onine t3 total tt3 T3 total [facility] Start: 08-05-2021 Blood count complete automated CBC & PLATELET COUNT; AUTOMATED [facility] Start: 08-05-2021 Mass spect&tandem ma ss spect nondrg anal jolanta ea IODINE,SERUM [facility] Start: 11-17-2021 Thyroid stimulating immune globulins tsi TSI (thyroid stimulating immunoglobulin) [facility] Start: 08-05-2021 Transferase alanine amino alt sgpt SGPT (ALT) [facility] Start: 08-03-2021 US scan of thyroid Thyroid ultrasoun d [facility] Start: 04-24-2020 ANTINUCLEAR ANTIBODIES GHAZAL Hep 2 [facility] Start: 2018 Screening for malign ant neoplasm of cervix [facility] Start: 08-24-2017 Ambulatory 08/24/2017 Off ice Visit Dermatology Tasia Grady Jr., [address] [address] [phone] [facility] Start: 05-20-2017 Influenza vaccination SEQUENTI AL INFLUENZA VACCINE (#1) [facility] Work Phone: Start: 2009 Screening for malign ant neoplasm of cervix Pap smear [facility] Start: 12-06-2007 Hepatitis B vaccine (1 of 3 - 19+ 3-dose series) Hepatitis B vaccine (1 of 3 - 19+ 3-dose series) [facility] Start: 2006 Hepatitis C screening Hepatitis C sc reen [facility] Start: 12-06-2003 HIV screening HIV screen [facility] Start: 2001 Varicella vaccine (1 of 2 - 13+ 2-dose series) Varicella vaccine (1 of 2 - 13+ 2-dose series) [facility] Start: 2000 Depression Screen Depression Screen [facility] Start: 1994 Pneumococcal 0-64 ye ars Vaccine (1 of 2 - PCV) Pneumococcal 0-64 years Vaccine (1 of 2 - PCV) [facility] Start: 1993 COVID-19 Vaccine (1) COVID-19 Vaccin e (1) [facility] Start: 1989 Varicella vaccine (1 of 2 - 2-dose childhood series) Varicella vaccine (1 of 2 - 2-dose childhood series) [facility] Start: 1988 Screening for malign ant neoplasm of cervix PAP SMEAR [facility] Work Phone: Start: 1988 Tetanus vaccination TETANUS EVERY 10 YR [facility] Work Phone: CHLAMYDIA TRACHOMATI S (GENITO/STI) CHLAMYDIA TRACHOMATIS (GENITO/STI) Lab Routine Exposure to STD Ordered: 02/05/2025 [facility] Comment on above: Ordered: 02/05/2025 End: 08-17-2024 Culture, Urine [facility] Work Phone: Comment on above: 1 Occurrences starti ng 08/17/2024 until 08/17/2024 Cytology Cervical or vaginal smear or scraping study Pap Smear Pathology and Cytology Routine Well woman exam with routine gynecological exam Ordered: 02/05/2025 [facility] Work Phone: Comment on above: Ordered: 02/05/2025 Human papilloma viru s DNA [Presence] in Unspecified specimen by Probe with amplification HPV DNA probe, amplified Microbiology Routine Well woman exam with routine gynecological exam Ordered: 02/05/2025 [facility] Comment on above: Ordered: 02/05/2025 Neisseria gonorrhoea e DNA [Presence] in Unspecified specimen by JULIANNA with probe detection Neisseria gonorrhea DNA probe, direct Lab Routine Exposure to STD Ordered: 02/05/2025 [facility] Comment on above: Ordered: 02/05/2025 SURESWAB(R) ADVANCED VAGINITIS PLUS, TMA SURESWAB(R) ADVANCED VAGINITIS PLUS, TMA Pathology and Cytology Routine Vaginal discharge Ordered: 02/05/2025 [facility] Comment on above: Ordered: 02/05/2025 End: 03-16-2022 T4 [facility] Work Phone: Comment on above: Once for 1 Occurrenc es starting 03/16/2022 until 03/16/2022 Immunizations Immunization Date Immunization Notes Care Provider Aziza kearney 07-25-2020 influenza, injectabl e, quadrivalent, preservative free [facility] 07-23-2019 Influenza, injectabl e, Madin [place] Canine Kidney, preservative free, quadrivalent [facility] 07-06-2019 tetanus toxoid, redu shira diphtheria toxoid, and acellular pertussis vaccine, adsorbed [facility] Schedule [facility] Payers Date Payer Category Payer Private Health Insurance [id number] 1 2012 Private Health Insurance [id number] 1 2011 Managed Care O (unspecified) [employer] [id number] 1988 Unknown [id number] 9.2.593 1988 Unknown [id number] 2.840.1.225085.3.57 9.2.593 1988 Unknown [id number] 9.2.593 1988 Unknown [id number] [id number] 9.2.593 1988 Unknown [id number] 2.16840.1.596035.3.57 9.2.173 1988 Unknown [id number] 2.16840.1.605546.3.57 9.2.173 1988 Unknown [id number] 2.16840.1.759990.3.57 9.2.754 1988 Unknown [id number] 2.16.840.1.130309.3.57 9.2.1259 1988 Unknown [id number] 2.16.840.1.183497.3.57 9.2.1259 1988 Unknown [id number] 2.16.840.1.157578.3.57 9.2.1259 1988 Unknown [id number] 2.16.840.1.392696.3.57 9.2.1259 1988 Unknown [id number] 2.16.840.1.231676.3.57 9.2.1259 1988 Unknown [id number] 2.16.840.1.765747.3.57 9.2.1259 1988 Unknown [id number] 2.16.840.1.295603.3.57 9.2.1259 1988 Unknown [id number] 2.16.840.1.452668.3.57 9.2.1259 1988 Unknown [id number] 2.16.840.1.269738.3.57 9.2.1259 1988 Unknown [id number] 2.16.840.1.882427.3.57 9.2.1259 1988 Unknown [id number] 2.16.840.1.640137.3.57 9.2.1258 1988 Unknown [id number] [id number] 9.2.1259 1959 Private Health Insurance [id number] 9.13 Social History Date Type Detail Facility Start: End: 08-24-2017 Tobacco smoking status [facility] Never smoker [facility] Start: 1990 Sex Assigned At Not on file O Metrilo Work Phone: Start: Alcohol [facility] Start: 10-30-2014 End: 04-26-2024 Alcohol intake Current non-drinker of alcohol (finding) LUPE HERNANDEZ [facility] Work Phone: Start: 04-26-2024 History of Social function [facility] Work Phone: Start: 04-26-2024 Tobacco use panel [facility] Work Phone: Tobacco smoking status NHIS Tobacco smoking consumption unknown [facility] Start: 10-06-2024 [facility] Clinical Notes 01-07-2025 to 06-06-2025 Imelda Mackay LPN - 06/06/2025 10:00 AM EDTBenson Cameron NP - 05/30/2025 11:30 AM JOHN Lacey - 05/16/2025 8:30 AM JOHN Lacey - 04/30/2025 9:00 AM EDT Note Date & Type Note Facility 06-06-2025 History of Presen t illness Narrative Reason for Appointment: Patient ID: Lesia Gonzalez is a 34 y.o. female who presents for Routine Visit Patient presents today for Return OB appointment. 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) 04/30/2025 Resolved Ambulatory Problems Diagnosis Date Noted [...] nursing note reviewed. Exam conducted with a optimization specialist present. Vitals: Estimated body mass index is 27.96 kg/m as calculated from the following: Height as of 07/14/22: 5' 5 . Weight as of this encounter: 168 lb. BP: 112/74 Patient's last menstrual period was 09/22/2024. ASSESSMENT & PLAN ICD-10-CM 1. Third trimester ([facility]) Z34.93 POCT urinalysis dipstick manually resulted 2. 36 weeks gestation of ([facility]) Z3A.36 Patient presents today for a routine obstetrics appointment. Patient is currently 36w5d with a Estimated Date of Delivery: 06/29/25. Patient scheduled for repeat on 06/10/25. Patient to return to clinic 1 week post operative appointment. Documented by Imelda Mackay LPN on behalf of: Aaron Riley DO documented in this encounter [facility] 05-30-2025 History of Presen t illness Narrative Reason for Appointment: Patient ID: Lesia Gonzalez is a 34 y.o. female who presents for Routine Visit Patient presents today for Return OB appointment. 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 Exam conducted with a optimization specialist present. Vitals: Estimated body mass index is 27.87 kg/m as calculated from the following: Height as of 07/14/22: 5' 5 . Weight as of this encounter: 167 lb 8 oz. BP: 120/76 Patient's last menstrual period was 09/22/2024. ASSESSMENT & PLAN ICD-10-CM 1. Third trimester ([facility]) Z34.93 POCT urinalysis dipstick manually resulted CULTURE, GROUP B STREP WITH SUSCEPTIBLITY CULTURE, GROUP B STREP WITH SUSCEPTIBLITY 2. 35 weeks gestation of ([facility]) Z3A.35 Patient is doing well but [...] by Ana Freeman LPN on behalf of: Benson Cameron NP documented in this encounter [facility] 05-16-2025 History of Presen t illness Narrative Reason for Appointment: Patient ID: Lesia Gonzalez is a 34 y.o. female who presents for Routine Visit Patient presents today for Return OB appointment. 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 Third trimester ([facility]) Z34.93 POCT urinalysis dipstick manually resulted 2. 33 weeks gestation of ([facility]) Z3A.33 Return OB: Patient presents today for [...] of: JOHN Garcia documented in this encounter [facility] 04-30-2025 History of Presen t illness Narrative Reason for Appointment: Patient ID: Lesia Gonzalez is a 34 y.o. female who presents for Routine Visit Patient presents today for Return OB appointment. 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 Third trimester ([facility]) Z34.93 POCT urinalysis dipstick manually resulted 2. 31 weeks gestation of ([facility]) Z3A.31 3. Multigravida of advanced maternal age in third trimester ([facility]) O09.523 Return OB: Patient presents today [...] of: JOHN Garcia documented in this encounter [facility] 04-16-2025 History of Presen t illness Narrative Reason for Appointment: Patient ID: Lesia Gonzalez is a 34 y.o. female who presents for Routine Visit Patient presents today for Return OB appointment. MEDICATIONS Current Outpatient Medications Medication Instructions Magnesium 400 mg, Daily [place]-3 Fatty Acids (OMEGA-3 CF PO) 1 each, [...] nursing note reviewed. Exam conducted with a optimization specialist present. Vitals: Estimated body mass index is 26.46 kg/m as calculated from the following: Height as of 07/14/22: 5' 5 . Weight as of this encounter: 159 lb. BP: 110/70 Patient's last menstrual period was 09/22/2024. ASSESSMENT & PLAN ICD-10-CM 1. Third trimester ([facility]) Z34.93 POCT urinalysis dipstick manually resulted 2. 29 weeks gestation of ([facility]) Z3A.29 3. Multigravida of advanced maternal age in third trimester ([facility]) O09.523 Return OB: Patient presents today [...] Aaron Riley DO documented in this encounter [facility] 04-02-2025 History of Presen t illness Narrative Reason for Appointment: Patient ID: Lesia Gonzalez is a 34 y.o. female who presents for Routine Visit Patient presents today for Return OB appointment. MEDICATIONS Current Outpatient Medications Medication Instructions Magnesium 400 mg, Daily [place]-3 Fatty Acids (OMEGA-3 CF PO) 1 each, [...] ASSESSMENT & PLAN ICD-10-CM 1. Second trimester ([facility]) Z34.92 POCT urinalysis dipstick manually resulted 2. 27 weeks gestation of ([facility]) Z3A.27 Return OB: Patient presents [...] Medications Medication Instructions Magnesium 400 mg, Daily [place]-3 Fatty Acids (OMEGA-3 CF PO) 1 each, [...] ASSESSMENT & PLAN ICD-10-CM 1. Second trimester ([facility]) Z34.92 POCT urinalysis dipstick manually resulted 2. 27 weeks gestation of ([facility]) Z3A.27 Return OB: Patient presents [...] of: JOHN Garcia documented in this encounter [facility] 03-05-2025 History of Presen t illness Narrative Reason for Appointment: Patient ID: Lesia Gonzalez is a 34 y.o. female who presents for Routine Visit Patient presents today for Return OB appointment. MEDICATIONS Current Outpatient Medications Medication Instructions Magnesium 400 mg, Daily [place]-3 Fatty Acids (OMEGA-3 CF PO) 1 each, [...] Glucose tolerance, 1 hour 2. Second trimester ([facility]) Z34.92 POCT urinalysis dipstick manually resulted 3. 23 weeks gestation of ([facility]) Z3A.23 Return OB: Patient presents today [...] Aaron Riley DO documented in this encounter [facility] 02-05-2025 History of Presen t illness Narrative Reason for Appointment: Patient ID: Lesia Gonzalez is a 34 y.o. female who presents for No chief complaint on file. Patient presents today for Annual Exam. and Return OB appointment. MEDICATIONS Current Outpatient Medications Medication Instructions Magnesium 400 mg, Daily [place]-3 Fatty Acids (OMEGA-3 CF PO) 1 each, [...] nursing note reviewed. Exam conducted with a optimization specialist present. Vitals: Estimated body mass index [...] obtained without difficulty and patient was given [facility] order to have obtained. Orders Placed This [...] of: JOHN Garcia documented in this encounter [facility] 01-07-2025 History of Presen t illness Narrative Reason for Appointment: Patient ID: Lesia Gonzalez is a 34 y.o. female who presents for Routine Visit Patient presents today for Return OB appointment. MEDICATIONS Current Outpatient Medications Medication Instructions Magnesium 400 mg, Daily [place]-3 Fatty Acids (OMEGA-3 CF PO) 1 each, [...] nursing note reviewed. Exam conducted with a optimization specialist present. Vitals: Estimated body mass index [...] or undercooked meat, and stay away from [facility]. Patient has been consulted regarding any further [...] Aaron Riley DO documented in this encounter [facility] Evaluation note Diagnosis Acute cystitis with hematuria Acute cystitis documented in this encounter [facility] Work Phone: evaluation note* Diagnosis Second trimester state, incidental 15 weeks gestation of documented in this encounter [facility] HealthcareEvaluation note* Diagnosis 19 weeks gestation of Second trimester state, incidental Well woman exam with routine gynecological exam Routine gynecological examination Exposure to STD Vaginal discharge Leukorrhea, not specified as infective Screening, , for anatomic survey Encounter for anatomic survey documented in this encounter [facility] HealthcareEvaluation note* Diagnosis Diabetes mellitus screening Screening [...] note* Diagnosis Third trimester ([facility]) state, incidental 36 weeks gestation of ([facility]) documented in this [...] FoundDocuments on File Type Date Recorded Patient Professional Bondsman Expl anation ACP-Advance Directive ACP-Power of Technical Specialist Cytology Additional Source Comments INFORMATION SOURCE (unrecogn ized section and content) DATE CREATED AUTHOR 03/14/2018 [facility] on Area Physicians DATE CREATED AUTHOR AUTHOR'S ORGANIZ ATION 07/22/2022 [facility] DATE CREATED AUTHOR AUTHOR'S ORGANIZ ATION 08/12/2022 [facility] DATE CREATED AUTHOR AUTHOR'S ORGANIZ ATION 08/19/2024 [facility] DATE CREATED AUTHOR AUTHOR'S ORGANIZ ATION 08/19/2024 [facility] DATE CREATED AUTHOR AUTHOR'S ORGANIZ ATION 06/07/2025 [facility] dical Specialists EPIC Care Teams (unrecognized sec tion and content) Manager Landscape Relationship Specialty Start Date End Date Prudence Aguilar MD [address] [facility] [place] [address] PCP - General 12/27/20 Manager Landscape Relationship Specialty Start Date End Date Prudence Aguilar MD [address] [place] [address] PCP - General 12/27/20 Manager Landscape Relationship Specialty Start Date End Date Prudence Aguilar MD [address] [place] [address] PCP - General Family Medicine 11/15/24 Manager Landscape Relationship Specialty Start Date End Date Prudence Aguilar MD [address] [place], [place] [id number] PCP - General Family Medicine 11/15/24 Manager Landscape Relationship Specialty Start Date End Date Prudence Aguilar MD [address] [place], [place] [phone] PCP - General Family Medicine 11/15/24 Manager Landscape Relationship Specialty Start Date End Date Prudence Aguilar MD [address] [place], [place] [phone] PCP - General Family Medicine 11/15/24 Manager Landscape Relationship Specialty Start Date End Date Prudence Aguilar MD [address] [place] [address] PCP - General Family Medicine 11/15/24 Reason [...] BE BASED ON THE PRIMARY CLINICAL RECORDS. [facility] [employer] [facility]. provides no warranty or guarantee of the accuracy or completeness of information in this document.
--- OUTSIDE RECORDS SUMMARY | 2025-06-10 05:20 | XMS_ITS | Encounter Summary ---
Author Organization [facility] Address [address] [place] [place] [address] Care Team Providers Care Build And Deployment Engineer Name Role Phone José Aguilar MD Primary Care Provider Encounter Details Date Type Department Care Team (Late Contact Info) Description 05/27/2025 Abstract [facility] [address] [place] [address] Aaron Riley DO [address] [place]oun[place]y, [facility]11 Social History Tobacco Use Types Packs/Day [...] PM EDT Office Visit AJAY CAMERON [address] [place] [place] [address] Nati Cameron, AMNA [address] [place] [address] documented as of this encounter Visit Diagnoses Not on filedocumented in this encounter Care Teams Build And Deployment Engineer Relationship Specialty Start Date End Date José Aguilar MD [address] [place] [address] PCP - General Family Medicine 11/15/24 documented as of this encounter
--- OUTSIDE RECORDS SUMMARY | 2025-06-10 05:20 | XMS_ITS | Clinical Summary ---
Author Organization [facility] Address [address] [place] [address] Care Team Providers Care Plaster Molder Name Role Phone Unavailable Primary Care Provider [...]
--- OUTSIDE RECORDS SUMMARY | 2025-06-10 05:20 | XMS_ITS | Encounter Summary ---
Author Organization [facility] Address [address], [address] [place] [address] Care Team Providers Care Block Breaker Name Role Phone José Aguilar MD Primary Care Provider [phone] Reason for Visit * Reason Onset Date Comments lice 05/27/2025 Encounter Details Date Type Department Care Team (Late st Contact Info) Description 05/27/2025 Telephone [facility] Primary Care [address] [place] [address] José Aguilar MD [address] [place] [address] lice Social History Tobacco Use Types Packs/Day [...] on filedocumented in this encounter Care Teams Block Breaker Relationship Specialty Start Date End Date José Aguilar MD [address] [place] [address] PCP - General 12/27/20 documented as of this encounter
--- OUTSIDE RECORDS SUMMARY | 2025-06-10 05:20 | XMS_ITS | Encounter Summary ---
Author Organization [facility] Address [address] [place] [address] Care Team Providers Care Greaser Operator Name Role Phone José Aguilar MD Primary Care Provider [phone] Encounter Details Date Type Department Care Team (Late st Contact Info) Description 05/30/2025 Bamboo flowsheet [facility] [address] [place] [address] Nati Cameron, TECHNICAL SERVICES COORDINATOR [address] [place] [address] Social History Tobacco Use Types Packs/Day [...] Description 06/17/2025 1:20 PM EDT Office Visit [facility] [address] [place] [address] Nati Cameron, TECHNICAL SERVICES COORDINATOR [address] [place] [address] documented as of this encounter Visit Diagnoses Not on filedocumented in this encounter Care Teams Greaser Operator Relationship Specialty Start Date End Date José Aguilar MD [address] [place] [address] PCP - General Family Medicine 11/15/24 documented as of this encounter
--- OUTSIDE RECORDS SUMMARY | 2025-06-10 05:20 | XMS_ITS ---
Author Organization [facility] Source Produ ction (ClinicalSummary Clone) Address Unknown Care Team Providers Care Shipping Room Helper Name Role Phone Unavailable Primary Care Physician Unavailab le Results * [UNITY] ANEUPLOIDY NIPT Performed by: Source MDx Component Value Range Date Fraction 11.8% 12/17/2024 05 :37 pm UTC Rh(D) NIPT RhD DETECTED 12/17/2024 05:3 7 pm UTC Sex Chromosome Aneuploidy NOT DETECTED 05:37 pm UTC Monosomy X LOW RISK <1 in 10,000 2024 05:37 pm UTC Trisomy 13 LOW RISK <1 in 10,000 2024 05:37 pm UTC Trisomy 18 LOW RISK <1 in 10,000 2024 05:37 pm UTC Trisomy 21 LOW RISK <1 in 10,000 2024 05:37 pm UTC Sex FEMALE 12/17/2024 05:3 7 pm UTC Gestation OLIVEROS 12/18/19 05:37 pm UTC For detailed report, see PDF See PDF 12/17/2024 05:37 pm UTC 12/17/2024 05:3 7 pm UTC Social History Observation Value Start Date End Date
--- OUTSIDE RECORDS SUMMARY | 2025-06-10 05:20 | XMS_ITS | Encounter Summary ---
Author Organization [facility] Address [address] [place] [address] Care Team Providers Care Staffing Mgr Name Role Phone José Aguilar MD Primary Care Provider [phone] Encounter Details Date Type Department Care Team (Late Contact Info) Description 12/18/2024 Abstract [facility] [address] [place] [address] Aaron Riley DO [address] Mounika Bundy, [facility]11 Social History Tobacco Use Types Packs/Day Years [...] PM EDT Office Visit AJAY CAMERON [address] [place] [address] Nati Cameron, AMNA [address] [place] [address] documented as of this encounter Visit Diagnoses Not on filedocumented in this encounter Care Teams Staffing Mgr Relationship Specialty Start Date End Date José Aguilar MD [address] [place] [address] PCP - General Family Medicine 11/15/24 documented as of this encounter
--- OUTSIDE RECORDS SUMMARY | 2025-06-10 05:20 | XMS_ITS | Encounter Summary ---
Author Organization [facility] Address [address] [place] [address] Care Team Providers Care Aitchbone Breaker Name Role Phone José Aguilar MD Primary Care Provider [phone] Encounter Details Date Type Department Care Team (Late Contact Info) Description 05/16/2025 Abstract [facility] [address] [place] [address] Aaron Riley DO [address] Mounika Bundy, [facility]11 Social History Tobacco Use Types Packs/Day Years [...] PM EDT Office Visit AJAY CAMERON [address] [place] [address] Nati Cameron, AMNA [address] [place] [address] documented as of this encounter Visit Diagnoses Not on filedocumented in this encounter Care Teams Aitchbone Breaker Relationship Specialty Start Date End Date José Aguilar MD [address] [place] [address] PCP - General Family Medicine 11/15/24 documented as of this encounter
--- OUTSIDE RECORDS SUMMARY | 2025-06-10 05:20 | XMS_ITS | Clinical Summary ---
Author Organization [facility] Address [address] [facility], [address] [place] [address] Care Team Providers Care Hacksaw Inspector Name Role Phone José Aguilar MD Primary Care Provider [phone] Allergies Active Allergy Reactions Criticality Noted Date Comments Doxycycline Other (See Comments) Medium 07/09/2021 Autoimmune reaction Minocycline Other (See Comments) Medium 07/09/2021 Autoimmune reaction Medications Benzoyl Peroxide (BENZEPRO CREAMY WASH) 7 % LIQD Apply 1 application topically daily 6 Active Clindamycin Phos-Benzoyl Perox (ONEXTON) 1.2-3.75 % GEL Apply 1 application topically daily 6 Active clotrimazole-b etamethasone (LOTRISONE) 1-0.05 % cream Apply topically 2 times daily. 15 g 5 Active Clindamycin-Be nzoyl Per, Refr, 1.2-5 % GEL 5 Active terbinafine (LAMISIL) 1 % creamIndicatio ns:Tinea corporis Apply topically 2 times daily. 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, unspecified 02/08/2013 Estimated Date of Delivery Comme nts Yes 06/29/2025 Resolved Problems Problem Noted Date Diagnosed Date Resolved Date Encounter for screening for diabetes mellitus 10/16/19 21 06/17/2022 Encounters Date Type Department Care Team Description 05/31/2025 9:00 AM EDT Office Visit [facility] Primary Care [address] [place] [address] Robert Ruiz APRN - ADELITA Tinea corporis (Primary Dx) 05/27/2025 Telephone [facility] Primary Care [address] [place] [address] José Aguilar MD lice 04/10/2025 1:30 PM EDT Office Visit [facility] Primary Care [address] [place] [address] José Aguilar MD Rash (Primary Dx) from [...] Mass Index 29.01 05/31/2025 8:47 AM EDT Plan of Treatment Health Maintenance Due Date [...] 2018 HPV (without or with Pap) 2018 Diabetes screen 12/06/2023 Tdap Vaccine during 03/30/2025 07/06/2019 Flu vaccine (#1) 04/19/2025 07/25/2020, 07/23/2019 COVID-19 Vaccine ( - 2023-2 5 season) 2025 DTaP/Tdap/Td vaccine (2 - Td or Tdap) 07/06/2029 07/06/2019 Respiratory Syncytial Virus (RSV) or age 60 yrs+ (1 - 1-dose 75+ series) 12/06/2063 HPV vaccine (No Doses Required) Completed Hepatitis [...] this topic Insurance AETNA AETNA Care Teams Hacksaw Inspector Relationship Specialty Start Date End Date José Aguilar MD [address] [place] [address] PCP - General 12/27/20
--- OUTSIDE RECORDS SUMMARY | 2025-06-10 05:20 | XMS_ITS | Encounter Summary ---
Author Organization [facility] Address [address] [place] [address] Care Team Providers Care Shoe Repairer Name Role Phone José Aguilar MD Primary Care Provider [phone] Encounter Details Date Type Department Care Team (Late Contact Info) Description 06/06/2025 Bamboo flowsheet [facility] [address] [place] [address] Aaron Riley DO [address] [place]oun[place] Bundy, [facility]11 Social History Tobacco Use Types Packs/Day Years [...] 1:20 PM EDT Office Visit [facility] [address] [place] [address] Nati Cameron, AMNA [address] [place] [address] documented as of this encounter Visit Diagnoses Not on filedocumented in this encounter Care Teams Shoe Repairer Relationship Specialty Start Date End Date José Aguilar MD [address] [place] [address] PCP - General Family Medicine 11/15/24 documented as of this encounter
--- OUTSIDE RECORDS SUMMARY | 2025-06-10 05:20 | XMS_ITS | Encounter Summary ---
Author Organization [facility] Address [address] [place] [address] Care Team Providers Care Community Outreach Coordinator Name Role Phone Louie Martin MD Primary Care Provider [phone] Encounter Details Date Type Department Care Team ([facility] st Contact Info) Description 07/26/2017 Transcribe Orders [facility] [address] [place] [id number] Holly Hull MA Peeling skin (Primary Dx) [...] Primary documented in this encounter Care Teams Community Outreach Coordinator Relationship Specialty Start Date End Date Louie Martin MD [address] [place] [address] PCP - General Family Medicine 07/14/16 12/08/21 documented as of this encounter
--- OUTSIDE RECORDS SUMMARY | 2025-06-10 05:20 | XMS_ITS | Clinical Summary ---
Author Organization [facility] Address [address] [place] [address] Care Team Providers Care Java Application Developer Name Role Phone DuncanvilleJosé MD Primary Care Provider [phone] Allergies Active Allergy Reactions Criticality Noted Date Comments Doxycycline Other,Unknown Medium 07/09/2021 Autoimmune reaction Minocycline Other Medium 07/09/2021 Other Reaction(s): medication induced Lupus Autoimmune reaction Medications Vit-Fe Fumarate-FA ( Vitamin Plus Low Iron) 27-1 MG tablet Take 1 each by mouth 1 (one) time each day at the same time Active Phoenix-3 Fatty Acids (OMEGA-3 CF PO) Take 1 each by mouth Daily Active Magnesium 400 MG capsule Take 400 mg by mouth Daily Active Active Problems Problem Noted Date Diagnosed Date Multigravida of advanced mat ernal age in third trimester ([facility]) 04/30/2025 Estimated Date of Delivery Comme nts Yes 06/29/2025 Based on last me nstrual period of 09/22/2024 Encounters Date Type Department Care Team Description 06/06/2025 10:00 AM EDT Routine [facility] [address] [facility] [address] Aaron Riley DO Third trimester ([facility]); 36 weeks gestation of ([facility]) 06/06/2025 Bamboo flowsheet [facility] [address] [place] [address] Aaron Riley DO 05/30/2025 11:30 AM EDT Routine [facility] [address] [facility] [place] [address] Nati Cameron, AMNA Third trimester ([facility]); 35 weeks gestation of ([facility]) 05/30/2025 Bamboo flowsheet [facility] [address] [facility] [place] [address] Nati Cameron, AMNA 05/27/2025 Abstract [facility] [address] [facility] [place] [address] Aaron Riley DO 05/16/2025 8:30 AM EDT Routine [facility] [address] [facility] [place] [address] Madiha Roca PA Third trimester ([facility]); 33 weeks gestation of ([facility]) 05/16/2025 Abstract [facility] [address] [facility] [place] [address] Aaron Riley DO 05/16/2025 Bamboo flowsheet [facility] [address] [facility] [place] [address] Madiha Roca PA 04/30/2025 9:00 AM EDT Routine [facility] [address] [facility] [place] [address] Madiha Roca PA Third trimester ([facility]); 31 weeks gestation of ([facility]); Multigravida of advanced maternal age in third trimester ([facility]) 04/30/2025 8:30 AM EDT Ancillary Procedure [facility] [address] [facility] [place] [address] size inconsistent with dates ([facility]) 04/30/2025 Bamboo flowsheet [facility] [address] [place] [address] Madiha Roca PA 04/16/2025 8:30 AM [place] [address] Aaron Riley, Third trimester ([facility]); 29 weeks gestation of ([facility]); Multigravida of advanced maternal age in third trimester ([facility]); size inconsistent with dates ([facility]) 04/16/2025 Bamboo flowsheet [facility] [address] [facility] [address] Aaron Riley, 04/02/2025 10:30 AM [place] [address] Madiha Roca PA Second trimester ([facility]); 27 weeks gestation of ([facility]) 04/02/2025 Clinisync Result Encounter [facility] External Department Unsolicited Aaron iRley, 04/02/2025 Bamboo flowsheet [facility] [address] [facility] [address] Madiha Roca PA from Last 3 Months Social History Tobacco [...] (168 lb) 06/06/2025 10:05 AM EDT Height 165.1 cm (5' 5 ) 07/14/2022 12:00 PM EDT Body Mass Index 27.96 07/14/2022 12:00 PM EDT Plan of Treatment Upcoming Encounters Date Type Department Care Team (Late st Contact Info) Description 06/17/2025 1:20 PM EDT Office Visit [facility] [address] [facility] [place] [address] Nati Cameron, FLUX MIXER [address] [place] [address] Procedures Procedure Name Priority Date/Time Associated Diagnosis Comments POCT URINALYSIS DIPSTICK Routine 06/06/2025 10:10 AM EDT Third trimester ([facility]) POCT URINALYSIS DIPSTICK Routine 05/30/2025 11:37 AM EDT Third trimester ([facility]) CULTURE, GROUP B STREP WITH SUSCEPTIBLITY Routine 05/30/2025 11:25 AM EDT Third trimester ([facility]) POCT URINALYSIS DIPSTICK Routine 05/16/2025 8:42 AM EDT Third trimester ([facility]) POCT URINALYSIS DIPSTICK Routine 04/30/2025 9:24 AM EDT Third trimester ([facility]) US OB FOLLOW UP TRANSABDOMINAL APPROACH Routine 04/30/2025 9:13 AM EDT size inconsistent with dates ([facility]) POCT URINALYSIS DIPSTICK Routine 04/16/2025 8:37 AM EDT Third trimester ([facility]) POCT URINALYSIS DIPSTICK Routine 04/02/2025 10:23 AM EDT Second trimester ([facility]) GLUCOSE 1 HOUR Routine 04/02/2025 9:23 AM EDT ALL CBC WITH AUTO DIFF Routine 9:23 AM EDT from Last 3 Months Results * (ABNORMAL) POCT urinalysis dipstick manually resulted (06/06/2025 10:10 AM EDT) Only the most recent of6 [...] TEST ENTER/EDIT OR DERABLES Final Result * CULTURE, GROUP B STREP WITH SUSCEPTIBLITY (05/30/2025 11:25 AM EDT) Swab 05/30/2025 11:2 5 AM EDT Nati Cameron FLUX MIXER LAB BLOOD ORDERABLES Final Re sult EXTERNAL LAB * US OB follow up transabdominal approach [...] 2024 examination estimated delivery at that time wasOct2024. * Estimated Weight (g) by Percentile is based upon an accurateestimated age based on last menstrual period. TRANSCRIBED BY: ELECTRONICALLY SIGNED BY: Alfredo Singh MD us Aaron Rosemary DO IMG OB US PROCEDURES Final Resul t * GLUCOSE 1 HOUR (04/02/2025 9:23 AM EDT) GLUCOSE 1 HOUR 98 <130 mg/dL [facility] 04/02/2025 9:23 AM EDT 04/02/2025 9:27 AM EDT Narrative [facility] - 04/02/2025 10:42 AM EDT us Aaron Rosemary DO LAB BLOOD ORDERABLES Final Resul t [facility] * (ABNORMAL) ALL CBC WITH [...] Aaron Rosemary DO [facility] Final Result [facility] TB from Last 3 Months Insurance [employer] Care Teams Java Application Developer Relationship Specialty Start Date End Date José Aguilar MD [address] [place] [id number] PCP - General Family Medicine 11/15/24
--- OUTSIDE RECORDS SUMMARY | 2025-06-10 05:20 | XMS_ITS | Encounter Summary ---
Author Organization [facility] Address [address] [place] [address] Care Team Providers Care Camouflage Assembler Name Role Phone José Aguilar MD Primary Care Provider [phone] Encounter Details Date Type Department Care Team (Late Contact Info) Description 02/19/2025 Orders Only [facility] [address] [facility] [address] Ana Freeman LPN [address] [place] [address] Social History Tobacco Use Types Packs/Day Years [...] EDT Office Visit [facility] [address] [place] [address] Nati Cameron, ECHO VASC TECH [address] [place] [address] documented as of this encounter Procedures [...] on filedocumented in this encounter Care Teams Camouflage Assembler Relationship Specialty Start Date End Date José Aguilar MD [address] [place] [id number] PCP - General Family Medicine 11/15/24 documented as of this encounter
[2025-06-10 05:50] LABS: Hematocrit 26.8 % (36.0-48.0); Hemoglobin 8.4 g/dL (12.0-16.0); Immature Granulocytes Abs Auto 0.02 10^3/uL (0.00-0.03); Immature Granulocytes Pct Auto 0.3 % (0.0-0.5); Lymphocytes Absolute Auto 1.8 10^3/uL (1.2-3.8); Mean Corpuscular HGB Conc 31.3 g/dL (29.9-35.2); Mean Corpuscular Hemoglobin 25.2 pg (26.7-34.0); Mean Corpuscular Volume 80.5 fL (81.0-99.0); Platelet Count 216 10^3/uL (150-450); Red Blood Count 3.33 10^6/uL (4.20-5.40); White Blood Count 7.4 10^3/uL (4.0-11.0)
[2025-06-10 06:03] LABS: Cannabinoid Screen Urine NEGATIVE (NEGATIVE); Methamphetamines Screen Urine NEGATIVE (NEGATIVE); Tricyclic Antidepressant Urine NEGATIVE (NEGATIVE)
[2025-06-10] MEDS: METOCLOPRAMIDE HCL 10 MG/2 ML VIAL IVP (06:16)
[2025-06-10] MEDS: CITRIC ACID/SODIUM CITRATE 30 ML SOLUTION ORACIT SHOHL'S SOLN PO (06:16)
[2025-06-10] MEDS: FAMOTIDINE/PF 20 MG/2 ML VIAL IV (06:16)
[2025-06-10] MEDS: CEFAZOLIN SODIUM/DEXTROSE,ISO 2 GM/50 ML PIGGYBACK IV ×2 (07:34→13:29)
[2025-06-10] MEDS: KETOROLAC TROMETHAMINE 30 MG/ML VIAL IVP ×3 (08:30→23:53)
--- NOTE | 2025-06-10 08:30 | P.ON_ITS ---
Brief Operative Note Date of procedure: 06/10/25 Pre-op diagnosis general: iup at term gestation, gestational htn, previous c/s times 3 Post-op diagnosis: same as pre-op Procedure: NAME OF PROCEDURE: [ section ] PROCEDURE: Patient was taken back to the Operating Room where she was given a spinal anesthesia with Duramorph without difficulty. She was prepped and draped in the normal sterile fashion. A Pfannenstiel skin incision was then made 2 cm above the symphysis pubis and carried down to underlying rectus fascia using a Bovie. The fascia was incised in the midline and extended laterally using Bailey scissors. Two Desiree clamps were placed on the superior aspect of the fascia and dissected off the underlying rectus muscles. The same was performed on the inferior aspect as well. The muscles were then in the midline. Peritoneum was identified and entered bluntly. The peritoneum was then extended superiorly and inferiorly with good visualization of the bladder. The bladder blade was inserted. A low transverse incision was made on the patient's uterus and extended laterally digitally. The infant was then delivered atraumatically after the bladder blade was removed in the cephalic position. The cord was clamped and cut. Cord blood was obtained. The infant was handed off to awaiting team. The patient's placenta was spontaneously delivered. The uterus was then exteriorized. The uterus was cleared of all clots and debris. The bladder blade was reinserted. The patient's uterine incision was closed using #0 Vicryl in a running lock fashion. Excellent hemostasis was assured. The uterus was then returned to the patient's abdomen. The patient's abdomen was copiously irrigated using warm saline. Peritoneal gutters were cleared of all clots and debris. Again excellent hemostasis was assured. The patient's peritoneum was closed using 3-0 Vicryl in a running fashion. The patient's fascia was closed using #0 Vicryl in a running fashion. The patient's skin was closed using 4-0 Vicryl subcuticularly. The patient tolerated the procedure well. Sponge, lap, and needle counts were correct x2. The patient was taken to the Recovery Room in stable condition. Anesthesia: spinal Surgeon: Aaron Riley Loom Changeover Operator: Guadalupe Yañez Estimated blood loss (mL): 575 Pathology: other (placenta) Condition: stable Disposition: PACU Urinary Catheter Management Urinary Catheter Management Urethral: Cath placed during this visit: no
--- NOTE | 2025-06-10 08:32 | P.OBPRC_ITS ---
Procedure Pre-op/Post-op diagnoses: Pre-Op/Post-Op Diagnoses Operation Date: 06/10/25 07:30 <No data on this case meets the specified criteria> Procedure: Procedures Operation Date: 06/10/25 07:30 Actual Procedure Side Surgeon p Repeat Not Applicable Aaron Riley DO Hospital Cleaner: Guadalupe Yañez Estimated blood loss (mL): 575 Disposition: floor Anesthesia type: Spinal
[2025-06-10] MEDS: ENOXAPARIN SODIUM 40 MG/0.4 ML SYRINGE SUBQ (20:45)
[2025-06-11] VITALS (7 sets, daily range): BP systolic 98–114; BP diastolic 56–67; PULSE 65–83; TEMP 36.6–36.9
[2025-06-11 06:24] LABS: Hemoglobin 7.1 g/dL (12.0-16.0); Immature Granulocytes Abs Auto 0.06 10^3/uL (0.00-0.03); Immature Granulocytes Pct Auto 0.4 % (0.0-0.5); Lymphocytes Absolute Auto 2.2 10^3/uL (1.2-3.8); Mean Corpuscular HGB Conc 30.7 g/dL (29.9-35.2); Mean Corpuscular Hemoglobin 25.0 pg (26.7-34.0); Mean Corpuscular Volume 81.3 fL (81.0-99.0); Platelet Count 198 10^3/uL (150-450); Red Blood Count 2.84 10^6/uL (4.20-5.40); White Blood Count 14.1 10^3/uL (4.0-11.0)
[2025-06-11 06:27] LABS: Hematocrit 23.1 % (36.0-48.0)
--- NOTE | 2025-06-11 07:34 | PC.NURSE ---
Surgical dressing to lower abdomen removed. Small amount pink tinged drainange noted on dressing. Incision site to lower abdomen is well approximated with steri strips intact. No active drainage noted. Pt is showering. Denies further needs. Hat emptied for 600 ml blood tinged urine.
--- NOTE | 2025-06-11 07:59 | PM.OBPN ---
OB - PN: Subj Subjective Patient comments: no complaints and pain well controlled [place] status: doing well Exam Constitutional Vital Signs, click to edit/add: Last Vital Signs Temp 98.4 F 06/11/25 04:43 Pulse 69 06/11/25 04:43 Resp 16 06/11/25 04:43 BP 112/62 06/11/25 04:43 Pulse Ox 99 06/10/25 11:18 O2 Del Method Room Air 06/10/25 20:40 Documenting provider has reviewed patient's vital signs: yes Common normals: no apparent distress Respiratory Common normals: clear to auscultation bilaterally Cardio Common normals: regular rate and regular rhythm GI Common normals: Normal to inspection, nondistended, normoactive bowel sounds present Extremity Common normals: no clubbing, cyanosis or edema and no calf tenderness Results Labs Labs: Short CBC 06/11/25 Range/Units 06:05 WBC 14.1 H (4.0-11.0) 10^3/uL Hgb 7.1 L (12.0-16.0) g/dL Hct 23.1 L* (36.0-48.0) % Plt Count 198 (150-450) 10^3/uL Urinary Catheter Management Urinary Catheter Management Urethral: Cath placed during this visit: yes, but has since been removed by the nurse Insertion date: 06/10/25 Insertion time: 07:50 Removal date: 06/10/25 Removal time: 17:10 OB - PN: A/P Plan - day: 1 Plan: routine postop care Time Spent with Patient Time: Total time spent is greater than 50% in coordination of care (as documented) at patient's floor/unit and/or counseling patient: Total time spent with greater than 50% in coordination of care (as documented) at patient's floor/unit and/or counseling patient: less than 15 minutes
[2025-06-11] MEDS: IBUPROFEN 400 MG TABLET 800 MG PO ×3 (08:21→23:46)
[2025-06-11] MEDS: DOCUSATE SODIUM 100 MG CAPSULE PO ×2 (08:22→20:43)
--- NOTE | 2025-06-11 08:54 | PC.NURSE ---
Review of and 37 week baby. Defined expectations and encouraged to hand express, massage and return any milk to baby. Verbalized understanding. This discussion builds on previous discussion during partners last week.
[2025-06-11] MEDS: ENOXAPARIN SODIUM 40 MG/0.4 ML SYRINGE SUBQ (20:43)
[2025-06-11] MEDS: ACETAMINOPHEN 500 MG TABLET 1000 MG PO (21:03)
[2025-06-12] MEDS: ACETAMINOPHEN 500 MG TABLET 1000 MG PO (04:52)
[2025-06-12 07:07] LABS: Hematocrit 24.1 % (36.0-48.0); Hemoglobin 7.4 g/dL (12.0-16.0); Immature Granulocytes Abs Auto 0.04 10^3/uL (0.00-0.03); Immature Granulocytes Pct Auto 0.5 % (0.0-0.5); Lymphocytes Absolute Auto 1.7 10^3/uL (1.2-3.8); Mean Corpuscular HGB Conc 30.7 g/dL (29.9-35.2); Mean Corpuscular Hemoglobin 24.9 pg (26.7-34.0); Mean Corpuscular Volume 81.1 fL (81.0-99.0); Platelet Count 228 10^3/uL (150-450); Red Blood Count 2.97 10^6/uL (4.20-5.40); White Blood Count 8.5 10^3/uL (4.0-11.0)
--- NOTE | 2025-06-12 08:31 | PM.OBPN ---
OB - PN: Subj Subjective Patient comments: no complaints and pain well controlled [place] status: doing well [place] feeding status: breast and bottle feeding Exam Constitutional Vital Signs, click to edit/add: Last Vital Signs Temp 97.8 F 06/11/25 23:43 Pulse 65 06/11/25 23:45 Resp 15 06/11/25 23:43 BP 102/56 06/11/25 23:45 Pulse Ox 99 06/10/25 11:18 O2 Del Method Room Air 06/11/25 23:43 Documenting provider has reviewed patient's vital signs: yes Common normals: no apparent distress General appearance: cooperative and comfortable Orientation/consciousness: Yes awake, Yes oriented to person, Yes oriented to place and Yes oriented to time HENMT Common normals: normocephalic Head and scalp: normal to inspection Face and sinus: normal facial exam Nose: external nose normal General ear: hearing grossly impaired Eye Common normals: EOMs intact bilaterally General eye: normal appearance of both eyes Visual acuity: acuity normal Neck & C-Spine Common normals: full ROM General: normal visual inspection Lymph Lymphatic: no lymphadenopathy noted Respiratory Common normals: normal respiratory effort, no retractions, no use of accessory muscles and clear to auscultation bilaterally Effort & inspection: able to speak in complete sentences Cardio Common normals: no JVD, regular rate and regular rhythm Rate: regular rate Rhythm: regular rhythm GI Common normals: Normal to inspection, nondistended, normoactive bowel sounds present Inspection: normal to inspection Auscultation: normoactive bowel sounds Palpation: soft Percussion: normal to percussion Common normals: no CVA tenderness Back & Pelvis Common normals: no CVA tenderness Lumbar spine/lower back: normal to inspection Extremity Common normals: normal to inspection Neuro Common normals: oriented x3 Sensorium/orientation: awake, oriented to person, oriented to place and oriented to time Psych Common normals: mental status grossly normal, thought process normal, cooperative, affect normal, speech normal, activity/motor behavior normal, denies hallucinations, denies homicidal ideation and denies suicidal ideation Appearance: grossly normal Attitude: calm Activity/motor behavior: appropriate eye contact Speech: normal speech Results Labs Labs: Short CBC 06/12/25 Range/Units 06:36 WBC 8.5 (4.0-11.0) 10^3/uL Hgb 7.4 L (12.0-16.0) g/dL Hct 24.1 L (36.0-48.0) % Plt Count 228 (150-450) 10^3/uL Urinary Catheter Management Urinary Catheter Management Urethral: Cath placed during this visit: yes, but has since been removed by the nurse Insertion date: 06/10/25 Insertion time: 07:50 Removal date: 06/10/25 Removal time: 17:10 OB - PN: A/P Plan - day: 2 Plan: discharge home Time Spent with Patient Time: Total time spent is greater than 50% in coordination of care (as documented) at patient's floor/unit and/or counseling patient: Total time spent with greater than 50% in coordination of care (as documented) at patient's floor/unit and/or counseling patient: less than 15 minutes
[2025-06-12] MEDS: IBUPROFEN 400 MG TABLET 800 MG PO ×2 (09:06→16:31)
[2025-06-12] MEDS: DOCUSATE SODIUM 100 MG CAPSULE PO ×2 (09:06→20:34)
[2025-06-12 09:09] VITALS: BP 121/73; PULSE 72
[2025-06-12 09:15] VITALS: TEMP 36.5
[2025-06-12 16:34] VITALS: BP 114/63; PULSE 75
[2025-06-12] MEDS: ENOXAPARIN SODIUM 40 MG/0.4 ML SYRINGE SUBQ (20:35)
[2025-06-12 23:55] VITALS: TEMP 36.4
[2025-06-12 23:59] VITALS: BP 105/69; PULSE 71
[2025-06-13] MEDS: IBUPROFEN 400 MG TABLET 800 MG PO ×2 (00:04→08:46)
--- NOTE | 2025-06-13 07:56 | P.OBPN_ITS ---
OB - PN: Subj Subjective Patient comments: no complaints and pain well controlled [place] status: doing well Exam Constitutional Vital Signs, click to edit/add: Last Vital Signs Temp 97.6 F 06/12/25 23:55 Pulse 71 06/12/25 23:59 Resp 16 06/12/25 23:55 BP 105/69 06/12/25 23:59 Pulse Ox 99 06/10/25 11:18 O2 Del Method Room Air 06/12/25 23:55 Documenting provider has reviewed patient's vital signs: yes Common normals: no apparent distress Respiratory Common normals: normal respiratory effort and clear to auscultation bilaterally Cardio Common normals: regular rate and regular rhythm GI Common normals: Normal to inspection, nondistended, normoactive bowel sounds present Extremity Common normals: no clubbing, cyanosis or edema and no calf tenderness Urinary Catheter Management Urinary Catheter Management Urethral: Cath placed during this visit: yes, but has since been removed by the nurse Insertion date: 06/10/25 Insertion time: 07:50 Removal date: 06/10/25 Removal time: 17:10 OB - PN: A/P Plan - day: 3 Plan: routine postop care, discharge home and other (fu 1wk) Time Spent with Patient Time: Total time spent is greater than 50% in coordination of care (as documented) at patient's floor/unit and/or counseling patient: Total time spent with greater than 50% in coordination of care (as documented) at patient's floor/unit and/or counseling patient: less than 15 minutes
[2025-06-13 08:31] VITALS: BP 117/69; PULSE 101
[2025-06-13 08:32] VITALS: TEMP 36.6
[2025-06-13] MEDS: DOCUSATE SODIUM 100 MG CAPSULE PO (08:46)
== END 2025-06-13 10:15 | disposition home or self-care (01) | DRG 788 ==
PROVIDERS: Admitting Provider Obstetrics & Gynecology; PCP Family Medicine; Visit Provider Obstetrics & Gynecology
PROC: 10D00Z1 Extraction of Products of Conception, Low, Open Approach (ICD-10-PCS; CPT 59514; principal; 2025-06-10 07:30)
DX: O34.211 Maternal care for low transverse scar from previous cesarean delivery (principal); O13.4 Gestational [pregnancy-induced] hypertension without significant proteinuria, complicating childbirth; Z37.0 Single live birth; Z3A.37 37 weeks gestation of pregnancy
CPT/HCPCS: 36415; 59050; 80307; 85025; 86850; 86900; 86901; 94667; 94668; J0131; J0690; J1100; J1200; J1650; J1885; J2274; J2371; J2405; J2590; J2765; J3490

== ENCOUNTER 2025-06-17 08:15 | Outpatient (OUT) | payer OTHER, SELFPAY ==
--- OUTSIDE RECORDS SUMMARY | 2025-06-06 09:54 | XMS_ITS ---
Author Name Auto Generated Organization OHIP Care Team Providers Care Over Short And Damage Clerk Name Role Phone JOY TRAMMELL Referring Unavailable PRUDENCE CAMACOH Primary Care Unavailable IGNACIO, NATALY Attending Unavailable JOSH, MIGUELINA Attending Unavailable IGNACIO, NATALY Attending Unavailable JOSH, MIGUELINA Attending Unavailable IGNACIO, NATALY Attending Unavailable JOSH, MIGUELINA Attending Unavailable JOSH, MIGUELINA Attending Unavailable BENSON HALL Attending Unavailable GINACIO, NATALY Attending Unavailable PROBLEMS No Problem Records Found PROCEDURES No Procedure Records Found RESULTS US OB FOLLOW UP TRANSABDOMINAL APPROACH Observed: 04/30/2025 8:57 AM Status: F Source: [facility] Order Comment: US OB SCAN FO R GROWTH Estimated Date of Delivery: 06/29/25 Gestational Age as of 04/16/2025: 29w3d FINDINGS: Comparison made with prior examination of [...] BY: ELECTRONICALLY SIGNED BY: Alfredo Singh MD US OB TRANSVAGINAL Observed: 12/06/2024 1:30 PM Status: F Source: [facility] Order Comment: US OB TRANSVA GINAL No LMP recorded. EXAM: US OB TRANSVAGINAL HISTORY: Dating. COMPARISON: [...] bowel gas. Electronically Signed:Electronically signed by BHAVANI OCONNELL II, MD, PHD at 07-Dec-2024 08:32:38 PM [facility] CULTURE, URINE Collected: 4:24 PM Status: F Source: [facility] Order Comment: [place] - Source o f Urine Collection? Urine clean catch\[id number]\Performed by [facility] [address] [place] [address] [place] - Source of Urine Collection? Urine clean catch [place] - Current Antibiotic Therapy? No Answer Given TYPE CODE TESTS RESULT OUT OF RANGE REFERENCE UNITS LAB Organism 01([facility]) [place] - Organism 01 Escherichia coli Abnormal LAB SOURCE([facility]) [place] - SOURCE urine, clean catch LAB CUR 01([facility]) [place] - URINE CULTURE [place] count: >100,000 CFU/mL Performed By: #### CUR #### [facility] See Report URINE CULTURE Observed: 08/17/2024 4:24 PM Status: F Source: [facility] MICROBIOLOGY REPORT [facility], [address] [place] [address], [place], [address] PATIENT: KELLY VERA LOCATION: [facility] - - : 1990 AGE: 33 SEX: F ADM: 08/17/24 Att. Physician: PHYSICIAN, NON-STAFF Order Id: [id number] Req. Physician: PHYSICIAN, NON-STAFF Source: urine, clean catch Site: Collected: 08/17/24 16:24 Current Antibiotics: not stated Antibiotics comment: C Shad M M E N T S [place] - Source of Urine Collection? Urine clean catch STATUS OF ORDERED AND REPORTED TESTS URINE CULTURE FINAL 08/19/24 URINE CULTURE FINAL 08/19/24 09:01 Organism 01 Escherichia coli [place] count: >100,000 CFU/mL Org anism 01-esccol Antibiotic MICA Intrp *Adult dosage Pk bld level Pk urine lev. Amo xicil calin/CA <=2 S PO 250-500mg/q 8 hrs. 4.4-7.6 Amox/ . 2.3 clavulani Piperacillin/Ta <=4 S IV 3.375gm 242 Cefazolin <=4 S IV 1000mg 188 Cefoxitin <=4 S IV 1000mg 110 Ceftriaxone <=1 S IV 1000mg 150 995 Ampicillin 4 S PO 500mg (fasting) 2.5-4.0 IV 2g q 6 h 100 Cefepime <=1 S IV 2000mg 164 Trimethoprim/Mane>=320 R IO647gvJQU/800mgSMX q 12h 1-2TMP/04-76B18-71KNG/97SM IV 160mgTMP/800mgSMX q 8 h9TMP/105 SMX Gentamicin <=1 S IV 1.7mg/kg q 8 h 5-7 >=100 Ciprofloxacin <=0.25 S PO 750 mg q 12 h 3.6 IV 400 mg q 12 h 4.6 Levofloxacin <=0.12 S IV 250-500mg 12.1 Tetracycline <=1 S PO 250mg 2-4 100 Nitrofurantoin <=16 S PO 100mg <1.0 15-46 S=S uscep tible I=Intermediate R=Resistant Susceptibility is determined by comparing the MICA of organism to the achievable blood or urine level of drug. Level at the site of infection should be a minimum of 5-10 times the MICA. MIC and blood and urine levels=mcg/ml.*Standard dosages from [employer] Guide to Antimicrobial Therapy and assumes moderate infection in normal adult populations. For pts. with renal or liver disease consult PDR or pharmacist. ALLERGIES No Allergies Records Found ENCOUNTERS ADMIT/DISCHARGE ACCOUNT NUMBER ADMITTING ENCOUNTER CLASS LOCATION SOURCE 06/06/2025/ 5 [id number] Ambulatory Building:[facility] EPIC 05/30/2025/ 5 [id number] Ambulatory Building:[facility] EPIC 05/16/2025/ 5 [id number] Ambulatory Building:[facility] EPIC 04/30/2025/ 5 [id number] Ambulatory Building:[facility] EPIC 04/30/2025/ 5 [id number] Ambulatory Building:[facility] EPIC 04/16/2025/ 5 [id number] Ambulatory Building:[facility] EPIC 04/02/2025/ 5 [id number] Ambulatory Building:[facility] EPIC 03/05/2025/ 5 [id number] Ambulatory Building:[facility] EPIC 02/05/2025/ 5 [id number] Ambulatory Building:[facility] EPIC 01/07/2025/ 5 [id number] Ambulatory Building:[facility] EPIC 12/06/2024/ 5 [id number] Ambulatory Building:[facility] EPIC 12/06/2024/ 5 [id number] Ambulatory Building:[facility] EPIC 08/17/2024 [id number] Ambulatory Building:A [facility] PAYERS ENCOUNTER GUARANTOR PAYER SUBSCRIBER SOURCE 06/06/2025 KELLY BECK: [id number] [address] [address]Gcm: () Primary Insurance:ROSIE murray Number: [id number] raghavendra Date:2011-06-19 magdiel Name:CATRACHITA GALE [id number] [place] [id number]: MEENU SERRANOOB: [id number] [address] [address] [facility] EPIC 05/30/2025 KELLY Elis SERRANOOB: [place] [phone]: (HP) Primary Insurance:AETNAP olicy Number: [id number] raghavendra Date:2011-06-19 magdiel Name:NISHA NOGUEIRA [address]KM: MEENU SERRANOOB: [id number] [facility] [address] [place] [address] [facility] EPIC 05/16/2025 KELLY Elis SERRANOOB: [place] [phone]: (HP) Primary Insurance:AETNAP olicy Number: [id number] raghavendra Date:2011-06-19 magdiel Name:[place] [address]DE: MEENU SERRANOOB: [id number] [facility] [address] [address] [facility] EPIC 04/30/2025 KELLY Elis SERRANOOB: [place] [phone]: (HP) Primary Insurance:AETNAP olicy Number: [id number] raghavendra Date:2011-06-19 magdiel Name:[place] [address]VG: MEENU SOSAELDOB: [id number] [facility] [address] [address] [facility] EPIC 04/30/2025 KELLY Elis SERRANOOB: [place] [phone]: (HP) Primary Insurance:AETNAP olicy Number: [id number] raghavendra Date:2011-06-19 magdiel Name:NISHA NOGUEIRA [address]VG: MEENU SERRANOOB: [id number] [facility] [address] [address] [facility] EPIC 04/16/2025 KELLY SERRANOOB: [facility] [address]Qfg: (HP) Primary Insurance:AETNAP olicy Number: [id number] raghavendra Date:2011-06-19 magdiel Name:NISHA NOGUEIRA [id number]: MEENU SERRANOOB: [id number] [facility] [place] 04/02/2025 KELLY SERRANOOB: [facility] [address] [phone]: (HP) Primary Insurance:AETNAP olicy Number: [id number] raghavendra Date:2011-06-19 magdiel Name:NISHA NOGUEIRA [id number]: MEENU SERRANOOB: [id number] [facility] [address] [address] [facility] EPIC 03/05/2025 KELLY SERRANOOB: [facility] [address], [facility]Tvy: (HP) Primary Insurance:AETNAP olicy Number: [id number] raghavendra Date:2011-06-19 magdiel Name:NISHA NOGUEIRA [address]YR: MEENU SERRANOOB: [id number] [facility] [address] [address] [facility] EPIC 02/05/2025 KELLY SERRANOOB: [facility] [address] [id number]: (HP) Primary Insurance:AETNAP olicy Number: [id number] raghavendra Date:2011-06-19 magdiel Name:NISHA NOGUEIRA [address]HP: MEENU SERRANOOB: [id number] [address] [facility] 01/07/2025 KELLY SERRANOOB: [place] [address]Tel: (HP) Primary Insurance:AETNAP olicy Number: [id number] raghavendra Date:2011-06-19 magdiel Name:[place] [address]SU: MEENU SERRANOOB: [id number] [address] [facility] 12/06/2024 KELLY SERRANOOB: [place] [phone]: (HP) Primary Insurance:AETNAP olicy Number: [id number] raghavendra Date:2011-06-19 magdiel Name:[place] [address]EG: MEENU SERRANOOB: [id number] [address] [facility] 12/06/2024 KELLY SERRANOOB: [place] [phone]: (HP) Primary Insurance:AETNAP olicy Number: [id number] raghavendra Date:2011-06-19 magdiel Name:[place] [address]IN: MEENU SERRANOOB: [id number] [address] [address] [facility] 08/17/2024 KELLY BECK: [id number] [address] [address]Gch: (HP) Primary Insurance:ROSIE murray Number: [id number] raghavendra Date:2011-[birth year]-19[address] [address]DD: MEENU BECK: [id number] [place], [place] [address]Tdb: (HP) [facility]
--- OUTSIDE RECORDS SUMMARY | 2025-06-06 10:00 | XMS_ITS | Encounter Summary ---
Author Organization [facility] Address [address] [place] [address] Care Team Providers Care Clinical Laboratory Assistant Name Role Phone José Aguilar MD Primary Care Provider [phone] Reason for Visit * Reason Comments Routine Visit Encounter Details Date Type Department Care Team (Late st Contact Info) Description 06/06/2025 10:00 AM EDT Routine [facility] [address] [place] [id number] Aaron Riley DO [address] [place] [address] Third trimester ([facility]); 36 weeks gestation of ([facility]) Social History Tobacco Use Types Packs/Day Years [...] Sign Reading Time Taken Comments Blood Pressure 112/74 06/06/2025 10:05 AM EDT Pulse - - Temperature - - Respiratory Rate - - Oxygen Saturation - - Inhaled Oxygen Concentration - - Weight 76.2 kg (168 lb) 06/06/2025 10:05 AM EDT Height - - Body Mass Index 27.96 07/14/2022 12:00 PM EDT documented in this encounter Progress Notes * Imelda Mackay, LOZENGE MAKER - 06/06/2025 10:00 AM EDT Reason for Appointment: Patient ID: Lesia Gonzalez is a 34 y.o. female who presents for Routine Visit Patient presents today for Return OB appointment. 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 Exam conducted with a radiology specialist present. Vitals: Estimated body mass index is 27.96 kg/m?? as calculated from the following: Height as of 07/14/22: 5' 5 . Weight as of this encounter: 168 lb. BP: 112/74 Patient's last menstrual period was 09/22/2024. ASSESSMENT & PLAN ICD-10-CM 1. Third trimester ([facility]) Z34.93 POCT urinalysis dipstick manually resulted 2. 36 weeks gestation of ([facility] Z3A.36 Patient presents today for a routine obstetrics appointment. Patient is currently 36w5d with a Estimated Date of Delivery: 06/29/25. Patient scheduled for repeat on 06/10/25. Patient to return to clinic 1 week post operative appointment. Documented by Imelda Mackay LPN on behalf of: Aaron Riley DO documented in this encounter Plan of Treatment Upcoming Encounters Date Type Department Care Team (Late st Contact Info) Description 06/17/2025 1:20 PM EDT Office Visit [facility] [address] [place] [address] Nati Cameron NP [address] [place] [address] documented as of this encounter Procedures Procedure Name Priority Date/Time Associated Diagnosis Comments POCT URINALYSIS DIPSTICK Routine 06/06/2025 10:10 AM EDT Third trimester ([facility]) documented in this encounter Results * (ABNORMAL) POCT urinalysis dipstick manually resulted (06/06/2025 10:10 AM EDT) Color, UA Yellow Clarity, UA [...] 0.2 0.2 - 12 mg/dL Leukocytes, UA Positive Negative - 500+++ Georgina/mcL Comment:1+ Nitrite, UA Negative Negative - Positive Urine 06/06/2025 10:1 0 AM EDT Aaron Riley DO POINT OF CARE TEST ENTER/EDIT OR DERABLES Final Result documented in this encounter Visit Diagnoses Diagnosis Third trimester ([facility]) state, incidental 36 weeks gestation of ([facility]) documented in this encounter Care Teams Clinical Laboratory Assistant Relationship Specialty Start Date End Date José Aguilar MD [address] [place] [address] PCP - General Family Medicine 11/15/24 documented as of this encounter
--- OUTSIDE RECORDS SUMMARY | 2025-06-17 08:18 | XMS_ITS | Encounter Summary ---
Author Organization [facility] Address [address] [place] [address] Care Team Providers Care Surgery Assistant Name Role Phone José Aguilar MD Primary Care Provider [phone] Encounter Details Date Type Department Care Team (Late Contact Info) Description 02/19/2025 Orders Only [facility] [address] [facility] [place] [address] Ana Freeman LPN [address] [place] [address] Social History Tobacco Use Types Packs/Day [...] EDT Office Visit [facility] [address] [place] [address] Nati Cameron, JIG AND FIXTURE BUILDER [address] [place] [address] documented as of this encounter Procedures [...] on filedocumented in this encounter Care Teams Surgery Assistant Relationship Specialty Start Date End Date José Aguilar MD [address] [place] [id number] PCP - General Family Medicine 11/15/24 documented as of this encounter
--- OUTSIDE RECORDS SUMMARY | 2025-06-17 08:19 | XMS_ITS | Clinical Summary ---
Author Organization [facility] Address [address] [place] [address] Care Team Providers Care Head Sawyer Name Role Phone [place] BeachJosé MD Primary Care Provider [phone] Allergies Active Allergy Reactions Criticality Noted Date Comments Doxycycline Other,Unknown Medium 07/09/2021 Autoimmune reaction Minocycline Other Medium 07/09/2021 Other Reaction(s): medication induced Lupus Autoimmune reaction Medications Vit-Fe Fumarate-FA ( Vitamin Plus Low Iron) 27-1 MG tablet Take 1 each by mouth 1 (one) time each day at the same time Active Decatur-3 Fatty Acids (OMEGA-3 CF PO) Take 1 each by mouth Daily Active Magnesium 400 MG capsule Take 400 mg by mouth Daily Active Active Problems Problem Noted Date Diagnosed Date Multigravida of advanced mat ernal age in third trimester ([facility]) 04/30/2025 Estimated Date of Delivery Comme nts Yes 06/29/2025 Based on last me nstrual period of 09/22/2024 Encounters Date Type Department Care Team Description 06/13/2025 Abstract [facility]arika CAMERON [address] [place] [phone] Aaron Riley, DO 06/12/2025 Clinisync Result Encounter NOMS External Department Unsolicited Aaron Riley, DO 06/11/2025 Clinisync Result Encounter NOMS External Department Unsolicited Aaron Riley, DO 06/10/2025 External Result Encounter NOMS External Department Unsolicited Aaron Riley, DO 06/10/2025 Abstract [facility]BG[facility] [address] [place] [phone] Aaron Riley, DO 06/10/2025 Abstract [facility] [place] [facility] [address] [place] [phone] Aaron Riley, DO 06/10/2025 Clinisync Result Encounter NOMS External Department Unsolicited Aaron Riley, DO 06/06/2025 10:00 AM EDT Routine [facility] [address] [place] [address] Aaron Riley, DO Third trimester ([facility]); 36 weeks gestation of ([facility]) 06/06/2025 Bamboo flowsheet [facility] [place] [facility] [address] [place] [address] Aaron Riley, DO 05/30/2025 11:30 AM EDT Routine [facility] [place] [facility] [address] [place] [address] Nati Cameron, AMNA Third trimester ([facility]); 35 weeks gestation of ([facility]) 05/30/2025 Bamboo flowsheet [facility] [place] [facility] [address] [place] [address] Nati Cameron, AMNA 05/27/2025 Abstract [facility] [place] [facility] [address] [place] [address] Aaron Riley, DO 05/16/2025 8:30 AM EDT Routine [facility] [place] [facility] [address] [place] [address] Madiha Roca PA Third trimester ([facility]); 33 weeks gestation of ([facility]) 05/16/2025 Abstract [facility] [address] [place] [address] Aaron Riley DO 05/16/2025 Bamboo flowsheet [facility] [address] [place] [address] Madiha Roca PA 04/30/2025 9:00 AM EDT Routine [facility] N[facility]arika DANIELGYN [address] [facility] [place] [address] Madiha Roca PA Third trimester ([facility]); 31 weeks gestation of ([facility]); Multigravida of advanced maternal age in third trimester ([facility]) 04/30/2025 8:30 AM EDT Ancillary Procedure [facility] [address] [place] [address] size inconsistent with dates ([facility]) 04/30/2025 Bamboo flowsheet [facility] [address] [place] [address] [place] [address] Madiha Roca PA 04/16/2025 8:30 AM EDT Routine [facility] N[facility]ika TORRESN [address] [facility] [place] [address] Aaron Riley DO Third trimester ([facility]); 29 weeks gestation of ([facility]); Multigravida of advanced maternal age in third trimester ([facility]); size inconsistent with dates ([facility]) 04/16/2025 Bamboo flowsheet [facility] [address] [place] [address] Aaron Riley DO 04/02/2025 10:30 AM EDT Routine [facility] [address] [place] [address] Madiha Roca PA Second trimester ([facility]); 27 weeks gestation of ([facility]) 04/02/2025 Clinisync Result Encounter NOMS External Department Unsolicited Aaron Riley 04/02/2025 Bamboo flowsheet NOMPe[facility] CAMERON [address] [place] [phone] Madiha Roca PA from Last 3 Months [...] PM EDT Office Visit AJAY CAMERON [address] [place] [phone] Nati Cameron, AMNA [address] [place] [phone] Procedures Procedure Name Priority Date/Time Associated Diagnosis Comments ALL CBC WITH AUTO DIFF Routine 5 6:36 AM EDT ALL CBC WITH AUTO DIFF Routine 5 6:05 AM EDT PATHOLOGY REQUEST FOR LAB [facility] Routine 06/10/2025 8:28 AM EDT ALL CBC WITH AUTO DIFF Routine 5 5:40 AM EDT [facility] DRUG SCREEN RAPID (URINE) Routine 06/10/2025 5:35 AM EDT POCT URINALYSIS DIPSTICK Routine 06/06/2025 10:10 AM EDT Third trimester ([facility]) POCT URINALYSIS DIPSTICK Routine 05/30/2025 11:37 AM EDT Third trimester ([facility]) CULTURE, GROUP B STREP WITH SUSCEPTIBLITY Routine 05/30/2025 11:25 AM EDT Third trimester ([facility]) POCT URINALYSIS DIPSTICK Routine 05/16/2025 8:42 AM EDT Third trimester ([facility]) POCT URINALYSIS DIPSTICK Routine 04/30/2025 9:24 AM EDT Third trimester ([facility]) US OB FOLLOW UP TRANSABDOMINAL APPROACH Routine 04/30/2025 9:13 AM EDT size inconsistent with dates ([facility]) POCT URINALYSIS DIPSTICK Routine 04/16/2025 8:37 AM EDT Third trimester ([facility]) POCT URINALYSIS DIPSTICK Routine 04/02/2025 10:23 AM EDT Second trimester ([facility]) GLUCOSE 1 HOUR Routine 04/02/2025 9:23 AM EDT ALL CBC WITH AUTO DIFF Routine 9:23 AM EDT from Last 3 Months Results * (ABNORMAL) ALL CBC WITH AUTO DIFF (06/12/2025 6:36 AM EDT) Only the most recent of4 resultswithin the time period is included. TBH WBC 8.5 4.0 - 11.0 10 3/uL TBH TBH RBC 2.97(L) 4.20 - 5.40 10 6/uL TBH TBH HGB 7.4(L) 12.0 - 16.0 g/dL TBH TBH HCT 24.1(L) 36.0 - 48.0 % TBH TBH MCV 81.1 81.0 - 99.0 fL TBH TBH MCH 24.9(L) 26.7 - 34.0 pg TBH TBH MCHC 30.7 29.9 - 35.2 g/dL TBH TBH RDW 14.9 11.0 - 15.0 % TBH TBH PLT 228 150 - 450 10 3/uL TBH TBH MPV 10.5 9.5 - 13.5 fL TBH NEUTROPHILS PERCENT AUTO 71.5 43.0 - 75.0 % TBH LYMPHOCYTES PERCENT AUTO 20.2(L) 20.5 - 60.0 % TBH MONOCYTES PERCENT AUTO 6.3 1.7 - 12.0 % TBH TBH EO % 1.3 0.9 - 7.0 % TBH BASOPHILS PERCENT AUTO 0.2 0.2 - 2.0 % TBH IMMATURE GRANULOCYTES PCT AUTO 0.5 0.0 - 0.5 % TBH NEUTROPHILS ABSOLUTE AUTO 6.1 1.4 - 6.5 10 3/uL TBH LYMPHOCYTES ABSOLUTE AUTO 1.7 1.2 - 3.8 10 3/uL TBH MONOCYTES ABSOLUTE AUTO 0.5 0.3 - 0.8 10 3/uL TBH TBH EO # 0.1 0.0 - 0.7 10 3/uL TBH BASOPHILS ABSOLUTE AUTO 0.0 0.0 - 0.1 10 3/uL TBH IMMATURE GRANULOCYTES ABS AUTO 0.04(H) 0.00 - 0.03 10 3/uL TBH 06/12/2025 6:36 AM EDT 06/12/2025 6:59 AM EDT Narrative CLINISYNC - 06/12/2025 7:14 AM EDT us Aaron Hoffmano DO CLINISYNC Final Result [facility]IS[facility] * PATHOLOGY REQUEST FOR LAB [facility] (06/10/2025 8:28 AM EDT) PATHOLOGY REQUEST FOR LAB [facility] 06/14/2025 10:08 AM EDT [facility] Comment:See report. Scanned copy available in EMR. Other Topography unknown / Unknown 06/10/2025 8:28 AM EDT 06/10/2025 2:44 PM EDT us Aaron Rosemary DO LAB BLOOD ORDERABLES Final Resul t Performing Organization Address City/[facility]/ZIP Co de Phone Number [facility] [address] [place] [address], [facility] [address] [place] [address] * TB[facility] DRUG SCREEN RAPID (URINE) (06/10/2025 5:35 AM EDT) CANNABINOID SCREEN URINE NEGATIVE NEGATIVE TBH PHENCYCLIDINE SCREEN URINE NEGATIVE NEGATIVE TBH COCAINE SCREEN URINE NEGATIVE NEGATIVE TBH METHAMPHETAMINES SCREEN URINE NEGATIVE NEGATIVE TBH OPIATE SCREEN URINE NEGATIVE NEGATIVE TBH AMPHETAMINE SCREEN URINE NEGATIVE NEGATIVE TBH BENZODIAZEPINES SCREEN URINE NEGATIVE NEGATIVE TBH TRICYCLIC ANTIDEPRESSANT URINE NEGATIVE NEGATIVE TBH METHADONE SCREEN URINE NEGATIVE NEGATIVE TBH BARBITURATES SCREEN URINE NEGATIVE NEGATIVE TBH OXYCODONE SCREEN URINE NEGATIVE NEGATIVE TBH BUPRENORPHINE SCREEN URINE NEGATIVE NEGATIVE TBH Comment: DRUG CLASS TEST SYSTEM CUT-OFF CONCENTRATIONS ARE FOLLOWS: AMP (Amphetamine): 500 ng/mL BAR (Barbiturates): 200 ng/mL BZO (Benzodiazepines): 150 ng/mL BUP (Buprenorphine): 10 ng/mL CHACHO (Cocaine): 150 ng/mL mAMP (Methamphetamine): 500 ng/mL MTD (Methadone): 200 ng/mL OPI (Opiates): 100 ng/mL OXY (Oxycodone): 100 ng/mL PCP (Phencyclidine): 25 ng/mL THC (Cannabinoids): 50 ng/mL TCA (Trycyclic Antidepressants): 300 ng/mL 06/10/2025 5:35 AM EDT 06/10/2025 5:47 AM EDT Narrative CLINISYNC - 06/10/2025 6:03 AM EDT us Aaron Rosemary DO CLINISYNC Final Result CLINISYNC TB * (ABNORMAL) POCT urinalysis dipstick manually resulted [...] Positive Urine 06/06/2025 10:1 0 AM EDT us Aaron Riley DO POINT OF CARE TEST ENTER/EDIT OR DERABLES Final Result * CULTURE, GROUP B STREP WITH SUSCEPTIBLITY (05/30/2025 11:25 AM EDT) Swab 05/30/2025 11:2 5 AM EDT Nati Cameron COMMERCIAL CREDIT PORTFOLIO MANAGER LAB BLOOD ORDERABLES Final Re sult EXTERNAL [...] DO LAB BLOOD ORDERABLES Final Resul t [facility] Last 3 Months Insurance AETNA [facility] Address: [facility] [id number] [place] [phone] Care Teams Head Sawyer Relationship Specialty Start Date End Date José Aguilar MD [address] [place], [place] [id number] PCP - General Family Medicine 11/15/24
--- OUTSIDE RECORDS SUMMARY | 2025-06-17 08:19 | XMS_ITS | Encounter Summary ---
Author Organization [facility] Address [address] [place] [address] Care Team Providers Care Parquetry Layer Name Role Phone Louie Martin MD Primary Care Provider [phone] Encounter Details Date Type Department Care Team ([facility] st Contact Info) Description 07/26/2017 Transcribe Orders [facility] [address] [place] [phone] Holly Hull MA Peeling skin (Primary Dx) [...] Primary documented in this encounter Care Teams Parquetry Layer Relationship Specialty Start Date End Date Louie Martin MD [address] [place] [address] PCP - General Family Medicine 07/14/16 12/08/21 documented as of this encounter
--- OUTSIDE RECORDS SUMMARY | 2025-06-17 08:19 | XMS_ITS | Encounter Summary ---
Author Organization [facility] Address [address] [place] [address] Care Team Providers Care Inspector Heating And Refrigeration Name Role Phone José Aguilar MD Primary Care Provider [phone] Encounter Details Date Type Department Care Team (Late Contact Info) Description 06/10/2025 Abstract NOMPepe CAMERON [address] [place] [address] Aaron Riley DO [address] [place], [facility]11 Social History Tobacco Use Types Packs/Day [...] PM EDT Office Visit AJAY CAMERON [address] [place] [address] Nati Cameron, AMNA [address] [place] [address] documented as of this encounter Visit Diagnoses Not on filedocumented in this encounter Care Teams Inspector Heating And Refrigeration Relationship Specialty Start Date End Date José Aguilar MD [address] [place] [address] PCP - General Family Medicine 11/15/24 documented as of this encounter
--- OUTSIDE RECORDS SUMMARY | 2025-06-17 08:19 | XMS_ITS | Encounter Summary ---
Author Organization [facility] Address [address] [place] [address] Care Team Providers Care Cdl A Driver Name Role Phone José Aguilar MD Primary Care Provider [phone] Encounter Details Date Type Department Care Team (Late st Contact Info) Description 06/06/2025 Bamboo flowsheet [facility] Niharika CAMERON [address] [facility] [place] [address] Aaron Riley DO [address] [facility] [facility] [address] [place], [facility]11 Social [...] EDT Office Visit [facility] Niharika CAMERON [address] [facility] [place] [address] Nati Cameron, AMNA [address] [facility] [facility] [place] [address] documented as of this encounter Visit Diagnoses Not on filedocumented in this encounter Care Teams Cdl A Driver Relationship Specialty Start Date End Date José Aguilar MD [address] [place] [address] PCP - General Family Medicine 11/15/24 documented as of this encounter
--- OUTSIDE RECORDS SUMMARY | 2025-06-17 08:19 | XMS_ITS | Clinical Summary ---
Author Organization [facility] Address [address] [place] [address] Care Team Providers Care Transfer And Pumphouse Operator Name Role Phone Unavailable Primary Care Provider [...]
--- OUTSIDE RECORDS SUMMARY | 2025-06-17 08:19 | XMS_ITS | Clinical Summary ---
Author Organization [facility] Address [address] [facility], [address] [place] [address] Care Team Providers Care Painter Foreman Name Role Phone José Aguilar MD Primary Care Provider [phone] Allergies Active Allergy Reactions Criticality Noted Date [...] Description 05/31/2025 9:00 AM EDT Office Visit [facility] [address] [place] [address] Robert Ruiz APRN - ADELITA Tinea corporis (Primary Dx) 05/27/2025 Telephone [facility] [address] [place] [address] José Aguilar MD lice 04/10/2025 1:30 PM EDT Office Visit [facility] [address] [place] [address] José Aguilar MD Rash (Primary Dx) from [...] on patient's age to complete this topic Respiratory Syncytial Virus (RSV) or age 60 yrs+ (No Doses Required) Completed Insurance AETNA AETNA Care Teams Painter Foreman Relationship Specialty Start Date End Date José Aguilar MD [address] [place] [address] PCP - General 12/27/20
--- OUTSIDE RECORDS SUMMARY | 2025-06-17 08:20 | XMS_ITS | Encounter Summary ---
Author Organization [facility] Address [address] [place] [address] Care Team Providers Care Blower Operator Name Role Phone José Aguilar MD Primary Care Provider [phone] Encounter Details Date Type Department Care Team (Late Contact Info) Description 06/10/2025 Abstract NOM[facility]pe CAMERON [address] [place] [address] Aaron Riley DO [address] [facility] [address] [place], [id number] Social History Tobacco Use Types Packs/Day Years [...] PM EDT Office Visit AJAY CAMERON [address] [place] [address] Nati Cameron, AMNA [address] [facility] [address] [facility] [place] [address] documented as of this encounter Visit Diagnoses Not on filedocumented in this encounter Care Teams Blower Operator Relationship Specialty Start Date End Date José Aguilar MD [address] [place] [address] PCP - General Family Medicine 11/15/24 documented as of this encounter
--- OUTSIDE RECORDS SUMMARY | 2025-06-17 08:20 | XMS_ITS | Encounter Summary ---
Author Organization [facility] Address [address] [place] [address] Care Team Providers Care Implementation Specialist Payroll Name Role Phone [place]José MD Primary Care Provider [phone] Encounter Details Date Type Department Care Team (Late st Contact Info) Description 06/10/2025 Clinisync Result Encounter NOMS External Department Unsolicited Aaron Riley DO [address] [place], [place] [id number] Social History Tobacco Use Types Packs/Day Years [...] PM EDT Office Visit [facility] [address] [facility] [place] [address] Nati Cameron, AMNA [address] [facility] [place] [phone] documented as of this encounter Procedures Procedure Name Priority Date/Time Associated Diagnosis Comments ALL CBC WITH AUTO DIFF Routine 06/10/2025 5:40 AM EDT TB DRUG SCREEN RAPID (URINE) Routine 06/10/2025 5:35 AM EDT documented in this encounter Results * (ABNORMAL) ALL CBC WITH AUTO DIFF (06/10/2025 5:40 AM EDT) [facility] TB WBC 7.4 4.0 - 11.0 10 3/uL TBH TBH RBC 3.33(L) 4.20 - 5.40 10 6/uL TBH TBH HGB 8.4(L) 12.0 - 16.0 g/dL TBH TBH HCT 26.8(L) 36.0 - 48.0 % TBH TBH MCV 80.5(L) 81.0 - 99.0 fL TBH TBH MCH 25.2(L) 26.7 - 34.0 pg TBH TBH MCHC 31.3 29.9 - 35.2 g/dL TBH TBH RDW 14.6 11.0 - 15.0 % TBH TBH PLT 216 150 - 450 10 3/uL TBH TBH MPV 10.4 9.5 - 13.5 fL TBH NEUTROPHILS PERCENT AUTO 66.1 43.0 - 75.0 % TBH LYMPHOCYTES PERCENT AUTO 24.7 20.5 - 60.0 % TBH MONOCYTES PERCENT AUTO 7.6 1.7 - 12.0 % TBH TBH EO % 0.8(L) 0.9 - 7.0 % TBH BASOPHILS PERCENT AUTO 0.5 0.2 - 2.0 % TBH IMMATURE GRANULOCYTES PCT AUTO 0.3 0.0 - 0.5 % TBH NEUTROPHILS ABSOLUTE AUTO 4.9 1.4 - 6.5 10 3/uL TBH LYMPHOCYTES ABSOLUTE AUTO 1.8 1.2 - 3.8 10 3/uL TBH MONOCYTES ABSOLUTE AUTO 0.6 0.3 - 0.8 10 3/uL TBH TBH EO # 0.1 0.0 - 0.7 10 3/uL TBH BASOPHILS ABSOLUTE AUTO 0.0 0.0 - 0.1 10 3/uL TBH IMMATURE GRANULOCYTES ABS AUTO 0.02 0.00 - 0.03 10 3/uL TBH 06/10/2025 5:40 AM EDT 06/10/2025 5:47 AM EDT Narrative CLINISYNC - 06/10/2025 5:59 AM EDT us Aaron Rosemary DO CLINISYNC Final Result CLINISYNC TBH * TBH DRUG SCREEN RAPID (URINE) (06/10/2025 5:35 AM EDT) Pathologist [facility] CANNABINOID SCREEN URINE NEGATIVE NEGATIVE TBH PHENCYCLIDINE [...] Rosemary DO CLINISYNC Final Result CLINISYNC TB documented in this encounter Visit Diagnoses Not on filedocumented in this encounter Care Teams Implementation Specialist Payroll Relationship Specialty Start Date End Date José Aguilar MD [address] [place] [address] PCP - General Family Medicine 11/15/24 documented as of this encounter
--- OUTSIDE RECORDS SUMMARY | 2025-06-17 08:21 | XMS_ITS | Encounter Summary ---
Author Organization [facility] Address [address] [place] [address] Care Team Providers Care Automatic Oven Operator Name Role Phone [place]José MD Primary Care Provider [phone] Encounter Details Date Type Department Care Team (Late st Contact Info) Description 06/10/2025 External Result Encounter NOMS External Department Unsolicited Aaron Riley DO [address] [place] [id number] Social History Tobacco Use Types Packs/Day Years [...] 06/17/2025 1:20 PM EDT Office Visit N[facility]pe [place] [facility] [address] [place] [address] Nati Cameron, AMNA [address] [place] [phone] documented as of this encounter Procedures Procedure Name Priority Date/Time Associated Diagnosis Comments PATHOLOGY REQUEST FOR LAB [facility] Routine 06/10/2025 8:28 AM EDT documented in this encounter Results * PATHOLOGY REQUEST FOR LAB [facility] (06/10/2025 8:28 AM EDT) PATHOLOGY REQUEST FOR LAB [facility] 06/14/2025 10:08 AM EDT [facility] Comment:See report. Scanned copy available in EMR. Other Topography unknown / Unknown 06/10/2025 8:28 AM EDT 06/10/2025 2:44 PM EDT us Aaron Rosemary DO LAB BLOOD ORDERABLES Final Resul t Performing Organization Address City/State/[facility] Co de Phone Number [facility] [address] [place] [address], [facility] [address] [place] [address] documented in this encounter Visit Diagnoses Not on filedocumented in this encounter Care Teams Automatic Oven Operator Relationship Specialty Start Date End Date José Aguilar MD [address] [place] [id number] PCP - General Family Medicine 11/15/24 documented as of this encounter
--- OUTSIDE RECORDS SUMMARY | 2025-06-17 08:21 | XMS_ITS | Encounter Summary ---
Author Organization [facility] Address [address] [place] [address] Care Team Providers Care Brusher Tender Name Role Phone José Aguilar MD Primary Care Provider [phone] Encounter Details Date Type Department Care Team (Late Contact Info) Description 06/13/2025 Abstract NOMPepe CAMERON [address] [facility] [place] [address] Aaron Riley DO [address] [facility] [address] [place], [facility]11 Social History Tobacco Use Types Packs/Day [...] PM EDT Office Visit AJAY CAMERON [address] [facility] [place] [address] Nati Cameron, AMNA [address] [facility] [place] [address] documented as of this encounter Visit Diagnoses Not on filedocumented in this encounter Care Teams Brusher Tender Relationship Specialty Start Date End Date José Aguilar MD [address] [place] [address] PCP - General Family Medicine 11/15/24 documented as of this encounter
--- OUTSIDE RECORDS SUMMARY | 2025-06-17 08:21 | XMS_ITS | Encounter Summary ---
Author Organization [facility] Address [address] [place] [address] Care Team Providers Care Bellmaker Name Role Phone José Aguilar MD Primary Care Provider [phone] Encounter Details Date Type Department Care Team (Late Contact Info) Description 05/27/2025 Abstract NOMPepe CAMERON [address] [facility] [place] [address] Aaron Riley DO [address] [facility] [address] [place], [facility]11 Social History Tobacco Use Types Packs/Day Years [...] PM EDT Office Visit AJAY CAMERON [address] [facility] [place] [address] Nati Cameron, AMNA [address] [facility] [place] [address] documented as of this encounter Visit Diagnoses Not on filedocumented in this encounter Care Teams Bellmaker Relationship Specialty Start Date End Date José Aguilar MD [address] [place] [address] PCP - General Family Medicine 11/15/24 documented as of this encounter
--- OUTSIDE RECORDS SUMMARY | 2025-06-17 08:21 | XMS_ITS | Encounter Summary ---
Author Organization [facility] Address [address] [place] [address] Care Team Providers Care Spray Gun Striper Name Role Phone OdessaJosé MD Primary Care Provider [phone] Encounter Details Date Type Department Care Team (Late st Contact Info) Description 06/11/2025 Clinisync Result Encounter [facility] External Department Unsolicited Aaron Riley DO [address] [place], [place] [id number] Social History Tobacco Use Types Packs/Day Years [...] PM EDT Office Visit NOMPepe CAMERON [address] [facility] [place] [place] [address] Nati Cameron, AMNA [address] [facility] [place] [phone] documented as of this encounter Procedures Procedure Name Priority Date/Time Associated Diagnosis Comments ALL CBC WITH AUTO DIFF Routine 06/11/2025 6:05 AM EDT documented in this encounter Results * (ABNORMAL) ALL CBC WITH AUTO DIFF (06/11/2025 6:05 AM EDT) [facility] WBC 14.1(H) 4.0 - 11.0 10 3/uL TBH TBH RBC 2.84(L) 4.20 - 5.40 10 6/uL TBH TBH HGB 7.1(L) 12.0 - 16.0 g/dL TBH TBH HCT 23.1(LL) 36.0 - 48.0 % [facility] Comment: RESULTS CALLED TO LANEY OLIVEROS RN @BY Sasha Johnson at 0627 TBH MCV 81.3 81.0 - 99.0 fL TBH TBH MCH 25.0(L) 26.7 - 34.0 pg TBH TBH MCHC 30.7 29.9 - 35.2 g/dL TBH TBH RDW 14.6 11.0 - 15.0 % TBH TBH PLT 198 150 - 450 10 3/uL TBH TBH MPV 10.7 9.5 - 13.5 fL TBH NEUTROPHILS PERCENT AUTO 78.5(H) 43.0 - 75.0 % TBH LYMPHOCYTES PERCENT AUTO 15.5(L) 20.5 - 60.0 % TBH MONOCYTES PERCENT AUTO 5.3 1.7 - 12.0 % TBH TBH EO % 0.2(L) 0.9 - 7.0 % TBH BASOPHILS PERCENT AUTO 0.1(L) 0.2 - 2.0 % TBH IMMATURE GRANULOCYTES PCT AUTO 0.4 0.0 - 0.5 % TBH NEUTROPHILS ABSOLUTE AUTO 11.0(H) 1.4 - 6.5 10 3/uL TBH LYMPHOCYTES ABSOLUTE AUTO 2.2 1.2 - 3.8 10 3/uL TBH MONOCYTES ABSOLUTE AUTO 0.7 0.3 - 0.8 10 3/uL TBH TBH EO # 0.0 0.0 - 0.7 10 3/uL TBH BASOPHILS ABSOLUTE AUTO 0.0 0.0 - 0.1 10 3/uL TBH IMMATURE GRANULOCYTES ABS AUTO 0.06(H) 0.00 - 0.03 10 3/uL TBH 06/11/2025 6:05 AM EDT 06/11/2025 6:20 AM EDT Narrative [facility] - 06/11/2025 6:27 AM EDT us Aaron Rosemary DO [facility] Final Result [facility] documented in this encounter Visit Diagnoses Not on filedocumented in this encounter Care Teams Spray Gun Striper Relationship Specialty Start Date End Date José Aguilar MD [address] [place] [address] PCP - General Family Medicine 11/15/24 documented as of this encounter
--- OUTSIDE RECORDS SUMMARY | 2025-06-17 08:21 | XMS_ITS | Encounter Summary ---
Author Organization [facility] Address [address] [place] [address] Care Team Providers Care Flight Mechanic Name Role Phone SummerfieldJosé MD Primary Care Provider [phone] Encounter Details Date Type Department Care Team (Late st Contact Info) Description 06/12/2025 Clinisync Result Encounter NOMS External Department Unsolicited Aaron iRley DO [address] [place], [place] [id number] Social History Tobacco Use Types Packs/Day Years [...] PM EDT Office Visit NOMPepe CAMERON [address] [place] [address] Nati Cameron, AMNA [address] [facility] [place] [phone] documented as of this encounter Procedures Procedure Name Priority Date/Time Associated Diagnosis Comments ALL CBC WITH AUTO DIFF Routine 06/12/2025 6:36 AM EDT documented in this encounter Results * (ABNORMAL) ALL CBC WITH AUTO DIFF (06/12/2025 6:36 AM EDT) TBH WBC 8.5 4.0 - 11.0 10 [...] - 06/12/2025 7:14 AM EDT us Aaron Riley DO CL[facility] Final Result [facility] documented in this encounter Visit Diagnoses Not on filedocumented in this encounter Care Teams Flight Mechanic Relationship Specialty Start Date End Date José Aguilar MD [address] [place] [address] PCP - General Family Medicine 11/15/24 documented as of this encounter
--- OUTSIDE RECORDS SUMMARY | 2025-06-17 08:22 | XMS_ITS | Encounter Summary ---
Author Organization [facility] Address [address] [place] [address] Care Team Providers Care Inside Sales Lead Name Role Phone José Aguilar MD Primary Care Provider [phone] Encounter Details Date Type Department Care Team (Late Contact Info) Description 05/16/2025 Abstract NOMPepe CAMERON [address] [facility] [place] [address] Aaron Riley DO [address] [facility] [address] [place], [facility] Social History Tobacco Use Types Packs/Day Years [...] PM EDT Office Visit AJAY CAMERON [address] [facility] [place] [address] Nati Cameron, AMNA [address] [facility] [place] [address] documented as of this encounter Visit Diagnoses Not on filedocumented in this encounter Care Teams Inside Sales Lead Relationship Specialty Start Date End Date José Aguilar MD [address] [place] [address] PCP - General Family Medicine 11/15/24 documented as of this encounter
--- OUTSIDE RECORDS SUMMARY | 2025-06-17 08:22 | XMS_ITS | Encounter Summary ---
Author Organization [facility] Address [address] [place] [address] Care Team Providers Care Keno Clerk Name Role Phone José Aguilar MD Primary Care Provider Encounter Details Date Type Department Care Team (Late Contact Info) Description 12/18/2024 Abstract NOMPepe CAMERON [address] [facility] [place] [place] [address] Aaron Riley DO [address] [facility] [address] [place], [id number] Social History Tobacco Use Types Packs/Day Years [...] PM EDT Office Visit AJAY CAMERON [address] [facility] [place] [place] [address] Nati Cameron, AMNA [address] [facility] [place] [address] documented as of this encounter Visit Diagnoses Not on filedocumented in this encounter Care Teams Keno Clerk Relationship Specialty Start Date End Date José Aguilar MD [address] [place] [address] PCP - General Family Medicine 11/15/24 documented as of this encounter
--- NOTE | 2025-06-17 14:12 | PC.NURSE ---
Lesia, and 7 day old daughter, Eliu arrive with and 2 yo daughter for follow up. Mom relates she is doing well with exception of taking Percocet yesterday instead of Motrin and ''felt really out of it . States will not take Percocet again. Lesia with VSS and assessment WNL. States milk is in, brings baby to breast every 2-3 hours, takes extra work to wake baby for feeds. States some latches are great and others are not with lip stick shape to nipple after feeds. No bruising or open areas on nipple. Does note that baby often checks out after let down starts. Describes baby that stops sucking as let down happens and often will not resume sucking for feed. Lesia assumes baby gets enough milk during let down to finish feed. Lesia continues t pump after feeds, milk being frozen. Has not tried to give any supplemental milk as assumes baby is feeding well. Reviewed many behaviors of LPI as noted by parents and reassured of normal behavior of LPI. Encouraged that feeding will improve as infant grows and matures. Baby Eliu with VSS and assessment WNL except for weight loss of 11.4%. Feeding plan modified to include offering supplemental breast milk via finger feeds or bottle 15ml - 30ml post effort at the breast. Lesia concerned that baby will not want to return to breast for next feed. Reviewed being able to feed for short period, and may be ending feeding due to exhaustion vs full. Parents verbalize understanding at this point. States will continue to work with baby for feeds and top off baby with supplemental breast milk. Infant to be seen by PCP in [place] tomorrow and return for visit and weight check 06/19/2025. Baby does well at breast for 03/24 and comes off. Mother verifies that this is when she would offer the supplement. Encouraged to call as needed. Family leaves ambulatory without questions.
[2025-06-17 14:13] VITALS: BP 125/82; PULSE 81; TEMP 36.6; O2SAT 98
== END 2025-06-17 14:16 | disposition home or self-care (01) ==
LOC: FBCO 08:16
PROVIDERS: PCP Family Medicine; Visit Provider Obstetrics & Gynecology
DX: Z39.1 Encounter for care and examination of lactating mother (principal)

== ENCOUNTER 2025-06-19 08:29 | Outpatient (OUT) | payer OTHER, SELFPAY ==
--- OUTSIDE RECORDS SUMMARY | 2025-06-17 13:23 | XMS_ITS ---
Author Name Auto Generated Organization [facility] Care Team Providers Care Window Installer Name Role Phone IGNACIO, NATALY Attending Unavailable JOSH, MIGUELINA Attending Unavailable IGNACIO, NATALY Attending Unavailable JOSH, MIGUELINA Attending Unavailable IGNACIO, NATALY Attending Unavailable JOSH, MIGUELINA Attending Unavailable JOSH, MIGUELINA Attending Unavailable ISABEL, BENSON Attending Unavailable IGNACIO, NATALY Attending Unavailable ISABEL, BENSON Attending Unavailable JOY TRAMMELL Referring Unavailable PRUDENCE CAMAHCO Primary Care Unavailable PROBLEMS No Problem Records Found PROCEDURES No Procedure Records Found RESULTS US OB FOLLOW UP TRANSABDOMINAL APPROACH Observed: 04/30/2025 8:57 AM Status: F Source: [facility] EPIC Order Comment: US OB SCAN FO R [...] Observed: 12/06/2024 1:30 PM Status: F Source: [facility] EPIC Order Comment: US OB TRANSVA GINAL No [...] II, MD, PHD at 07-Dec-2024 08:32:38 PM [facility] URINE CULTURE Observed: 08/17/2024 4:24 PM Status: F Source: [facility] MICROBIOLOGY REPORT [employer] [facility], [address] [place] [address], [id number] PATIENT: KELLY VERA LOCATION: [facility] - - : 1990 AGE: 33 SEX: F ADM: 08/17/24 Att. Physician: PHYSICIAN, NON-STAFF Order Id: [id number] Req. Physician: PHYSICIAN, NON-STAFF Source: urine, clean catch Site: Collected: 08/17/24 16:24 Current Antibiotics: not stated Antibiotics comment: C O M M E N T S [place] - Source of Urine Collection? Urine clean catch STATUS OF ORDERED AND REPORTED TESTS URINE CULTURE FINAL 08/19/24 URINE CULTURE FINAL 08/19/24 09:01 Organism 01 Escherichia coli [place] count: >100,000 CFU/mL Org anism 01-esccol Antibiotic [...] <=1 S IV 2000mg 164 Trimethoprim/Mane>=320 R RO012xhXQS/800mgSMX q 12h 1-2TMP/89-50Y52-88STG/97SM IV 160mgTMP/800mgSMX q 8 h9TMP/105 SMX Gentamicin [...] or liver disease consult PDR or pharmacist. CULTURE, URINE Collected: 4 4:24 PM Status: F Source: [facility] Order Comment: [place] - Source o f Urine Collection? Urine clean catch\[id number]\Performed by [facility] [address] [place] [address] [place] - Source of Urine Collection? Urine clean catch NV - Current Antibiotic Therapy? No Answer Given TYPE CODE TESTS RESULT OUT OF RANGE REFERENCE UNITS LAB Organism 01(LOINC) NV - Organism 01 Escherichia coli Abnormal LAB SOURCE(LOINC) [place] - SOURCE urine, clean catch LAB CUR 01(LOINC) NV - URINE CULTURE [place] count: >100,000 CFU/mL Performed By: #### CUR #### [facility] See Report ALLERGIES No Allergies Records Found ENCOUNTERS ADMIT/DISCHARGE ACCOUNT NUMBER ADMITTING ENCOUNTER CLASS LOCATION SOURCE 06/17/2025/ 5 [id number] Ambulatory Building:[facility] EPIC 06/06/2025/ 5 [id number] Ambulatory Building:[facility] EPIC 05/30/2025/ 5 [id number] Ambulatory Building:[facility] EPIC 05/16/2025/ 5 [id number] Ambulatory Building:[facility] EPIC 04/30/2025/ 5 [id number] Ambulatory Building:[facility] EPIC 04/30/2025/ 5 [id number] Ambulatory Building:[facility] EPIC 04/16/2025/ 5 [id number] Ambulatory Building:[facility] EPIC 04/02/2025/ 5 [id number] Ambulatory Building:[facility] EPIC 03/05/2025/ 5 [id number] Ambulatory Building:[facility] EPIC 02/05/2025/ 5 [id number] Ambulatory Building:[facility] EPIC 01/07/2025/ 5 [id number] Ambulatory Building:[facility] EPIC 12/06/2024/ 5 [id number] Ambulatory Building:[facility] EPIC 12/06/2024/ 5 [id number] Ambulatory Building:[facility] EPIC 08/17/2024 [id number] Ambulatory Building:[facility] Zeferino [facility] PAYERS ENCOUNTER GUARANTOR PAYER SUBSCRIBER SOURCE 06/17/2025 KELLY BECK: [id number] [address] [address]Wmx: () Primary Insurance:ROSIE murray Number: [id number] raghavendra Date:2013-06-19 magdiel Name:NISHA NOGUEIRA [id number]: MEENU SERRANOOB: [id number] [address], [facility]83 [facility] 06/06/2025 KELLY SERRANOOB: [address], [facility]Iaj: (HP) Primary Insurance:AETNAP olicy Number: [id number] raghavendra Date:2011-06-19 magdiel Name:NISHA NOGUEIRA [id number]: MEENU SERRANOOB: [id number] [address] [facility] 05/30/2025 KELLY SERRANOOB: [address]Tel: (HP) Primary Insurance:AETNAP olicy Number: [id number] raghavendra Date:2011-06-19 magdiel Name:NISHA NOGUEIRA [id number]: MEENU SERRANOOB: [id number] [address], [facility]83 [facility] 05/16/2025 KELLY SERRANOOB: [place] [id number]: (HP) Primary Insurance:AETNAP olicy Number: [id number] raghavendra Date:2013-06-19 magdiel Name:NISHA NOGUEIRA [id number]: MEENU SERRANOOB: [id number] [address] [facility] 04/30/2025 KELLY SERRANOOB: [address] [address]Iid: (HP) Primary Insurance:AETNAP olicy Number: [id number] raghavendra Date:2013-06-19 magdiel Name:NISHA NOGUEIRA [id number]: MEENU SERRANOOB: [id number] [address] [place] [address] [facility] EPIC 04/30/2025 KELLY SERRANOOB: [address] [address]Tto: (HP) Primary Insurance:AETNAP olicy Number: [id number] raghavendra Date:2011-06-19 magdiel Name:NISHA NOGUEIRA [id number]: MEENU SERRANOOB: [id number] [address] [place] [address] [facility] EPIC 04/16/2025 KELLY SERRANOOB: [place] [id number]: (HP) Primary Insurance:AETNAP olicy Number: [id number] raghavendra Date:2011-06-19 magdiel Name:[place] [address]UC: MEENU SERRANOOB: [id number] [address], [facility]83 [facility] EPIC 04/02/2025 KELLY SERRANOOB: [place] [id number]: (HP) Primary Insurance:AETNAP olicy Number: [id number] raghavendra Date:2011-06-19 magdiel Name:NISHA NOGUEIRA [address]TR: MEENU SERRANOOB: [id number] [facility] [place] [address] [facility] EPIC 03/05/2025 KELLY SERRANOOB: [place] [id number]: (HP) Primary Insurance:AETNAP olicy Number: [id number] raghavendra Date:2013-06-19 magdiel Name:[place] [address]DI: MEENU SERRANOOB: [id number] [facility] [address], [facility]83 [facility] EPIC 02/05/2025 KELLY SERRANOOB: [place] [id number]: (HP) Primary Insurance:AETNAP olicy Number: [id number] raghavendra Date:2011-06-19 magdiel Name:[place] [id number] [address]LJ: MEENU SERRANOOB: [id number] [address] [address] [facility] EPIC 01/07/2025 KELLY SERRANOOB: [place] [id number]: (HP) Primary Insurance:AETNAP olicy Number: [id number] raghavendra Date:2011-06-19 magdiel Name:[place] [id number] [address]TG: MEENU SERRANOOB: [id number] [facility] [address] [address] [facility] EPIC 12/06/2024 KELLY SERRANOOB: [facility] [address] [id number]: (HP) Primary Insurance:AETNAP olicy Number: [id number] raghavendra Date:2011-06-19 magdiel Name:[place]VA [place] [id number] CHAVEZ [address]OQ: MEENU SERRANOOB: [id number] [address] [facility] EPIC 12/06/2024 KELLY SERRANOOB: [place] [id number]: (HP) Primary Insurance:AETNAP olicy Number: [id number] raghavendra Date:2011-06[birth year]19 magdiel Name:[place] [id number] [address]CJ: MEENU SERRANOOB: [id number] [address] [facility] EPIC 08/17/2024 KELLY SERRANOOB: [address] [address]Zvn: (HP) Primary Insurance:AETNAP olicy Number: [id number] raghavendra Date:2013-06-19 [address] [place] [address]CF: MEENU SERRANOOB: [id number] [place], [place] [address]Ika: (HP) [facility]
--- OUTSIDE RECORDS SUMMARY | 2025-06-19 08:32 | XMS_ITS | Encounter Summary ---
Author Organization [facility] Address [address] [place] [address] Care Team Providers Care Admissions Clinician Name Role Phone Louie Martin MD Primary Care Provider [phone] Encounter Details Date Type Department Care Team ([facility] st Contact Info) Description 07/26/2017 Transcribe Orders [facility] [address] [place] [id number] Holly Hull MA Peeling skin (Primary Dx) [...] Primary documented in this encounter Care Teams Admissions Clinician Relationship Specialty Start Date End Date Louie Martin MD [address] [place] [address] PCP - General Family Medicine 07/14/16 12/08/21 documented as of this encounter
--- OUTSIDE RECORDS SUMMARY | 2025-06-19 08:32 | XMS_ITS | Clinical Summary ---
Author Organization [facility] Address [address] [place] [address] Care Team Providers Care Recordings Librarian Name Role Phone Unavailable Primary Care Provider [...]
--- OUTSIDE RECORDS SUMMARY | 2025-06-19 08:32 | XMS_ITS | Clinical Summary ---
Author Organization [facility] Address [address], [address] [place] [address] Care Team Providers Care Fan Runner Name Role Phone José Aguilar MD Primary Care Provider [phone] Allergies Active Allergy Reactions Criticality Noted Date [...] Description 05/31/2025 9:00 AM EDT Office Visit [facility] [address] [place] [address] Robert Ruiz APRN - ADELITA Tinea corporis (Primary Dx) 05/27/2025 Telephone [facility] [address] [place] [address] José Aguilar MD lice 04/10/2025 1:30 PM EDT Office Visit [facility] [address] [place] [address] José Aguilar MD Rash (Primary Dx) from [...] Required) Completed Insurance AETNA AETNA Care Teams Fan Runner Relationship Specialty Start Date End Date José Aguilar MD [address] [place] [address] PCP - General 12/27/20
== END 2025-06-19 12:12 | disposition home or self-care (01) ==
LOC: FBCO 08:30
PROVIDERS: PCP Family Medicine; Visit Provider Obstetrics & Gynecology
DX: Z39.1 Encounter for care and examination of lactating mother (principal)
CPT/HCPCS: G0463

== ENCOUNTER 2025-06-24 08:47 | Outpatient (OUT) | payer OTHER, SELFPAY ==
--- OUTSIDE RECORDS SUMMARY | 2025-06-17 13:20 | XMS_ITS | Encounter Summary ---
Author Organization [facility] Address [address] [place] [address] Care Team Providers Care Bill Distributor Name Role Phone José Aguilar MD Primary Care Provider [phone] Encounter Details Date Type Department Care Team (Late st Contact Info) Description 06/17/2025 1:20 PM EDT Office Visit AJAY [place] OBG[facility] [address] [place] [address] Nati Cameron NP [address] [facility] [place] [address] Status post section (Primary Dx) Social History Tobacco Use Types Packs/Day Years Used Date Smoking Tobacco: Never Assessed Comments No Sex and Gender Information Value Date Recorded Sex Assigned at Not on file Legal Sex Female 11:46 PM EDT Gender Identity Not on file Sexual Orientation Not on file documented as of this encounter Last Filed Vital Signs Vital Sign Reading Time Taken Comments Blood Pressure 120/70 06/17/2025 1:49 PM EDT Pulse - - Temperature - - Respiratory Rate - - Oxygen Saturation - - Inhaled Oxygen Concentration - - Weight 70.8 kg (156 lb) 06/17/2025 1:49 PM EDT Height - - Body Mass Index 25.96 07/14/2022 12:00 PM EDT documented in this encounter Progress Notes * Nati Cameron NP - 06/17/2025 1:20 PM EDT Reason for Appointment: Patient ID: Lesia Gonzalez is a 34 y.o. female who presents for No chief complaint on file. Patient presents today for 1 Week Post Op Follow Up appointment. MEDICATIONS Current Outpatient Medications Medication Instructions docusate sodium (COLACE) 100 mg, 2 times daily ibuprofen 400 mg, Every 8 hours PRN Magnesium 400 mg, Daily Boron-3 Fatty Acids (OMEGA-3 CF PO) 1 each, Daily Vit-Fe Fumarate-FA ( Vitamin Plus Low Iron) 27-1 MG tablet 1 each, Every 24 hours ALLERGIES Allergies Allergen Reactions Doxycycline Other and Unknown Autoimmune reaction Minocycline Other Other Reaction(s): medication induced Lupus Autoimmune reaction PROBLEMS Active Ambulatory Problems Diagnosis Date Noted Multigravida of advanced maternal age in third trimester ([facility]) 04/30/2025 Resolved Ambulatory Problems Diagnosis Date [...] Procedure Laterality Date SECTION, LOW TRANSVERSE x3 SECTION, LOW TRANSVERSE 06/10/2025 REVIEW OF SYSTEMS Review of Systems: Review [...] Skin: General: Skin is warm and dry. Comments: Low transverse incision with wound edges well approximated. No surrounding erythema or edema and drainage or discharge. Psychiatric: Mood and Affect: Mood normal. Behavior: Behavior normal. Vitals and nursing note reviewed. Exam conducted with a meat processing center manager present. Vitals: Estimated body mass index is 25.96 kg/m?? as calculated from the following: Height as of 07/14/22: 5' 5 . Weight as of this encounter: 156 lb. BP: 120/70 Patient's last menstrual period was 09/22/2024. ASSESSMENT & PLAN No diagnosis found. Patient presents today for a one week postop section check. Patient is doing well with minor complaints of pain. Incision has been noted as healing well with no signs and symptoms of infection. Follow Up: Patient is to return in 5 weeks for 6 week evaluation. Documented by Nati Cameron NP on behalf of: Nati Cameron NP documented in this encounter Plan of Treatment Upcoming Encounters Date Type Department Care Team (Late st Contact Info) Description 07/22/2025 10:30 AM EST Visit [facility] Niharika [facility]ERON [address] [facility] [facility] [place] [address] Madiha Roca PA [address] [place] [address] documented as of this encounter Visit Diagnoses Diagnosis Status post section- Primary Other postprocedural status documented in this encounter Care Teams Bill Distributor Relationship Specialty Start Date End Date José Aguilar MD [address] [place] [address] PCP - General Family Medicine 11/15/24 documented as of this encounter
--- OUTSIDE RECORDS SUMMARY | 2025-06-24 08:50 | XMS_ITS | Encounter Summary ---
Author Organization [facility] Address [address] [place] [address] Care Team Providers Care [place] Seamer Name Role Phone José Aguilar MD Primary Care Provider [phone] Encounter Details Date Type Department Care Team (Late Contact Info) Description 02/19/2025 Orders Only [facility] [address] [facility] [place] [address] Ana Freeman LPN [address] [place] [id number] Social History Tobacco Use Types Packs/Day Years Used Date Smoking Tobacco: Never Assessed Comments Yes Sex and Gender Information Value Date Recorded Sex Assigned at Not on file Legal Sex Female 11:46 PM EDT Gender Identity Not on file Sexual Orientation Not on file documented as of this encounter Plan of Treatment Upcoming Encounters Date Type Department Care Team (Late st Contact Info) Description 07/22/2025 10:30 AM EST Visit NOMPepe CAMERON [address] [place] [place] [address] Madiha Roca PA [address] [place] [address] documented as of this encounter Procedures Procedure Name Priority Date/Time Associated Diagnosis Comments PAP SMEAR Routine 02/05/2025 12:00 AM EDT documented in this encounter Results * Pap Smear (02/05/2025 12:00 AM EDT) Swab Cervical swab / Unknown us Rosemary Nurse [facility] Ob LAB CYTOLOGY ORDERABLES Final Result EXTERNAL LAB documented in this encounter Visit Diagnoses Not on filedocumented in this encounter Care Teams [place] Seamer Relationship Specialty Start Date End Date José Aguilar MD [address] [place] [address] PCP - General Family Medicine 11/15/24 documented as of this encounter
--- OUTSIDE RECORDS SUMMARY | 2025-06-24 08:50 | XMS_ITS | Encounter Summary ---
Author Organization [facility] Address [address] [place] [address] Care Team Providers Care Practical Nurse Name Role Phone José Aguilar MD Primary Care Provider [phone] Encounter Details Date Type Department Care Team (Late Contact Info) Description 06/17/2025 Bamboo flowsheet [facility]S Niharika CAMERON [address] [facility] [address] Nati Cameron, AMNA [address] [place] [address] Social History Tobacco Use Types Packs/Day [...] AM EST Visit [facility] Niharika CAMERON [address] [place] [address] Madiha Roca PA [address] [place] [address] documented as of this encounter Visit Diagnoses Not on filedocumented in this encounter Care Teams Practical Nurse Relationship Specialty Start Date End Date José Aguilar MD [address] [place] [address] PCP - General Family Medicine 11/15/24 documented as of this encounter
--- OUTSIDE RECORDS SUMMARY | 2025-06-24 08:50 | XMS_ITS | Clinical Summary ---
Author Organization [facility] Address [address] [place] [address] Care Team Providers Care Export Manager Name Role Phone Unavailable Primary Care Provider [...]
--- OUTSIDE RECORDS SUMMARY | 2025-06-24 08:50 | XMS_ITS | Encounter Summary ---
Author Organization [facility] Address [address] [place] [address] Care Team Providers Care Blood Bank Laboratory Professional Name Role Phone Louie Martin MD Primary Care Provider [phone] Encounter Details Date Type Department Care Team ([facility] st Contact Info) Description 07/26/2017 Transcribe Orders [facility] [address] [place] [phone] Holly Hull MA Peeling skin (Primary Dx) [...] Primary documented in this encounter Care Teams Blood Bank Laboratory Professional Relationship Specialty Start Date End Date Louie Martin MD [address] [place] [address] PCP - General Family Medicine 07/14/16 12/08/21 documented as of this encounter
--- OUTSIDE RECORDS SUMMARY | 2025-06-24 08:51 | XMS_ITS | Clinical Summary ---
Author Organization [facility] Address [address] [facility] [place] [address] Care Team Providers Care Telegraph Messenger Name Role Phone José Aguilar MD Primary Care Provider [phone] Allergies Active Allergy Reactions Criticality Noted Date [...] Description 05/31/2025 9:00 AM EDT Office Visit [facility] [address] [place] [address] Robert Ruiz APRN - ADELITA Tinea corporis (Primary Dx) 05/27/2025 Telephone [facility] [address] [place] [address] José Aguilar MD lice 04/10/2025 1:30 PM EDT Office Visit [facility] [address] [place] [address] José Aguilar MD Rash (Primary Dx) from [...] Required) Completed Insurance AETNA AETNA Care Teams Telegraph Messenger Relationship Specialty Start Date End Date José Aguilar MD [address] [place] [address] PCP - General 12/27/20
--- OUTSIDE RECORDS SUMMARY | 2025-06-24 08:51 | XMS_ITS | Encounter Summary ---
Author Organization [facility] Address [address] [place] [address] Care Team Providers Care Auto Parts Salesperson Name Role Phone José Aguilar MD Primary Care Provider [phone] Encounter Details Date Type Department Care Team (Late st Contact Info) Description 06/12/2025 Clinisync Result Encounter NOMS External Department Unsolicited Aaron Riley DO [address] [facility] [address] [place], [facility] Social History Tobacco Use Types Packs/Day Years [...] 10:30 AM EST Visit NOMPepe CAMERON [address] [facility] [place] [phone] Madiha Roca PA [address] [facility] [address] [place], [facility] documented as of this encounter Procedures Procedure Name Priority Date/Time Associated Diagnosis Comments ALL CBC WITH AUTO DIFF Routine 06/12/2025 6:36 AM EDT documented in this encounter Results * (ABNORMAL) ALL CBC WITH AUTO DIFF (06/12/2025 6:36 AM EDT) [facility] TB WBC 8.5 4.0 - 11.0 10 3/uL [...] - 06/12/2025 7:14 AM EDT us Aaron Rosemary DO [facility] Final Result [facility] documented in this encounter Visit Diagnoses Not on filedocumented in this encounter Care Teams Auto Parts Salesperson Relationship Specialty Start Date End Date José Aguilar MD [address] [place], [place] [phone] PCP - General Family Medicine 11/15/24 documented as of this encounter
--- OUTSIDE RECORDS SUMMARY | 2025-06-24 08:51 | XMS_ITS | Encounter Summary ---
Author Organization [facility] Address [address] [place] [address] Care Team Providers Care Network Support Name Role Phone José Aguilar MD Primary Care Provider [phone] Encounter Details Date Type Department Care Team (Late st Contact Info) Description 06/11/2025 Clinisync Result Encounter NOMS External Department Unsolicited Aaron Riley DO [address] [facility] [address] [place], [facility]11 Social History Tobacco Use Types [...] 10:30 AM EST Visit NOMPepe CAMERON [address] [place] [phone] Madiha Roca PA [address] [facility] [place] [address] documented as of this encounter Procedures Procedure [...] Narrative CLINISYNC - 06/11/2025 6:27 AM EDT Aaron Riley DO [facility] Final Result [facility] documented in this encounter Visit Diagnoses Not on filedocumented in this encounter Care Teams Network Support Relationship Specialty Start Date End Date José Aguilar MD [address] [place] [address] PCP - General Family Medicine 11/15/24 documented as of this encounter
--- OUTSIDE RECORDS SUMMARY | 2025-06-24 08:51 | XMS_ITS | Encounter Summary ---
Author Organization [facility] Address [address] [place] [address] Care Team Providers Care Analytics Associate Name Role Phone José Aguilar MD Primary Care Provider Encounter Details Date Type Department Care Team (Late Contact Info) Description 06/13/2025 Abstract NOMPepe CAMERON [address] [facility] [place] [address] Aaron Riley DO [address] [facility] [address] [place], [facility]11 Social History Tobacco Use Types Packs/Day [...] Department Care Team (Late Contact Info) Description 07/22/2025 10:30 AM EST Visit AJAY CAMERON [address] [place] [address] Madiha Roca PA [address] [facility] [place] [address] documented as of this encounter Visit Diagnoses Not on filedocumented in this encounter Care Teams Analytics Associate Relationship Specialty Start Date End Date José Aguilar MD [address] [place] [address] PCP - General Family Medicine 11/15/24 documented as of this encounter
--- OUTSIDE RECORDS SUMMARY | 2025-06-24 08:51 | XMS_ITS | Encounter Summary ---
Author Organization [facility] Address [address] [place] [address] Care Team Providers Care Combustion Engineer Name Role Phone José Aguilar MD Primary Care Provider Encounter Details Date Type Department Care Team (Late Contact Info) Description 12/18/2024 Abstract NOMPepe CAMERON [address] [facility] [place] [address] Aaron Riley DO [address] [facility] [address] [place], [facility]11 Social History Tobacco Use Types Packs/Day Years [...] 10:30 AM EST Visit AJAY CAMERON [address] [place] [address] Madiha Roca PA [address] [facility] [place] [address] documented as of this encounter Visit Diagnoses Not on filedocumented in this encounter Care Teams Combustion Engineer Relationship Specialty Start Date End Date José Aguilar MD [address] [place] [address] PCP - General Family Medicine 11/15/24 documented as of this encounter
--- OUTSIDE RECORDS SUMMARY | 2025-06-24 08:51 | XMS_ITS | Encounter Summary ---
Author Organization [facility] Address [address] [place] [address] Care Team Providers Care Client Administrator Name Role Phone José Aguilar MD Primary Care Provider [phone] Encounter Details Date Type Department Care Team (Late st Contact Info) Description 06/10/2025 External Result Encounter NOMS External Department Unsolicited Aaron Riley DO [address] [place], [facility]11 Social History Tobacco Use Types [...] 10:30 AM EST Visit NOMPepe CAMERON [address] [facility] [place] [address] Madiha Roca PA [address] [facility] [place] [address] documented as of this encounter Procedures Procedure Name Priority Date/Time Associated Diagnosis Comments PATHOLOGY REQUEST FOR LAB SIMEON Routine 06/10/2025 8:28 AM EDT documented in this encounter Results * PATHOLOGY REQUEST FOR LAB SIMEON (06/10/2025 8:28 AM EDT) PATHOLOGY REQUEST FOR LAB SIMEON 06/14/2025 10:08 AM EDT [facility] Comment:See report. Scanned copy available in EMR. Other Topography unknown / Unknown 06/10/2025 8:28 AM EDT 06/10/2025 2:44 PM EDT us Aaron Rosemary DO LAB BLOOD ORDERABLES Final Resul t Performing Organization Address City/State/[facility] Co de Phone Number [facility] [address] [place] [address], [facility] [address] [place] [address] documented in this encounter Visit Diagnoses Not on filedocumented in this encounter Care Teams Client Administrator Relationship Specialty Start Date End Date José Aguilar MD [address] [place] [address] PCP - General Family Medicine 11/15/24 documented as of this encounter
--- OUTSIDE RECORDS SUMMARY | 2025-06-24 08:51 | XMS_ITS | Clinical Summary ---
Author Organization [facility] Address [address] [place] [address] Care Team Providers Care Lumber Checker Name Role Phone MaconJosé MD Primary Care Provider [phone] Allergies Active Allergy Reactions Criticality Noted Date Comments Doxycycline Other,Unknown Medium 07/09/2021 Autoimmune reaction Minocycline Other Medium 07/09/2021 Other Reaction(s): medication induced Lupus Autoimmune reaction Medications Vit-Fe Fumarate-FA ( Vitamin Plus Low Iron) 27-1 MG tablet Take 1 each by mouth 1 (one) time each day at the same time Active Edison-3 Fatty Acids (OMEGA-3 CF PO) Take 1 each by mouth Daily Active Magnesium 400 MG capsule Take 400 mg by mouth Daily Active docusate sodium (Colace) 100 MG capsule Take 100 mg by mouth in the morning and 100 mg before bedtime. 06/12/2025 Active ibuprofen 400 MG tablet Take 400 mg by mouth every 8 (eight) hours if needed 06/13/2025 Active Active Problems Problem Noted Date Diagnosed Date Multigravida of advanced mat ernal age in third trimester ([facility]) 04/30/2025 Encounters Date Type Department Care Team Description 06/17/2025 1:20 PM EDT Office Visit AJAY CAMERON [address] [place] [address] Nati Cameron NP Status post section (Primary Dx) 06/17/2025 Bamboo flowsheet NOMPepe CAMERON [address] [place] [address] Nati Cameron, AMNA 06/13/2025 Abstract [facility] Niharika OBGYN [address] [facility] [place] [address] Aaron Riley, DO 06/12/2025 Clinisync Result Encounter NOMS External Department Unsolicited Rosemary, Aaron, DO 06/11/2025 Clinisync Result Encounter NOMS External Department Unsolicited RosemaryDemetriusy, DO 06/10/2025 External Result Encounter NOMS External Department Unsolicited Rosemary, Aaron, DO 06/10/2025 Abstract [facility] N[facility]BG[facility] [address] [facility] [place] [address] Aaron Riley, DO 06/10/2025 Abstract [facility] [address] [facility] [place] [address] Aaron Riley, DO 06/10/2025 Clinisync Result Encounter NOMS External Department Unsolicited Rosemary Aaron, DO 06/06/2025 10:00 AM EDT Routine [facility] [address] [facility] [place] [address] Aaron Riley, DO Third trimester ([facility]); 36 weeks gestation of ([facility]) 06/06/2025 Bamboo flowsheet [facility] [address] [facility] [place] [address] Aaron Riley, DO 05/30/2025 11:30 AM EDT Routine [facility] N[facility]arika [facility]BG[facility] [address] [facility] [place] [address] Nati Cameron, AMNA Third trimester ([facility]); 35 weeks gestation of ([facility]) 05/30/2025 Bamboo flowsheet [facility] [address] [facility] [place] [address] Nati Cameron NP 05/27/2025 Abstract [facility] [address] [facility] [place] [address] Aaron Riley DO 05/16/2025 8:30 AM EDT Routine [facility] [address] [facility] [place] [address] Madiha Roca PA Third trimester ([facility]); 33 weeks gestation of ([facility]) 05/16/2025 Abstract [facility] [address] [facility] [place] [address] Aaron Riley DO 05/16/2025 Bamboo flowsheet [facility] [address] [place] [address] [place] [address] Madiha Roca PA 04/30/2025 9:00 AM EDT Routine [facility] [address] [place] [address] [place] [address] Madiha Roca PA Third trimester ([facility]); 31 weeks gestation of ([facility]); Multigravida of advanced maternal age in third trimester ([facility]) 04/30/2025 8:30 AM EDT Ancillary Procedure [facility] [address] [facility] [place] [address] size inconsistent with dates ([facility]) 04/30/2025 Bamboo flowsheet [facility] [address] [place] [address] [place] [address] Madiha Roca PA 04/16/2025 8:30 AM EDT Routine [facility] [address] [facility] [place] [address] Aaron Riley DO Third trimester ([facility]); 29 weeks gestation of ([facility]); Multigravida of advanced maternal age in third trimester ([facility]); size inconsistent with dates ([facility]) 04/16/2025 Bamboo flowsheet [facility] Niharika CAMERON [address] [place] [address] Aaron Riley, DO 04/02/2025 10:30 AM EDT [place] [address] Madiha Roca PA Second trimester ([facility]); 27 weeks gestation of ([facility]) 04/02/2025 Clinisync Result Encounter NOMS External Department Unsolicited RosemaryDemetriusy, DO 04/02/2025 Bamboo flowsheet [facility] Niharika CAMERON [address] [facility] [place] [address] Madiha Roca PA from Last 3 Months [...] (156 lb) 06/17/2025 1:49 PM EDT Height 165.1 cm (5' 5 ) 07/14/2022 12:00 PM EDT Body Mass Index 25.96 07/14/2022 12:00 PM EDT Plan of Treatment Upcoming Encounters Date Type Department Care Team (Late st Contact Info) Description 07/22/2025 10:30 AM EST Visit [facility] Niharika CAMERON [address] [facility] [place] [address] Madiha Roca PA [address] [place] [address] Procedures Procedure Name Priority Date/Time Associated Diagnosis Comments ALL CBC WITH AUTO DIFF Routine 6:36 AM EDT ALL CBC WITH AUTO DIFF Routine 6:05 AM EDT PATHOLOGY REQUEST FOR LAB SIMEON Routine 06/10/2025 8:28 AM EDT ALL CBC WITH AUTO DIFF Routine 5:40 AM EDT [facility] DRUG SCREEN RAPID (URINE) Routine 06/10/2025 5:35 AM EDT POCT URINALYSIS DIPSTICK Routine 06/06/2025 10:10 AM EDT Third trimester ([facility]) POCT URINALYSIS DIPSTICK Routine 05/30/2025 11:37 AM EDT Third trimester ([facility]) CULTURE, GROUP B STREP WITH SUSCEPTIBLITY Routine 05/30/2025 11:25 AM EDT Third trimester ([facility]) POCT URINALYSIS DIPSTICK Routine 05/16/2025 8:42 AM EDT Third trimester ([facility]) POCT URINALYSIS DIPSTICK Routine 04/30/2025 9:24 AM EDT Third trimester ([facility]) US OB FOLLOW UP TRANSABDOMINAL APPROACH Routine 04/30/2025 9:13 AM EDT size inconsistent with dates ([facility]) POCT URINALYSIS DIPSTICK Routine 04/16/2025 8:37 AM EDT Third trimester ([facility]) POCT URINALYSIS DIPSTICK Routine 04/02/2025 10:23 AM EDT Second trimester ([facility]) GLUCOSE 1 HOUR Routine 04/02/2025 9:23 AM [...] DO CLINISYNC Final Result [facility]IN[facility]NC TB * PATHOLOGY REQUEST FOR LAB SIMEON (06/10/2025 8:28 AM EDT) PATHOLOGY REQUEST FOR LAB SIMEON 06/14/2025 10:08 AM EDT [facility] Comment:See report. Scanned copy available in EMR. Other Topography unknown / Unknown 06/10/2025 8:28 AM EDT 06/10/2025 2:44 PM EDT us Aaron Rosemary DO LAB BLOOD ORDERABLES Final Resul t Performing Organization Address City/[facility] Co de Phone Number [facility] [address] [place] [id number], [facility] [address] [place] [phone] * [facility] DRUG SCREEN RAPID (URINE) (06/10/2025 [...] Narrative CLINISYNC - 06/10/2025 6:03 AM EDT Aaron Hoffmano DO CLIN[facility] Final Result Performing Organization Address [place]/[facility]/ZIP Co de Phone Number [facility] * (ABNORMAL) POCT urinalysis dipstick manually resulted [...] 05/30/2025 11:2 5 AM EDT Nati Cameron BIODIESEL PLANT SUPERINTENDENT LAB BLOOD ORDERABLES Final Re sult EXTERNAL [...] Final Resul t [facility] from Last 3 Months Insurance AETNA Care Teams Lumber Checker Relationship Specialty Start Date End Date José Aguilar MD [address] [place], [place] [phone] PCP - General Family Medicine 11/15/24
--- OUTSIDE RECORDS SUMMARY | 2025-06-24 08:51 | XMS_ITS | Encounter Summary ---
Author Organization [facility] Address [address] [place] [address] Care Team Providers Care Tie Hacker Name Role Phone José Aguilar MD Primary Care Provider [phone] Encounter Details Date Type Department Care Team (Late Contact Info) Description 05/27/2025 Abstract NOMPepe CAMERON [address] [facility] [address] Aaron Riley DO [address] [facility] [address] [place], [facility]11 Social History Tobacco Use Types Packs/Day Years [...] 10:30 AM EST Visit AJAY CAMERON [address] [place] [address] Madiha Roca PA [address] [facility] [place] [address] documented as of this encounter Visit Diagnoses Not on filedocumented in this encounter Care Teams Tie Hacker Relationship Specialty Start Date End Date José Aguilar MD [address] [place] [address] PCP - General Family Medicine 11/15/24 documented as of this encounter
--- OUTSIDE RECORDS SUMMARY | 2025-06-24 08:51 | XMS_ITS | Encounter Summary ---
Author Organization [facility] Address [address] [place] [address] Care Team Providers Care Urgent Care Name Role Phone José Aguilar MD Primary Care Provider [phone] Encounter Details Date Type Department Care Team (Late Contact Info) Description 06/10/2025 Abstract NOMPepe CAMERON [address] [facility] [place] [address] Aaron Riley DO [address] [facility] [address] [place], [facility]11 Social History Tobacco Use Types Packs/Day [...] 10:30 AM EST Visit AJAY CAMERON [address] [place] [address] Madiha Roca PA [address] [facility] [place] [address] documented as of this encounter Visit Diagnoses Not on filedocumented in this encounter Care Teams Urgent Care Relationship Specialty Start Date End Date José Aguilar MD [address] [place] [address] PCP - General Family Medicine 11/15/24 documented as of this encounter
--- OUTSIDE RECORDS SUMMARY | 2025-06-24 08:51 | XMS_ITS | Encounter Summary ---
Author Organization [facility] Address [address] [place] [address] Care Team Providers Care Coach Tour Driver Name Role Phone José Aguilar MD Primary Care Provider [phone] Encounter Details Date Type Department Care Team (Late st Contact Info) Description 06/10/2025 Clinisync Result Encounter NOMS External Department Unsolicited Aaron Riley DO [address] [facility] [address] [place], [facility]11 Social History Tobacco Use Types Packs/Day [...] 10:30 AM EST Visit NOMPepe CAMERON [address] [facility] [place] [address] Madiha Roca PA [address] [facility] [place] [address] documented as of this encounter Procedures Procedure Name Priority Date/Time Associated Diagnosis Comments ALL CBC WITH AUTO DIFF Routine 06/10/2025 5:40 AM EDT [facility] DRUG SCREEN RAPID (URINE) Routine 06/10/2025 5:35 AM EDT documented in this encounter Results * (ABNORMAL) ALL CBC WITH AUTO DIFF (06/10/2025 5:40 AM EDT) [facility] WBC 7.4 4.0 - 11.0 10 3/uL [...] Aaron Rosemary DO [facility] Final Result [facility] documented in this encounter Visit Diagnoses Not on filedocumented in this encounter Care Teams Coach Tour Driver Relationship Specialty Start Date End Date José Aguilar MD [address] [place] [address] PCP - General Family Medicine 11/15/24 documented as of this encounter
--- OUTSIDE RECORDS SUMMARY | 2025-06-24 08:51 | XMS_ITS | Encounter Summary ---
Author Organization [facility] Address [address] [place] [address] Care Team Providers Care Sleep Lab Technician Name Role Phone José Aguilar MD Primary Care Provider [phone] Encounter Details Date Type Department Care Team (Late Contact Info) Description 05/16/2025 Abstract NOMPepe CAMERON [address] [facility] [place] [address] Aaron Riley DO [address] [facility] [address] [place], [facility]11 Social History Tobacco Use Types [...] 10:30 AM EST Visit AJAY CAMERON [address] [place] [address] Madhia Roca PA [address] [facility] [place] [address] documented as of this encounter Visit Diagnoses Not on filedocumented in this encounter Care Teams Sleep Lab Technician Relationship Specialty Start Date End Date José Aguilar MD [address] [place] [address] PCP - General Family Medicine 11/15/24 documented as of this encounter
--- OUTSIDE RECORDS SUMMARY | 2025-06-24 08:51 | XMS_ITS | Encounter Summary ---
Author Organization [facility] Address [address] [place] [address] Care Team Providers Care Speech Coach Name Role Phone José Aguilar MD Primary Care Provider [phone] Encounter Details Date Type Department Care Team (Late Contact Info) Description 06/10/2025 Abstract [facility] [address] [place] [address] Aaron Riley DO [address] Mounika Bundy, [facility] Social History Tobacco Use Types [...] 10:30 AM EST Visit AJAY CAMERON [address] [place] [address] Madiha Roca PA [address] [place] [address] documented as of this encounter Visit Diagnoses Not on filedocumented in this encounter Care Teams Speech Coach Relationship Specialty Start Date End Date José Aguilar MD [address] [place] [id number] PCP - General Family Medicine 11/15/24 documented as of this encounter
--- OUTSIDE RECORDS SUMMARY | 2025-06-24 08:53 | XMS_ITS | CCD ---
Author Organization [facility] Care Team Providers Care Security Delivery Specialist Name Role Phone Louie Martin Unavailable MOROCCO, [...] able Prudence Aguilar MD Primary Care Provider [phone] Vladimir Dunaway Primary Care Physician Unavail able [...] Vladimir Arriola Primary Care Physician Unavail able [place] , Prudence Garnica Primary Care Provider [phone] JOY TRAMMELL Referring Unavailable SECOR, PRUDENCE Garnica Primary Care Unavailable [place] , Prudence Garnica Primary Care Provider [phone] Emelyn, Vladimir Arriola Primary Care Physician Unavail able ROSEMARY, AARON Attending Unavailable CHANELLE, MADIHA Attending Unavailable ROSEMARY, AARON Attending Unavailable CHANELLE, MADIHA Attending Unavailable ROSEMARY, AARON Attending Unavailable CHANELLE, MADIHA Attending Unavailable CHANELLE, MADIHA Attending Unavailable RAKESHBENSON ISSA Attending Unavailable ROSEMARY, AARON Attending Unavailable RAKESHBENSON AUGUSTINE Attending Unavailable Allergies Allergy Classification Reported Allergen(s) Allergy Type Date of Onset Reaction(s) Facility (16 sources) Doxycycline; Translations: [doxycycline hyclate] Drug Allergy [facility] (16 sources) Minocycline; Translations: [minocycline] Drug Allergy [facility] (16 sources) Tetracyclines Allergy to substance (disorder) [email or web address] [facility] (20 sources) Doxycycline Drug Allergy 1 Other (See Comments), Other, Unknown Last 2 Left (20 sources) Minocycline Drug Allergy 1 Other (See Comments), Other Last 2 Left Work Phone: Medications Current Medications Medication Drug [...] Apply thin layer to acne-prone areas daily. docusate sodium 100 mg oral capsule (2 sources) Start: 06-12-2025 take 1 capsule by mouth in the morning docusate sodium (Colace) 100 MG capsule Take 100 mg by mouth in the morning and 100 mg before bedtime. 06/12/2025 Active doxylamine succinate 25 mg oral tablet (1 [...] times daily 2 Bottle 1 12/31/2020 Active ibuprofen 400 mg oral tablet (2 sources) Nonsteroidal Anti-inflammatory Drug Start: 06-13-2025 take 1 tablet by mouth every eight hours as needed ibuprofen 400 MG tablet Take 400 mg by mouth every 8 (eight) hours if needed 06/13/2025 Active Magnesium (20 sources) take 1 capsule [...] 10 days 20 capsule 08/17/2024 08/27/2024 Active [place]-3 Fatty Acids (OMEGA-3 CF PO) (20 sources) take 1 dose by mouth once daily [place]-3 Fatty Acids (OMEGA-3 CF PO) Take 1 [...] 1 capsule 4 times per day Mother [facility] Spec ial Blend 1 capsule 4 times [...] Onset: 01-06-2021 05-18-2022 Chronic Other complications of (20 sources) Multigravida of advanced maternal age; Translations: [...] Test Name Value Interpretation Reference Range Facility PATHOLOGY REQUEST FOR LAB CO RPon 06-14-2025 PATHOLOGY REQUEST FOR LAB SIMEON [facility] Comment on above: See report. Scanned copy available in EMR. [facility] ALL CBC WITH AUTO DIFFon BASOPHILS ABSOLUTE AUTO 0 [facility] Basophils/100 WBC (Bld) 0.2 % 0.2 - 2.0 % [facility] Eosinophils/100 WBC (Bld) 1.3 % 0.9 - 7.0 % [facility] Erythrocyte distribution width (RBC) [Ratio] 14.9 % 11.0 - 15.0 % [facility] Hematocrit (Bld) [Volume fraction] 24.1 % Low 36.0 - 48.0 % [facility] Hemoglobin (Bld) [Mass/Vol] 7.4 g/dL Low 12.0 - 16.0 g/dL [facility] IMMATURE GRANULOCYTES ABS AUTO 0.04 High [facility] Immature granulocytes/100 WBC (Bld) 0.5 % 0.0 - 0.5 % [facility] Interpretation and review of laboratory results Abnormal [facility] LYMPHOCYTES ABSOLUTE AUTO 1.7 [facility] Lymphocytes/100 WBC (Bld) 20.2 % Low 20.5 - 60.0 % [facility] MCH (RBC) [Entitic mass] 24.9 pg Low 26.7 - 34.0 pg [facility] MCHC (RBC) [Mass/Vol] 30.7 g/dL 29.9 - 35.2 g/dL [facility] MCV (RBC) [Entitic vol] 81.1 fL 81.0 - 99.0 fL [facility] MONOCYTES ABSOLUTE AUTO 0.5 [facility] Monocytes/100 WBC (Bld) 6.3 % 1.7 - 12.0 % [facility] NEUTROPHILS ABSOLUTE AUTO 6.1 [facility] Neutrophils/100 WBC (Bld) 71.5 % 43.0 - 75.0 % [facility] Platelet mean volume (Bld) [Entitic vol] 10.5 fL 9.5 - 13.5 fL [facility] EO # 0.1 [facility] PLT 228 [facility] RBC 2.97 Low [facility] WBC 8.5 [facility] ALL CBC WITH AUTO DIFFon BASOPHILS ABSOLUTE AUTO 0 [facility] Basophils/100 WBC (Bld) 0.1 % Low 0.2 - 2.0 % [facility] Eosinophils/100 WBC (Bld) 0.2 % Low 0.9 - 7.0 % [facility] Erythrocyte distribution width (RBC) [Ratio] 14.6 % 11.0 - 15.0 % [facility] Hematocrit (Bld) [Volume fraction] 23.1 % Critically low 36.0 - 48.0 % [facility] Comment on above: RESULTS CALLED TO DOUGLAS OLIVEROS RN @BY Sasha Johnson at 0627 Hemoglobin (Bld) [Mass/Vol] 7.1 g/dL Low 12.0 - 16.0 g/dL [facility] IMMATURE GRANULOCYTES ABS AUTO 0.06 High [facility] Immature granulocytes/100 WBC (Bld) 0.4 % 0.0 - 0.5 % [facility] Interpretation and review of laboratory results Abnormal [facility] LYMPHOCYTES ABSOLUTE AUTO 2.2 [facility] Lymphocytes/100 WBC (Bld) 15.5 % Low 20.5 - 60.0 % [facility] MCH (RBC) [Entitic mass] 25 pg Low 26.7 - 34.0 pg [facility] MCHC (RBC) [Mass/Vol] 30.7 g/dL 29.9 - 35.2 g/dL [facility] MCV (RBC) [Entitic vol] 81.3 fL 81.0 - 99.0 fL [facility] MONOCYTES ABSOLUTE AUTO 0.7 [facility] Monocytes/100 WBC (Bld) 5.3 % 1.7 - 12.0 % [facility] NEUTROPHILS ABSOLUTE AUTO 11 High [facility] Neutrophils/100 WBC (Bld) 78.5 % High 43.0 - 75.0 % [facility] Platelet mean volume (Bld) [Entitic vol] 10.7 fL 9.5 - 13.5 fL [facility] TBH EO # 0 [facility] PLT 198 [facility] RBC 2.84 Low [facility] WBC 14.1 High [facility] ALL CBC WITH AUTO DIFFon BASOPHILS ABSOLUTE AUTO 0 [facility] Basophils/100 WBC (Bld) 0.5 % 0.2 - 2.0 % [facility] Eosinophils/100 WBC (Bld) 0.8 % Low 0.9 - 7.0 % [facility] Erythrocyte distribution width (RBC) [Ratio] 14.6 % 11.0 - 15.0 % [facility] Hematocrit (Bld) [Volume fraction] 26.8 % Low 36.0 - 48.0 % [facility] Hemoglobin (Bld) [Mass/Vol] 8.4 g/dL Low 12.0 - 16.0 g/dL [facility] IMMATURE GRANULOCYTES ABS AUTO 0.02 [facility] Immature granulocytes/100 WBC (Bld) 0.3 % 0.0 - 0.5 % [facility] Interpretation and review of laboratory results Abnormal [facility] LYMPHOCYTES ABSOLUTE AUTO 1.8 [facility] Lymphocytes/100 WBC (Bld) 24.7 % 20.5 - 60.0 % [facility] MCH (RBC) [Entitic mass] 25.2 pg Low 26.7 - 34.0 pg [facility] MCHC (RBC) [Mass/Vol] 31.3 g/dL 29.9 - 35.2 g/dL [facility] MCV (RBC) [Entitic vol] 80.5 fL Low 81.0 - 99.0 fL [facility] MONOCYTES ABSOLUTE AUTO 0.6 [facility] Monocytes/100 WBC (Bld) 7.6 % 1.7 - 12.0 % [facility] NEUTROPHILS ABSOLUTE AUTO 4.9 [facility] Neutrophils/100 WBC (Bld) 66.1 % 43.0 - 75.0 % [facility] Platelet mean volume (Bld) [Entitic vol] 10.4 fL 9.5 - 13.5 [facility]L [facility] PLT 216 [facility] RBC 3.33 Low [facility] WBC 7.4 [facility] Urinalysis macro (dipstick) panel (U)on 06-06-2025 Bilirubin, UA Negative Negative - 4(70) +++ mg/dL [facility] Blood, UA Negative Negative - 50 Thor/mcL [facility] Clarity, UA Clear [facility] Color, UA Yellow [facility] Glucose, UA Negative Negative - 1999(110) ++++ mg/dL [facility] Interpretation and review of laboratory results Abnormal [facility] Ketones, UA Negative Negative - 160(16) ++++ mg/dL [facility] Leukocytes, UA Positive Negative - 500+++ Georgina/mcL [facility] Comment on above: 1+ Nitrite, UA Negative Negative - Positive [facility] pH, UA 6 5 - 9 [facility] Protein, UA Negative Negative - 1999(20) ++++ mg/dL [facility] Spec Grav, UA 1.015 1 - 1.03 [facility] Urobilinogen, UA 0.2 0.2 - 12 mg/dL [facility] Urinalysis macro (dipstick) panel (U)on 05-30-2025 Bilirubin, UA Negative Negative - 4(70) +++ mg/dL [facility] Blood, UA Negative Negative - 50 Thor/mcL [facility] Clarity, UA Clear [facility] Color, UA Yellow [facility] Glucose, UA Negative Negative - 1999(110) ++++ mg/dL [facility] Interpretation and review of laboratory results Normal [facility] Ketones, UA Negative Negative - 160(16) ++++ mg/dL [facility] Leukocytes, UA Negative Negative - 500+++ Georgina/mcL [facility] Nitrite, UA Negative Negative - Positive [facility] pH, UA 6.5 5 - 9 [facility] Protein, UA Negative Negative - 1999(20) ++++ mg/dL [facility] Spec Grav, UA 1.01 1 - 1.03 [facility] Urobilinogen, UA 0.2 0.2 - 12 mg/dL [facility] Urinalysis macro (dipstick) panel (U)on 05-16-2025 Bilirubin, UA Negative Negative - 4(70) +++ mg/dL [facility] Blood, UA Negative Negative - 50 Thor/mcL [facility] Clarity, UA Clear [facility] Color, UA Yellow [facility] Glucose, UA Negative Negative - 1999(110) ++++ mg/dL [facility] Interpretation and review of laboratory results Normal [facility] Ketones, UA Negative Negative - 160(16) ++++ mg/dL [facility] Leukocytes, UA Negative Negative - 500+++ Georgina/mcL [facility] Nitrite, UA Negative Negative - Positive [facility] pH, UA 6 5 - 9 [facility] Protein, UA Negative Negative - 1999(20) ++++ mg/dL [facility] Spec Grav, UA 1.015 1 - 1.03 [facility] Urobilinogen, UA 0.2 0.2 - 12 mg/dL [facility] US OB FOLLOW UP TRANSABDOMIN AL APPROACHon [...] UA Negative Negative - 4(70) +++ mg/dL [facility] Blood, UA Negative Negative - 50 Thor/mcL [facility] Clarity, UA Clear [facility] Color, UA Yellow [facility] Glucose, UA Negative Negative - 1999(110) ++++ mg/dL [facility] Interpretation and review of laboratory results Normal [facility] Ketones, UA Negative Negative - 160(16) ++++ mg/dL [facility] Leukocytes, UA Negative Negative - 500+++ Georgina/mcL [facility] Nitrite, UA Negative Negative - Positive [facility] pH, UA 6 5 - 9 [facility] Protein, UA Negative Negative - 1999(20) ++++ mg/dL [facility] Spec Grav, UA 1.02 1 - 1.03 [facility] Urobilinogen, UA 1.0 0.2 - 12 mg/dL [facility] Urinalysis macro (dipstick) panel (U)on 04-16-2025 Bilirubin, UA Negative Negative - 4(70) +++ mg/dL [facility] Blood, UA Negative Negative - 50 Thor/mcL [facility] Clarity, UA Clear [facility] Color, UA Yellow [facility] Glucose, UA Negative Negative - 1999(110) ++++ mg/dL [facility] Interpretation and review of laboratory results Normal [facility] Ketones, UA Negative Negative - 160(16) ++++ mg/dL [facility] Leukocytes, UA Negative Negative - 500+++ Georgina/mcL [facility] Nitrite, UA Negative Negative - Positive [facility] pH, UA 6 5 - 9 [facility] Protein, UA Negative Negative - 1999(20) ++++ mg/dL [facility] Spec Grav, UA 1.015 1 - 1.03 [facility] Urobilinogen, UA 0.2 0.2 - 12 mg/dL [facility] ALL CBC WITH AUTO DIFFon BASOPHILS ABSOLUTE AUTO 0 [facility] Basophils/100 WBC (Bld) 0.2 % 0.2 - 2.0 % [facility] Eosinophils/100 WBC (Bld) 0.9 % 0.9 - 7.0 % [facility] Erythrocyte distribution width (RBC) [Ratio] 13.2 % 11.0 - 15.0 % [facility] Hematocrit (Bld) [Volume fraction] 33.1 % Low 36.0 - 48.0 % [facility] Hemoglobin (Bld) [Mass/Vol] 10.6 g/dL Low 12.0 - 16.0 g/dL [facility] IMMATURE GRANULOCYTES ABS AUTO 0.03 [facility] Immature granulocytes/100 WBC (Bld) 0.3 % 0.0 - 0.5 % [facility] Interpretation and review of laboratory results Abnormal [facility] LYMPHOCYTES ABSOLUTE AUTO 1.6 [facility] Lymphocytes/100 WBC (Bld) 17.9 % Low 20.5 - 60.0 % [facility] MCH (RBC) [Entitic mass] 29 pg 26.7 - 34.0 pg [facility] MCHC (RBC) [Mass/Vol] 32 g/dL 29.9 - 35.2 g/dL [facility] MCV (RBC) [Entitic vol] 90.4 fL 81.0 - 99.0 fL [facility] MONOCYTES ABSOLUTE AUTO 0.4 [facility] Monocytes/100 WBC (Bld) 4.3 % 1.7 - 12.0 % [facility] NEUTROPHILS ABSOLUTE AUTO 6.7 High [facility] Neutrophils/100 WBC (Bld) 76.4 % High 43.0 - 75.0 % [facility] Platelet mean volume (Bld) [Entitic vol] 9.6 fL 9.5 - 13.5 fL [facility] TBH EO # 0.1 [facility] PLT 291 [facility] RBC 3.66 Low [facility] WBC 8.8 [facility] Urinalysis macro (dipstick) panel (U)on 04-02-2025 Bilirubin, UA Negative Negative - 4(70) +++ mg/dL [facility] Blood, UA Positive Negative - 50 Thor/mcL [facility] Comment on above: large Clarity, UA Clear [facility] Color, UA Yellow [facility] Glucose, UA Negative Negative - 1999(110) ++++ mg/dL [facility] Interpretation and review of laboratory results Abnormal [facility] Ketones, UA Negative Negative - 160(16) ++++ mg/dL [facility] Leukocytes, UA Negative Negative - 500+++ Georgina/mcL [facility] Nitrite, UA Negative Negative - Positive [facility] pH, UA 6.5 5 - 9 [facility] Protein, UA Negative Negative - 1999(20) ++++ mg/dL [facility] Spec Grav, UA 1.005 1 - 1.03 [facility] Urobilinogen, UA 0.2 0.2 - 12 mg/dL [facility] Urinalysis macro (dipstick) panel (U)on 03-05-2025 Bilirubin, UA Negative Negative - 4(70) +++ mg/dL [facility] Blood, UA Negative Negative - 50 Thor/mcL [facility] Clarity, UA Clear [facility] Color, UA Yellow [facility] Glucose, UA Negative Negative - 1999(110) ++++ mg/dL [facility] Interpretation and review of laboratory results Abnormal [facility] Ketones, UA Negative Negative - 160(16) ++++ mg/dL [facility] Leukocytes, UA Trace Negative - 500+++ Georgina/mcL [facility] Nitrite, UA Negative Negative - Positive [facility] pH, UA 7.5 5 - 9 [facility] Protein, UA Negative Negative - 1999(20) ++++ mg/dL [facility] Spec Grav, UA 1.015 1 - 1.03 [facility] Urobilinogen, UA 0.2 0.2 - 12 mg/dL [facility] No Panel InformationOrdered By: Radiologist Radiology on 02-19-2025 [facility] Work Phone: No Panel Informationon 02-19 Radiology Study observation (narrative) [facility] US OB ANATOMYon 02-19-2025 [place] [address] Ultrasound Report Signed Patient: LESIA GONZALEZ MR#: [id number] : 1990 Acct:[id number] Age/Sex: 34 / F ADM Date: 02/19/25 Loc: US Attending Dr: Aaron Riley D.O. Ordering Physician: Aaron Riley D.O. Date of Service: 02/19/25 Procedure(s): US OB anatomy Accession Number(s): [id number] cc: Aaron Riley D.O.; Prudence Jose M.D. [place] [id number] Patient Name: LESIA GONZALEZ MRN: [id number] date: 1990 Sex: F Assigned Patient Location: US Current Patient Location: US Accession/Order Number: [id number] Exam Date: 02/19/2025 10:17 Report Date: 02/19/2025 [...] all 4 extremities were surveyed by the welding machine operator helper gas and no abnormalities were identified. The stomach, [...] Tipton M.D. 02/19/2025 10:27 AM Dictation Location: [place] [address] Electronically authenticated by: [id number] Y Date: 02/19/2025 10:27 Dictated By: Maribel Tipton M.D. Signed By: 02/19/25 1030 DD/ 1027 TD/TT: Manager Industrial: [facility] Radiology, Radiologist, MD - 02/19/2025 [place] [address] Ultrasound Report Signed Patient: LESIA GONZALEZ MR#: [id number] : 1990 Acct:[id number] Age/Sex: 34 / F ADM Date: 02/19/25 Loc: US Attending Dr: Aaron Riley D.O. Ordering Physician: Aaron Riley D.O. Date of Service: 02/19/25 Procedure(s): US OB anatomy Accession Number(s): [id number] cc: Aaron Riley D.O.; Prudence Jose M.D. The [place] [id number] Patient Name: LESIA GONZALEZ MRN: [facility]:[id number] date: 1990 Sex: F Assigned Patient Location: Current Patient Location: US Accession/Order Number: [id number] Exam Date: 02/19/2025 10:17 Report Date: 02/19/2025 [...] all 4 extremities were surveyed by the welding machine operator helper gas and no abnormalities were identified. The stomach, [...] Tipton M.D. 02/19/2025 10:27 AM Dictation Location: [place] [address] Electronically authenticated by: [id number] Y Date: 02/19/2025 10:27 Dictated By: Maribel Tipton M.D. Signed By: 02/19/25 1030 DD/ 1027 TD/TT: Manager Industrial: [facility] [place] [address] Ultrasound Report Signed Patient: LESIA GONZALEZ MR#: [id number] : 1990 Acct:[id number] Age/Sex: 34 / F ADM Date: 02/19/25 Loc: US Attending Dr: Aaron Riley D.O. Ordering Physician: Aaron Riley D.O. Date of Service: 02/19/25 Procedure(s): US OB cervical length Accession Number(s): [id number] cc: Aaron Riley D.O.; Prudence Jose M.D. [address] [address] Patient Name: LESIA GONZALEZ MRN: [id number] date: 1990 Sex: F Assigned Patient Location: US Current Patient Location: US Accession/Order Number: [id number] Exam Date: 02/19/2025 10:17 Report Date: 02/19/2025 [...] all 4 extremities were surveyed by the welding machine operator helper gas and no abnormalities were identified. The stomach, [...] Tipton M.D. 02/19/2025 10:27 AM Dictation Location: [place] [address] Electronically authenticated by: [id number] Y Date: 02/19/2025 10:27 Dictated By: Maribel Tipton M.D. Signed By: 02/19/25 1030 DD/ 1027 TD/TT: Manager Industrial: [facility] Radiology, Radiologist, - 02/19/[address] [address] Ultrasound Report Signed Patient: LESIA GONZALEZ MR#: [id number] : 1990 Acct:[id number] Age/Sex: 34 / F ADM Date: 02/19/25 Loc: US Attending Dr: Aaron Riley D.O. Ordering Physician: Aaron Riley D.O. Date of Service: 02/19/25 Procedure(s): US OB cervical length Accession Number(s): [id number] cc: Aaron Riley D.O.; Prudence Jose M.D. [place] [id number] Patient Name: LESIA GONZALEZ MRN: [facility]:[id number] date: 1990 Sex: F Assigned Patient Location: US Current Patient Location: US Accession/Order Number: [id number] Exam Date: 02/19/2025 10:17 Report Date: 02/19/2025 [...] all 4 extremities were surveyed by the welding machine operator helper gas and no abnormalities were identified. The stomach, [...] Tipton M.D. 02/19/2025 10:27 AM Dictation Location: [place] [address] Electronically authenticated by: [id number] Y Date: 02/19/2025 10:27 Dictated By: Maribel Tipton M.D. Signed By: 02/19/25 1030 DD/ 1027 TD/TT: Manager Industrial: [facility] AFP, SERUM, OPEN SPINA BIFID Aon 02-07-2025 AFP MOM 1.11 . [facility] AFP VALUE 59.4 ng/mL . [facility] COMMENT: Comment . [facility] Comment on above: Dang Bowman , Ph.D., [facility] Director References: Available Upon Request. Multiples Of Median Cutoffs For AFP Elevations Oliveors 2.5 Black 2.8 IDD 2.0 Twins 4.5 Abbreviation Definitions IDD - Insulin Dep Diabetes OSBR - Open Spina Bifida Risk For further inquiries contact [facility] at [phone]. This test was developed and its performance characteristics determined by [facility]. It has not been cleared or approved by the Food and Drug Administration. Performed at: [facility] [address] [place], [place] [id number] Composition Stone Applicator: Roula Lopez [facility], Phone: [phone] GEST. AGE ON COLLECTION DATE 19.4 . weeks [facility] GESTAT. AGE BASED ON LMP . [facility] Comment on above: Recalculations are n ot recommended when gestational dating by LMP and ultrasound are within 10 days. INSULIN DEP DIABETES No . [facility] INTERPRETATION Comment . [facility] Comment on above: Interpretation: Scre en Negative [...] Customer Services to discuss available options. The [employer] recommends amniocentesis be offered to women age 35 and older. [age] [facility] MULTIPLE GESTATION No . [facility] OSBR RISK 1 IN [phone] . [facility] RACE . [facility] RESULTS Report . [facility] TEST RESULTS: Negative . [facility] WEIGHT 144 . lbs [facility] N N LMP [id number] 3 19 N 1 Y 144 N N N N N White/ [facility] RECURRENT VAGINITIS (HTRX)on 02-06-2025 ATOPOBIUM VAGINAE 0 [facility] ATOPOBIUM VAGINAE Not detected [facility] BVAB 2,3 (BACTERIAL VAGINOSIS ASSOCIATED BACTERIA 2, 3); MOBILUNCUS SPP 0 [facility] BVAB 2,3 (BACTERIAL VAGINOSIS ASSOCIATED BACTERIA 2, 3); MOBILUNCUS SPP Not detected [facility] LAURA ALBICANS, PARAPSILOSIS, TROPICALIS 27.705 Abnormal [facility] LAURA ALBICANS, PARAPSILOSIS, TROPICALIS Detected Abnormal [facility] LAURA GLABRATA 24.272 Abnormal [facility] LAURA GLABRATA Detected Abnormal [facility] LAUAR KRUSEI 0 [facility] LAURA KRUSEI Not detected [facility] CHLAMYDIA TRACHOMATIS 0 [facility] CHLAMYDIA TRACHOMATIS Not detected N [facility] GARDNERELLA VAGINALIS 0 [facility] GARDNERELLA VAGINALIS Not detected N [facility] Interpretation and review of laboratory results Abnormal [facility] MEGASPHAERA (TYPES 1, 2) 0 [facility] MEGASPHAERA (TYPES 1, 2) Not detected [facility] MYCOPLASMA GENITALIUM 0 [facility] MYCOPLASMA GENITALIUM Not detected N [facility] NEISSERIA GONORRHOEAE 0 [facility] NEISSERIA GONORRHOEAE Not detected N [facility] TRICHOMONAS VAGINALIS 0 [facility] TRICHOMONAS VAGINALIS Not detected N [facility] Urinalysis macro (dipstick) panel (U)on 02-05-2025 Bilirubin, UA Negative Negative - 4(70) +++ mg/dL [facility] Blood, UA Negative Negative - 50 Thor/mcL [facility] Clarity, UA Clear [facility] Color, UA Yellow [facility] Glucose, UA Negative Negative - 1999(110) ++++ mg/dL [facility] Interpretation and review of laboratory results Normal [facility] Ketones, UA Negative Negative - 160(16) ++++ mg/dL [facility] Leukocytes, UA Negative Negative - 500+++ Georgina/mcL [facility] Nitrite, UA Negative Negative - Positive [facility] pH, UA 6 5 - 9 [facility] Protein, UA Negative Negative - 1999(20) ++++ mg/dL [facility] Spec Grav, UA 1.01 1 - 1.03 [facility] [facility] Urobilinogen, UA 0.2 0.2 - 12 mg/dL [facility] Urinalysis macro (dipstick) panel (U)on 01-07-2025 Bilirubin, UA Negative Negative - 4(70) +++ mg/dL [facility] Blood, UA Negative Negative - 50 Thor/mcL [facility] Clarity, UA Clear [facility] Color, UA Yellow [facility] Glucose, UA Negative Negative - 2000(110) ++++ mg/dL [facility] Interpretation and review of laboratory results Normal [facility] Ketones, UA Negative Negative - 160(16) ++++ mg/dL [facility] Leukocytes, UA Negative Negative - 500+++ Georgina/mcL [facility] Nitrite, UA Negative Negative - Positive [facility] pH, UA 5.5 5 - 9 [facility] Protein, UA Negative Negative - 2000(20) ++++ mg/dL [facility] Spec Grav, UA 1.025 1 - 1.03 [facility] Urobilinogen, UA 0.2 0.2 - 12 mg/dL [facility] US OB TRANSVAGINALon 12-06- 025 US OB TRANSVAGINAL EXAM: US OB [...] II, MD, PHD at 07-Dec-2024 08:32:38 PM [facility] Normal Not Available Comment on above: Order Comment: US OB TRANSVAGINAL No LMP recorded. Culture, Urineon 08-17-2024 [place] - Organism 01 Escherichia coli Abnormal [facility] Comment on above: Order Comment: NV - Source of Urine Collection? Urine clean catch\[id number]\Performed by [facility] [address] [place] [address] [place] - Source of Urine Collection? Urine clean catch [place] - Current Antibiotic Therapy? No Answer Given Performed By: #### C UR #### [facility] See Report [place] - SOURCE urine, clean catch Normal [facility] Comment on above: Order Comment: NV - Source of Urine Collection? Urine clean catch\[id number]\Performed by [facility] [address] [place] [address] [place] - Source of Urine Collection? Urine clean catch [place] - Current Antibiotic Therapy? No Answer Given Performed By: #### C UR #### [facility] See Report [place] - URINE CULTURE Nunda count: >100,000 CFU/mL Normal [facility] Comment on above: Order Comment: NV - Source of Urine Collection? Urine clean catch\[id number]\Performed by [facility] [address] [place] [address] [place] - Source of Urine Collection? Urine clean catch [place] - Current Antibiotic Therapy? No Answer Given Performed By: #### C UR #### [place] [facility] See Report URINE CULTUREon 08-17-2024 Bacteria identified Cx Nom (U) MICROBIOLOGY REPORT [facility] [place], [address] [place] [address], [id number] PATIENT: LESIA GONZALEZ LOCATION: [facility] - - : 1990 AGE: 33 SEX: F ADM: 08/17/24 Att. Physician: PHYSICIAN, NON-STAFF Order Id: [id number] Req. Physician: PHYSICIAN, NON-STAFF Source: urine, clean catch Site: Collected: 08/17/24 16:24 Current Antibiotics: not stated Antibiotics comment: Damon Trevino M E N T S ---- [place] - Source of Urine Collection? Urine clean catch STATUS OF ORDERED AND REPORTED TESTS URINE CULTURE FINAL 08/19/24 URINE CULTURE FINAL 08/19/24 09:01 Organism 01 Escherichia coli Nunda count: >100,000 CFU/mL Organism 01-esccol Antibiotic MICA [...] <=1 S IV 2000mg 164 Trimethoprim/Mane>=320 R [id number]/800mgSMX q 12h 1-2TMP/[id number] P/97SM IV 160mgTMP/800mgSMX q 8 h9TMP/105 SMX [...] blood and urine levels=mcg/ml.*Stand giuliana dosages from [place] Guide to Antimicrobial Therapy and assumes moderate infection in normal adult populations. For pts. with renal or liver disease consult PDR or pharmacist. Normal [facility] No Panel Informationon 05-23 Tobacco smoking status Non-Smoker Invalid Interpretation Code [employer] Laboratory - Chemistry and C hemistry - challengeon 04-18-2023 TSH Qn 1.23 m[IU]/L Invalid Interpretation Code 0.50-4.00 [email or web address] [facility] Thyroxine T4on 08-11-2022 T4 [Mass/Vol] 6.4 ug/dL Normal 4.5-10.9 [facility] Comment on above: Performed By: #### T 4, T3 #### [id number] [place], [place] [id number] [employer] Stone Applicator: Ramiro Blandon MD #### TSH #### [facility] [address] [place] [address] Composition Stone Applicator: Annel García MD Triiodothyronine T3on 2021 Triiodothyronine T3 96 ng/dL Normal 60-181 [facility] Comment on above: Performed By: #### T 4, T3 #### [address] [id number] [employer] Applicator: Ramiro Blandon MD #### TSH #### [facility] [address] [place] [address] Composition Stone Applicator: Annel García MD Laboratory - Chemistry and C hemistry - challengeon 08-10-2022 T3 [Mass/Vol] 96.0 ng/dL Invalid Interpretation Code [facility] T4 [Mass/Vol] 6.4 ug/dL Invalid Interpretation Code [facility] TSH Qn 0.41 m[IU]/L Invalid Interpretation Code [employer] [facility] No Panel Informationon 08-10 jls Invalid Interpretation Code [email or web address] [facility] Thyroid Stim. Horm.on 2021 Thyroid Stim. Horm. 0.41 uIU/mL Normal 0.30-5.00 [facility] Comment on above: Performed By: #### T 4, T3 #### [address] [place] [address] Composition Stone Applicator: Ramiro Blandon MD #### TSH #### [facility] [address] [place] [address] Composition Stone Applicator: Annel García MD PAP ACOG PANEL 2: 30 to 65on 07-21-2022 . . Normal [facility] Comment on above: Result Comment: Perf ormed at: WB Performed By: #### [id number] #### [facility] [address] [address] [address] Jaci Irene Age Gdln ACOG Testing 30-65 Normal [facility] Comment on above: Performed By: #### [id number] #### [facility] [address] [place] [address] Dr. Jaci Irene DIAGNOSIS: Comment Normal [facility] Comment on above: Result Comment: NEGA TIVE FOR INTRAEPITHELIAL LESION OR MALIGNANCY. CELLULAR CHANGES ASSOCIATED WITH INFLAMMATION ARE PRESENT. Performed at: WB Performed By: #### [id number] #### [facility] [address] [place] [address] Dr. Jaci Irene HPV Aptima Negative Normal Negative [facility] Comment on above: Result Comment: This nucleic acid amplification test detects fourteen high-risk HPV types (16,18,31,33,35,39,45,51,52,56,58,59,66,68) without differentiation. Performed at: =G Performed By: #### [id number] #### [facility] [address] [address] [address] Jaci Irene HPV Genotype Reflex Comment Normal [facility] Comment on above: Result Comment: Crit eria not met, HPV Genotype not performed. Performed at: WB Performed By: #### 4 [id number] #### [facility] [address] [place] [address] Dr. Jaci Irene Methodology: Comment Normal [facility] Comment on above: Result Comment: This liquid based ThinPrep(R) pap test was screened with the use of an image guided system. Performed at: WB Performed By: #### 4 [id number] #### [facility] [address] [place] [address] Dr. Jaci Irene Note: Comment [facility] Comment on above: Result Comment: The Pap smear is a screening test designed to aid in the detection of premalignant and malignant conditions of the uterine cervix. It is not a diagnostic procedure and should not be used as the sole means of detecting cervical cancer. Both false-positive and false-negative reports do occur. . Performed at: WB Performed By: #### [id number] #### [facility] [address] [address] [address] Jaci Irene Performed by: Comment Normal [facility] Comment on above: Result Comment: Kirill Azevedo Manager Of Internal Audit (ASCP) Performed at: WB Performed By: #### [id number] #### [facility] [address] [place] [address] Dr. Jaci Irene Specimen adequacy: Comment Normal [facility] Comment on above: Result Comment: Sati sfactory for evaluation. Endocervical and/or squamous metaplastic cells (endocervical component) are present. Performed at: WB Performed By: #### 4 [id number] #### [facility] [address] [place] [address] Dr. Jaci Irene Laboratory - Cytologyon 06-20 Cytology report Cyto stain.thin prep Doc (Cvx/Vag) Pap Smear / Cervical Cytology Invalid Interpretation Code [facility] Laboratory - Microbiology an d Antimicrobial susceptibilityon 07-14-2022 HPV 16+18+31+33+35+45+51+5 2+56 DNA Probe Ql (Cvx) HPV-DNA Test Invalid Interpretation Code [employer] US PELVIS AND TRANSVAGon US PELVIS AND [...] by: ANNEL MILNER Date: 2022-07-09 15:36 Normal [facility] Thyroxine T4on 03-17-2022 T4 [Mass/Vol] 6.3 ug/dL Normal 4.5-10.9 [facility] Comment on above: Performed By: #### F T3, T4 #### [address] [address] Com[employer] Applicator: Ramiro Blandon MD #### TSH #### [address] [place] [address] Composition Stone Applicator: Annel García MD Laboratory - Chemistry and C hemistry - challengeon 03-16-2022 Free T3 [Mass/Vol] 2.960 pg/mL Invalid Interpretation Code [employer] [facility] T4 [Mass/Vol] 6.3 ug/dL Invalid Interpretation Code [employer] [facility] TSH Qn 0.61 m[IU]/L Invalid Interpretation Code [facility] No Panel Informationon 03-16 ls Invalid Interpretation Code [facility] T3, Freeon 03-16-2022 Free T3 [Mass/Vol] 2.96 pg/mL Normal 2.02-4.43 [facility] Comment on above: Performed By: #### F T3, T4 #### [address] [address] Com[employer] Applicator: Ramiro Blandon MD #### TSH #### [address] [place] [address] Composition Stone Applicator: Annel García MD Free T3 [Mass/Vol] 2.96 pg/mL 2.02 - 4. 43 pg/mL [facility] TSHon 03-16-2022 [facility] Thyroid Stim. Horm.on 2021 Thyroid Stim. Horm. 0.61 uIU/mL Normal 0.30-5.00 [facility] Comment on above: Performed By: #### F T3, T4 #### [facility] [address] [place] [address] Composition Stone Applicator: Ramiro Blandon MD #### TSH #### [facility] [address] [place] [address] Composition Stone Applicator: Annel García MD US PELVIS AND TRANSVAGon [...] by: ANNEL MILNER Date: 2022-03-15 07:03 Normal [facility] IODINE, SERUM OR PLASMAon Iodine, Serum or Plasma 66.7 ug/L Normal 40.0-92.0 [facility] Comment on above: Result Comment: Limi t of quantitation = 20 Performed By: #### I ODINE #### [facility] [address] [address] [address] Jaci Irene THYROID-STIMULATING IMMUNOGL OBULINon 08-05-2021 Thyroid Sim Immunoglobulin <0.10 Normal 0.00-0.55 [facility] Comment on above: Performed By: #### T ELAINA #### [facility] [address] [address] [address] Jaci Irene T3, TOTAL (TRIIODOTHYRONINE) on 08-04-2021 T3, TOTAL 168 ng/dL Normal 71-180 [facility] Comment on above: Performed By: #### T 3TOTAL ####[facility] [address] [address]Dr[address] Jaci Irene US THYROIDon 08-04-2021 US THYROID [...] SANDHYA BASS Date: 2021-08-04 06:30 Normal [facility] CBC AUTO DIFFon 08-03-2021 BASO # 0.0 103/ul Normal 0.0-0.1 [facility] Comment on above: Performed By: #### C BC #### [facility] [address] [address] [address] Jaci Irene Basophils/100 WBC (Bld) 0.6 % Normal 0.2-2.0 [facility] Comment on above: Performed By: #### C BC #### [facility] [address] [address] [address] Jaci Irene EO # 0.2 103/ul Normal 0.0-0.7 [facility] Comment on above: Performed By: #### C BC #### [facility] [address] [place] [address] Dr. Jaci Irene Eosinophils/100 WBC (Bld) 2.2 % Normal 0.9-7.0 [facility] Comment on above: Performed By: #### C BC #### [facility] [address] [place] [address] Dr. Jaci Irene Erythrocyte distribution width (RBC) [Ratio] 13.5 % Normal 11.0-15.0 [facility] Comment on above: Performed By: #### C BC #### [facility] [address] [place] [address] Dr. Jaci Irene Hematocrit (Bld) [Volume fraction] 40.9 % Normal 36.0-48.0 [facility] Comment on above: Performed By: #### C BC #### [facility] [address] [place] [address] Dr. Jaci Irene Hemoglobin (Bld) [Mass/Vol] 12.8 g/dL Normal 12.0-16.0 [facility] Comment on above: Performed By: #### C BC #### [facility] [address] [place] [address] Dr. Jaci Irene IG # 0.01 10e3/ul Normal 0.00-0.03 [facility] Comment on above: Performed By: #### C BC #### [facility] [address] [place] [address] Dr. Jaci Irene IG % 0.1 % Normal 0.0-0.5 [facility] Comment on above: Performed By: #### C BC #### [facility] [address] [place] [address] Dr. Jaci Irene LYMPH # 2.4 103/ul Normal 1.2-3.8 [facility] Comment on above: Performed By: #### C BC #### [facility] [address] [place] [address] Dr. Jaci Irene Lymphocytes/100 WBC (Bld) 35.3 % Normal 20.5-60.0 [facility] Comment on above: Performed By: #### C BC #### [facility] [address] [place] [address] Dr. Jaci Irene MANUAL DIFF REQ NO Normal [facility] Comment on above: Performed By: #### C BC #### [facility] [address] [place] [address] Dr. Jaci Irene MCH (RBC) [Entitic mass] 27.2 pg Normal 26.7-34.0 [facility] Comment on above: Performed By: #### C BC #### [facility] [address] [place] [address] Dr. Jaci Irene MCHC (RBC) [Mass/Vol] 31.3 g/dL Normal 29.9-35.2 [facility] Comment on above: Performed By: #### C BC #### [facility] [address] [place] [address] Dr. Jaci Irene MCV (RBC) [Entitic vol] 86.8 fL Normal 81.0-99.0 [facility] Comment on above: Performed By: #### C BC #### [facility] [address] [place] [address] Dr. Jaci Irene MONO # 0.6 103/ul Normal 0.3-0.8 [facility] Comment on above: Performed By: #### C BC #### [facility] [address] [place] [address] Dr. Jaci Irene Monocytes/100 WBC (Bld) 8.2 % Normal 1.7-12.0 [facility] Comment on above: Performed By: #### C BC #### [facility] [address] [place] [address] Dr. Jaci Irene NEUT # 3.6 103/ul Normal 1.4-6.5 [facility] Comment on above: Performed By: #### C BC #### [facility] [address] [place] [address] Dr. Jaci Irene Neutrophils/100 WBC (Bld) 53.6 % Normal 43.0-75.0 [facility] Comment on above: Performed By: #### C BC #### [facility] [address] [place], [place] [id number] Dr. Jaci Irene Platelet mean volume (Bld) [Entitic vol] 9.3 fL Critically low 9.5-13.5 [facility] Comment on above: Performed By: #### C BC #### [facility] [address] [place] [address] Dr. Jaci Irene PLT 299 103/ul Normal 150-450 [facility] Comment on above: Performed By: #### C BC #### [facility] [address] [place] [address] Dr. Jaci Irene RBC 4.71 106/ul Normal 4.20-5.40 [facility] Comment on above: Performed By: #### C BC #### [facility] [address] [place] [address] Dr. Jaci Irene WBC 6.7 103/ul Normal 4.0-11.0 [facility] Comment on above: Performed By: #### C BC #### [facility] [address] [place] [address] Dr. Jaci Irene Laboratory - Chemistry and C hemistry - challengeon 08-03-2021 ALT [Catalytic activity/Vol] 24.0 U/L Invalid Interpretation Code [facility] T3 [Mass/Vol] 168.0 ng/dL Invalid Interpretation Code [facility] T4 [Mass/Vol] 11.0 ug/dL Invalid Interpretation Code [facility] TSH Qn < 0.020 L Invalid Interpretation Code [facility] - Hematology and Cell countson 08-03-2021 Basophils/100 WBC (Bld) 0.60 % Invalid Interpretation Code [facility] Eosinophils/100 WBC (Bld) 2.20 % Invalid Interpretation Code [facility] Erythrocyte distribution width (RBC) [Ratio] 13.50 % Invalid Interpretation Code [facility] Hematocrit (Bld) [Volume fraction] 40.90 % Invalid Interpretation Code [facility] Hemoglobin (Bld) [Mass/Vol] 12.80 g/dL Invalid Interpretation Code [facility] Lymphocytes/100 WBC (Bld) 35.30 % Invalid Interpretation Code [facility] MCH (RBC) [Entitic mass] 27.20 pg Invalid Interpretation Code [facility] MCHC (RBC) [Mass/Vol] 31.30 g/dL Invalid Interpretation Code [facility] MCV (RBC) [Entitic vol] 86.80 fL Invalid Interpretation Code [facility] Monocytes/100 WBC (Bld) 8.20 % Invalid Interpretation Code [facility] Neutrophils/100 WBC (Bld) 53.60 % Invalid Interpretation Code [facility] Platelets (Bld) [#/Vol] 299.0 10*3/uL Invalid Interpretation Code [facility] RBC (Bld) [#/Vol] 4.710 10*6/uL Invalid Interpretation Code [facility] WBC (Bld) [#/Vol] 6.70 10*3/uL Invalid Interpretation Code [facility] No Panel Informationon 08-03 ls Invalid Interpretation Code [facility] < 0.10 Invalid Interpretation Code 0 - 0.55 [facility] 86.70 ug/L Invalid Interpretation Code [facility] SGPTon 08-03-2021 ALT [Catalytic activity/Vol] 24 U/L Normal 9-52 [facility] Comment on above: Performed By: #### T SH, ALT, T4 #### [facility] [address] [place] [address] Dr. Jaci Irene T4on 08-03-2021 T4 [Mass/Vol] 11.00 ug/dL Normal 5.53-11.00 [facility] Comment on above: Performed By: #### T SH, ALT, T4 #### [facility] [address] [address] [address] Jaci Irene TSHon 08-03-2021 TSH Qn m[IU]/L Critically low 0.470-4.680 [facility] Comment on above: Performed By: #### T SH, ALT, T4 #### [facility] [address] [place] [address] Dr. Jaci Irene TSH RANGE SEE BELOW Normal [facility] Comment on above: Result Comment: <0.3 4 UIU/ml HYPERTHYROID 0.34-5.60 UIU/ml EUTHYROID >5.60 UIU/ml HYPOTHYROID Performed By: #### T SH, ALT, T4 #### [facility] [address] [place] [address] Dr. Jaci Irene No Panel Informationon 04-24 Positive Invalid Interpretation Code [facility] 1:160 Invalid Interpretation Code [facility] COMMENT Invalid Interpretation Code [facility] Cytology Cervical or vaginal smear or scraping studyon 07-14-1992 [facility] Vital Signs Date Time Vital Sign Value Performing Clinician Faci lity 06-17-2025 13:49-0400 Body mass index (BMI) [Ratio] 25.96 kg/m2 Benson Cameron NP Work Phone: [facility] 06-17-2025 13:49-0400 Body weight 70.76 kg Benson Cameron CRAPS DEALER Work Phone: [facility] 06-17-2025 13:49-0400 Diastolic blood pressure 70 mm[Hg] Benson Cameron NP Work Phone: [facility] 06-17-2025 13:49-0400 Systolic blood pressure 120 mm[Hg] Benson Rakesh CRAPS DEALER Work Phone: [facility] 06-06-2025 10:05-0400 Body mass index (BMI) [Ratio] 27.96 kg/m2 Aaron Rosemary DO Work Phone: [facility] 06-06-2025 10:05-0400 Body weight 76.2 kg Aaron Rosemary DO Work Phone: [facility] 06-06-2025 10:05-0400 Diastolic blood pressure 74 mm[Hg] Aaron Rosemary DO Work Phone: [facility] 06-06-2025 10:05-0400 Systolic blood pressure 112 mm[Hg] Aaron Rosemary DO Work Phone: [facility] 05-30-2025 11:29-0400 Body mass index (BMI) [Ratio] 27.87 kg/m2 Benson Rakesh CRAPS DEALER Work Phone: [facility] 05-30-2025 11:29-0400 Body weight 75.98 kg Benson Rakesh CRAPS DEALER Work Phone: [facility] 05-30-2025 11:29-0400 Diastolic blood pressure 76 mm[Hg] Benson Rakesh CRAPS DEALER Work Phone: [facility] 05-30-2025 11:29-0400 Systolic blood pressure 120 mm[Hg] Benson Rakesh CRAPS DEALER Work Phone: [facility] 05-16-2025 08:41-0400 Body mass index (BMI) [Ratio] 27.58 kg/m2 Madiha LOPEZ Work Phone: [facility] 05-16-2025 08:41-0400 Body weight 75.18 kg Madiha LOPEZ Work Phone: [facility] 05-16-2025 08:41-0400 Diastolic blood pressure 72 mm[Hg] Madiha LOPEZ Work Phone: [facility] 05-16-2025 08:41-0400 Systolic blood pressure 126 mm[Hg] Madiha Olympia PA Work Phone: [facility] 04-30-2025 09:20-0400 Body mass index (BMI) [Ratio] 26.79 kg/m2 Madiha Chanelle PA Work Phone: [facility] 04-30-2025 09:20-0400 Body weight 73.03 kg Madiha Chanelle PA Work Phone: [facility] 04-30-2025 09:20-0400 Diastolic blood pressure 74 mm[Hg] Madiha Olympia PA Work Phone: [facility] 04-30-2025 09:20-0400 Systolic blood pressure 118 mm[Hg] Madiha Chanelle PA Work Phone: [facility] 04-16-2025 08:31-0400 Body mass index (BMI) [Ratio] 26.46 kg/m2 Aaron Rosemary DO Work Phone: [facility] 04-16-2025 08:31-0400 Body weight 72.12 kg Aaron Rosemary DO Work Phone: [facility] 04-16-2025 08:31-0400 Diastolic blood pressure 70 mm[Hg] Aaron Rosemary DO Work Phone: [facility] 04-16-2025 08:31-0400 Systolic blood pressure 110 mm[Hg] Aaron Rosemary DO Work Phone: [facility] 04-02-2025 10:17-0400 Body mass index (BMI) [Ratio] 25.96 kg/m2 Madiha Olympia PA Work Phone: [facility] 04-02-2025 10:17-0400 Body weight 70.76 kg Madiha Chanelle PA Work Phone: [facility] 04-02-2025 10:17-0400 Diastolic blood pressure 72 mm[Hg] Madiha Olympia PA Work Phone: [facility] 04-02-2025 10:17-0400 Systolic blood pressure 110 mm[Hg] Madiha Chanelle PA Work Phone: [facility] 03-05-2025 09:56-0400 Body mass index (BMI) [Ratio] 25.21 kg/m2 Aaron Rosemary DO Work Phone: [facility] 03-05-2025 09:56-0400 Body weight 68.72 kg Aaron Rosemary DO Work Phone: [facility] 03-05-2025 09:56-0400 Diastolic blood pressure 70 mm[Hg] Aaron Rosemary DO Work Phone: [facility] 03-05-2025 09:56-0400 Systolic blood pressure 110 mm[Hg] Aaron Rosemary DO Work Phone: [facility] 02-05-2025 10:23-0400 Body mass index (BMI) [Ratio] 24.1 kg/m2 Madiha LOPEZ Work Phone: [facility] 02-05-2025 10:23-0400 Body weight 65.68 kg Madiha LOPEZ Work Phone: [facility] 02-05-2025 10:23-0400 Diastolic blood pressure 68 mm[Hg] Madiha LOPEZ Work Phone: [facility] 02-05-2025 10:23-0400 Systolic blood pressure 100 mm[Hg] Madiha LOPEZ Work Phone: [facility] 01-07-2025 10:18-0400 Body mass index (BMI) [Ratio] 23.96 kg/m2 Aaron Rosemary DO Work Phone: [facility] 01-07-2025 10:18-0400 Body weight 65.32 kg Aaron Rosemary DO Work Phone: [facility] 01-07-2025 10:18-0400 Diastolic blood pressure 72 mm[Hg] Aaron Rosemary DO Work Phone: [facility] 01-07-2025 10:18-0400 Systolic blood pressure 110 mm[Hg] Aaron Rosemary DO Work Phone: [facility] 08-12-2021 11:02-0500 Body height 163.83 cm [facility] [employer] 08-12-2021 11:02-0500 Body mass index (BMI) [Ratio] 23.58 kg/m2 [facility] 08-12-2021 11:02-0500 Body surface area Derived from formula 1.7 m2 [facility] 08-12-2021 11:02-0500 Body weight 63.28 kg [facility] 08-12-2021 11:02-0500 Diastolic blood pressure 64 mm[Hg] [facility] 08-12-2021 11:02-0500 Heart rate 72 /min [facility] 08-12-2021 11:02-0500 Systolic blood pressure 122 mm[Hg] [facility] 02-08-2013 10:11-0400 BMI (Body Mass Index) 23.69 kg/m2 Deidre Tablus 02-08-2013 10:11-0400 Body weight 62.6 kg Deidre Tablus 02-08-2013 10:11-0400 BP Diastolic 62 mm[Hg] Deidre Tablus 02-08-2013 10:11-0400 BP Systolic 100 mm[Hg] Deidre Tablus 02-08-2013 10:11-0400 BSA (Body Surface Area) 1.68 m2 Deidre Tablus 02-08-2013 10:11040 Height 162.56 cm Deidre Azael Reina [place] Kashmi 02-08-2013 10:040 Pulse (Heart Rate) 66 /min Deidre Azael Reina [facility] Kashmi Encounters Encounter Date Encounter Type Care Provider Facility Start: 06-17-2025 End: 06-17-2025 Bamboo flowsheet Benson Cameron [employer] Work Phone: [facility] Start: 06-17-2025 End: 06-17-2025 Bamboo flowsheet Benson Cameron [employer] Work Phone: [facility] Start: 06-17-2025 End: 06-17-2025 ambulatory BENSON CAMERON Not Available Start: 06-17-2025 End: 06-17-2025 Postop follow up visit related to original px Benson Cameron [employer] Work Phone: [facility] Comment on above: Status post section (Primary Dx) Start: 06-12-2025 End: 06-12-2025 Clinisync Result Encounter Aaron Rosemary DO Work Phone: [facility] Unsolicited Start: 06-12-2025 End: 06-12-2025 Clinisync Result Encounter Aaron Rosemary DO Work Phone: [facility] Unsolicited Start: 06-11-2025 End: 06-11-2025 Clinisync Result Encounter Aaron Rosemary DO Work Phone: [facility] Unsolicited Start: 06-11-2025 End: 06-11-2025 Clinisync Result Encounter Aaron Rosemary DO Work Phone: [facility] Unsolicited Start: 06-10-2025 End: 06-10-2025 Clinisync Result Encounter Aaron Rosemary DO Work Phone: [facility] Department Unsolicited Start: 06-10-2025 End: 06-14-2025 Clinisync Result Encounter Aaron Rosemary DO Work Phone: [facility] Unsolicited Start: 06-10-2025 End: 06-14-2025 External Result Encounter Aaron Rosemary DO Work Phone: [facility] Unsolicited Start: 06-06-2025 End: 06-06-2025 Bamboo flowsheet Aaron Rosemary DO Work Phone: [facility] Start: 06-06-2025 End: 06-06-2025 Bamboo flowsheet Aaron Rosemary DO Work Phone: [facility] Start: 06-06-2025 End: 06-06-2025 flow sheet Aaron Rosemary DO Work Phone: [facility] Comment on above: Third trimester preg cher ([facility]); 36 weeks gestation of ([facility]) Start: 06-06-2025 End: 06-06-2025 ambulatory AARON ROSEMARY Not Available Start: 05-30-2025 End: 05-30-2025 Bamboo flowsheet Benson Cameron [employer] Work Phone: [facility] Start: 05-30-2025 End: 05-30-2025 Bamboo flowsheet Benson Rakesh [employer] DEALER Work Phone: [facility] Start: 05-30-2025 End: 05-30-2025 flow sheet Benson Rakesh [employer]ER Work Phone: [facility] Comment on above: Third trimester preg cher ([facility]); 35 weeks gestation of ([facility]) Start: 05-30-2025 End: 05-30-2025 ambulatory BENSON RAKESH Not Available Start: 05-16-2025 End: 05-16-2025 Bamboo flowsheet Madiha LOPEZ Work Phone: [facility] Start: 05-16-2025 End: 05-16-2025 Bamboo flowsheet Madiha LOPEZ Work Phone: [facility] Start: 05-16-2025 End: 05-16-2025 flow sheet Madiha LOPEZ Work Phone: [facility] Comment on above: Third trimester preg cher ([facility]); 33 weeks gestation of ([facility]) Start: 05-16-2025 End: 05-16-2025 ambulatory MADIHA CHANELLE Not Available Start: 04-30-2025 End: 04-30-2025 Bamboo flowsheet Madiha LOPEZ Work Phone: [facility] Start: 04-30-2025 End: 04-30-2025 Bamboo flowsheet Madiha LOPEZ Work Phone: [facility] Start: 04-30-2025 End: 04-30-2025 flow sheet Madiha LOPEZ Work Phone: [facility] Comment on above: Third trimester preg cher ([facility]); 31 weeks gestation of ([facility]); Multigravida of advanced maternal age in third trimester ([facility]) Start: 04-30-2025 End: 04-30-2025 ambulatory MADIHA CHANELLE Not Available Start: 04-16-2025 End: 04-16-2025 Bamboo flowsheet Aaron Rosemary DO Work Phone: [facility] Start: 04-16-2025 End: 04-16-2025 Bamboo flowsheet Aaron Rosemary DO Work Phone: [facility] Start: 04-16-2025 End: 04-16-2025 flow sheet Aaron Rosemary DO Work Phone: [facility] Comment on above: Third trimester preg cher ([facility]); 29 weeks gestation of ([facility]); Multigravida of advanced maternal age in third trimester ([facility]) Start: 04-16-2025 End: 04-16-2025 ambulatory AARON ROSEMARY [...] Comment on above: Second trimester pre gnancy ([facility]); 27 weeks gestation of ([facility]) Start: 04-02-2025 End: 04-02-2025 ambulatory MADIHA MORENO Not Available Start: 03-05-2025 End: 03-05-2025 Bamboo flowsheet Aaron Rosemary DO Work Phone: [facility] Start: 03-05-2025 End: 03-05-2025 Bamboo flowsheet Aaron Rosemary DO Work Phone: [facility] Start: 03-05-2025 End: 03-05-2025 flow sheet Aaron Rosemary DO Work Phone: [facility] Comment on above: Diabetes mellitus sc reening; Second trimester ([facility]); 23 weeks gestation of ([facility]) Start: 03-05-2025 End: 03-05-2025 ambulatory AARON ROSEMARY [...] Dunaway Other [facility] Office Start: 01-07-2025 End: 01-07-2025 Bamboo flowsheet [...] Available Start: 12-06-2024 End: 12-06-2024 ambulatory AARON RILEY Not Available Start: 08-17-2024 End: 08-17-2024 Subsequent hospital visit by physician Yoselin Lab Walk In Schedule [facility] Comment on above: Acute cystitis with hematuria Start: 08-17-2024 [facility] Start: 05-23-2024 Office outpatient vi sit 15 minutes Vladimir Dunaway Other [facility] Office Start: 11-21-2023 Office outpatient vi sit 15 minutes Vladimir Dunaway Other [facility] Office Start: 10-10-2023 Office outpatient vi sit 15 minutes Vladimir Dunaway Other [facility] Office Start: 07-06-2023 Office outpatient vi sit 25 minutes Vladimir Dunaway Other [facility] Office Start: 04-18-2023 Lab Vladimir flores Other [facility] Office Start: 03-03-2023 Office outpatient vi sit 15 minutes Vladimir Dunaway Other [facility] Office Start: 01-11-2023 Office outpatient vi sit 15 minutes Vladimir Dunaway Other [facility] Office Start: 10-14-2022 Office outpatient vi sit 25 minutes Vladimir Dunaway Other [facility] Office Start: 08-10-2022 End: 08-11-2022 ambulatory [facility] Start: 07-15-2022 End: 07-15-[address] AARON RILEY Facility:[facility] Start: 07-09-2022 End: 07-10-2022 ambulatory NONE LISTED REQUEST Facility:[facility] Start: 06-08-2022 Office outpatient vi sit 25 minutes Vladimir Dunaway Other [facility] Office Start: 03-16-2022 End: 03-17-2022 ambulatory [facility] Start: 03-16-2022 End: 03-16-2022 Subsequent hospital visit by physician Prudence Aguilar MD Work Phone: [facility] Start: 03-13-2022 End: 03-14-[address] ANNEL MILNER Facility: Start: 12-18-2021 Office outpatient vi sit 15 minutes Vladimir Dunaway Other [facility] Office Start: 11-09-2021 Office outpatient vi sit 25 minutes Vladimir Dunaway Other [facility] Office Start: 08-12-2021 Office consultation new/estab patient 80 min Paul Mijares Other [facility] Office Start: 08-03-2021 End: 08-04-[address] RIVERA LISTED REQUEST Facility: Start: 10-28-2020 Office outpatient vi sit 15 minutes Vladimir Dunaway Other [facility] Office Start: 06-06-2020 Office outpatient vi sit 15 minutes Vladimir Dunaway Other [facility] Office Start: 04-24-2020 Office outpatient vi sit 15 minutes Vladimir Dunaway Other [facility] Office Start: 02-18-2020 Office outpatient ne w 20 minutes Deidre Addison Other [facility] Office Start: 08-24-2017 End: 08-24-2017 Ambulatory TASIA [facility] Start: 08-24-2017 Office outpatient vi sit 10 minutes Tasia Grady Work Phone: [facility] Start: 08-22-2017 End: 08-26-2017 Ambulatory TASIA [facility] Start: 08-22-2017 Office outpatient vi sit 15 minutes Tasia Grady Work Phone: [facility] Start: 02-08-2013 Office Services Paul padilla Other [facility] Office Procedures Date Procedure Procedure Detail Performing Clinician Start: 06-12-2025 ALL CBC WITH AUTO DIFF Aaron Rosemary DO Work Phone: Start: 06-11-2025 ALL CBC WITH AUTO DIFF Aaron Rosemary DO Work Phone: Start: 06-10-2025 PATHOLOGY REQUEST FOR LAB SIMEON Aaron Rosemary DO Work Phone: Start: 06-10-2025 ALL CBC WITH AUTO DIFF Aaron Rosemary DO Work Phone: Start: 06-06-2025 Urnls dip stick/tablet rgnt non-auto w/o micrscp Aaron Rosemary DO Work Phone: Start: 05-30-2025 Urnls dip stick/tablet rgnt non-auto w/o micrscp Benson Rakesh WOO Work Phone: Start: 05-16-2025 Urnls dip stick/tablet rgnt non-auto w/o micrscp Madiha LOPEZ Work Phone: Start: 04-30-2025 Urnls dip stick/tablet rgnt non-auto w/o micrscp Madiha LOPEZ Work Phone: Start: 04-16-2025 Urnls dip stick/tablet rgnt non-auto w/o micrscp Aaron Rosemary DO Work Phone: Start: 04-02-2025 Urnls dip stick/tablet rgnt non-auto w/o micrscp Madiha LOPEZ Work Phone: Start: 04-02-2025 ALL CBC WITH AUTO DIFF Aaron Rosemary DO Work Phone: Start: 03-05-2025 Urnls dip stick/tablet rgnt non-auto w/o micrscp Aaron Rosemary DO Work Phone: Start: 02-19-2025 US OB ANATOMY Aaron Rosemary DO Work Phone: Start: 02-19-2025 US OB CERVICAL LENGTH Aaron Rosemary DO Work Phone: Start: 02-05-2025 RECURRENT VAGINITIS (HTRX) Madiha LOPEZ Work Phone: Start: 02-05-2025 AFP, SERUM, OPEN SPINA BIFIDA Madiha LOPEZ Work Phone: Start: 02-05-2025 Urnls dip stick/tablet rgnt non-auto w/o micrscp Madiha LOPEZ Work Phone: Start: 01-28-2025 Docrev cur meds by odalys Bar rns Start: 01-07-2025 Urnls dip stick/tablet rgnt non-auto w/o micrscp Aaron Riley DO Work Phone: Start: 05-23-2024 Docrev cur meds by odalys Bar r[facility] Start: 11-21-2023 Docrev cur meds by odalys Bar rns Start: 10-10-2023 Docrev cur meds by odalys Bar rns Start: 07-06-2023 Docrev cur meds by odalys Bar rns Start: 04-15-2023 Thyroid stimulating hormone measurement Vladimir Dunaway Start: 01-11-2023 Docrev cur meds by odalys Bar rns Start: 10-14-2022 Docrev cur meds by odalys Bar [facility] Start: 07-29-2022 Thyroid stimulating hormone measurement Vladimir Dunaway Start: 07-29-2022 Thyroxine measurement Vladimir Dunaway Start: 07-29-2022 Tri-iodothyronine measurement, total Vladimir Dunaway Start: 06-08-2022 Docrev cur meds by odalys Bar r[facility] Start: 03-16-2022 Assay of thyroid stimulating hormone tsh Paul Mijares MD Work Phone: Start: 03-12-2022 Thyroid stimulating hormone measurement Vladimir Dunaway Start: 03-12-2022 Thyroxine measurement Vladimir Dunaway Start: 03-12-2022 Tri-iodothyronine measurement, total Vladimir Dunaway Start: 12-18-2021 Docrev cur meds by odalys Bar rns Start: 11-12-2021 Thyroid stimulating hormone measurement Vladimir Dunaway Start: 11-12-2021 Thyroxine measurement Vladimir Dunaway Start: 11-12-2021 Tri-iodothyronine measurement, total Vladimir Dunaway Start: 11-09-2021 Docrev cur meds by odalys Bar rns Start: 08-12-2021 Docrev cur meds by odalys hameed Paul watson Start: 08-05-2021 Alanine aminotransferase measurement Paul Mijares Start: 08-05-2021 Erythrocyte mean corpuscular volume determination Paul Mijares Start: 08-05-2021 Mass spectrometry measurement Paul Mijares Start: 08-05-2021 Thyroid stimulating hormone measurement Paul Mijares Start: 08-05-2021 Thyroid stimulating immunoglobulins measurement Paul Mijares Start: 08-05-2021 Thyroxine measurement Paul Mijares Start: 08-05-2021 Tri-iodothyronine measurement, total Paul Mijares Start: 08-03-2021 US scan of thyroid Paul Mijares Start: 10-28-2020 Doc meds verified w/pt or re Vladimir Bar rns Start: 06-06-2020 Doc meds verified w/pt or re Vladimir Bar rns Start: 04-24-2020 Antinuclear antibodies ghazal Vladimir Guillory s Start: 04-24-2020 Doc meds verified w/pt or re Vladimir Bar rns Start: 02-18-2020 Doc meds verified w/pt or re Deidre cummings Start: 07-14-1992 Cytp cerv/vag auto thin layer prep mnl screen Aaron Rosemaryshiloh RABAGO Work Phone: H/O: section Status pos t section Benson Cameron NP Work Phone: Plan of Treatment Date Care Activity Detail Author Start: 07-06-2029 DTaP/Tdap/Td vaccine (2 - Td or Tdap) DTaP/Tdap/Td vaccine (2 - Td or Tdap) [facility] Start: 07-22-2025 End: 07-22-2025 ambulatory 07/22/2025 10:30 AM EST Visit AJAY CAMERON [address] [place] [phone] Madiha Moreno PA [address] [place] [address] AJAY CAMERON Start: 06-17-2025 End: 06-17-2025 Patient encounter procedure 06/17/2025 1:20 PM EDT Office Visit [facility] [address] [place] [phone] Benson Cameron, AMNA [address] [place] [phone] [facility] Start: 06-06-2025 End: 06-06-2025 Patient encounter procedure [facility] Comment on above: Arrived Start: 05-30-2025 End: 05-30-2026 CULTURE, GROUP B STREP WITH SUSCEPTIBLITY CULTURE, GROUP B STREP WITH SUSCEPTIBLITY Lab Routine Third trimester ([facility]) Expected: 05/30/2025, Expires: 05/30/2026 [facility] Work Phone: Comment on above: Expected: 05/30/2025 , Expires: 05/30/2026 Start: 05-30-2025 End: 05-30-2025 Patient encounter procedure [facility] Comment on above: Arrived Start: 05-16-2025 End: 05-16-2025 Patient encounter procedure 05/16/2025 8:30 AM EDT Routine [facility] [address] [place] [phone] Madiha Moreno PA [address] [place] [address] Arrived [facility] Comment on above: Arrived Start: 05-14-2025 End: 05-14-2025 Patient encounter procedure 05/14/2025 10:30 AM EDT Routine [facility] [address] [place] [place] [phone] Aaron Riley DO [address] [place] [address] [facility] Start: 04-30-2025 End: 04-30-2025 Patient encounter procedure [facility] Comment on above: Arrived Start: 04-30-2025 End: 04-30-2025 Professional / ancillary services management 04/30/2025 8:30 AM EDT Ancillary Procedure [facility] [address] [place] [phone] [facility] Start: 04-16-2025 End: 04-16-2025 Patient encounter procedure [facility] Comment on above: Arrived Start: 04-02-2025 End: 04-02-2025 Patient encounter procedure 04/02/2025 10:30 AM EDT Routine [facility] [address] [place] [phone] Madiha Moreno PA [address] [place], [place] [phone] Arrived [facility] Comment on above: Arrived Start: 03-05-2025 End: 03-05-2026 CBC panel - Blood by Automated count CBC Lab Routine Diabetes mellitus screening Expected: 03/05/2025 (Approximate), Expires: 03/05/2026 [facility] Work Phone: Comment on above: Expected: [...] AM EDT Routine [facility] [address] [place] [phone] Aaron Riley, [address] [place] [address] Arrived [facility] Comment on above: Arrived Start: 05-20-2024 COVID-19 Vaccine ( season) COVID-19 Vaccine ( season) [facility] Start: 04-19-2024 Influenza vaccination Flu vaccine (# 1) [facility] Start: 04-15-2023 Assay of thyroid stimulating hormone tsh TSH [email or web address] [facility] Start: 07-29-2022 Assay of thyroid stimulating hormone tsh TSH [employer] Start: 07-29-2022 Assay of thyroxine total T4 [facility] Start: 07-29-2022 Assay of triiodothyr onine t3 total tt3 T3 total [employer] Start: 05-20-2022 Influenza vaccination Flu vacc ine (Season Ended) [facility] Start: 03-12-2022 Assay of thyroid stimulating hormone tsh TSH [employer] Start: 03-12-2022 Assay of thyroxine total T4 [employer] [facility] Start: 03-12-2022 Assay of triiodothyr onine t3 total tt3 T3 total [employer] Start: 11-12-2021 Assay of thyroid stimulating hormone tsh TSH [employer] Start: 11-12-2021 Assay of thyroxine total T4 [employer] [facility] Start: 11-12-2021 Assay of triiodothyr onine t3 total tt3 T3 total [employer] Start: 08-05-2021 Assay of thyroid stimulating hormone tsh TSH [employer] [facility] Start: 08-05-2021 Assay of thyroxine total T4 [employer] [facility] Start: 08-05-2021 Assay of triiodothyr onine t3 total tt3 T3 total [employer] Start: 08-05-2021 Blood count complete automated CBC & PLATELET COUNT; AUTOMATED [employer] [facility] Start: 08-05-2021 Mass spect&tandem ma ss spect nondrg anal jolanta ea IODINE,SERUM [employer] Start: 08-05-2021 Thyroid stimulating immune globulins tsi TSI (thyroid stimulating immunoglobulin) [employer] [facility] Start: 08-05-2021 Transferase alanine amino alt sgpt SGPT (ALT) [employer] Start: 08-03-2021 US scan of thyroid Thyroid ultrasoun d [employer] Start: 04-24-2020 ANTINUCLEAR ANTIBODIES GHAZAL Hep 2 [employer] Start: 2018 Screening for malign ant neoplasm of cervix [facility] Start: 08-24-2017 Ambulatory 08/24/2017 Off ice Visit Dermatology Tasia Grady Jr., DO [address] [place] [address] [phone] [facility] Start: 05-20-2017 Influenza vaccination SEQUENTI AL INFLUENZA VACCINE (#1) [facility] Work Phone: Start: 2009 Screening for malign ant neoplasm of cervix Pap smear [facility] Start: 12-06-2007 Hepatitis B vaccine (1 of 3 - 19+ 3-dose series) Hepatitis B vaccine (1 of 3 - 19+ 3-dose series) [facility] Start: 2006 Hepatitis C screening Hepatitis C sc reen [facility] Start: 12-06-2003 HIV screening HIV screen [facility] Start: 2001 Varicella vaccine (1 of 2 - 13+ 2-dose series) Varicella vaccine (1 of 2 - 13+ 2-dose series) [facility] Start: 2000 Depression Screen Depression Screen [facility] Start: 1994 Pneumococcal 0-64 ye ars Vaccine (1 of 2 - PCV) Pneumococcal 0-64 years Vaccine (1 of 2 - PCV) [facility] Start: 1993 COVID-19 Vaccine (1) COVID-19 Vaccin e (1) [facility] Start: 1989 Varicella vaccine (1 of 2 - 2-dose childhood series) Varicella vaccine (1 of 2 - 2-dose childhood series) [facility] Start: 1988 Screening for malign ant neoplasm of cervix PAP SMEAR [facility] Work Phone: Start: 1988 Tetanus vaccination TETANUS EVERY 10 YR [facility] Work Phone: CHLAMYDIA TRACHOMATI S (GENITO/STI) CHLAMYDIA TRACHOMATIS (GENITO/STI) Lab Routine Exposure to STD Ordered: 02/05/2025 [facility] Comment on above: Ordered: 02/05/2025 End: 08-17-2024 Culture, Urine [facility] Work Phone: Comment on above: 1 Occurrences starti ng 08/17/2024 until 08/17/2024 Cytology Cervical or vaginal smear or scraping study Pap Smear Pathology and Cytology Routine Well woman exam with routine gynecological exam Ordered: 02/05/2025 [employer] Work Phone: Comment on above: Ordered: 02/05/2025 Human papilloma viru s DNA [Presence] in Unspecified specimen by Probe with amplification HPV DNA probe, amplified Microbiology Routine Well woman exam with routine gynecological exam Ordered: 02/05/2025 [facility] Comment on above: Ordered: 02/05/2025 Neisseria gonorrhoea e DNA [Presence] in Unspecified specimen by JULIANNA with probe detection Neisseria gonorrhea DNA probe, direct Lab Routine Exposure to STD Ordered: 02/05/2025 [facility] Comment on above: Ordered: 02/05/2025 SURESWAB(R) ADVANCED VAGINITIS PLUS, TMA SURESWAB(R) ADVANCED VAGINITIS PLUS, TMA Pathology and Cytology Routine Vaginal discharge Ordered: 02/05/2025 [facility] Comment on above: Ordered: 02/05/2025 End: 03-16-2022 T4 [facility] [employer] Work Phone: Comment on above: Once for 1 Occurrenc es starting 03/16/2022 until 03/16/2022 Immunizations Immunization Date Immunization Notes Care Provider Aziza kearney 07-25-2020 influenza, injectabl e, quadrivalent, preservative free [facility] Schedule [facility] 07-23-2019 Influenza, injectabl e, Madin Regine Canine Kidney, preservative free, quadrivalent [facility] Schedule [facility] 07-06-2019 tetanus toxoid, redu shira diphtheria toxoid, and acellular pertussis vaccine, adsorbed [facility] Schedule [facility] Payers Date Payer Category Payer Private Health Insurance [id number] 1 2012 Private Health Insurance [id number] 1 2011 Managed Care HMO (unspecified) [facility] Address: [address] [address] [id number] 1988 Unknown [id number] 9.2.593 1988 Unknown [id number] [id number] 9.2.593 1988 Unknown [id number] [id number] 9.2.593 1988 Unknown [id number] [id number] 9.2.593 1988 Unknown [id number] [id number] 9.2.173 1988 Unknown [id number] 2.16.840.1.176374.3.57 9.2.173 1988 Unknown [id number] 2.16.840.1.085249.3.57 9.2.754 1988 Unknown [id number] 2.16.840.1.235838.3.57 9.2.1259 1988 Unknown [id number] 2.16.840.1.156126.3.57 9.2.1259 1988 Unknown [id number] 2.16.840.1.903424.3.57 9.2.1259 1988 Unknown [id number] 2.16.840.1.402819.3.57 9.2.1259 1988 Unknown [id number] 2.16.840.1.324411.3.57 9.2.1259 1988 Unknown [id number] 2.16.840.1.958673.3.57 9.2.1259 1988 Unknown [id number] 2.16.840.1.334254.3.57 9.2.1259 1988 Unknown [id number] 2.16.840.1.398429.3.57 9.2.1259 1988 Unknown [id number] 2.16.840.1.287163.3.57 9.2.1259 1988 Unknown [id number] 2.16.840.1.575689.3.57 9.2.1259 1988 Unknown [id number] 2.16.840.1.899343.3.57 9.2.1259 1988 Unknown [id number] 2.16.840.1.509514.3.57 9.2.1259 1988 Unknown [id number] [id number] 9.2.1259 1959 Private Health Insurance [id number] 9.13 Social History Date Type Detail Facility Start: End: 08-24-2017 Tobacco smoking status MIIS Never smoker [facility] Start: 1990 Sex Assigned At Not on file [facility] Work Phone: Start: Alcohol [facility] [employer] [employer] [facility] Start: 10-30-2014 End: 04-26-2024 Alcohol intake Current non-drinker of alcohol (finding) [facility] Work Phone: Start: 04-26-2024 History of Social function [facility] Work Phone: Start: 04-26-2024 Tobacco use panel [facility] Work Phone: Tobacco smoking status NHIS Tobacco smoking consumption unknown [facility] Start: 10-06-2024 [facility] 01-07-2025 to 06-17-2025 Benson Cameron NP - 06/17/2025 1:20 PM EDFartun Mackay LPN - 06/06/2025 10:00 AM Lidia Cameron NP - 05/30/2025 11:30 AM JOHN Lacey - 05/16/2025 8:30 AM EDT Note Date & Type Note Facility 06-17-2025 History of Presen t illness Narrative Reason for Appointment: Patient ID: Lesia Gonzalez is a 34 y.o. female who presents for No chief complaint on file. Patient presents today for 1 Week Post Op Follow Up appointment. 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 Exam conducted with a light armored vehicle officer present. Vitals: Estimated body mass index is [...] weeks for 6 week evaluation. Documented by Benson Cameron NP on behalf of: Benson Cameron NP documented in this encounter [facility] 06-06-2025 History of Presen t illness Narrative Reason for Appointment: Patient ID: Lesia Gonzalez is a 34 y.o. female who presents for Routine Visit Patient presents today for Return OB appointment. 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 Exam conducted with a light armored vehicle officer present. Vitals: Estimated body mass index is 27.96 kg/m as calculated from the following: Height as of 07/14/22: 5' 5 . Weight as of this encounter: 168 lb. BP: 112/74 Patient's last menstrual period was 09/22/2024. ASSESSMENT & PLAN ICD-10-CM 1. Third trimester ([facility]) Z34.93 POCT urinalysis dipstick manually resulted 2. 36 weeks gestation of ([facility]) Z3A.36 Patient presents today for a routine obstetrics appointment. Patient is currently 36w5d with a Estimated Date of Delivery: 06/29/25. Patient scheduled for repeat on 06/10/25. Patient to return to clinic 1 week post operative appointment. Documented by Imelda Mackay LPN on behalf of: Aaron Riley DO documented in this encounter [facility] 05-30-2025 History of Presen t illness Narrative Reason for Appointment: Patient ID: Lesia Gonzalez is a 34 y.o. female who presents for Routine Visit Patient presents today for Return OB appointment. 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 Exam conducted with a light armored vehicle officer present. Vitals: Estimated body mass index is 27.87 kg/m as calculated from the following: Height as of 07/14/22: 5' 5 . Weight as of this encounter: 167 lb 8 oz. BP: 120/76 Patient's last menstrual period was 09/22/2024. ASSESSMENT & PLAN ICD-10-CM 1. Third trimester ([facility]) Z34.93 POCT urinalysis dipstick manually resulted CULTURE, GROUP B STREP WITH SUSCEPTIBLITY CULTURE, GROUP B STREP WITH SUSCEPTIBLITY 2. 35 weeks gestation of ([facility]) Z3A.35 Patient is doing well but [...] Benson Cameron NP documented in this encounter [facility] 05-16-2025 History of Presen t illness Narrative Reason for Appointment: Patient ID: Lesia Gonzalez is a 34 y.o. female who presents for Routine Visit Patient presents today for Return OB appointment. 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 Third trimester ([facility]) Z34.93 POCT urinalysis dipstick manually resulted 2. 33 weeks gestation of ([facility]) Z3A.33 Return OB: Patient presents today [...] of: JOHN Garcia documented in this encounter [facility] 04-30-2025 History of Presen t illness Narrative Reason for Appointment: Patient ID: Lesia Gonzalez is a 34 y.o. female who presents for Routine Visit Patient presents today for Return OB appointment. 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 Third trimester ([facility]) Z34.93 POCT urinalysis dipstick manually resulted 2. 31 weeks gestation of ([facility]) Z3A.31 3. Multigravida of advanced maternal age in third trimester ([facility]) O09.523 Return OB: Patient presents today for [...] of: JOHN Garcia documented in this encounter [facility] 04-16-2025 History of Presen t illness Narrative Reason for Appointment: Patient ID: Lesia Gonzalez is a 34 y.o. female who presents for Routine Visit Patient presents today for Return OB appointment. MEDICATIONS Current Outpatient Medications Medication Instructions Magnesium 400 mg, Daily [place]-3 Fatty Acids (OMEGA-3 CF PO) 1 each, [...] nursing note reviewed. Exam conducted with a light armored vehicle officer present. Vitals: Estimated body mass index is 26.46 kg/m as calculated from the following: Height as of 07/14/22: 5' 5 . Weight as of this encounter: 159 lb. BP: 110/70 Patient's last menstrual period was 09/22/2024. ASSESSMENT & PLAN ICD-10-CM 1. Third trimester ([facility]) Z34.93 POCT urinalysis dipstick manually resulted 2. 29 weeks gestation of ([facility]) Z3A.29 3. Multigravida of advanced maternal age in third trimester ([facility]) O09.523 Return OB: Patient presents today for [...] Aaron Riley DO documented in this encounter [facility] 04-02-2025 History of Presen t illness Narrative Reason for Appointment: Patient ID: Lesia Gonzalez is a 34 y.o. female who presents for Routine Visit Patient presents today for Return OB appointment. MEDICATIONS Current Outpatient Medications Medication Instructions Magnesium 400 mg, Daily [place]-3 Fatty Acids (OMEGA-3 CF PO) 1 each, [...] ASSESSMENT & PLAN ICD-10-CM 1. Second trimester ([facility]) Z34.92 POCT urinalysis dipstick manually resulted 2. 27 weeks gestation of ([facility]) Z3A.27 Return OB: Patient presents today for [...] Medications Medication Instructions Magnesium 400 mg, Daily [place]-3 Fatty Acids (OMEGA-3 CF PO) 1 each, [...] ASSESSMENT & PLAN ICD-10-CM 1. Second trimester ([facility]) Z34.92 POCT urinalysis dipstick manually resulted 2. 27 weeks gestation of ([facility]) Z3A.27 Return OB: Patient presents today for [...] of: JOHN Garcia documented in this encounter [facility] 03-05-2025 History of Presen t illness Narrative Reason for Appointment: Patient ID: Lesia Gonzalez is a 34 y.o. female who presents for Routine Visit Patient presents today for Return OB appointment. MEDICATIONS Current Outpatient Medications Medication Instructions Magnesium 400 mg, Daily [place]-3 Fatty Acids (OMEGA-3 CF PO) 1 each, [...] Glucose tolerance, 1 hour 2. Second trimester ([facility]) Z34.92 POCT urinalysis dipstick manually resulted 3. 23 weeks gestation of ([facility]) Z3A.23 Return OB: Patient presents today for [...] Aaron Riley DO documented in this encounter [facility] 02-05-2025 History of Presen t illness Narrative Reason for Appointment: Patient ID: Lesia Gonzalez is a 34 y.o. female who presents for No chief complaint on file. Patient presents today for Annual Exam. and Return OB appointment. MEDICATIONS Current Outpatient Medications Medication Instructions Magnesium 400 mg, Daily [place]-3 Fatty Acids (OMEGA-3 CF PO) 1 each, [...] nursing note reviewed. Exam conducted with a light armored vehicle officer present. Vitals: Estimated body mass index is [...] obtained without difficulty and patient was given [facility] order to have obtained. Orders Placed [...] of: JOHN Garcia documented in this encounter [facility] 01-07-2025 History of Presen t illness Narrative Reason for Appointment: Patient ID: Lesia Gonzalez is a 34 y.o. female who presents for Routine Visit Patient presents today for Return OB appointment. MEDICATIONS Current Outpatient Medications Medication Instructions Magnesium 400 mg, Daily [place]-3 Fatty Acids (OMEGA-3 CF PO) 1 each, [...] nursing note reviewed. Exam conducted with a light armored vehicle officer present. Vitals: Estimated body mass index is [...] or undercooked meat, and stay away from [facility]. Patient has been consulted regarding any further do's and don'ts of . Patient voiced understanding and all questions and concerns were answered. Patient will have 4th Repeat possibly on 06-10-25. Advised patient to start Baby Aspirin 81 mg daily for remainder of starting at 16 weeks. 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 DATE CREATED AUTHOR AUTHOR'S ORGANIZ ATION 07/22/2022 [facility] DATE CREATED AUTHOR AUTHOR'S ORGANIZ ATION 08/12/2022 [facility] DATE CREATED AUTHOR AUTHOR'S ORGANIZ ATION 08/19/2024 [facility] DATE CREATED AUTHOR AUTHOR'S ORGANIZ ATION 08/19/2024 [facility] DATE CREATED AUTHOR AUTHOR'S ORGANIZ ATION 06/23/2025 [facility] dical Specialists EPIC Care Teams (unrecognized sec tion and content) Security Delivery Specialist Relationship Specialty Start Date End Date Prudence Aguilar MD [address] [place] [address] PCP - General 12/27/20 Security Delivery Specialist Relationship Specialty Start Date End Date Prudence Aguilar MD [address] [place] [address] PCP - General 12/27/20 Security Delivery Specialist Relationship Specialty Start Date End Date Prudence Aguilar MD [address] [place], [place] [phone] PCP - General Family Medicine 11/15/24 Security Delivery Specialist Relationship Specialty Start Date End Date Prudence Aguilar MD [address] [place] [id number] PCP - General Family Medicine 11/15/24 Security Delivery Specialist Relationship Specialty Start Date End Date Prudence Aguilar MD [address] [place] [address] PCP - General Family Medicine 11/15/24 Security Delivery Specialist Relationship Specialty Start Date End Date Prudence Aguilar MD [address] [place], [place] [phone] PCP - [facility] Medicine 11/15/24 Security Delivery Specialist Relationship Specialty Start Date End Date Prudence Aguilar MD [address] [place], [place] [phone] PCP - [facility] 11/15/24 Security Delivery Specialist Relationship Specialty Start Date End Date Prudence Aguilar MD [address] [place] [id number] PCP - [facility] 11/15/24 Security Delivery Specialist Relationship Specialty Start Date End Date Prudence Aguilar MD [address] [place], [place] [phone] PCP - [facility] Medicine 11/15/24 Reason for Visit (unrecogniz ed [...] BE BASED ON THE PRIMARY CLINICAL RECORDS. [facility] [employer] [facility]. provides no warranty or guarantee of the accuracy or completeness of information in this document.
--- NOTE | 2025-06-24 13:15 | PC.NURSE ---
Ankit Graf, 2 yo Raza and 2 week old Eliu arrive for weight check. Parents states baby is waking on her own for feeds, sometimes 1.5 hours last feed. Lesia states I put her on anytime she is interested Tries to maintain feeds every 3 hours around the clock and small feeds when interested. Mom continues to pump after every other feed to maintain supply. States new Eufy pump is working well for her. to scales, is up 4 oz from 06/19/2025 visit. Parents pleased yet worried that baby is not returned to weight. Reviewed slow start with nursing, LPI and refusal of supplemental feedings. is now gaining close to 1 oz per day. Family plans to return 07/02/2025 for weight check for Eliu. No further questions. Baby nursed 03/25. Mom states this is better, more consistent at 7 min each breast, every feed. Was more like 5 min a breast. Encouraged to keep baby on breast/ awake 7-10 per side. Verbalized understanding. Family leaves ambulatory.
== END 2025-06-24 13:31 ==
LOC: FBCO 08:48
PROVIDERS: PCP Family Medicine; Visit Provider Obstetrics & Gynecology
DX: Z39.1 Encounter for care and examination of lactating mother (principal)
CPT/HCPCS: G0463

== ENCOUNTER 2025-07-05 08:00 | Outpatient (OUT) | payer OTHER, SELFPAY ==
--- OUTSIDE RECORDS SUMMARY | 2025-07-05 08:03 | XMS_ITS | Encounter Summary ---
Author Organization [facility] Address [address] [place] [address] Care Team Providers Care Financial Writer Name Role Phone José Aguilar MD Primary Care Provider [phone] Encounter Details Date Type Department Care Team (Late Contact Info) Description 06/10/2025 Abstract [facility] [address] [place] [address] Aaron Riley DO [address] [facility] [address] Mounika Bundy, [facility] Social History Tobacco Use Types Packs/Day [...] 10:30 AM EST Visit AJAY CAMERON [address] [place] [address] Madiha Roca PA [address] [facility] [place] [address] documented as of this encounter Visit Diagnoses Not on filedocumented in this encounter Care Teams Financial Writer Relationship Specialty Start Date End Date José Aguilar MD [address] [place] [id number] PCP - General Family Medicine 11/15/24 documented as of this encounter
--- OUTSIDE RECORDS SUMMARY | 2025-07-05 08:03 | XMS_ITS | Clinical Summary ---
Author Organization [facility] Address [address] [place] [address] Care Team Providers Care Optometry Assistant Name Role Phone BurgoonJosé MD Primary Care Provider [phone] Allergies Active Allergy Reactions Criticality Noted Date Comments Doxycycline Other,Unknown Medium 07/09/2021 Autoimmune reaction Minocycline Other Medium 07/09/2021 Other Reaction(s): medication induced Lupus Autoimmune reaction Medications Vit-Fe Fumarate-FA ( Vitamin Plus Low Iron) 27-1 MG tablet Take 1 each by mouth 1 (one) time each day at the same time Active [place]-3 Fatty Acids (OMEGA-3 CF PO) Take 1 [...] advanced mat ernal age in third trimester ([facility]) 04/30/2025 Encounters Date Type Department Care Team Description 06/17/2025 1:20 PM EDT Office Visit AJAY CAMERON [address] [place] [address] Nati Cameron NP Status post section (Primary Dx) 06/17/2025 Bamboo flowsheet [facility] [address] [place] [address] Nati Cameron, AMNA 06/13/2025 Abstract [facility] [address] [facility] [place] [address] Aaron Riley, DO 06/12/2025 Clinisync Result Encounter NOMS External Department Unsolicited Rosemary, Aaron, DO 06/11/2025 Clinisync Result Encounter NOMS External Department Unsolicited RosemaryDemetriusy, DO 06/10/2025 External Result Encounter NOMS External Department Unsolicited Rosemary, Aaron, DO 06/10/2025 Abstract [facility] [address] [place] [address] Aaron Riley, DO 06/10/2025 Abstract [facility] [address] [place] [address] Aaron Riley, DO 06/10/2025 Clinisync Result Encounter [facility] External Department Unsolicited Rosemary Aaron, DO 06/06/2025 10:00 AM EDT Routine [facility] [address] [place] [address] Aaron Riley, DO Third trimester ([facility]); 36 weeks gestation of ([facility]) 06/06/2025 Bamboo flowsheet [facility] [address] [place] [address] Aaron Riley, DO 05/30/2025 11:30 AM EDT Routine [facility] [address] [place] [address] Nati Cameron, AMNA Third trimester ([facility]); 35 weeks gestation of ([facility]) 05/30/2025 Bamboo flowsheet [facility] [address] [place] [address] Nati Cameron NP 05/27/2025 Abstract [facility] [address] [place] [address] Aaron Riley DO 05/16/2025 8:30 AM EDT Routine [facility] [address] [place] [place] [address] Madiha Roca PA Third trimester ([facility]); 33 weeks gestation of ([facility]) 05/16/2025 Abstract [facility] [address] [place] [address] Aaron Riley DO 05/16/2025 Bamboo flowsheet [facility] [address] [place] [address] [place] [address] Madiha Roca PA 04/30/2025 9:00 AM EDT Routine [facility] [address] [place] [address] [place] [address] Madiha Roca PA Third trimester ([facility]); 31 weeks gestation of ([facility]); Multigravida of advanced maternal age in third trimester ([facility]) 04/30/2025 8:30 AM EDT Ancillary Procedure [facility] [address] [place] [address] size inconsistent with dates ([facility]) 04/30/2025 Bamboo flowsheet [facility] [address] [place] [address] [place] [address] Madiha Roca PA 04/16/2025 8:30 AM EDT Routine [facility] [address] [place] [address] Aaron Riley DO Third trimester ([facility]); 29 weeks gestation of ([facility]); Multigravida of advanced maternal age in third trimester ([facility]); size inconsistent with dates ([facility]) 04/16/2025 Bamboo flowsheet [facility] [address] [place] [address] Aaron Riley DO from Last 3 Months [...] 10:30 AM EST Visit [facility] [address] [facility] [address] Madiha Roca PA [address] [facility] [place] [address] Procedures Procedure Name Priority Date/Time Associated Diagnosis Comments ALL CBC WITH AUTO DIFF Routine 5 6:36 AM EDT ALL CBC WITH AUTO DIFF Routine 5 6:05 AM EDT PATHOLOGY REQUEST FOR LAB [facility] Routine 06/10/2025 8:28 AM EDT ALL CBC WITH AUTO DIFF Routine 5 5:40 AM EDT [facility] DRUG SCREEN RAPID (URINE) Routine 06/10/2025 5:35 AM EDT POCT URINALYSIS DIPSTICK Routine 06/06/2025 10:10 AM EDT Third trimester ([facility]) POCT URINALYSIS DIPSTICK Routine 05/30/2025 11:37 AM EDT Third trimester ([facility]) CULTURE, GROUP B STREP WITH SUSCEPTIBLITY Routine 05/30/2025 11:25 AM EDT Third trimester ([facility]) POCT URINALYSIS DIPSTICK Routine 05/16/2025 8:42 AM EDT Third trimester ([facility]) POCT URINALYSIS DIPSTICK Routine 04/30/2025 9:24 AM EDT Third trimester ([facility]) US OB FOLLOW UP TRANSABDOMINAL APPROACH Routine 04/30/2025 9:13 AM EDT size inconsistent with dates ([facility]) POCT URINALYSIS DIPSTICK Routine 04/16/2025 8:37 AM EDT Third trimester ([facility]) from Last 3 Months Results * (ABNORMAL) ALL CBC WITH AUTO DIFF (06/12/2025 6:36 AM EDT) Only the most recent of3 resultswithin the time period is included. [facility] [...] Narrative CLINISYNC - 06/12/2025 7:14 AM EDT Aaron Rosemary DO CLINISYNC Final Result Performing Organization Address City/[facility] Co de Phone Number [facility] * PATHOLOGY REQUEST FOR LAB [facility] (06/10/2025 8:28 AM EDT) PATHOLOGY REQUEST FOR LAB [facility] 06/14/2025 10:08 AM EDT [facility] Comment:See report. Scanned copy available in EMR. Other Topography unknown / Unknown 06/10/2025 8:28 AM EDT 06/10/2025 2:44 PM EDT Aaron Rosemary DO LAB BLOOD ORDERABLES Final Resul t Performing Organization Address City/[facility] Co de Phone Number [facility] [address] [place] [address], [facility] [address] [place] [phone] * TB DRUG SCREEN RAPID (URINE) (06/10/2025 5:35 AM [...] NEGATIVE TBH BARBITURATES SCREEN URINE NEGATIVE NEGATIVE TB OXYCODONE SCREEN URINE NEGATIVE NEGATIVE TBH BUPRENORPHINE SCREEN URINE NEGATIVE NEGATIVE TB Comment: DRUG CLASS TEST SYSTEM CUT-OFF CONCENTRATIONS [...] CLINISYNC - 06/10/2025 6:03 AM EDT Aaron Riley DO CLINISYNC Final Result [facility] * (ABNORMAL) POCT urinalysis dipstick manually resulted (06/06/2025 10:10 AM EDT) Only the most recent of5 resultswithin the time period is included. Color, [...] 05/30/2025 11:2 5 AM EDT Nati Cameron NP LAB BLOOD ORDERABLES Final [...] Alfredo Singh MD us Aaron Rosemary DO [facility] OB US PROCEDURES Final Resul t from Last 3 Months Insurance [employer] Care Teams Optometry Assistant Relationship Specialty Start Date End Date José Aguilar MD [address] [place] [address] PCP - General Family Medicine 11/15/24
--- OUTSIDE RECORDS SUMMARY | 2025-07-05 08:03 | XMS_ITS | Encounter Summary ---
Author Organization [facility] Address [address] [place] [address] Care Team Providers Care Substitute Teacher Name Role Phone José Aguilar MD Primary Care Provider [phone] Encounter Details Date Type Department Care Team (Late Contact Info) Description 06/10/2025 Abstract [facility] [address] [facility] [place] [address] Aaron Riley DO [address] [facility] [address] Mounika Bundy, [facility]11 Social History [...] 10:30 AM EST Visit AJAY CAMERON [address] [place] [address] Madiha Roca PA [address] [facility] [place] [address] documented as of this encounter Visit Diagnoses Not on filedocumented in this encounter Care Teams Substitute Teacher Relationship Specialty Start Date End Date José Aguilar MD [address] [place] [address] PCP - General Family Medicine 11/15/24 documented as of this encounter
--- OUTSIDE RECORDS SUMMARY | 2025-07-05 08:03 | XMS_ITS | Clinical Summary ---
Author Organization [facility] Address [address] [place] [address] Care Team Providers Care Concrete Mixing Truck Driver Name Role Phone Unavailable Primary Care Provider [...]
--- OUTSIDE RECORDS SUMMARY | 2025-07-05 08:03 | XMS_ITS | Encounter Summary ---
Author Organization [facility] Address [address] [place] [address] Care Team Providers Care Powertrain Design Engineer Name Role Phone José Aguilar MD Primary Care Provider [phone] Encounter Details Date Type Department Care Team (Late Contact Info) Description 02/19/2025 Orders Only [facility] [address] [address] Ana Freeman LPN [address] [place] [id number] Social History Tobacco Use Types Packs/Day Years [...] 10:30 AM EST Visit [facility] [address] [employer] [place] [address] Madiha Roca PA [address] [place] [address] documented as of this encounter Procedures [...] on filedocumented in this encounter Care Teams Powertrain Design Engineer Relationship Specialty Start Date End Date José Aguilar MD [address] [place] [address] PCP - General Family Medicine 11/15/24 documented as of this encounter
--- OUTSIDE RECORDS SUMMARY | 2025-07-05 08:03 | XMS_ITS | Encounter Summary ---
Author Organization [facility] Address [address] [place] [address] Care Team Providers Care Residential Leasing Agent Name Role Phone José Aguilar MD Primary Care Provider [phone] Encounter Details Date Type Department Care Team (Late Contact Info) Description 06/13/2025 Abstract [facility] [address] [facility] [place] [address] Aaron Riley DO [address] [facility] [address] Mounika Bundy, [facility]11 Social History Tobacco Use Types Packs/Day [...] 10:30 AM EST Visit AJAY CAMERON [address] [place] [address] Madiha Roca PA [address] [facility] [place] [address] documented as of this encounter Visit Diagnoses Not on filedocumented in this encounter Care Teams Residential Leasing Agent Relationship Specialty Start Date End Date José Aguilar MD [address] [place] [address] PCP - General Family Medicine 11/15/24 documented as of this encounter
--- OUTSIDE RECORDS SUMMARY | 2025-07-05 08:03 | XMS_ITS | Encounter Summary ---
Author Organization [facility] Address [address] [place] [address] Care Team Providers Care Security Compliance Specialist Name Role Phone José Aguilar MD Primary Care Provider [phone] Encounter Details Date Type Department Care Team (Late Contact Info) Description 05/27/2025 Abstract [facility] [address] [place] [address] Aaron Riley DO [address] [facility] [address] Mounika Bundy, [facility]11 Social History [...] 10:30 AM EST Visit AJAY CAMERON [address] [place] [address] Madiha Roca PA [address] [facility] [place] [address] documented as of this encounter Visit Diagnoses Not on filedocumented in this encounter Care Teams Security Compliance Specialist Relationship Specialty Start Date End Date José Aguilar MD [address] [place] [address] PCP - General Family Medicine 11/15/24 documented as of this encounter
--- OUTSIDE RECORDS SUMMARY | 2025-07-05 08:03 | XMS_ITS | Encounter Summary ---
Author Organization [facility] Address [address] [place] [id number] Care Team Providers Care Gear Tooth Grinding Machine Operator Name Role Phone Louie Martin MD Primary Care Provider [phone] Encounter Details Date Type Department Care Team ([facility] st Contact Info) Description 07/26/2017 Transcribe Orders [facility] [address] [place] [id number] Holly Hull MA Peeling skin (Primary Dx) [...] Primary documented in this encounter Care Teams Gear Tooth Grinding Machine Operator Relationship Specialty Start Date End Date Louie Martin MD [address] [place] [address] PCP - General Family Medicine 07/14/16 12/08/21 documented as of this encounter
--- OUTSIDE RECORDS SUMMARY | 2025-07-05 08:03 | XMS_ITS | Clinical Summary ---
Author Organization [facility] Address [address] [facility], [address] [place] [address] Care Team Providers Care Radiologic Technologist Name Role Phone José Aguilar MD Primary Care Provider [phone] Allergies Active Allergy Reactions Criticality Noted Date Comments Doxycycline Other (See Comments) Medium 07/09/2021 Autoimmune reaction Minocycline Other (See Comments) Medium 07/09/2021 Autoimmune reaction Medications Benzoyl Peroxide (BENZEPRO CREAMY WASH) 7 % LIQD Apply 1 application topically daily 6 Active Clindamycin Phos-Benzoyl Perox (ONEXTON) 1.2-3.75 % GEL Apply 1 application topically daily 6 Active clotrimazole-be tamethasone (LOTRISONE) 1-0.05 % cream Apply topically 2 times daily. 15 g 5 Active Clindamycin-Jovany zoyl Per, Refr, 1.2-5 % GEL 5 Active terbinafine (LAMISIL) 1 % creamIndication s:Tinea corporis Apply topically 2 times daily. 42 g 1 5 Active Active Problems Problem Noted Date Diagnosed [...] Description 05/31/2025 9:00 AM EDT Office Visit [facility] [address] [place] [address] Robert Ruiz APRN - ADELITA Tinea corporis (Primary Dx) 05/27/2025 Telephone [facility] [address] [place] [address] José Aguilar MD lice 04/10/2025 1:30 PM EDT Office Visit [facility] [address] [place] [address] José Aguilar MD Rash (Primary Dx) from [...] Required) Completed Insurance AETNA AETNA Care Teams Radiologic Technologist Relationship Specialty Start Date End Date José Aguilar MD [place] [address] PCP - General 12/27/20
--- OUTSIDE RECORDS SUMMARY | 2025-07-05 08:03 | XMS_ITS | Encounter Summary ---
Author Organization [facility] Address [address] [place] [address] Care Team Providers Care Research And Evaluation Manager Name Role Phone José Aguilar MD Primary Care Provider [phone] Encounter Details Date Type Department Care Team (Late Contact Info) Description 05/16/2025 Abstract [facility] [address] [facility] [place] [address] Aaron Riley DO [address] [facility] [address] Mounika Bundy, [facility]11 Social History Tobacco Use Types [...] 10:30 AM EST Visit AJAY CAMERON [address] [place] [address] Madiha Roca PA [address] [facility] [place] [address] documented as of this encounter Visit Diagnoses Not on filedocumented in this encounter Care Teams Research And Evaluation Manager Relationship Specialty Start Date End Date José Aguilar MD [address] [place] [address] PCP - General Family Medicine 11/15/24 documented as of this encounter
--- OUTSIDE RECORDS SUMMARY | 2025-07-05 08:03 | XMS_ITS | CCD ---
Author Organization [facility] Care Team Providers Care Hog Dropper Name Role Phone Louie Martin Unavailable [phone] MOROCCO, TASIA Unavailable Unavailable LOUIE MARTIN Unavailable [...] able Prudence Aguilar MD Primary Care Provider [phone] Vladimir Dunaway Primary Care Physician Unavail able ROSEMARY, DR INGRAM Attending Unavailable REQUEST, NONE LISTED Primary Care Unavaila henri RILEY, DR INGRAM Consulting Unavailable ROSMEARY, DR INGRAM Admitting Unavailable REQUEST, NONE LISTED [...] Attending Unavailable ROSEMARY, DR INGRAM Consulting Unavailable Emeyln, Vladimir Arriola Primary Care Physician Unavail able [...] Vladimir Arriola Primary Care Physician Unavail able [place] , Prudence Garnica Primary Care Provider [phone] JOY TRAMMELL Referring Unavailable SECOR, PRUDENCE Garnica Primary Care Unavailable [place] , Prudence Garnica Primary Care Provider Emelyn, [...] sources) Doxycycline; Translations: [doxycycline hyclate] Drug Allergy [employer] (16 sources) Minocycline; Translations: [minocycline] Drug Allergy [employer] (16 sources) Tetracyclines Allergy to substance (disorder) Nest[facility] (20 sources) Doxycycline Drug Allergy 1 Other (See Comments), Other, Unknown [facility] (20 sources) Minocycline Drug Allergy 1 Other (See Comments), Other [employer] Work Phone: Medications Current Medications Medication Drug [...] 10 days 20 capsule 08/17/2024 08/27/2024 Active [place]-3 Fatty Acids (OMEGA-3 CF PO) (20 sources) take 1 dose by mouth once daily [place]-3 Fatty Acids (OMEGA-3 CF PO) Take 1 [...] RPon 06-14-2025 PATHOLOGY REQUEST FOR LAB SIMEON [facility] Comment on above: See report. Scanned copy available in EMR. [facility] ALL CBC WITH AUTO DIFFon BASOPHILS ABSOLUTE AUTO 0 [facility] Basophils/100 WBC (Bld) 0.2 % 0.2 - 2.0 % [facility] Eosinophils/100 WBC (Bld) 1.3 % 0.9 - 7.0 % [facility] Erythrocyte distribution width (RBC) [Ratio] 14.9 % 11.0 - 15.0 % [facility] Hematocrit (Bld) [Volume fraction] 24.1 % Low 36.0 - 48.0 % [facility] Hemoglobin (Bld) [Mass/Vol] 7.4 g/dL Low 12.0 - 16.0 g/dL [facility] IMMATURE GRANULOCYTES ABS AUTO 0.04 High [facility] Immature granulocytes/100 WBC (Bld) 0.5 % 0.0 - 0.5 % [facility] Interpretation and review of laboratory results Abnormal [facility] LYMPHOCYTES ABSOLUTE AUTO 1.7 [facility] Lymphocytes/100 WBC (Bld) 20.2 % Low 20.5 - 60.0 % [facility] MCH (RBC) [Entitic mass] 24.9 pg Low 26.7 - 34.0 pg [facility] MCHC (RBC) [Mass/Vol] 30.7 g/dL 29.9 - 35.2 g/dL [facility] MCV (RBC) [Entitic vol] 81.1 fL 81.0 - 99.0 fL [facility] MONOCYTES ABSOLUTE AUTO 0.5 [facility] Monocytes/100 WBC (Bld) 6.3 % 1.7 - 12.0 % [facility] NEUTROPHILS ABSOLUTE AUTO 6.1 [facility] Neutrophils/100 WBC (Bld) 71.5 % 43.0 - 75.0 % [facility] Platelet mean volume (Bld) [Entitic vol] 10.5 fL 9.5 - 13.5 fL [facility] EO # 0.1 [facility] PLT 228 [facility] RBC 2.97 Low [facility] WBC 8.5 [facility] ALL CBC WITH AUTO DIFFon BASOPHILS ABSOLUTE AUTO 0 [facility] Basophils/100 WBC (Bld) 0.1 % Low 0.2 - 2.0 % [facility] Eosinophils/100 WBC (Bld) 0.2 % Low 0.9 - 7.0 % [facility] Erythrocyte distribution width (RBC) [Ratio] 14.6 % 11.0 - 15.0 % [facility] Hematocrit (Bld) [Volume fraction] 23.1 % Critically low 36.0 - 48.0 % [facility] Comment on above: RESULTS CALLED TO DOUGLAS OLIVEROS RN @BY Sasha Johnson at 0627 Hemoglobin (Bld) [Mass/Vol] 7.1 g/dL Low 12.0 - 16.0 g/dL [facility] IMMATURE GRANULOCYTES ABS AUTO 0.06 High [facility] Immature granulocytes/100 WBC (Bld) 0.4 % 0.0 - 0.5 % [facility] Interpretation and review of laboratory results Abnormal [facility] LYMPHOCYTES ABSOLUTE AUTO 2.2 [facility] Lymphocytes/100 WBC (Bld) 15.5 % Low 20.5 - 60.0 % [facility] MCH (RBC) [Entitic mass] 25 pg Low 26.7 - 34.0 pg [facility] MCHC (RBC) [Mass/Vol] 30.7 g/dL 29.9 - 35.2 g/dL [facility] MCV (RBC) [Entitic vol] 81.3 fL 81.0 - 99.0 fL [facility] MONOCYTES ABSOLUTE AUTO 0.7 [facility] Monocytes/100 WBC (Bld) 5.3 % 1.7 - 12.0 % [facility] NEUTROPHILS ABSOLUTE AUTO 11 High [facility] Neutrophils/100 WBC (Bld) 78.5 % High 43.0 - 75.0 % [facility] Platelet mean volume (Bld) [Entitic vol] 10.7 fL 9.5 - 13.5 fL [facility] TBH EO # 0 [facility] TBH PLT 198 [facility] RBC 2.84 Low [facility] WBC 14.1 High [facility] ALL CBC WITH AUTO DIFFon BASOPHILS ABSOLUTE AUTO 0 [facility] Basophils/100 WBC (Bld) 0.5 % 0.2 - 2.0 % [facility] Eosinophils/100 WBC (Bld) 0.8 % Low 0.9 - 7.0 % [facility] Erythrocyte distribution width (RBC) [Ratio] 14.6 % 11.0 - 15.0 % [facility] Hematocrit (Bld) [Volume fraction] 26.8 % Low 36.0 - 48.0 % [facility] Hemoglobin (Bld) [Mass/Vol] 8.4 g/dL Low 12.0 - 16.0 g/dL [facility] IMMATURE GRANULOCYTES ABS AUTO 0.02 [facility] Immature granulocytes/100 WBC (Bld) 0.3 % 0.0 - 0.5 % [facility] Interpretation and review of laboratory results Abnormal [facility] LYMPHOCYTES ABSOLUTE AUTO 1.8 [facility] Lymphocytes/100 WBC (Bld) 24.7 % 20.5 - 60.0 % [facility] MCH (RBC) [Entitic mass] 25.2 pg Low 26.7 - 34.0 pg [facility] MCHC (RBC) [Mass/Vol] 31.3 g/dL 29.9 - 35.2 g/dL [facility] MCV (RBC) [Entitic vol] 80.5 fL Low 81.0 - 99.0 fL [facility] MONOCYTES ABSOLUTE AUTO 0.6 [facility] Monocytes/100 WBC (Bld) 7.6 % 1.7 - 12.0 % [facility] NEUTROPHILS ABSOLUTE AUTO 4.9 [facility] Neutrophils/100 WBC (Bld) 66.1 % 43.0 - 75.0 % [facility] Platelet mean volume (Bld) [Entitic vol] 10.4 fL 9.5 - 13.5 [facility]L [facility] PLT 216 [facility] RBC 3.33 Low [facility] WBC 7.4 [facility] Urinalysis macro (dipstick) panel (U)on 06-06-2025 Bilirubin, UA Negative Negative - 4(70) +++ mg/dL [facility] Blood, UA Negative Negative - 50 Thor/mcL [facility] Clarity, UA Clear [facility] Color, UA Yellow [facility] Glucose, UA Negative Negative - 1999(110) ++++ mg/dL [facility] Interpretation and review of laboratory results Abnormal [facility] Ketones, UA Negative Negative - 160(16) ++++ mg/dL [facility] Leukocytes, UA Positive Negative - 500+++ Georgina/mcL [facility] Comment on above: 1+ Nitrite, UA Negative Negative - Positive [facility] pH, UA 6 5 - 9 [facility] Protein, UA Negative Negative - 1999(20) ++++ mg/dL [facility] Spec Grav, UA 1.015 1 - 1.03 [facility] Urobilinogen, UA 0.2 0.2 - 12 mg/dL [facility] Urinalysis macro (dipstick) panel (U)on 05-30-2025 Bilirubin, UA Negative Negative - 4(70) +++ mg/dL [facility] Blood, UA Negative Negative - 50 Thor/mcL [facility] Clarity, UA Clear [facility] Color, UA Yellow [facility] Glucose, UA Negative Negative - 1999(110) ++++ mg/dL [facility] Interpretation and review of laboratory results Normal [facility] Ketones, UA Negative Negative - 160(16) ++++ mg/dL [facility] Leukocytes, UA Negative Negative - 500+++ Georgina/mcL [facility] Nitrite, UA Negative Negative - Positive [facility] pH, UA 6.5 5 - 9 [facility] Protein, UA Negative Negative - 1999(20) ++++ mg/dL [facility] Spec Grav, UA 1.01 1 - 1.03 [facility] Urobilinogen, UA 0.2 0.2 - 12 mg/dL [facility] Urinalysis macro (dipstick) panel (U)on 05-16-2025 Bilirubin, UA Negative Negative - 4(70) +++ mg/dL [facility] Blood, UA Negative Negative - 50 Thor/mcL [facility] Clarity, UA Clear [facility] Color, UA Yellow [facility] Glucose, UA Negative Negative - 1999(110) ++++ mg/dL [facility] Interpretation and review of laboratory results Normal [facility] Ketones, UA Negative Negative - 160(16) ++++ mg/dL [facility] Leukocytes, UA Negative Negative - 500+++ Georgina/mcL [facility] Nitrite, UA Negative Negative - Positive [facility] pH, UA 6 5 - 9 [facility] Protein, UA Negative Negative - 1999(20) ++++ mg/dL [facility] Spec Grav, UA 1.015 1 - 1.03 [facility] Urobilinogen, UA 0.2 0.2 - 12 mg/dL [facility] US OB FOLLOW UP TRANSABDOMIN AL APPROACHon [...] Negative Negative - 4(70) +++ mg/dL [facility] Blood, UA Negative Negative - 50 Thor/mcL [facility] Clarity, UA Clear [facility] Color, UA Yellow [facility] Glucose, UA Negative Negative - 1999(110) ++++ mg/dL [facility] Interpretation and review of laboratory results Normal [facility] Ketones, UA Negative Negative - 160(16) ++++ mg/dL [facility] Leukocytes, UA Negative Negative - 500+++ Georgina/mcL [facility] Nitrite, UA Negative Negative - Positive [facility] pH, UA 6 5 - 9 [facility] Protein, UA Negative Negative - 1999(20) ++++ mg/dL [facility] Spec Grav, UA 1.02 1 - 1.03 [facility] Urobilinogen, UA 1.0 0.2 - 12 mg/dL [facility] Urinalysis macro (dipstick) panel (U)on 04-16-2025 Bilirubin, UA Negative Negative - 4(70) +++ mg/dL [facility] Blood, UA Negative Negative - 50 Thor/mcL [facility] Clarity, UA Clear [facility] Color, UA Yellow [facility] Glucose, UA Negative Negative - 1999(110) ++++ mg/dL [facility] Interpretation and review of laboratory results Normal [facility] Ketones, UA Negative Negative - 160(16) ++++ mg/dL [facility] Leukocytes, UA Negative Negative - 500+++ Georgina/mcL [facility] Nitrite, UA Negative Negative - Positive [facility] pH, UA 6 5 - 9 [facility] Protein, UA Negative Negative - 1999(20) ++++ mg/dL [facility] Spec Grav, UA 1.015 1 - 1.03 [facility] Urobilinogen, UA 0.2 0.2 - 12 mg/dL [facility] ALL CBC WITH AUTO DIFFon BASOPHILS ABSOLUTE AUTO 0 [facility] Basophils/100 WBC (Bld) 0.2 % 0.2 - 2.0 % [facility] Eosinophils/100 WBC (Bld) 0.9 % 0.9 - 7.0 % [facility] Erythrocyte distribution width (RBC) [Ratio] 13.2 % 11.0 - 15.0 % [facility] Hematocrit (Bld) [Volume fraction] 33.1 % Low 36.0 - 48.0 % [facility] Hemoglobin (Bld) [Mass/Vol] 10.6 g/dL Low 12.0 - 16.0 g/dL [facility] IMMATURE GRANULOCYTES ABS AUTO 0.03 [facility] Immature granulocytes/100 WBC (Bld) 0.3 % 0.0 - 0.5 % [facility] Interpretation and review of laboratory results Abnormal [facility] LYMPHOCYTES ABSOLUTE AUTO 1.6 [facility] Lymphocytes/100 WBC (Bld) 17.9 % Low 20.5 - 60.0 % [facility] MCH (RBC) [Entitic mass] 29 pg 26.7 - 34.0 pg [facility] MCHC (RBC) [Mass/Vol] 32 g/dL 29.9 - 35.2 g/dL [facility] MCV (RBC) [Entitic vol] 90.4 fL 81.0 - 99.0 fL [facility] MONOCYTES ABSOLUTE AUTO 0.4 [facility] Monocytes/100 WBC (Bld) 4.3 % 1.7 - 12.0 % [facility] NEUTROPHILS ABSOLUTE AUTO 6.7 High [facility] Neutrophils/100 WBC (Bld) 76.4 % High 43.0 - 75.0 % [facility] Platelet mean volume (Bld) [Entitic vol] 9.6 fL 9.5 - 13.5 fL [facility] TBH EO # 0.1 [facility]H PLT 291 [facility] RBC 3.66 Low [facility] WBC 8.8 [facility] Urinalysis macro (dipstick) panel (U)on 04-02-2025 Bilirubin, UA Negative Negative - 4(70) +++ mg/dL [facility] Blood, UA Positive Negative - 50 Thor/mcL [facility] Comment on above: large Clarity, UA Clear [facility] Color, UA Yellow [facility] Glucose, UA Negative Negative - 1999(110) ++++ mg/dL [facility] Interpretation and review of laboratory results Abnormal [facility] Ketones, UA Negative Negative - 160(16) ++++ mg/dL [facility] Leukocytes, UA Negative Negative - 500+++ Georgina/mcL [facility] Nitrite, UA Negative Negative - Positive [facility] pH, UA 6.5 5 - 9 [facility] Protein, UA Negative Negative - 1999(20) ++++ mg/dL [facility] Spec Grav, UA 1.005 1 - 1.03 [facility] Urobilinogen, UA 0.2 0.2 - 12 mg/dL [facility] Urinalysis macro (dipstick) panel (U)on 03-05-2025 Bilirubin, UA Negative Negative - 4(70) +++ mg/dL [facility] Blood, UA Negative Negative - 50 Thor/mcL [facility] Clarity, UA Clear [facility] Color, UA Yellow [facility] Glucose, UA Negative Negative - 1999(110) ++++ mg/dL [facility] Interpretation and review of laboratory results Abnormal [facility] Ketones, UA Negative Negative - 160(16) ++++ mg/dL [facility] Leukocytes, UA Trace Negative - 500+++ Georgina/mcL [facility] Nitrite, UA Negative Negative - Positive [facility] pH, UA 7.5 5 - 9 [facility] Protein, UA Negative Negative - 1999(20) ++++ mg/dL [facility] Spec Grav, UA 1.015 1 - 1.03 [facility] Urobilinogen, UA 0.2 0.2 - 12 mg/dL [facility] No Panel InformationOrdered By: Radiologist Radiology on 02-19-2025 [facility] Work Phone: No Panel Informationon 02-19 Radiology Study observation (narrative) [facility] US OB ANATOMYon 02-19-2025 [place] [address] Ultrasound Report Signed Patient: LESIA GONZALEZ MR#: [id number] : 1990 Acct:[id number] Age/Sex: 34 / F ADM Date: 02/19/25 Loc: US Attending Dr: Aaron Riley D.O. Ordering Physician: Aaron Riley D.O. Date of Service: 02/19/25 Procedure(s): US OB anatomy Accession Number(s): [id number] cc: Aaron Riley D.O.; Prudence Jose M.D. [place] [id number] Patient Name: LESIA GONZALEZ MRN: [id number] date: 1990 Sex: F Assigned Patient Location: US Current Patient Location: US Accession/Order Number: [id number] Exam Date: 02/19/2025 10:17 Report Date: 02/19/2025 [...] all 4 extremities were surveyed by the health unit supervisor and no abnormalities were identified. The stomach, [...] 02/19/2025 10:27 AM Dictation Location: [place] [address] Electronically authenticated by: [id number] Y Date: 02/19/2025 10:27 Dictated By: Maribel Tipton M.D. Signed By: 02/19/25 1030 DD/ 1027 TD/TT: Casual Shoe Inspector: [facility] Radiology, Radiologist, MD - 02/19/2025 [place] [address] Ultrasound Report Signed Patient: LESIA GONZALEZ MR#: [id number] : 1990 Acct:[id number] Age/Sex: 34 / F ADM Date: 02/19/25 Loc: US Attending Dr: Aaron Riley D.O. Ordering Physician: Aaron Riley D.O. Date of Service: 02/19/25 Procedure(s): US OB anatomy Accession Number(s): [id number] cc: Aaron Riley D.O.; Prudence Jose M.D. The [place] [id number] Patient Name: LESIA GONZALEZ MRN: [facility]:[id number] date: 1990 Sex: F Assigned Patient Location: Current Patient Location: US Accession/Order Number: [id number] Exam Date: 02/19/2025 10:17 Report Date: 02/19/2025 [...] all 4 extremities were surveyed by the health unit supervisor and no abnormalities were identified. The stomach, [...] 02/19/2025 10:27 AM Dictation Location: [place] [address] Electronically authenticated by: [id number] Y Date: 02/19/2025 10:27 Dictated By: Maribel Tipton M.D. Signed By: 02/19/25 1030 DD/ 1027 TD/TT: Casual Shoe Inspector: [facility] [place] [address] Ultrasound Report Signed Patient: LESIA GONZALEZ MR#: [id number] : 1990 Acct:[id number] Age/Sex: 34 / F ADM Date: 02/19/25 Loc: US Attending Dr: Aaron Riley D.O. Ordering Physician: Aaron Riley D.O. Date of Service: 02/19/25 Procedure(s): US OB cervical length Accession Number(s): [id number] cc: Aaron Riley D.O.; Prudence Jose M.D. [address] [address] Patient Name: LESIA GONZALEZ MRN: [id number] date: 1990 Sex: F Assigned Patient Location: US Current Patient Location: US Accession/Order Number: [id number] Exam Date: 02/19/2025 10:17 Report Date: 02/19/2025 [...] all 4 extremities were surveyed by the health unit supervisor and no abnormalities were identified. The stomach, [...] 02/19/2025 10:27 AM Dictation Location: [place] [address] Electronically authenticated by: [id number] Y Date: 02/19/2025 10:27 Dictated By: Maribel Tipton M.D. Signed By: 02/19/25 1030 DD/ 1027 TD/TT: Casual Shoe Inspector: [facility] Radiology, Radiologist, - 02/19/[address] [address] Ultrasound Report Signed Patient: LESIA GONZALEZ MR#: [id number] : 1990 Acct:[id number] Age/Sex: 34 / F ADM Date: 02/19/25 Loc: US Attending Dr: Aaron Riley D.O. Ordering Physician: Aaron Riley D.O. Date of Service: 02/19/25 Procedure(s): US OB cervical length Accession Number(s): [id number] cc: Aaron Riley D.O.; Prudence Jose M.D. [place] [id number] Patient Name: LESIA GONZALEZ MRN: [facility]:[id number] date: 1990 Sex: F Assigned Patient Location: US Current Patient Location: US Accession/Order Number: [id number] Exam Date: 02/19/2025 10:17 Report Date: 02/19/2025 [...] all 4 extremities were surveyed by the health unit supervisor and no abnormalities were identified. The stomach, [...] 02/19/2025 10:27 AM Dictation Location: [place] [address] Electronically authenticated by: [id number] Y Date: 02/19/2025 10:27 Dictated By: Maribel Tipton M.D. Signed By: 02/19/25 1030 DD/ 1027 TD/TT: Casual Shoe Inspector: [facility] AFP, SERUM, OPEN SPINA BIFID Aon 02-07-2025 AFP MOM 1.11 . [facility] AFP VALUE 59.4 ng/mL . [facility] COMMENT: Comment . [facility] Comment on above: Dang Bowman , Ph.D., [facility] Director References: Available Upon Request. Multiples Of Median Cutoffs For AFP Elevations Oliveros 2.5 Black 2.8 IDD 2.0 Twins 4.5 Abbreviation Definitions IDD - Insulin Dep Diabetes OSBR - Open Spina Bifida Risk For further inquiries contact [employer] at [phone]. This test was developed and its performance characteristics determined by [employer]. It has not been cleared or approved by the Food and Drug Administration. Performed at: [facility] [address] [place], [place] [id number] Productivity Engineer: Roula Lopez [facility], Phone: [phone] GEST. AGE ON COLLECTION DATE 19.4 . weeks [facility] GESTAT. AGE BASED ON LMP . [facility] Comment on above: Recalculations are n ot recommended when gestational dating by LMP and ultrasound are within 10 days. INSULIN DEP DIABETES No . [facility] INTERPRETATION Comment . [facility] Comment on above: Interpretation: Scre en [...] Customer Services to discuss available options. The [employer] recommends amniocentesis be offered to women age 35 and older. [age] [facility] MULTIPLE GESTATION No . [facility] OSBR RISK 1 IN 8647 . [facility] RACE . [facility] RESULTS Report . [facility] TEST RESULTS: Negative . [facility] WEIGHT 144 . lbs [facility] N N LMP [id number] 3 19 N 1 Y 144 N N N N N White/ [facility] RECURRENT VAGINITIS (HTRX)on 02-06-2025 ATOPOBIUM VAGINAE 0 [facility] ATOPOBIUM VAGINAE Not detected [facility] BVAB 2,3 (BACTERIAL VAGINOSIS ASSOCIATED BACTERIA 2, 3); MOBILUNCUS SPP 0 [facility] BVAB 2,3 (BACTERIAL VAGINOSIS ASSOCIATED BACTERIA 2, 3); MOBILUNCUS SPP Not detected [facility] LAURA ALBICANS, PARAPSILOSIS, TROPICALIS 27.705 Abnormal [facility] LAURA ALBICANS, PARAPSILOSIS, TROPICALIS Detected Abnormal [facility] LAURA GLABRATA 24.272 Abnormal [facility] LAURA GLABRATA Detected Abnormal [facility] LAURA KRUSEI 0 [facility] LAURA KRUSEI Not detected [facility] CHLAMYDIA TRACHOMATIS 0 [facility] CHLAMYDIA TRACHOMATIS Not detected N [facility] GARDNERELLA VAGINALIS 0 [facility] GARDNERELLA VAGINALIS Not detected N [facility] Interpretation and review of laboratory results Abnormal [facility] MEGASPHAERA (TYPES 1, 2) 0 [facility] MEGASPHAERA (TYPES 1, 2) Not detected [facility] MYCOPLASMA GENITALIUM 0 [facility] MYCOPLASMA GENITALIUM Not detected N [facility] NEISSERIA GONORRHOEAE 0 [facility] NEISSERIA GONORRHOEAE Not detected N [facility] TRICHOMONAS VAGINALIS 0 [facility] TRICHOMONAS VAGINALIS Not detected N [facility] Urinalysis macro (dipstick) panel (U)on 02-05-2025 Bilirubin, UA Negative Negative - 4(70) +++ mg/dL [facility] Blood, UA Negative Negative - 50 Thor/mcL [facility] Clarity, UA Clear [facility] Color, UA Yellow [facility] Glucose, UA Negative Negative - 1999(110) ++++ mg/dL [facility] Interpretation and review of laboratory results Normal [facility] Ketones, UA Negative Negative - 160(16) ++++ mg/dL [facility] Leukocytes, UA Negative Negative - 500+++ Georgina/mcL [facility] Nitrite, UA Negative Negative - Positive [facility] pH, UA 6 5 - 9 [facility] Protein, UA Negative Negative - 1999(20) ++++ mg/dL [facility] Spec Grav, UA 1.01 1 - 1.03 [facility] Urobilinogen, UA 0.2 0.2 - 12 mg/dL [facility] Urinalysis macro (dipstick) panel (U)on 01-07-2025 Bilirubin, UA Negative Negative - 4(70) +++ mg/dL [facility] Blood, UA Negative Negative - 50 Thor/mcL [facility] Clarity, UA Clear [facility] Color, UA Yellow [facility] Glucose, UA Negative Negative - 2000(110) ++++ mg/dL [facility] Interpretation and review of laboratory results Normal [facility] Ketones, UA Negative Negative - 160(16) ++++ mg/dL [facility] Leukocytes, UA Negative Negative - 500+++ Georgina/mcL [facility] Nitrite, UA Negative Negative - Positive [facility] pH, UA 5.5 5 - 9 [facility] Protein, UA Negative Negative - 2000(20) ++++ mg/dL [facility] Spec Grav, UA 1.025 1 - 1.03 [facility] Urobilinogen, UA 0.2 0.2 - 12 mg/dL [facility] US OB TRANSVAGINALon 12-06- 025 US OB [...] II, MD, PHD at 07-Dec-2024 08:32:38 PM [facility] Normal Not Available Comment on above: Order Comment: US OB TRANSVAGINAL No LMP recorded. Culture, Urineon 08-17-2024 [place] - Organism 01 Escherichia coli Abnormal [facility] Comment on above: Order Comment: [place] - Source of Urine Collection? Urine clean catch\[id number]\Performed by [facility] [address] [place] [address] [place] - Source of Urine Collection? Urine clean catch [place] - Current Antibiotic Therapy? No Answer Given Performed By: #### C UR #### [facility] [employer] [facility] See Report [place] - SOURCE urine, clean catch Normal [facility] Comment on above: Order Comment: [place] - Source of Urine Collection? Urine clean catch\[id number]\Performed by [facility] [address] [place] [address] [place] - Source of Urine Collection? Urine clean catch [place] - Current Antibiotic Therapy? No Answer Given Performed By: #### C UR #### [facility] [employer] [facility] See Report [place] - URINE CULTURE [place] count: >100,000 CFU/mL Normal [facility] Comment on above: Order Comment: [place] - Source of Urine Collection? Urine clean catch\[id number]\Performed by [facility] [address] [place] [address] [place] - Source of Urine Collection? Urine clean catch [place] - Current Antibiotic Therapy? No Answer Given Performed By: #### C UR #### [facility] [employer] [facility] See Report URINE CULTUREon 08-17-2024 Bacteria identified Cx Nom (U) MICROBIOLOGY REPORT [facility] [employer] [facility], [address] [place] [address], [id number] PATIENT: LESIA GONZALEZ LOCATION: [facility] - - : 1990 AGE: 33 SEX: F ADM: 08/17/24 Att. Physician: PHYSICIAN, NON-STAFF Order Id: [id number] Req. Physician: PHYSICIAN, NON-STAFF Source: urine, clean catch Site: Collected: 08/17/24 16:24 Current Antibiotics: not stated Antibiotics comment: Damon Trevino M E N T S ---- [place] - Source of Urine Collection? Urine clean catch STATUS OF ORDERED AND REPORTED TESTS URINE CULTURE FINAL 08/19/24 URINE CULTURE FINAL 08/19/24 09:01 Organism 01 Escherichia coli [place] count: >100,000 CFU/mL Organism 01-esccol Antibiotic MICA [...] <=1 S IV 2000mg 164 Trimethoprim/Mane>=320 R [id number]/800mgSMX q 12h 1-2TMP/[id number] P/97SM IV 160mgTMP/800mgSMX q 8 h9TMP/105 SMX [...] blood and urine levels=mcg/ml.*Stand giuliana dosages from [place] Guide to Antimicrobial Therapy and assumes moderate infection in normal adult populations. For pts. with renal or liver disease consult PDR or pharmacist. Normal [facility] No Panel Informationon 05-23 Tobacco smoking status Non-Smoker Invalid Interpretation Code [place] [facility] - Chemistry and C hemistry - challengeon 04-18-2023 TSH Qn 1.23 m[IU]/L Invalid Interpretation Code 0.50-4.00 [facility] Thyroxine T4on 08-11-2022 T4 [Mass/Vol] 6.4 ug/dL Normal 4.5-10.9 [facility] Comment on above: Performed By: #### T 4, T3 #### [id number] [place], [place] [id number] Productivity Engineer: Ramiro Blandon MD #### TSH #### [facility] [address] [place] [address] Productivity Engineer: Annel García MD Triiodothyronine T3on 2021 Triiodothyronine T3 96 ng/dL Normal 60-181 [facility] Comment on above: Performed By: #### T 4, T3 #### [address] [id number] Productivity Engineer: Ramiro Blandon MD #### TSH #### [facility] [address] [place] [address] Productivity Engineer: Annel García MD Laboratory - Chemistry and C hemistry - challengeon 08-10-2022 T3 [Mass/Vol] 96.0 ng/dL Invalid Interpretation Code [facility] T4 [Mass/Vol] 6.4 ug/dL Invalid Interpretation Code [facility] TSH Qn 0.41 m[IU]/L Invalid Interpretation Code [employer] [facility] No Panel Informationon 08-10 jls Invalid Interpretation Code [facility] Thyroid Stim. Horm.on 2021 Thyroid Stim. Horm. 0.41 uIU/mL Normal 0.30-5.00 [facility] Comment on above: Performed By: #### T 4, T3 #### [address] [place] [address] Productivity Engineer: Ramiro Blandon MD #### TSH #### [facility] [address] [place] [address] Productivity Engineer: Annel García MD PAP ACOG PANEL 2: 30 to 65on 07-21-2022 . . Normal [facility] Comment on above: Result Comment: Perf ormed at: WB Performed By: #### [id number] #### [facility] [address] [address] [address] Jaci Irene Age Gdln ACOG Testing 30-65 Normal [facility] Comment on above: Performed By: #### [id number] #### [facility] [address] [place] [address] Dr. Jaci Irene DIAGNOSIS: Comment Normal [facility] Comment on above: Result Comment: NEGA TIVE FOR INTRAEPITHELIAL LESION OR MALIGNANCY. CELLULAR CHANGES ASSOCIATED WITH INFLAMMATION ARE PRESENT. Performed at: WB Performed By: #### [id number] #### [facility] [address] [place] [address] Dr. Jaci Irene HPV Aptima Negative Normal Negative [facility] Comment on above: Result Comment: This nucleic acid amplification test detects fourteen high-risk HPV types (16,18,31,33,35,39,45,51,52,56,58,59,66,68) without differentiation. Performed at: =G Performed By: #### [id number] #### [facility] [address] [address] [address] Jaci Irene HPV Genotype Reflex Comment Normal [facility] Comment on above: Result Comment: Crit eria not met, HPV Genotype not performed. Performed at: WB Performed By: #### [id number] #### [facility] [address] [place] [address] Dr. Jaci Irene Methodology: Comment Normal [facility] Comment on above: Result Comment: This liquid based ThinPrep(R) pap test was screened with the use of an image guided system. Performed at: WB Performed By: #### [id number] #### [facility] [address] [place] [address] Dr. Jaci Irene Note: Comment [facility] Comment on above: Result Comment: The Pap smear is a screening test designed to aid in the detection of premalignant and malignant conditions of the uterine cervix. It is not a diagnostic procedure and should not be used as the sole means of detecting cervical cancer. Both false-positive and false-negative reports do occur. . Performed at: WB Performed By: #### [id number] #### [facility] [address] [address] [address] Jaci Irene Performed by: Comment Normal [facility] Comment on above: Result Comment: Kirill Azevedo Magnetic Resonance Technologist (ASCP) Performed at: WB Performed By: #### [id number] #### [facility] [address] [place] [address] Dr. Jaci Irene Specimen adequacy: Comment Normal [facility] Comment on above: Result Comment: Sati sfactory for evaluation. Endocervical and/or squamous metaplastic cells (endocervical component) are present. Performed at: WB Performed By: #### 4 [id number] #### [facility] [address] [place] [address] Dr. Jaci Irene Laboratory - Cytologyon 06-20 Cytology report Cyto stain.thin prep Doc (Cvx/Vag) Pap Smear / Cervical Cytology Invalid Interpretation Code [facility] - Microbiology an d Antimicrobial susceptibilityon 07-14-2022 HPV 16+18+31+33+35+45+51+5 2+56 DNA Probe Ql (Cvx) HPV-DNA Test Invalid Interpretation Code [facility] US PELVIS AND TRANSVAGon US PELVIS AND [...] by: ANNEL MILNER Date: 2022-07-09 15:36 Normal [facility] Thyroxine T4on 03-17-2022 T4 [Mass/Vol] 6.3 ug/dL Normal 4.5-10.9 [facility] Comment on above: Performed By: #### F T3, T4 #### [address] [address] Productivity Engineer: Ramiro Blandon MD #### TSH #### [address] [place] [address] Productivity Engineer: Annel García MD Laboratory - Chemistry and C hemistry - challengeon 03-16-2022 Free T3 [Mass/Vol] 2.960 pg/mL Invalid Interpretation Code [employer] [facility] T4 [Mass/Vol] 6.3 ug/dL Invalid Interpretation Code [place] [employer] [facility] TSH Qn 0.61 m[IU]/L Invalid Interpretation Code [facility] No Panel Informationon 03-16 ls Invalid Interpretation Code [facility] T3, Freeon 03-16-2022 Free T3 [Mass/Vol] 2.96 pg/mL Normal 2.02-4.43 [facility] Comment on above: Performed By: #### F T3, T4 #### [address] [address] Productivity Engineer: Ramiro Blandon MD #### TSH #### [address] [place] [address] Productivity Engineer: Annel García MD Free T3 [Mass/Vol] 2.96 pg/mL 2.02 - 4. 43 pg/mL [facility] TSHon 03-16-2022 [facility] Thyroid Stim. Horm.on 2021 Thyroid Stim. Horm. 0.61 uIU/mL Normal 0.30-5.00 [facility] Comment on above: Performed By: #### F T3, T4 #### [facility] [address] [place] [address] Productivity Engineer: Ramiro Blandon MD #### TSH #### [facility] [address] [place] [address] Productivity Engineer: Annel García MD US PELVIS AND TRANSVAGon [...] by: ANNEL MILNER Date: 2022-03-15 07:03 Normal [facility] IODINE, SERUM OR PLASMAon Iodine, Serum or Plasma 66.7 ug/L Normal 40.0-92.0 [facility] Comment on above: Result Comment: Limi t of quantitation = 20 Performed By: #### I ODINE #### [facility] [address] [address] [address] Jaci Irene THYROID-STIMULATING IMMUNOGL OBULINon 08-05-2021 Thyroid Sim Immunoglobulin <0.10 Normal 0.00-0.55 [facility] Comment on above: Performed By: #### T ELAINA #### [facility] [address] [address] [address] Jaci Irene T3, TOTAL (TRIIODOTHYRONINE) on 08-04-2021 T3, TOTAL 168 ng/dL Normal 71-180 [facility] Comment on above: Performed By: #### T 3TOTAL ####[facility] [address] [address]Dr. Jaci Irene US THYROIDon 08-04-2021 US THYROID [...] SANDHYA BASS Date: 2021-08-04 06:30 Normal [facility] CBC AUTO DIFFon 08-03-2021 BASO # 0.0 103/ul Normal 0.0-0.1 [facility] Comment on above: Performed By: #### C BC #### [facility] [address] [address] [address] Jaci Irene Basophils/100 WBC (Bld) 0.6 % Normal 0.2-2.0 [facility] Comment on above: Performed By: #### C BC #### [facility] [address] [address] [address] Jaci Irene EO # 0.2 103/ul Normal 0.0-0.7 [facility] Comment on above: Performed By: #### C BC #### [facility] [address] [place] [address] Dr. Jaci Irene Eosinophils/100 WBC (Bld) 2.2 % Normal 0.9-7.0 [facility] Comment on above: Performed By: #### C BC #### [facility] [address] [place] [address] Dr. Jaci Irene Erythrocyte distribution width (RBC) [Ratio] 13.5 % Normal 11.0-15.0 [facility] Comment on above: Performed By: #### C BC #### [facility] [address] [place] [address] Dr. Jaci Irene Hematocrit (Bld) [Volume fraction] 40.9 % Normal 36.0-48.0 [facility] Comment on above: Performed By: #### C BC #### [facility] [address] [place] [address] Dr. Jaci Irene Hemoglobin (Bld) [Mass/Vol] 12.8 g/dL Normal 12.0-16.0 [facility] Comment on above: Performed By: #### C BC #### [facility] [address] [place] [address] Dr. Jaci Irene IG # 0.01 10e3/ul Normal 0.00-0.03 [facility] Comment on above: Performed By: #### C BC #### [facility] [address] [place] [address] Dr. Jaci Irene IG % 0.1 % Normal 0.0-0.5 [facility] Comment on above: Performed By: #### C BC #### [facility] [address] [place] [address] Dr. Jaci Irene LYMPH # 2.4 103/ul Normal 1.2-3.8 [facility] Comment on above: Performed By: #### C BC #### [facility] [address] [place] [address] Dr. Jaci Irene Lymphocytes/100 WBC (Bld) 35.3 % Normal 20.5-60.0 [facility] Comment on above: Performed By: #### C BC #### [facility] [address] [place] [address] Dr. Jaci Irene MANUAL DIFF REQ NO Normal [facility] Comment on above: Performed By: #### C BC #### [facility] [address] [place] [address] Dr. Jaci Irene MCH (RBC) [Entitic mass] 27.2 pg Normal 26.7-34.0 [facility] Comment on above: Performed By: #### C BC #### [facility] [address] [place] [address] Dr. Jaci Irene MCHC (RBC) [Mass/Vol] 31.3 g/dL Normal 29.9-35.2 [facility] Comment on above: Performed By: #### C BC #### [facility] [address] [place] [address] Dr. Jaci Irene MCV (RBC) [Entitic vol] 86.8 fL Normal 81.0-99.0 [facility] Comment on above: Performed By: #### C BC #### [facility] [address] [place] [address] Dr. Jaci Irene MONO # 0.6 103/ul Normal 0.3-0.8 [facility] Comment on above: Performed By: #### C BC #### [facility] [address] [place] [address] Dr. Jaci Irene Monocytes/100 WBC (Bld) 8.2 % Normal 1.7-12.0 [facility] Comment on above: Performed By: #### C BC #### [facility] [address] [place] [address] Dr. Jaci Irene NEUT # 3.6 103/ul Normal 1.4-6.5 [facility] Comment on above: Performed By: #### C BC #### [facility] [address] [place] [address] Dr. Jaci Irene Neutrophils/100 WBC (Bld) 53.6 % Normal 43.0-75.0 [facility] Comment on above: Performed By: #### C BC #### [facility] [address] [place], [place] [id number] Dr. Jaci Irene Platelet mean volume (Bld) [Entitic vol] 9.3 fL Critically low 9.5-13.5 [facility] Comment on above: Performed By: #### C BC #### [facility] [address] [place] [address] Dr. Jaci Irene PLT 299 103/ul Normal 150-450 [facility] Comment on above: Performed By: #### C BC #### [facility] [address] [place] [address] Dr. Jaci Irene RBC 4.71 106/ul Normal 4.20-5.40 [facility] Comment on above: Performed By: #### C BC #### [facility] [address] [place] [address] Dr. Jaci Irene WBC 6.7 103/ul Normal 4.0-11.0 [facility] Comment on above: Performed By: #### C BC #### [facility] [address] [place] [address] Dr. Jaci Irene Laboratory - Chemistry and C hemistry - challengeon 08-03-2021 ALT [Catalytic activity/Vol] 24.0 U/L Invalid Interpretation Code [facility] T3 [Mass/Vol] 168.0 ng/dL Invalid Interpretation Code [facility] T4 [Mass/Vol] 11.0 ug/dL Invalid Interpretation Code [facility] TSH Qn < 0.020 L Invalid Interpretation Code [facility] - Hematology and Cell countson 08-03-2021 Basophils/100 WBC (Bld) 0.60 % Invalid Interpretation Code [facility] Eosinophils/100 WBC (Bld) 2.20 % Invalid Interpretation Code [facility] Erythrocyte distribution width (RBC) [Ratio] 13.50 % Invalid Interpretation Code [facility] Hematocrit (Bld) [Volume fraction] 40.90 % Invalid Interpretation Code [facility] Hemoglobin (Bld) [Mass/Vol] 12.80 g/dL Invalid Interpretation Code [facility] Lymphocytes/100 WBC (Bld) 35.30 % Invalid Interpretation Code [facility] MCH (RBC) [Entitic mass] 27.20 pg Invalid Interpretation Code [facility] MCHC (RBC) [Mass/Vol] 31.30 g/dL Invalid Interpretation Code [facility] MCV (RBC) [Entitic vol] 86.80 fL Invalid Interpretation Code [facility] Monocytes/100 WBC (Bld) 8.20 % Invalid Interpretation Code [facility] Neutrophils/100 WBC (Bld) 53.60 % Invalid Interpretation Code [facility] Platelets (Bld) [#/Vol] 299.0 10*3/uL Invalid Interpretation Code [facility] RBC (Bld) [#/Vol] 4.710 10*6/uL Invalid Interpretation Code [facility] WBC (Bld) [#/Vol] 6.70 10*3/uL Invalid Interpretation Code [facility] No Panel Informationon 08-03 ls Invalid Interpretation Code [facility] < 0.10 Invalid Interpretation Code 0 - 0.55 [facility] 86.70 ug/L Invalid Interpretation Code [facility] SGPTon 08-03-2021 ALT [Catalytic activity/Vol] 24 U/L Normal 9-52 [facility] Comment on above: Performed By: #### T SH, ALT, T4 #### [facility] [address] [place] [address] Dr. Jaci Irene T4on 08-03-2021 T4 [Mass/Vol] 11.00 ug/dL Normal 5.53-11.00 [facility] Comment on above: Performed By: #### T SH, ALT, T4 #### [facility] [address] [address] [address] Jaci Irene TSHon 08-03-2021 TSH Qn m[IU]/L Critically low 0.470-4.680 [facility] Comment on above: Performed By: #### T SH, ALT, T4 #### [facility] [address] [place] [address] Dr. Jaci Irene TSH RANGE SEE BELOW Normal [facility] Comment on above: Result Comment: <0.3 4 UIU/ml HYPERTHYROID 0.34-5.60 UIU/ml EUTHYROID >5.60 UIU/ml HYPOTHYROID Performed By: #### T SH, ALT, T4 #### [facility] [address] [place] [address] Dr. Jaci Irene No Panel Informationon 04-24 Positive Invalid Interpretation Code [facility] 1:160 Invalid Interpretation Code [facility] COMMENT Invalid Interpretation Code [facility] Cytology Cervical or vaginal smear or scraping studyon 07-14-1992 [facility] Vital Signs Date Time Vital Sign Value Performing Clinician Faci lity 06-17-2025 13:49-0400 Body mass index (BMI) [Ratio] 25.96 kg/m2 Benson Cameron NP Work Phone: [facility] 06-17-2025 13:49-0400 Body weight 70.76 kg Benson Cameron [employer] Work Phone: [facility] 06-17-2025 13:49-0400 Diastolic blood pressure 70 mm[Hg] Benson Cameron NP Work Phone: [facility] 06-17-2025 13:49-0400 Systolic blood pressure 120 mm[Hg] Benson Rakesh [employer] Work Phone: [facility] 06-06-2025 10:05-0400 Body mass index (BMI) [Ratio] 27.96 kg/m2 Aaron Rosemary DO Work Phone: [facility] 06-06-2025 10:05-0400 Body weight 76.2 kg Aaron Rosemary DO Work Phone: [facility] 06-06-2025 10:05-0400 Diastolic blood pressure 74 mm[Hg] Aaron Rosemary DO Work Phone: [facility] 06-06-2025 10:05-0400 Systolic blood pressure 112 mm[Hg] Aaron Rosemary DO Work Phone: [facility] 05-30-2025 11:29-0400 Body mass index (BMI) [Ratio] 27.87 kg/m2 Benson Rakesh [employer] Work Phone: [facility] 05-30-2025 11:29-0400 Body weight 75.98 kg Benson Rakesh [employer] Work Phone: [facility] 05-30-2025 11:29-0400 Diastolic blood pressure 76 mm[Hg] Benson Rakesh [employer] Work Phone: [facility] 05-30-2025 11:29-0400 Systolic blood pressure 120 mm[Hg] Benson Rakesh [employer] Work Phone: [facility] 05-16-2025 08:41-0400 Body mass index (BMI) [Ratio] 27.58 kg/m2 Madiha LOPEZ Work Phone: [facility] 05-16-2025 08:41-0400 Body weight 75.18 kg Madiha LOPEZ Work Phone: [facility] 05-16-2025 08:41-0400 Diastolic blood pressure 72 mm[Hg] Madiha LOPEZ Work Phone: [facility] 05-16-2025 08:41-0400 Systolic blood pressure 126 mm[Hg] Madiha Chanelle PA Work Phone: [facility] 04-30-2025 09:20-0400 Body mass index (BMI) [Ratio] 26.79 kg/m2 Madiha Chanelle PA Work Phone: [facility] 04-30-2025 09:20-0400 Body weight 73.03 kg Madiha [place] PA Work Phone: [facility] 04-30-2025 09:20-0400 Diastolic blood pressure 74 mm[Hg] Madiha Chanelle PA Work Phone: [facility] 04-30-2025 09:20-0400 Systolic blood pressure 118 mm[Hg] Madiha [place] PA Work Phone: [facility] 04-16-2025 08:31-0400 Body mass index (BMI) [Ratio] 26.46 kg/m2 Aaron Rosemary DO Work Phone: [facility] 04-16-2025 08:31-0400 Body weight 72.12 kg Aaron Rosemary DO Work Phone: [facility] 04-16-2025 08:31-0400 Diastolic blood pressure 70 mm[Hg] Aaron Rosemary DO Work Phone: [facility] 04-16-2025 08:31-0400 Systolic blood pressure 110 mm[Hg] Aaron Rosemary DO Work Phone: [facility] 04-02-2025 10:17-0400 Body mass index (BMI) [Ratio] 25.96 kg/m2 Madiha Chanelle PA Work Phone: [facility] 04-02-2025 10:17-0400 Body weight 70.76 kg Madiha Chanelle PA Work Phone: [facility] 04-02-2025 10:17-0400 Diastolic blood pressure 72 mm[Hg] Madiha Chanelle PA Work Phone: [facility] 04-02-2025 10:17-0400 Systolic blood pressure 110 mm[Hg] Madiha Chanelle PA Work Phone: [facility] 03-05-2025 09:56-0400 Body mass index (BMI) [Ratio] 25.21 kg/m2 Aaron Rosemary DO Work Phone: [facility] 03-05-2025 09:56-0400 Body weight 68.72 kg Aaron Rosemary DO Work Phone: [facility] 03-05-2025 09:56-0400 Diastolic blood pressure 70 mm[Hg] Aaron Rosemary DO Work Phone: [facility] 03-05-2025 09:56-0400 Systolic blood pressure 110 mm[Hg] Aaron Rosemary DO Work Phone: [facility] 02-05-2025 10:23-0400 Body mass index (BMI) [Ratio] 24.1 kg/m2 Madiha LOPEZ Work Phone: [facility] 02-05-2025 10:23-0400 Body weight 65.68 kg Madiha LOPEZ Work Phone: [facility] 02-05-2025 10:23-0400 Diastolic blood pressure 68 mm[Hg] Madiha LOPEZ Work Phone: [facility] 02-05-2025 10:23-0400 Systolic blood pressure 100 mm[Hg] Madiha LOPEZ Work Phone: [facility] 01-07-2025 10:18-0400 Body mass index (BMI) [Ratio] 23.96 kg/m2 Aaron Rosemary DO Work Phone: [facility] 01-07-2025 10:18-0400 Body weight 65.32 kg Aaron Rosemary DO Work Phone: [facility] 01-07-2025 10:18-0400 Diastolic blood pressure 72 mm[Hg] Aaron Rosemary DO Work Phone: [facility] 01-07-2025 10:18-0400 Systolic blood pressure 110 mm[Hg] Aaron Rosemary DO Work Phone: [facility] 08-12-2021 11:02-0500 Body height 163.83 cm Paul [facility] 08-12-2021 11:02-0500 Body mass index (BMI) [Ratio] 23.58 kg/m2 Paul [employer] 08-12-2021 11:02-0500 Body surface area Derived from formula 1.7 m2 Paul [employer] 08-12-2021 11:02-0500 Body weight 63.28 kg Paul [employer] 08-12-2021 11:02-0500 Diastolic blood pressure 64 mm[Hg] Paul [employer] 08-12-2021 11:02-0500 Heart rate 72 /min Paul [employer] 08-12-2021 11:02-0500 Systolic blood pressure 122 mm[Hg] Paul [employer] 02-08-2013 10:11-0400 BMI (Body Mass Index) 23.69 kg/m2 Deidre [employer] 02-08-2013 10:11-0400 Body weight 62.6 kg Deidre [employer] 02-08-2013 10:11-0400 BP Diastolic 62 mm[Hg] Deidre [employer] 02-08-2013 10:11-0400 BP Systolic 100 mm[Hg] Deidre [employer] 02-08-2013 10:11-0400 BSA (Body Surface Area) 1.68 m2 Deidre [employer] 02-08-2013 10:11040 Height 162.56 cm Deidre Azael Reina [place] [employer] 02-08-2013 10:040 Pulse (Heart Rate) 66 /min Deidre Azael Reina [facility] [employer] Encounters Encounter Date Encounter Type Care Provider Facility Start: 06-17-2025 End: 06-17-2025 Bamboo flowsheet Benson Cameron [employer] Work Phone: [facility] Start: 06-17-2025 End: 06-17-2025 Bamboo flowsheet Benson Cameron [employer] Work Phone: [facility] Start: 06-17-2025 End: 06-17-2025 ambulatory BENSON CAMERON Not Available Start: 06-17-2025 End: 06-17-2025 Postop follow up visit related to original px Benson Cameron [employer] Work Phone: [facility] Comment on [...] flowsheet Aaron Rosemary DO Work Phone: [facility] Start: 06-06-2025 End: 06-06-2025 Bamboo flowsheet Aaron Rosemary DO Work Phone: [facility] Start: 06-06-2025 End: 06-06-2025 flow sheet Aaron Rosemary DO Work Phone: [facility] Comment on above: Third trimester preg cher ([facility]); 36 weeks gestation of ([facility]) Start: 06-06-2025 End: 06-06-2025 ambulatory AARON ROSEMARY Not Available Start: 05-30-2025 End: 05-30-2025 Bamboo flowsheet Benson Cameron [employer] Work Phone: [facility] Start: 05-30-2025 End: 05-30-2025 Bamboo flowsheet Benson Rakesh [employer] Work Phone: [facility] Start: 05-30-2025 End: 05-30-2025 flow sheet Benson Rakesh [employer] Work Phone: [facility] Comment on above: Third trimester preg cher ([facility]); 35 weeks gestation of ([facility]) Start: 05-30-2025 End: 05-30-2025 ambulatory BENSON RAKESH Not Available Start: 05-16-2025 End: 05-16-2025 Bamboo flowsheet Madiha LOPEZ Work Phone: [facility] Start: 05-16-2025 End: 05-16-2025 Bamboo flowsheet Madiha LOPEZ Work Phone: [facility] Start: 05-16-2025 End: 05-16-2025 flow sheet Madiha LOPEZ Work Phone: [facility] Comment on above: Third trimester preg cher ([facility]); 33 weeks gestation of ([facility]) Start: 05-16-2025 End: 05-16-2025 ambulatory MADIHA CHANELLE Not Available Start: 04-30-2025 End: 04-30-2025 Bamboo flowsheet Madiha LOPEZ Work Phone: [facility] Start: 04-30-2025 End: 04-30-2025 Bamboo flowsheet Madiha LOPEZ Work Phone: [facility] Start: 04-30-2025 End: 04-30-2025 flow sheet Madiha LOPEZ Work Phone: [facility] Comment on above: Third trimester preg cher ([facility]); 31 weeks gestation of ([facility]); Multigravida of advanced maternal age in third trimester ([facility]) Start: 04-30-2025 End: 04-30-2025 ambulatory MADIHA CHANELLE Not Available Start: 04-16-2025 End: 04-16-2025 Bamboo flowsheet Aaron Rosemary DO Work Phone: [facility] Start: 04-16-2025 End: 04-16-2025 Bamboo flowsheet Aaron Rosemary DO Work Phone: [facility] Start: 04-16-2025 End: 04-16-2025 flow sheet Aaron Rosemary DO Work Phone: [facility] Comment on above: Third trimester preg cher ([facility]); 29 weeks gestation of ([facility]); Multigravida of advanced maternal age in third trimester ([facility]) Start: 04-16-2025 End: 04-16-2025 ambulatory AARON [...] Comment on above: Second trimester pre gnancy ([facility]); 27 weeks gestation of ([facility]) Start: 04-02-2025 End: 04-02-2025 ambulatory MADIHA MORENO Not Available Start: 03-05-2025 End: 03-05-2025 Bamboo flowsheet Aaron Rosemary DO Work Phone: [facility] Start: 03-05-2025 End: 03-05-2025 Bamboo flowsheet Aaron Rosemary DO Work Phone: [facility] Start: 03-05-2025 End: 03-05-2025 flow sheet Aaron Rosemary DO Work Phone: [facility] Comment on above: Diabetes mellitus sc reening; Second trimester ([facility]); 23 weeks gestation of ([facility]) Start: 03-05-2025 End: 03-05-2025 ambulatory AARON ROSEMARY Not Available Start: 02-19-2025 End: 02-19-2025 Clinisync Result Encounter Aaron Rosemary DO Work Phone: [facility] Unsolicited Start: 02-19-2025 End: 02-19-2025 Clinisync Result Encounter Araon Rosemary DO Work Phone: [facility] [...] survey Start: 02-05-2025 End: 02-05-2025 ambulatory MADIHA OMRENO Not Available Start: 01-28-2025 Office outpatient vi sit 25 minutes Vladimir Dunaway Other [facility] Office Start: 01-07-2025 End: 01-07-2025 Bamboo flowsheet [...] with hematuria Start: 08-17-2024 [facility] Start: 05-23-2024 Office outpatient vi sit 15 minutes Vladimir Dunaway Other [facility] Office Start: 11-21-2023 Office outpatient vi sit 15 minutes Vladimir Dunaway Other [facility] Office Start: 10-10-2023 Office outpatient vi sit 15 minutes Vladimir Dunaway Other [facility] Office Start: 07-06-2023 Office outpatient vi sit 25 minutes Vladimir Dunaway Other [facility] Office Start: 04-18-2023 Lab Vladimir flores Other [facility] Office Start: 03-03-2023 Office outpatient vi sit 15 minutes Vladimir Dunaway Other [facility] Office Start: 01-11-2023 Office outpatient vi sit 15 minutes Vladimir Dunaway Other [facility] Office Start: 10-14-2022 Office outpatient vi sit 25 minutes Vladimir Dunaway Other [facility] Office Start: 08-10-2022 End: 08-11-2022 ambulatory [facility] Start: 07-15-2022 End: 07-15-[address] AARON RILEY Facility:[facility] Start: 07-09-2022 End: 07-10-2022 ambulatory NONE LISTED REQUEST Facility:[facility] Start: 06-08-2022 Office outpatient vi sit 25 minutes Vladimir Dunaway Other [facility] Office Start: 03-16-2022 End: 03-17-2022 ambulatory [facility] Start: 03-16-2022 End: 03-16-2022 Subsequent hospital visit by physician Prudence Aguilar MD Work Phone: [facility] Start: 03-13-2022 End: 03-14-[address] ANNEL MILNER Facility: Start: 12-18-2021 Office outpatient vi sit 15 minutes Vladimir Dunaway Other [facility] Office Start: 11-09-2021 Office outpatient vi sit 25 minutes Vladimir Dunaway Other [facility] Start: 08-12-2021 Office consultation new/estab patient 80 min Paul Mijares Other [facility] Start: 08-03-2021 End: 08-04-[address] RIVERA LISTED REQUEST Facility: Start: 10-28-2020 Office outpatient vi sit 15 minutes Vladimir Dunaway Other [facility] Start: 06-06-2020 Office outpatient vi sit 15 minutes Vladimir Dunaway Other [facility] Start: 04-24-2020 Office outpatient vi sit 15 minutes Vladimir Dunaway Other [facility] Office Start: 02-18-2020 Office outpatient ne w 20 minutes Deidre Addison Other [facility] Office Start: 08-24-2017 End: 08-24-2017 Ambulatory TASIA [facility] Start: 08-24-2017 Office outpatient vi sit 10 minutes Tasia Grady Work Phone: [facility] Start: 08-22-2017 End: 08-26-2017 Ambulatory TASIA [facility] Start: 08-22-2017 Office outpatient vi sit 15 minutes Tasia Grady Work Phone: [facility] Start: 02-08-2013 Office Services Paul padilla Other [facility] Office Procedures Date Procedure Procedure Detail Performing [...] DTaP/Tdap/Td vaccine (2 - Td or Tdap) [facility] Start: 07-22-2025 End: 07-22-2025 ambulatory 07/22/2025 10:30 AM EST Visit AJAY CAMERON [address] [place] [phone] Madiha Moreno PA [address] [place] [address] AJAY CAMERON Start: 06-17-2025 End: 06-17-2025 Patient encounter procedure 06/17/2025 1:20 PM EDT Office Visit [facility] [address] [place] [phone] Benson Cameron, AMNA [address] [place] [phone] [facility] Start: 06-06-2025 End: 06-06-2025 Patient encounter procedure [facility] Comment on above: Arrived Start: 05-30-2025 End: 05-30-2026 CULTURE, GROUP B STREP WITH SUSCEPTIBLITY CULTURE, GROUP B STREP WITH SUSCEPTIBLITY Lab Routine Third trimester ([facility]) Expected: 05/30/2025, Expires: 05/30/2026 [facility] Work Phone: Comment on above: Expected: 05/30/2025 , Expires: 05/30/2026 Start: 05-30-2025 End: 05-30-2025 Patient encounter procedure [facility] Comment on above: Arrived Start: 05-16-2025 End: 05-16-2025 Patient encounter procedure 05/16/2025 8:30 AM EDT Routine [facility] [address] [place] [phone] Madiha Moreno PA [address] [place] [address] Arrived [facility] Comment on above: Arrived Start: 05-14-2025 End: 05-14-2025 Patient encounter procedure 05/14/2025 10:30 AM EDT Routine [facility] [address] [place] [phone] Aaron Riley DO [address] [place] [address] [facility] Start: 04-30-2025 End: 04-30-2025 Patient encounter procedure [facility] Comment on above: Arrived Start: 04-30-2025 End: 04-30-2025 Professional / ancillary services management 04/30/2025 8:30 AM EDT Ancillary Procedure [facility] [address] [place] [phone] [facility] Start: 04-16-2025 End: 04-16-2025 Patient encounter procedure [facility] Comment on above: Arrived Start: 04-02-2025 End: 04-02-2025 Patient encounter procedure 04/02/2025 10:30 AM EDT Routine [facility] [address] [place] [phone] Madiha Moreno PA [address] [place], [place] [phone] Arrived [facility] Comment on above: Arrived Start: 03-05-2025 End: 03-05-2026 CBC panel - Blood by Automated count CBC Lab Routine Diabetes mellitus screening Expected: 03/05/2025 (Approximate), Expires: 03/05/2026 [facility] Work Phone: Comment on above: [...] AM EDT Routine [facility] [address] [place] [phone] Aaron Riley, [address] [place] [address] Arrived [facility] Comment on above: Arrived Start: 05-20-2024 COVID-19 Vaccine ( season) COVID-19 Vaccine ( season) [facility] Start: 04-19-2024 Influenza vaccination Flu vaccine (# 1) [facility] Start: 04-15-2023 Assay of thyroid stimulating hormone tsh TSH [facility] Start: 07-29-2022 Assay of thyroid stimulating hormone tsh TSH [facility] Start: 07-29-2022 Assay of thyroxine total T4 [facility] Start: 07-29-2022 Assay of triiodothyr onine t3 total tt3 T3 total [facility] Start: 05-20-2022 Influenza vaccination Flu vacc ine (Season Ended) [facility] Start: 03-12-2022 Assay of thyroid stimulating hormone tsh TSH [facility] Start: 03-12-2022 Assay of thyroxine total T4 Reina [employer] [facility] Start: 03-12-2022 Assay of triiodothyr onine t3 total tt3 T3 total [employer] [employer] Start: 11-12-2021 Assay of thyroid stimulating hormone tsh TSH [facility] Start: 11-12-2021 Assay of thyroxine total T4 [employer] [facility] Start: 11-12-2021 Assay of triiodothyr onine t3 total tt3 T3 total [facility] Start: 08-05-2021 Assay of thyroid stimulating hormone tsh TSH [place] [employer] [facility] Start: 08-05-2021 Assay of thyroxine total T4 [employer] [facility] Start: 08-05-2021 Assay of triiodothyr onine t3 total tt3 T3 total [facility] Start: 08-05-2021 Blood count complete automated CBC & PLATELET COUNT; AUTOMATED [employer] [facility] Start: 08-05-2021 Mass spect&tandem ma ss spect nondrg anal jolanta ea IODINE,SERUM [facility] Start: 08-05-2021 Thyroid stimulating immune globulins tsi TSI (thyroid stimulating immunoglobulin) [employer] [facility] Start: 08-05-2021 Transferase alanine amino alt sgpt SGPT (ALT) [facility] Start: 08-03-2021 US scan of thyroid Thyroid ultrasoun d [facility] Start: 04-24-2020 ANTINUCLEAR ANTIBODIES GHAZAL Hep 2 [employer] Start: 2018 Screening for malign ant neoplasm of cervix [facility] Start: 08-24-2017 Ambulatory 08/24/2017 Off ice Visit Dermatology Tasia Grady Jr., DO [address] [place] [address] [phone] [facility] Start: 05-20-2017 Influenza vaccination SEQUENTI AL INFLUENZA VACCINE (#1) [facility] Work Phone: Start: 2009 Screening for malign ant neoplasm of cervix Pap smear [facility] Start: 12-06-2007 Hepatitis B vaccine (1 of 3 - 19+ 3-dose series) Hepatitis B vaccine (1 of 3 - 19+ 3-dose series) [facility] Start: 2006 Hepatitis C screening Hepatitis C sc reen [facility] Start: 12-06-2003 HIV screening HIV screen [facility] Start: 2001 Varicella vaccine (1 of 2 - 13+ 2-dose series) Varicella vaccine (1 of 2 - 13+ 2-dose series) [facility] Start: 2000 Depression Screen Depression Screen [facility] Start: 1994 Pneumococcal 0-64 ye ars Vaccine (1 of 2 - PCV) Pneumococcal 0-64 years Vaccine (1 of 2 - PCV) [facility] Start: 1993 COVID-19 Vaccine (1) COVID-19 Vaccin e (1) [facility] Start: 1989 Varicella vaccine (1 of 2 - 2-dose childhood series) Varicella vaccine (1 of 2 - 2-dose childhood series) [facility] Start: 1988 Screening for malign ant neoplasm of cervix PAP SMEAR [facility] Work Phone: Start: 1988 Tetanus vaccination TETANUS EVERY 10 YR [facility] Work Phone: CHLAMYDIA TRACHOMATI S (GENITO/STI) CHLAMYDIA TRACHOMATIS (GENITO/STI) Lab Routine Exposure to STD Ordered: 02/05/2025 [facility] Comment on above: Ordered: 02/05/2025 End: 08-17-2024 Culture, Urine [facility] Work Phone: Comment on above: 1 Occurrences starti ng 08/17/2024 until 08/17/2024 Cytology Cervical or vaginal smear or scraping study Pap Smear Pathology and Cytology Routine Well woman exam with routine gynecological exam Ordered: 02/05/2025 [facility] [employer] Work Phone: Comment on above: Ordered: 02/05/2025 Human papilloma viru s DNA [Presence] in Unspecified specimen by Probe with amplification HPV DNA probe, amplified Microbiology Routine Well woman exam with routine gynecological exam Ordered: 02/05/2025 [facility] Comment on above: Ordered: 02/05/2025 Neisseria gonorrhoea e DNA [Presence] in Unspecified specimen by JULIANNA with probe detection Neisseria gonorrhea DNA probe, direct Lab Routine Exposure to STD Ordered: 02/05/2025 [facility] Comment on above: Ordered: 02/05/2025 SURESWAB(R) ADVANCED VAGINITIS PLUS, TMA SURESWAB(R) ADVANCED VAGINITIS PLUS, TMA Pathology and Cytology Routine Vaginal discharge Ordered: 02/05/2025 [facility] Comment on above: Ordered: 02/05/2025 End: 03-16-2022 T4 [facility] [employer] Work Phone: Comment on above: Once for 1 Occurrenc es starting 03/16/2022 until 03/16/2022 Immunizations Immunization Date Immunization Notes Care Provider Aziza kearney 07-25-2020 influenza, injectabl e, quadrivalent, preservative free [facility] Schedule [facility] 07-23-2019 Influenza, injectabl e, Madin Billings Canine Kidney, preservative free, quadrivalent [facility] Schedule [facility] 07-06-2019 tetanus toxoid, redu shira diphtheria toxoid, and acellular pertussis vaccine, adsorbed [facility] Schedule [facility] Payers Date Payer Category Payer Private Health Insurance [id number] 1 2012 Private Health Insurance [id number] 1 2011 Managed Care HMO (unspecified) [employer] [id number] 1988 Unknown [id number] 9.2.593 1988 Unknown [id number] 2.16.840.1.988927.3.57 9.2.593 1988 Unknown [id number] 2.16840.1.974504.3.57 9.2.593 1988 Unknown [id number] 2.16.840.1.885595.3.57 9.2.593 1988 Unknown [id number] 2.16.840.1.954922.3.57 9.2.173 1988 Unknown [id number] 2.16.840.1.297045.3.57 9.2.173 1988 Unknown [id number] 2.16.840.1.179313.3.57 9.2.754 1988 Unknown [id number] 2.16.840.1.188904.3.57 9.2.1259 1988 Unknown [id number] 2.16.840.1.483870.3.57 9.2.1259 1988 Unknown [id number] 2.16.840.1.107918.3.57 9.2.1259 1988 Unknown [id number] 2.16.840.1.250222.3.57 9.2.1259 1988 Unknown [id number] 2.16.840.1.807552.3.57 9.2.1259 1988 Unknown [id number] 2.16.840.1.596616.3.57 9.2.1259 1988 Unknown [id number] 2.16.840.1.590835.3.57 9.2.1259 1988 Unknown [id number] 2.16.840.1.237586.3.57 9.2.1259 1988 Unknown [id number] 2.16.840.1.804237.3.57 9.2.1259 1988 Unknown [id number] 2.16.840.1.212560.3.57 9.2.1259 1988 Unknown [id number] 2.16.840.1.681028.3.57 9.2.1259 1988 Unknown [id number] 2.16.840.1.170608.3.57 9.2.1259 1988 Unknown [id number] 2.16.840.1.500036.3.57 9.2.1259 1959 Private Health Insurance [id number] 9.13 Social History Date Type Detail Facility Start: End: 08-24-2017 Tobacco smoking status WYIS Never smoker [facility] Start: 1988 Sex Assigned At Not on file [facility] Work Phone: Start: Alcohol [facility] [employer] [facility] Start: 10-30-2014 End: 04-26-2024 Alcohol intake Current non-drinker of alcohol (finding) [facility] Work Phone: Start: 04-26-2024 History of Social function [facility] Work Phone: Start: 04-26-2024 Tobacco use panel [facility] Work Phone: Tobacco smoking status NHIS Tobacco smoking consumption unknown [facility] Start: 10-06-2024 [facility] 01-07-2025 to 06-17-2025 Benson [...] 8 hours PRN Magnesium 400 mg, Daily [place]-3 Fatty Acids (OMEGA-3 CF PO) 1 each, Daily Vit-Fe Fumarate-FA ( Vitamin Plus Low Iron) 27-1 MG tablet 1 each, Every 24 hours ALLERGIES Allergies Allergen Reactions Doxycycline Other and Unknown Autoimmune reaction 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 Exam conducted with a warp knit operator present. Vitals: Estimated body mass index is [...] Benson Cameron NP documented in this encounter [facility] 06-06-2025 History of Presen t illness Narrative Reason for Appointment: Patient ID: Lesia Gonzalez is a 34 y.o. female who presents for Routine Visit Patient presents today for Return OB appointment. 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 Exam conducted with a warp knit operator present. Vitals: Estimated body mass index is 27.96 kg/m as calculated from the following: Height as of 07/14/22: 5' 5 . Weight as of this encounter: 168 lb. BP: 112/74 Patient's last menstrual period was 09/22/2024. ASSESSMENT & PLAN ICD-10-CM 1. Third trimester ([facility]) Z34.93 POCT urinalysis dipstick manually resulted 2. 36 weeks gestation of ([facility]) Z3A.36 Patient presents today for a routine obstetrics appointment. Patient is currently 36w5d with a Estimated Date of Delivery: 06/29/25. Patient scheduled for repeat on 06/10/25. Patient to return to clinic 1 week post operative appointment. Documented by Imelda Mackay LPN on behalf of: Aaron Riley DO documented in this encounter [facility] 05-30-2025 History of Presen t illness Narrative Reason for Appointment: Patient ID: Lesia Gonzalez is a 34 y.o. female who presents for Routine Visit Patient presents today for Return OB appointment. 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 Exam conducted with a warp knit operator present. Vitals: Estimated body mass index is 27.87 kg/m as calculated from the following: Height as of 07/14/22: 5' 5 . Weight as of this encounter: 167 lb 8 oz. BP: 120/76 Patient's last menstrual period was 09/22/2024. ASSESSMENT & PLAN ICD-10-CM 1. Third trimester ([facility]) Z34.93 POCT urinalysis dipstick manually resulted CULTURE, GROUP B STREP WITH SUSCEPTIBLITY CULTURE, GROUP B STREP WITH SUSCEPTIBLITY 2. 35 weeks gestation of ([facility]) Z3A.35 Patient is doing well but [...] Benson Cameron NP documented in this encounter [facility] 05-16-2025 History of Presen t illness Narrative Reason for Appointment: Patient ID: Lesia Gonzalez is a 34 y.o. female who presents for Routine Visit Patient presents today for Return OB appointment. 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 Third trimester ([facility]) Z34.93 POCT urinalysis dipstick manually resulted 2. 33 weeks gestation of ([facility]) Z3A.33 Return OB: Patient presents today [...] of: JOHN Garcia documented in this encounter [facility] 04-30-2025 History of Presen t illness Narrative Reason for Appointment: Patient ID: Lesia Gonzalez is a 34 y.o. female who presents for Routine Visit Patient presents today for Return OB appointment. 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 Third trimester ([facility]) Z34.93 POCT urinalysis dipstick manually resulted 2. 31 weeks gestation of ([facility]) Z3A.31 3. Multigravida of advanced maternal age in third trimester ([facility]) O09.523 Return OB: Patient presents today [...] of: JOHN Garcia documented in this encounter [facility] 04-16-2025 History of Presen t illness Narrative Reason for Appointment: Patient ID: Lesia Gonzalez is a 34 y.o. female who presents for Routine Visit Patient presents today for Return OB appointment. MEDICATIONS Current Outpatient Medications Medication Instructions Magnesium 400 mg, Daily [place]-3 Fatty Acids (OMEGA-3 CF PO) 1 each, [...] nursing note reviewed. Exam conducted with a warp knit operator present. Vitals: Estimated body mass index is 26.46 kg/m as calculated from the following: Height as of 07/14/22: 5' 5 . Weight as of this encounter: 159 lb. BP: 110/70 Patient's last menstrual period was 09/22/2024. ASSESSMENT & PLAN ICD-10-CM 1. Third trimester ([facility]) Z34.93 POCT urinalysis dipstick manually resulted 2. 29 weeks gestation of ([facility]) Z3A.29 3. Multigravida of advanced maternal age in third trimester ([facility]) O09.523 Return OB: Patient presents today [...] Aaron Riley DO documented in this encounter [facility] 04-02-2025 History of Presen t illness Narrative Reason for Appointment: Patient ID: Lesia Gonzalez is a 34 y.o. female who presents for Routine Visit Patient presents today for Return OB appointment. MEDICATIONS Current Outpatient Medications Medication Instructions Magnesium 400 mg, Daily [place]-3 Fatty Acids (OMEGA-3 CF PO) 1 each, [...] ASSESSMENT & PLAN ICD-10-CM 1. Second trimester ([facility]) Z34.92 POCT urinalysis dipstick manually resulted 2. 27 weeks gestation of ([facility]) Z3A.27 Return OB: Patient presents today [...] Medications Medication Instructions Magnesium 400 mg, Daily [place]-3 Fatty Acids (OMEGA-3 CF PO) 1 each, [...] ASSESSMENT & PLAN ICD-10-CM 1. Second trimester ([facility]) Z34.92 POCT urinalysis dipstick manually resulted 2. 27 weeks gestation of ([facility]) Z3A.27 Return OB: Patient presents [...] of: JOHN Garcia documented in this encounter [facility] 03-05-2025 History of Presen t illness Narrative Reason for Appointment: Patient ID: Lesia Gonzalez is a 34 y.o. female who presents for Routine Visit Patient presents today for Return OB appointment. MEDICATIONS Current Outpatient Medications Medication Instructions Magnesium 400 mg, Daily [place]-3 Fatty Acids (OMEGA-3 CF PO) 1 each, [...] Glucose tolerance, 1 hour 2. Second trimester ([facility]) Z34.92 POCT urinalysis dipstick manually resulted 3. 23 weeks gestation of ([facility]) Z3A.23 Return OB: Patient presents today [...] Aaron Riley DO documented in this encounter [facility] 02-05-2025 History of Presen t illness Narrative Reason for Appointment: Patient ID: Lesia Gonzalez is a 34 y.o. female who presents for No chief complaint on file. Patient presents today for Annual Exam. and Return OB appointment. MEDICATIONS Current Outpatient Medications Medication Instructions Magnesium 400 mg, Daily [place]-3 Fatty Acids (OMEGA-3 CF PO) 1 each, [...] nursing note reviewed. Exam conducted with a warp knit operator present. Vitals: Estimated body mass index is [...] obtained without difficulty and patient was given [facility] order to have obtained. [...] of: JOHN Garcia documented in this encounter [facility] 01-07-2025 History of Presen t illness Narrative Reason for Appointment: Patient ID: Lesia Gonzalez is a 34 y.o. female who presents for Routine Visit Patient presents today for Return OB appointment. MEDICATIONS Current Outpatient Medications Medication Instructions Magnesium 400 mg, Daily [place]-3 Fatty Acids (OMEGA-3 CF PO) 1 each, [...] nursing note reviewed. Exam conducted with a warp knit operator present. Vitals: Estimated body mass index is [...] undercooked meat, and stay away from [facility]. 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 ACP-Advance Directive ACP-Power of Fish Net Maker Additional Source Comments INFORMATION SOURCE (unrecogn ized section and content) DATE CREATED AUTHOR 03/14/2018 [facility] DATE CREATED AUTHOR AUTHOR'S ORGANIZ ATION 07/22/2022 [facility] DATE CREATED AUTHOR AUTHOR'S ORGANIZ ATION 08/12/2022 [facility] DATE CREATED AUTHOR AUTHOR'S ORGANIZ ATION 08/19/2024 [facility] DATE CREATED AUTHOR AUTHOR'S ORGANIZ ATION 08/19/2024 [facility] DATE CREATED AUTHOR AUTHOR'S ORGANIZ ATION 06/23/2025 [facility] EPIC Care Teams (unrecognized sec tion and content) Hog Dropper Relationship Specialty Start Date End Date Prudence Aguilar MD [address] [place] [address] PCP - General 12/27/20 Hog Dropper Relationship Specialty Start Date End Date Prudence Aguilar MD [address] [place] [address] PCP - General 12/27/20 Hog Dropper Relationship Specialty Start Date End Date Prudence Aguilar MD [address] [place], [place] [id number] PCP - General Family Medicine 11/15/24 Hog Dropper Relationship Specialty Start Date End Date Prudence Aguilar MD [address] [place] [id number] PCP - General Family Medicine 11/15/24 Hog Dropper Relationship Specialty Start Date End Date Prudence Aguilar MD [address] [place] [address] PCP - General Family Medicine 11/15/24 Hog Dropper Relationship Specialty Start Date End Date Prudence Aguilar MD [address] [place], [place] [id number] PCP - [facility] Medicine 11/15/24 Hog Dropper Relationship Specialty Start Date End Date Prudence Aguilar MD [address] [place], [place] [id number] PCP - [facility] 11/15/24 Hog Dropper Relationship Specialty Start Date End Date Prudence Aguilar MD [address] [place] [id number] PCP - [facility] 11/15/24 Hog Dropper Relationship Specialty Start Date End Date Prudence Aguilar MD [address] [place], [place] [phone] PCP - [facility] Medicine 11/15/24 Reason for Visit (unrecogniz ed [...] BE BASED ON THE PRIMARY CLINICAL RECORDS. [facility]. provides no warranty or guarantee of the accuracy or completeness of information in this document.
--- OUTSIDE RECORDS SUMMARY | 2025-07-05 08:03 | XMS_ITS | Encounter Summary ---
Author Organization [facility] Address [address] [place] [address] Care Team Providers Care Steward/Stewardess Third Class Name Role Phone José Aguilar MD Primary Care Provider [phone] Encounter Details Date Type Department Care Team (Late Contact Info) Description 12/18/2024 Abstract [facility] [address] [facility] [place] [address] Aaron Riley DO [address] Mounika Bundy, [id number] Social History Tobacco Use Types Packs/Day Years [...] 10:30 AM EST Visit AJAY CAMERON [address] [place] [address] Madiha Roca PA [address] [place] [address] documented as of this encounter Visit Diagnoses Not on filedocumented in this encounter Care Teams Steward/Stewardess Third Class Relationship Specialty Start Date End Date José Aguilar MD [address] [place] [id number] PCP - General Family Medicine 11/15/24 documented as of this encounter
--- NOTE | 2025-07-05 12:59 | PC.NURSE ---
Lesia and 3 week+4 day old Eliu arrive for weight check and progress check. waking with stimulation. Mom states she still sleeps so much Discussed expectations for a LPI , differences in behavior and strategies to increase wake time. Aware of importance of rest for growth and development of baby. Infant has voided, outfit soaked. NB diaper is soaked as well. Mom states her diapers are really wet now, yellow stool also noted. States 'feel like she is better at emptying the breast When I pump right after, I am not collecting the same amount . Reviewed being able to transfer milk more effectively and not as much milk left in breast to be removed. Mom agrees with idea. States 3 times now she has re-gurged significant amount of milk, randomly and without warning Episodes are random, and appears relaxed and quiet afterwards. Advised to mention to Peds, but is gaining weight and transfers milk well. Weight today 6-13 (3090 gms). Mom is pleased with gain. to breast, does well with latching and audible swallows. Mom states I just feed her when she asks, I have a timer set for every 3 hours, but if she wakes prior to that, she gets fed . Reviewed benefits of infant lead feeding vs clock fed approach. Mom states is comfortable with letting baby lead. Couplet home at this time. Will call for concerns, aware of [facility] and to call as needed.
== END 2025-07-05 13:10 | disposition home or self-care (01) ==
LOC: FBCO 08:00
PROVIDERS: PCP Family Medicine; Visit Provider Obstetrics & Gynecology
DX: Z39.1 Encounter for care and examination of lactating mother (principal)
CPT/HCPCS: G0463